=== PATIENT | male | born 1955 | race African-American/Black ===

== ENCOUNTER 2017-01-29 08:38 | Inpatient (IN) | payer OTHER ==
--- NOTE | 2017-01-29 08:50 | PDOC ---
History of Present Illness - General Chief Complaint: Back Pain Stated Complaint: BACK PAIN Time Seen by Provider: 01/29/17 08:49 - History of Present Illness Initial Comments: 01/29/17 09:07 Mr. Govea is a 61 yo male w/ pmh of CHF, DM, HLD, HTN, Current Methadone treatment (100mg daily through [facility]), Hep C (undergoing treatment) and degenerative joint disease BIBA who presents complaining of 2 days of severe pain in his back, legs, and buttocks. He relates presenting to [facility] last night for this same problem but says they gave him narcotics only and sent him home. He says he is here because he would like know why he is having this pain. Also, he reports he has not had a bowel movement or been able to make urine in 2 -3 days. The patient denies chest pain, shortness of breath, headache and dizziness. Denies fever, chills, nausea, vomit, diarrhea and constipation. Denies dysuria, frequency, urgency and hematuria. Allergies: NKDA Past History - Past Medical History Allergies/Adverse Reactions: Allergies Allergy/AdvReac Type Severity Reaction Status Date / Time No Known Allergies Allergy Verified 01/10/13 11:37 Home Medications: Ambulatory Orders Buprenorphine [Butrans] 1 patch.wk TD WEEKLY 12/08/12 Methadone [Dolophine -] 80 mg PO DAILY 12/08/12 Eszopiclone [Lunesta] 1 tab PO HS 01/10/13 Ibuprofen [Advil -] 200 mg PO PRN 01/10/13 Atorvastatin Ca [Lipitor] 40 mg PO HS #0 tablet 01/12/13 Furosemide [Lasix -] 40 mg PO DAILY #0 tablet 01/12/13 Gabapentin [Neurontin -] 400 mg PO TID #0 capsule 01/12/13 Liraglutide [Victoza -] 1.2 mg SQ HS #0 pen.injctr 01/12/13 Lisinopril [Prinivil] 20 mg PO DAILY #0 tablet 01/12/13 Metolazone [Zaroxolyn -] 2.5 mg PO DAILY@0930 #0 tablet 01/12/13 Quetiapine Fumarate "Xr" [Seroquel XR] 150 mg PO HS@2000 #0 tablet 01/12/13 Benicar - 1 tab PO DAILY 05/24/14 Asthma: Yes CHF: Yes Diabetes: No HTN: Yes (since 1989) Hypercholesterolemia: Yes - Surgical History Abdominal Surgery: Yes (gastric bypass) GI Surgery: Yes (gastric bypass) Orthopedic Surgery: Yes (lt knee replacement 2007, nia inserted into right lower leg) - Suicide/Smoking/Psychosocial Hx Smoking History: Current every day smoker Have you smoked in the past 12 months: Yes Number of Cigarettes Smoked Daily: 4 'Breaking Loose' booklet given: 01/10/13 Hx Alcohol Use: No Drug/Substance Use Hx: Yes Substance Use Type: None Hx Substance Use Treatment: No Review of Systems - Review of Systems Comments:: 01/29/17 10:00 GENERAL/CONSTITUTIONAL: No fever or chills. No weakness. HEAD, EYES, EARS, NOSE AND THROAT: No change in vision. No ear pain or discharge. No sore throat. CARDIOVASCULAR: No chest pain or shortness of breath RESPIRATORY: No cough, wheezing, or hemoptysis. GASTROINTESTINAL: No nausea, vomiting, diarrhea or constipation. GENITOURINARY: No dysuria, frequency, or change in urination. MUSCULOSKELETAL: +Generalized lower back pain and bilaterally lower extremity pain reported with any movement. SKIN: No rash NEUROLOGIC: No headache, vertigo, loss of consciousness, or change in strength/ sensation. ENDOCRINE: No increased thirst. No abnormal weight change HEMATOLOGIC/LYMPHATIC: No anemia, easy bleeding, or history of blood clots. ALLERGIC/IMMUNOLOGIC: No hives or skin allergy. *Physical Exam - Physical Exam Comments: 01/29/17 10:02 GENERAL: Awake, alert, and fully oriented, in no acute distress HEAD: No signs of trauma, normocephalic, atraumatic EYES: PERRLA, EOMI, sclera anicteric, conjunctiva clear ENT: Auricles normal inspection, hearing grossly normal, nares patent, oropharynx clear without exudates. Moist mucosa NECK: Normal ROM, supple, no lymphadenopathy, JVD, or masses LUNGS: No distress, speaks full sentences, clear to auscultation bilaterally HEART: Regular rate and rhythm, normal S1 and S2, no murmurs, rubs or gallops, peripheral pulses normal and equal bilaterally. ABDOMEN: Soft, nontender, normoactive bowel sounds. No guarding, no rebound. No masses EXTREMITIES: +Patient reporting extreme pain with any repositioning of back or legs. Unable to ambulate at baseline. NEUROLOGICAL: Cranial nerves II through XII grossly intact. Normal speech, no focal sensorimotor deficits SKIN: Warm, Dry, normal turgor, no rashes or lesions noted. ED Treatment Course - LABORATORY CBC & Chemistry Diagram: 01/29/17 09:50 01/29/17 09:50 Medical Decision Making - Medical Decision Making 01/29/17 10:23 Mr. Govea presents w/ a 2 day history of severe lower back pain radiating bilaterally down both legs; [facility]. Upon exam noted to have dark stool which was guaiac positive with H/H of 7.3/22.8 down from last (11.1/35.0 in July). Will admit for GI workup as well as transfusion in addition to planned MRI to r/o cord compression. *DC/Admit/Observation/Transfer Diagnosis at time of Disposition: Rectal bleed Anemia Qualifiers: Anemia type: unspecified type Qualified Code(s): D64.9 - Anemia, unspecified - Discharge Dispostion Admit: Yes - Referrals - Patient Instructions - Post Discharge Activity
--- NOTE | 2017-01-29 09:11 | PDOC ---
Attending Attestation - HPI HPI: 01/29/17 10:32 Pt is a 61 yo M with a PMHx of Asthma, CHF, HTN, HLD, Hepatitis C, Degenerative Joint Disease, Obesity, Heroin use (on methadone) who presents to the ED with lower back pain, legs and buttocks for the past week. Patient reports going to [facility] for the same complaints however his symptoms still persists. Patient with no urine or bowel output with the past 3 days. Patient admits to snorting cocaine this morning however has not used IVD within the past year. PCP: Dr. Efraín Solorzano - Physicial Exam PE: 01/29/17 10:32 Vitals: Triage Vital signs reviewed General Appearance: +obese. no acute distress, well nourished well developed, Head: Atraumatic, normocephalic Neck: Supple;No Nuchal rigidity Chest Wall: Nontender Cardiac: Regular rate and rhythm, no murmurs, no rubs, no gallops, Lungs: Clear to auscultation bilateral, good air movement bilaterally, Abdomen: Soft, nondistended, normal bowel sounds, nontender to palpation Extremities: + 3/5 strength in bilateral lower extremities. 2+ pitting edema in bilateral lower extremities. Full range of motion to all extremities, no cyanosis, clubbing. Skin: Warm and dry, no rashes or lesions, no petechiae - Medical Decision Making 01/29/17 10:33 Documentation prepared by Juanita Hurley, acting as medical technologist chief for Corbin Cano MD, /DO. 01/29/17 10:[address] Diaz's service. Awaiting Dr. Diaz to evaluate patient in the ED. <Juanita Hurley - Last Filed: 01/29/17 10:33> - Resident Resident Name: Andrew Saeed - ED Attending Attestation I have performed the following: I have examined & evaluated the patient, The case was reviewed & discussed with the resident, I agree w/resident's findings & plan, Exceptions are as noted - Critical Care Time Total Critical Care Time: 35 Critical Care Statement: The care of this patient involved high complexity decision making to prevent further life threatening deterioration of the patient 's condition and/or to evaluate & treat vital organ system(s) failure or risk of failure. - Medical Decision Making 01/29/17 16:50 Patient with severe low back pain. History of drug use. MRI ordered. Patient also with anemia and guaiac positive stool admitted to hospital to rule out GI bleed Reevaluation final MRI report demonstrates osteomyelitis. Ceftriaxone and vancomycin ordered. Dr. Diaz paged to inform of updated MRI results. 02/01/17 13:56 <Corbin Cano - Last Filed: 02/01/17 13:56>
[2017-01-29 09:59] LABS: BASO % 0.6 % (0-2.0); EOS % 2.2 % (0-4.5); HEMATOCRIT 22.8 % (35.4-49); HEMOGLOBIN 7.3 GM/dL (11.7-16.9); LYMPH % 15.9 % (8-40); MCH 25.6 pg (25.7-33.7); MONO % 10.4 % (3.8-10.2); NEUT % 70.9 % (42.8-82.8); PLATELET COUNT 322 K/MM3 (134-434); RBC 2.85 M/mm3 (4.00-5.60); RDW 17.7 % (11.9-15.9); WHITE BLOOD COUNT 6.7 K/mm3 (4.0-10.0)
[2017-01-29 10:24] LABS: CHLORIDE 107 mmol/L (98-107); POTASSIUM 3.6 mmol/L (3.5-5.1); SODIUM 141 mmol/L (136-145)
[2017-01-29 10:32] LABS: ALBUMIN 2.2 g/dl (3.4-5.0); ANION GAP 8 (8-16); BILIRUBIN,TOTAL 0.5 mg/dL (0.2-1.0); BLOOD UREA NITROGEN 24 mg/dL (7-18); CALCIUM 8.6 mg/dL (8.5-10.1); CO2 26 mmol/L (21-32); CREATININE 1.3 mg/dL (0.7-1.3); GLUCOSE,RANDOM 84 mg/dL (74-106); SGOT/AST 21 U/L (15-37); SGPT/ALT 16 U/L (12-78); TOT PROT 7.3 g/dl (6.4-8.2)
[2017-01-29 10:33] LABS: ALK PHOS 128 U/L (45-117)
[2017-01-29 13:41] LABS: PH,URINE 5.5 (5.0-8.0); URINE APPEARANCE CLEAR; URINE BILIRUBIN NEGATIVE (NEGATIVE); URINE BLOOD NEGATIVE (NEGATIVE); URINE COLOR YELLOW; URINE GLUCOSE (UA) NEGATIVE (NEGATIVE); URINE KETONE NEGATIVE (NEGATIVE); URINE NITRITE NEGATIVE (NEGATIVE)
[2017-01-29 13:43] VITALS: BMI 30.4
[2017-01-29 13:43] LABS: URINE PROTEIN 1+ (NEGATIVE)
[2017-01-29 13:50] LABS: EPI CELLS RARE /HPF (FEW); URINE HYALINE CAST 1 /lpf
--- NOTE | 2017-01-29 13:55 | HP ---
Admitting History and Physical - Primary Care Physician PCP: Armando Diaz - Admission Chief Complaint: BACK PAIN AND LEG WEAKNESS FOUND WITH ANEMIA BLOOD LOSS History of Present Illness: Pt is a 61 yo M with a PMHx of Asthma, CHF, HTN, HLD, Hepatitis C, Degenerative Joint Disease, Obesity, Heroin use (on methadone) who presents to the ED with lower back pain, legs and buttocks for the past week. Patient reports going to [facility] for the same complaints however his symptoms still persists. Patient with no urine or bowel output with the past 3 days. Patient admits to snorting cocaine this morning however has not used IVD within the past year. Limitations to Obtaining History: Poor Historian - Past Medical History Cardiovascular: Yes: CHF, HTN Pulmonary: Yes: COPD Psych: Yes: Other - Smoking History Smoking history: Current every day smoker Have you smoked in the past 12 months: Yes Aproximately how many cigarettes per day: 4 - Alcohol/Substance Use Hx Alcohol Use: No Home Medications - Allergies Allergies/Adverse Reactions: Allergies Allergy/AdvReac Type Severity Reaction Status Date / Time No Known Allergies Allergy Verified 01/10/13 11:37 - Home Medications Home Medications: Ambulatory Orders Buprenorphine [Butrans] 1 patch.wk TD WEEKLY 12/08/12 Methadone [Dolophine -] 80 mg PO DAILY 12/08/12 Eszopiclone [Lunesta] 1 tab PO HS 01/10/13 Ibuprofen [Advil -] 200 mg PO PRN 01/10/13 Atorvastatin Ca [Lipitor] 40 mg PO HS #0 tablet 01/12/13 Furosemide [Lasix -] 40 mg PO DAILY #0 tablet 01/12/13 Gabapentin [Neurontin -] 400 mg PO TID #0 capsule 01/12/13 Liraglutide [Victoza -] 1.2 mg SQ HS #0 pen.injctr 01/12/13 Lisinopril [Prinivil] 20 mg PO DAILY #0 tablet 01/12/13 Metolazone [Zaroxolyn -] 2.5 mg PO DAILY@0930 #0 tablet 01/12/13 Quetiapine Fumarate "Xr" [Seroquel XR] 150 mg PO HS@2000 #0 tablet 01/12/13 Benicar - 1 tab PO DAILY 05/24/14 Review of Systems - Review of Systems Constitutional: reports: Weakness Eyes: reports: No Symptoms HENT: reports: No Symptoms Neck: reports: No Symptoms Cardiovascular: reports: No Symptoms Respiratory: reports: No Symptoms Gastrointestinal: reports: Abdominal Pain Genitourinary: reports: No Symptoms Musculoskeletal: reports: Joint Pain, Muscle Weakness Integumentary: reports: No Symptoms Neurological: reports: Other Endocrine: reports: No Symptoms Hematology/Lymphatic: reports: No Symptoms Psychiatric: reports: Other Physical Examination Vital Signs: Vital Signs Temperature 98.4 F 01/29/17 13:29 Pulse Rate 92 H 01/29/17 13:29 Respiratory Rate 16 01/29/17 13:29 Blood Pressure 130/80 01/29/17 13:29 O2 Sat by Pulse Oximetry (%) 100 01/29/17 12:36 Constitutional: Yes: Moderate Distress Eyes: Yes: WNL HENT: Yes: WNL Neck: Yes: WNL Cardiovascular: Yes: WNL Respiratory: Yes: WNL Gastrointestinal: Yes: Tenderness, Rebound Renal/: Yes: WNL Musculoskeletal: Yes: Muscle Weakness Extremities: Yes: Other Edema: No Peripheral Pulses WNL: Yes Integumentary: Yes: WNL Wound/Incision: Yes: Clean/Dry Neurological: Yes: Pre-Existing Deficit, Weakness ...Motor Strength: LLE, RLE Psychiatric: Yes: Other Labs: CBC, BMP 01/29/17 09:50 01/29/17 09:50 Imaging - Results X-ray: Pending MRI: Pending Problem List - Problems (1) Smoking addiction Code(s): F17.200 - NICOTINE DEPENDENCE, UNSPECIFIED, UNCOMPLICATED (2) Substance abuse Code(s): F19.10 - OTHER PSYCHOACTIVE SUBSTANCE ABUSE, UNCOMPLICATED (3) Anemia Code(s): D64.9 - ANEMIA, UNSPECIFIED Qualifiers: Anemia type: unspecified type Qualified Code(s): D64.9 - Anemia, unspecified (4) Rectal bleed Code(s): K62.5 - HEMORRHAGE OF ANUS AND RECTUM (5) CHF (congestive heart failure) Code(s): I50.9 - HEART FAILURE, UNSPECIFIED (6) Diabetes 1.5, managed as type 2 Code(s): E13.9 - OTHER SPECIFIED DIABETES MELLITUS WITHOUT COMPLICATIONS (7) Edema Code(s): R60.9 - EDEMA, UNSPECIFIED (8) Hepatitis C antibody test positive Code(s): R76.8 - OTHER SPECIFIED ABNORMAL IMMUNOLOGICAL FINDINGS IN SERUM (9) Hyperlipidemia Code(s): E78.5 - HYPERLIPIDEMIA, UNSPECIFIED (10) Hypertension Code(s): I10 - ESSENTIAL (PRIMARY) HYPERTENSION (11) Osteoarthritis Code(s): M19.90 - UNSPECIFIED OSTEOARTHRITIS, UNSPECIFIED SITE Assessment/Plan ABD PAIN RECTAL BLEED UNKNOWN CAUSE IV PROTONIX NPO IVF PAIN CONTROL SMOKING CESSATION
[2017-01-29] MEDS ORDERED: ONDANSETRON 4 MG/2 ML VIAL IVPB PRN (14:02)
[2017-01-29] MEDS ORDERED: FOLIC ACID INJECTION - 1 MG, THIAMINE HCL 100 MG, MULTIVIT INJECTION ADULT 10 ML in SOD... IVPB ONE (14:02)
[2017-01-29] MEDS ORDERED: METHADONE HCL 5 MG TABLET (FOR DETOX USE ONLY) PO SCH ×2 (14:15)
[2017-01-29] MEDS ORDERED: METHADONE 80 MG, METHADONE 20 MG PO SCH (14:15)
--- NOTE | 2017-01-29 14:49 | CON.GI ---
Consult Consult Specialty:: GI Reason for Consultation:: Anemia, hemoccult positive stools - History of Present Illness History of Present Illness: A 61 yom drugs of abuse (heroin), Asthma, CHF, HTN, HLD, HCV (Gen 1 & 2 2016), DJD, DM, Obesity, on methadone and NSAIDs among other medications with lower back, legs, buttocks for the past week. No BMs/Urine x 3 days. Noted to have normocytic anemia and hemoccult positive stools. No history of court GI bleeding , melena, hematochezia, hematemsis, dysphagia, odynophagia, GERD-like symptoms, or dyspepsia. Ho hisotry of colitis, PUD. No weight loss. Never had EGD, or colonoscopy. Per records, patient admits to snorting cocaine this morning - History Source History Provided By: Patient, Medical Record - Past Medical History Cardio/Vascular: Yes: CHF, HTN Pulmonary: Yes: COPD Psych: Yes: Other - Alcohol/Substance Use Hx Alcohol Use: No - Smoking History Smoking history: Current every day smoker Have you smoked in the past 12 months: Yes Aproximately how many cigarettes per day: 4 Home Medications - Allergies Allergies/Adverse Reactions: Allergies Allergy/AdvReac Type Severity Reaction Status Date / Time No Known Allergies Allergy Verified 01/10/13 11:37 - Home Medications Home Medications: Ambulatory Orders Buprenorphine [Butrans] 1 patch.wk TD WEEKLY 12/08/12 Methadone [Dolophine -] 80 mg PO DAILY 12/08/12 Eszopiclone [Lunesta] 1 tab PO HS 01/10/13 Ibuprofen [Advil -] 200 mg PO PRN 01/10/13 Atorvastatin Ca [Lipitor] 40 mg PO HS #0 tablet 01/12/13 Furosemide [Lasix -] 40 mg PO DAILY #0 tablet 01/12/13 Gabapentin [Neurontin -] 400 mg PO TID #0 capsule 01/12/13 Liraglutide [Victoza -] 1.2 mg SQ HS #0 pen.injctr 01/12/13 Lisinopril [Prinivil] 20 mg PO DAILY #0 tablet 01/12/13 Metolazone [Zaroxolyn -] 2.5 mg PO DAILY@0930 #0 tablet 01/12/13 Quetiapine Fumarate "Xr" [Seroquel XR] 150 mg PO HS@2000 #0 tablet 01/12/13 Benicar - 1 tab PO DAILY 05/24/14 Family Disease History - Family Disease History Family History: Unremarkable (non-contributing) Review of Systems Findings/Remarks: Please refer to H&P Physical Exam-GI Vital Signs: Vital Signs Temperature 98.4 F 01/29/17 13:29 Pulse Rate 92 H 01/29/17 13:29 Respiratory Rate 16 01/29/17 13:29 Blood Pressure 130/80 01/29/17 13:29 O2 Sat by Pulse Oximetry (%) 100 01/29/17 12:36 Constitutional: Yes: No Distress, Calm Eyes: Yes: Conjunctiva Clear HENT: Yes: Atraumatic, Other (toothless). No: Thrush Neck: Yes: Supple Cardiovascular: Yes: Regular Rate and Rhythm Respiratory: Yes: Regular ...Palpate: Yes: Soft, Tenderness (generalized). No: Firm/Rigid, Guarding ...Percussion: No: Fluid Wave Neurological: Yes: Alert Labs: CBC, BMP 01/29/17 09:50 01/29/17 09:50 Abnormal Lab Results 01/29/17 01/29/17 01/29/17 09:50 09:50 11:07 RBC 2.85 L D Hgb 7.3 L D Hct 22.8 L D MCH 25.6 L RDW 17.7 H D MPV 7.0 L D Monocytes % 10.4 H BUN 24 H D Alkaline Phosphatase 128 H D Albumin 2.2 L D Urine Protein 1+ H Laboratory Results - last 24 hr 01/29/17 01/29/17 01/29/17 09:34 09:50 09:50 WBC 6.7 D RBC 2.85 L D Hgb 7.3 L D Hct 22.8 L D MCV 80.0 MCH 25.6 L MCHC 32.0 RDW 17.7 H D Plt Count 322 D MPV 7.0 L D Neutrophils % 70.9 Lymphocytes % 15.9 D Monocytes % 10.4 H Eosinophils % 2.2 Basophils % 0.6 Sodium 141 Potassium 3.6 Chloride 107 Carbon Dioxide 26 Anion Gap 8 BUN 24 H D Creatinine 1.3 Creat Clearance w eGFR 55.75 Random Glucose 84 Calcium 8.6 Total Bilirubin 0.5 AST 21 D ALT 16 D Alkaline Phosphatase 128 H D Total Protein 7.3 Albumin 2.2 L D Urine Color Urine Appearance Urine pH Ur Specific Mason Urine Protein Urine Glucose (UA) Urine Ketones Urine Blood Urine Nitrite Urine Bilirubin Urine Urobilinogen Urine WBC (Auto) Urine RBC (Auto) Ur Epithelial Cells Hyaline Casts Stool Occult Blood Positive 01/29/17 11:07 WBC RBC Hgb Hct MCV MCH MCHC RDW Plt Count MPV Neutrophils % Lymphocytes % Monocytes % Eosinophils % Basophils % Sodium Potassium Chloride Carbon Dioxide Anion Gap BUN Creatinine Creat Clearance w eGFR Random Glucose Calcium Total Bilirubin AST ALT Alkaline Phosphatase Total Protein Albumin Urine Color Yellow Urine Appearance Clear Urine pH 5.5 Ur Specific Mason 1.020 Urine Protein 1+ H Urine Glucose (UA) Negative Urine Ketones Negative Urine Blood Negative Urine Nitrite Negative Urine Bilirubin Negative Urine Urobilinogen 1.0 Urine WBC (Auto) 3 Urine RBC (Auto) 3 Ur Epithelial Cells Rare Hyaline Casts 1 Stool Occult Blood Imaging - Results MRI: Report Reviewed (oseomyelitis, possible disk compression) Problem List - Problems (1) Diabetes mellitus Code(s): E11.9 - TYPE 2 DIABETES MELLITUS WITHOUT COMPLICATIONS (2) Occult blood positive stool Code(s): R19.5 - OTHER FECAL ABNORMALITIES (3) Abnormal MRI, spine Code(s): R93.7 - ABNORMAL FINDINGS ON DIAGNOSTIC IMAGING OF PRT MS SYS (4) Substance abuse Code(s): F19.10 - OTHER PSYCHOACTIVE SUBSTANCE ABUSE, UNCOMPLICATED (5) CHF (congestive heart failure) Code(s): I50.9 - HEART FAILURE, UNSPECIFIED (6) Hepatitis C infection Code(s): B19.20 - UNSPECIFIED VIRAL HEPATITIS C WITHOUT HEPATIC COMA Assessment/Plan Significant findings on MRI of the spine suggestive of compression and osteomyelitis. These findings in conjunction with the presenting c/o of b/l lower extremities pain, stool and urine retention should be addressed urgently. A normochrocmic anemia with hemoccult positive stool in a 61 yo male who has never had colonoscopy and is taking NSAIDs. No significant, or active GI bleeding at this time to warrant urgent intervention. Hx of untreated HCV - gen 1 and 2 ID and Neurology consults. Avoid NSAIDs. Agree with PPI. DM diet Plan EGD and colonoscopy after the above acute issues addressed. Monitor for gross GI bleeding. Daily Hgb Check HBV, A status HCV treatment as outpatient.
--- NOTE | 2017-01-29 15:02 | CONSULT ---
Consult Consult Specialty:: general surgery Referred by:: sylvia skinner -PMD Reason for Consultation:: abdominal pain and chronic GI bleed - History of Present Illness Chief Complaint: back pain, abdominal pain History of Present Illness: 61 yo male PMH Asthma, CHF, HTN, HLD, Hepatitis C, Degenerative Joint Disease, Obesity, prostate CA?, Heroin use (on methadone) who presents to the ED with lower back pain, legs and buttocks for the past week. He reports back pain, leg pain, and lower abdominal pain. Patient reports a confusing of recent hospitalization and evaluation for the aforementioned complaints. He reports no BM or urine output for the past 3 days. He had an MRI of the Lumbar spine that have compressive pathology that may explain some of his pain. He had GUIAC postive stool and is anemic 7.3/22.8 on screening labs. He denies blood bowel movements, coffee ground emesis, syncope, or other concerning findings. Patient admits to snorting cocaine this morning however has not used IVD within the past year. we were asked to assess given these findings. - History Source History Provided By: Patient Limitations to Obtaining History: Poor Historian - Past Medical History Cardio/Vascular: Yes: CHF, HTN Pulmonary: Yes: COPD Psych: Yes: Other - Alcohol/Substance Use Hx Alcohol Use: No History of Substance Use: reports: Cocaine, Heroin - Smoking History Smoking history: Current every day smoker Have you smoked in the past 12 months: Yes Aproximately how many cigarettes per day: 4 - Social History Place of : [facility] History of Recent Travel: No Home Medications - Allergies Allergies/Adverse Reactions: Allergies Allergy/AdvReac Type Severity Reaction Status Date / Time No Known Allergies Allergy Verified 01/10/13 11:37 - Home Medications Home Medications: Ambulatory Orders Buprenorphine [Butrans] 1 patch.wk TD WEEKLY 12/08/12 Methadone [Dolophine -] 80 mg PO DAILY 12/08/12 Eszopiclone [Lunesta] 1 tab PO HS 01/10/13 Ibuprofen [Advil -] 200 mg PO PRN 01/10/13 Atorvastatin Ca [Lipitor] 40 mg PO HS #0 tablet 01/12/13 Furosemide [Lasix -] 40 mg PO DAILY #0 tablet 01/12/13 Gabapentin [Neurontin -] 400 mg PO TID #0 capsule 01/12/13 Liraglutide [Victoza -] 1.2 mg SQ HS #0 pen.injctr 01/12/13 Lisinopril [Prinivil] 20 mg PO DAILY #0 tablet 01/12/13 Metolazone [Zaroxolyn -] 2.5 mg PO DAILY@0930 #0 tablet 01/12/13 Quetiapine Fumarate "Xr" [Seroquel XR] 150 mg PO HS@2000 #0 tablet 01/12/13 Benicar - 1 tab PO DAILY 05/24/14 Review of Systems - Review of Systems Constitutional: denies: Chills, Fever, Unintentional Wgt. Loss Eyes: denies: Blurred Vision, Recent Change in Vision HENT: denies: Difficult Swallowing, Throat Pain Neck: reports: Pain on Movement Respiratory: reports: Cough, SOB Gastrointestinal: reports: Abdominal Pain Physical Exam Vital Signs: Vital Signs Temperature 98.4 F 01/29/17 13:29 Pulse Rate 92 H 01/29/17 13:29 Respiratory Rate 16 01/29/17 13:29 Blood Pressure 130/80 01/29/17 13:29 O2 Sat by Pulse Oximetry (%) 100 01/29/17 12:36 Vital Signs Period Temp Pulse Resp BP Sys/Pascal Pulse Ox Last 24 Hr 98.4 F-98.8 F 92-96 16-20 130-139/80-82 96-100 Constitutional: Yes: Well Nourished, No Distress, Calm, Obese Eyes: Yes: Conjunctiva Clear, EOM Intact HENT: Yes: Atraumatic, Normocephalic, Other (no teeth) Neck: Yes: Supple, Trachea Midline Cardiovascular: Yes: Regular Rate and Rhythm, S1, S2 Respiratory: Yes: Regular, CTA Bilaterally Gastrointestinal: Yes: Normal Bowel Sounds, Soft, Abdomen, Obese, Rectal Bleeding (GUIAC postitive, no court blood). No: Distention, Melena, Palpable Mass, Tenderness, Tenderness, Epigastrium, Tenderness, Rebound ...Rectal Exam: Yes: Guaiac Positive, Sphincter Tone Normal, Other (soft stick green brown stool no court blood, no masses). No: Hemorrhoids/External, Hemorrhoids/Internal Renal/: Yes: Escobedo Present (escobedo size 16 placed, 500ml of concentrated urine drained immediately, very poor hygiene, forskin reduced post placement). No: Bladder Distention, CVA Tenderness - Left, CVA Tenderness - Right Musculoskeletal: Yes: Back Pain, Muscle Weakness (bilateral lower extremities are week. Lumbar spine pain) Extremities: No: Cool, Cyanosis Edema: No Peripheral Pulses WNL: Yes Integumentary: No: Jaundice, Pressure Ulcer, Rash Neurological: Yes: Alert, Oriented, Confusion (unable to provide detailed history), Cran Nerves II-XII Intact, Weakness (bilateral lower extremities are 2 /5 hips and knees) ...Motor Strength: LLE, RLE Psychiatric: Yes: Alert, Oriented Labs: CBC, BMP 01/29/17 09:50 01/29/17 09:50 Abnormal Lab Results 01/29/17 01/29/17 01/29/17 09:50 09:50 11:07 RBC 2.85 L D Hgb 7.3 L D Hct 22.8 L D MCH 25.6 L RDW 17.7 H D MPV 7.0 L D Monocytes % 10.4 H BUN 24 H D Alkaline Phosphatase 128 H D Albumin 2.2 L D Urine Protein 1+ H Imaging - Results Cat Scan: Pending MRI: Report Reviewed, Image Reviewed (Lumbar compressive pathology) Problem List - Problems (1) Rectal bleed Assessment/Plan: Chronic GI bleeding, hemmoccult positive stool, no gross blood on rectal, no reported melena or hematochezia, no coffee ground emesis. NPO and IVF hydration CT abdomen and pelvis scan with PO contrast Vitals at least q4 hours for monitoring Serial CBC Transfuse if he develops a decline in hemodynamics Type and Screen sent, with repeat CBC appreciate GI recommendations will follow Code(s): K62.5 - HEMORRHAGE OF ANUS AND RECTUM (2) Occult blood positive stool Code(s): R19.5 - OTHER FECAL ABNORMALITIES (3) Urine retention Assessment/Plan: Neurogenic bladder urology consult escobedo placed Code(s): R33.9 - RETENTION OF URINE, UNSPECIFIED (4) Abnormal MRI, spine Assessment/Plan: Neurology/ Neurosurgery consultation Initiate IV steroids Code(s): R93.7 - ABNORMAL FINDINGS ON DIAGNOSTIC IMAGING OF PRT MS SYS
[2017-01-29] MEDS: NICOTINE 21 MG/24 HOURS TOPICAL PATCH TD SCH (15:32)
[2017-01-29] MEDS: PANTOPRAZOLE SODIUM 40 MG VIAL IVPUSH SCH ×2 (15:32→21:29)
[2017-01-29] MEDS ORDERED: CEFTRIAXONE 2 GM in DEXTROSE 5%-WATER - 100 ML IVPB ONE (16:44)
[2017-01-29] MEDS ORDERED: VANCOMYCIN 1,000 MG in DEXTROSE 5%-WATER - 250 ML IVPB ONE (16:48)
[2017-01-29 17:11] LABS: MCH 25.9 pg (25.7-33.7); MCHC 32.3 g/dl (32.0-35.9); MEAN CELL VOLUME 80.2 fl (80-96); MEAN PLT VOLUME 7.3 fl (7.5-11.1); PLATELET COUNT 309 K/MM3 (134-434); RBC 2.61 M/mm3 (4.00-5.60); RDW 17.7 % (11.9-15.9); WHITE BLOOD COUNT 6.1 K/mm3 (4.0-10.0)
[2017-01-29 17:13] LABS: HEMOGLOBIN 6.8 GM/dL (11.7-16.9)
[2017-01-29 17:45] LABS: ALBUMIN 2.1 g/dl (3.4-5.0); ANION GAP 6 (8-16); BILIRUBIN,TOTAL 0.5 mg/dL (0.2-1.0); BLOOD UREA NITROGEN 21 mg/dL (7-18); CALCIUM 8.2 mg/dL (8.5-10.1); CHLORIDE 108 mmol/L (98-107); CO2 29 mmol/L (21-32); GLUCOSE,RANDOM 72 mg/dL (74-106); POTASSIUM 3.7 mmol/L (3.5-5.1); SGOT/AST 18 U/L (15-37); SGPT/ALT 14 U/L (12-78); SODIUM 143 mmol/L (136-145)
[2017-01-29 17:47] LABS: ALK PHOS 119 U/L (45-117); CREATININE 1.1 mg/dL (0.7-1.3); TOT PROT 6.5 g/dl (6.4-8.2)
[2017-01-29 19:18] LABS: URINE LEUK ESTERASE Negative (NEGATIVE)
[2017-01-29] MEDS: POLYETHYLENE GLYCOL 3350 119 GM BTL PO SCH ×2 (19:37→21:28)
[2017-01-29] MEDS: LACTATED RINGERS SOLUTION 1,000 ML/1,000 ML INFUS.BAG IV SCH (20:00)
[2017-01-29] MEDS: morphine SULFATE 4 MG/ML VIAL IVPUSH PRN (20:13)
[2017-01-29] MEDS: LORazepam 2 MG/ML SDV VIAL IVPUSH PRN (21:29)
--- NOTE | 2017-01-30 05:24 | PN ---
Progress Note, Physician Chief Complaint: abdominal pain and GI bleed History of Present Illness: 61 yo male PMH Asthma, CHF, HTN, HLD, Hepatitis C, Degenerative Joint Disease, Obesity, prostate CA?, Heroin use (on methadone) who presents to the ED with lower back pain, legs and buttocks for the past week. He had GUIAC postive stool and is anemic 7.3/22.8 on screening labs. He denies blood bowel movements , coffee ground emesis, syncope, or other concerning findings. Last night he had no new complaints. He is lethargic but appropriate with questions and his nurse reports the same mental status with her. - Current Medication List Current Medications: Active Medications Lactated Ringer's (Lactated Ringers Solution) 1,000 ml in 1,000 mls @ 125 mls/ hr IV ASDIR [facility] Last Admin: 01/29/17 20:00 Dose: Not Given Lorazepam (Ativan Injection -) 1 mg IVPUSH TID PRN PRN Reason: ANXIETY Last Admin: 01/29/17 21:29 Dose: 1 mg Methadone HCl 80 mg/ Methadone (HCl 20 mg) 100 mg PO DAILY [facility] Morphine Sulfate (Morphine Sulfate) 4 mg IVPUSH Q6H PRN PRN Reason: PAIN Last Admin: 01/29/17 20:13 Dose: 4 mg Nicotine (Nicoderm Patch -) 21 mg TD DAILY [facility] Last Admin: 01/29/17 15:32 Dose: 21 mg Ondansetron HCl (Zofran Injection) 8 mg IVPB Q6H PRN PRN Reason: NAUSEA Pantoprazole Sodium (Protonix Iv) 40 mg IVPUSH BID [facility] Last Admin: 01/29/17 21:29 Dose: 40 mg Polyethylene Glycol (Miralax (For Daily Use) -) 17 gm PO TID [facility] Last Admin: 01/29/17 21:28 Dose: 17 gm - Objective Vital Signs: Vital Signs Temperature 98.0 F 01/29/17 23:00 Pulse Rate 85 01/29/17 23:00 Respiratory Rate 18 01/29/17 23:00 Blood Pressure 128/78 01/29/17 23:00 O2 Sat by Pulse Oximetry (%) 100 01/29/17 21:00 Vital Signs Period Temp Pulse Resp BP Sys/Pascal Pulse Ox Last 24 Hr 97.8 F-98.5 F 85-90 18-18 123-154/78-95 100-100 Constitutional: Yes: Well Nourished, No Distress, Obese Eyes: Yes: Conjunctiva Clear, EOM Intact HENT: Yes: Atraumatic, Normocephalic, Other (missing teeth) Neck: Yes: Supple, Trachea Midline Cardiovascular: Yes: Regular Rate and Rhythm, S1, S2 Respiratory: Yes: Regular, CTA Bilaterally Gastrointestinal: Yes: Normal Bowel Sounds, Soft. No: Distention, Tenderness, Tenderness, Epigastrium, Tenderness, Rebound ...Rectal Exam: Yes: Deferred, Erythema Genitourinary: No: CVA Tenderness - Left, CVA Tenderness - Right Neurological: Yes: Oriented, Lethargy Psychiatric: Yes: Oriented Labs: CBC, BMP 01/29/17 17:03 01/29/17 17:03 - ....Imaging Cat Scan: Pending, Image Reviewed (no clear intraabdominal pathology identified , will await final reading) Problem List - Problems (1) Rectal bleed Assessment/Plan: Chronic GI bleeding, hemmoccult positive stool, no gross blood on rectal, no reported melena or hematochezia, no coffee ground emesis, appropriate response to transfusion of 2RBC. F/u radiologist reading of CT abdomen and pelvis scan with PO contrast trend CBC IV antibiotics per ID f/u cultures monitor for development of sepsis will follow for serial abdominal exams Code(s): K62.5 - HEMORRHAGE OF ANUS AND RECTUM (2) Occult blood positive stool Code(s): R19.5 - OTHER FECAL ABNORMALITIES (3) Urine retention Code(s): R33.9 - RETENTION OF URINE, UNSPECIFIED (4) Abnormal MRI, spine Code(s): R93.7 - ABNORMAL FINDINGS ON DIAGNOSTIC IMAGING OF PRT MS SYS (5) Bacteremia Code(s): R78.81 - BACTEREMIA
[2017-01-30] MEDS: POLYETHYLENE GLYCOL 3350 119 GM BTL PO SCH ×3 (06:09→21:33)
[2017-01-30] MEDS ORDERED: VANCOMYCIN 1 GRAM (PRE-DOCKED) 1,000 MG/250 ML BAG IVPB ONE (07:00)
[2017-01-30] MEDS ORDERED: VANCOMYCIN 1,000 MG in DEXTROSE 5%-WATER - 250 ML IVPB ONE (08:23)
[2017-01-30] MEDS ORDERED: PIPERACILLIN/TAZOB 3.375 GM 3.375 GM in DEXTROSE 5%-WATER - 50 ML IVPB ONE (08:30)
[2017-01-30] MEDS ORDERED: PIPERACILLIN/TAZOB 3.375 GM/50 ML PRE-DOCKED IVPB ONE (08:30)
--- NOTE | 2017-01-30 08:40 | EKG ---
Test Reason : Blood Pressure : / mmHG Vent. Rate : 096 BPM Atrial Rate : 096 BPM P-R Int : 140 ms QRS Dur : 096 ms QT Int : 364 ms P-R-T Axes : 065 002 061 degrees QTc Int : 459 ms NORMAL SINUS RHYTHM NORMAL ECG WHEN COMPARED WITH ECG OF 12-JAN-2013 11:16, VENT. RATE HAS INCREASED BY [address] NO LONGER DEPRESSED IN INFERIOR LEADS NON-SPECIFIC CHANGE IN ST SEGMENT IN LATERAL LEADS T WAVE INVERSION NO LONGER EVIDENT IN INFERIOR LEADS QT HAS LENGTHENED Confirmed by ALEJANDRO NEGRETE, PAULA ([id number]) on 01/30/2017 8:40:32 AM Referred By: Confirmed By:PAULA ALLEN MD
--- NOTE | 2017-01-30 09:05 | PN ---
Progress Note, Physician Chief Complaint: ID This 61 year old male diabetic history of substance abuse( denies IVDA in some time) presents with low back pain [address] [facility] for an abscess of this right wrist I and D performed. Then says he got low back pain severe Normally in a wheel chair - Current Medication List Current Medications: Active Medications Lactated Ringer's (Lactated Ringers Solution) 1,000 ml in 1,000 mls @ 125 mls/ hr IV ASDIR [facility] Last Admin: 01/29/17 20:00 Dose: Not Given Lorazepam (Ativan Injection -) 1 mg IVPUSH TID PRN PRN Reason: ANXIETY Last Admin: 01/29/17 21:29 Dose: 1 mg Methadone HCl 80 mg/ Methadone (HCl 20 mg) 100 mg PO DAILY@0600 [facility] Morphine Sulfate (Morphine Sulfate) 4 mg IVPUSH Q6H PRN PRN Reason: PAIN Last Admin: 01/29/17 20:13 Dose: 4 mg Nicotine (Nicoderm Patch -) 21 mg TD DAILY [facility] Last Admin: 01/29/17 15:32 Dose: 21 mg Ondansetron HCl (Zofran Injection) 8 mg IVPB Q6H PRN PRN Reason: NAUSEA Pantoprazole Sodium (Protonix Iv) 40 mg IVPUSH BID [facility] Last Admin: 01/29/17 21:29 Dose: 40 mg Polyethylene Glycol (Miralax (For Daily Use) -) 17 gm PO TID [facility] Last Admin: 01/30/17 06:09 Dose: 17 gm - Objective Vital Signs: Vital Signs Temperature 98.5 F 01/30/17 06:00 Pulse Rate 90 01/30/17 06:00 Respiratory Rate 18 01/30/17 06:00 Blood Pressure 134/92 01/30/17 06:00 O2 Sat by Pulse Oximetry (%) 100 01/29/17 21:00 Cardiovascular: Yes: S1, S2. No: Murmur Respiratory: Yes: WNL, Regular, CTA Bilaterally Gastrointestinal: Yes: Soft. No: Tenderness Extremities: Yes: Other (right wrist open wound clearn with sutures) Labs: CBC, BMP 01/29/17 17:03 01/29/17 17:03 Problem List - Problems (1) Osteomyelitis of lumbar spine Code(s): M46.26 - OSTEOMYELITIS OF VERTEBRA, LUMBAR REGION (2) Diabetes mellitus Code(s): E11.9 - TYPE 2 DIABETES MELLITUS WITHOUT COMPLICATIONS (3) CHF (congestive heart failure) Code(s): I50.9 - HEART FAILURE, UNSPECIFIED (4) Diabetes 1.5, managed as type 2 Code(s): E13.9 - OTHER SPECIFIED DIABETES MELLITUS WITHOUT COMPLICATIONS (5) Gram-positive cocci bacteremia Code(s): R78.81 - BACTEREMIA Assessment/Plan Microbiology 01/10/13 20:07 Blood - Peripheral Venous Blood Culture - Final Brevibacterium Species 04/05/14 11:30 Calf - Left Posterior Gram Stain - Final 04/05/14 11:30 Calf - Left Posterior Wound Culture - Final Staphylococcus Aureus Streptococcus Viridans 01/29/17 09:50 Blood - Peripheral Venous Blood Culture - Preliminary Pending Organism Laboratory Tests 01/29/17 01/29/17 17:03 17:03 WBC 6.1 Hgb 6.8 L* Hct 21.0 L Plt Count 309 BUN 21 H Creatinine 1.1 Assessment Recent abscess drained right wrist ( no culture apparently at [facility] found) Lumbar osteomyelitis hematogenous origin Gram positive in the blood History of bacteremia Diabetes Plan Vancomycin and Cefepime pending final culture ECHO to look for endocarditis CRP ESR Dr Del Toro neurosurgery should see Hazel NEGRETE
[2017-01-30] MEDS ORDERED: CEFEPIME HCL 2 GM VIAL (RESTRICTED TO ID) IVPB SCH (09:15)
[2017-01-30] MEDS ORDERED: PT OWN MED DRAWER 7, Y5N ONE (09:31)
[2017-01-30] MEDS ORDERED: VANCOMYCIN 1,500 MG in DEXTROSE 5%-WATER - 500 ML IVPB SCH (10:00)
[2017-01-30] MEDS ORDERED: METHADONE 80 MG, METHADONE 20 MG PO SCH (10:00)
[2017-01-30] MEDS ORDERED: PIPERACILLIN/TAZOB 3.375 GM/50 ML PRE-DOCKED IVPB SCH (10:00)
[2017-01-30] MEDS: METHADONE 80 MG, METHADONE 20 MG PO SCH (10:06)
[2017-01-30 10:15] LABS: BASO % 0.4 % (0-2.0); EOS % 3.1 % (0-4.5); HEMOGLOBIN 8.5 GM/dL (11.7-16.9); LYMPH % 18.7 % (8-40); MCH 26.2 pg (25.7-33.7); MCHC 32.8 g/dl (32.0-35.9); MONO % 8.1 % (3.8-10.2); NEUT % 69.7 % (42.8-82.8); PLATELET COUNT 291 K/MM3 (134-434); RBC 3.26 M/mm3 (4.00-5.60); RDW 16.8 % (11.9-15.9); WHITE BLOOD COUNT 6.6 K/mm3 (4.0-10.0)
[2017-01-30 10:29] LABS: CALCIUM 7.9 mg/dL (8.5-10.1); CHLORIDE 109 mmol/L (98-107); POTASSIUM 3.7 mmol/L (3.5-5.1); SODIUM 142 mmol/L (136-145)
[2017-01-30 10:34] LABS: ANION GAP 5 (8-16); BILIRUBIN,TOTAL 0.9 mg/dL (0.2-1.0); BLOOD UREA NITROGEN 16 mg/dL (7-18); CO2 28 mmol/L (21-32); GLUCOSE,RANDOM 87 mg/dL (74-106); SGOT/AST 16 U/L (15-37); SGPT/ALT 13 U/L (12-78); TOT PROT 6.7 g/dl (6.4-8.2)
[2017-01-30 10:35] LABS: ALK PHOS 123 U/L (45-117)
[2017-01-30] MEDS: NICOTINE 21 MG/24 HOURS TOPICAL PATCH TD SCH (11:25)
[2017-01-30] MEDS: PANTOPRAZOLE SODIUM 40 MG VIAL IVPUSH SCH ×2 (11:28→21:33)
--- NOTE | 2017-01-30 12:05 | PN ---
Progress Note, Physician Chief Complaint: AWAKE COMFORTABLE - Current Medication List Current Medications: Active Medications Lactated Ringer's (Lactated Ringers Solution) 1,000 ml in 1,000 mls @ 125 mls/ hr IV ASDIR [facility] Last Admin: 01/29/17 20:00 Dose: Not Given Cefepime HCl 2 gm/ Dextrose 100 mls @ 200 mls/hr IVPB Q8H-IV BELLA Vancomycin HCl 1,500 mg/ (Dextrose) 500 mls @ 250 mls/hr IVPB BID@0700,1900 [facility] PRN Reason: Protocol Lorazepam (Ativan Injection -) 1 mg IVPUSH TID PRN PRN Reason: ANXIETY Last Admin: 01/29/17 21:29 Dose: 1 mg Methadone HCl 80 mg/ Methadone (HCl 20 mg) 100 mg PO DAILY@0600 [facility] Last Admin: 01/30/17 10:06 Dose: Not Given Morphine Sulfate (Morphine Sulfate) 4 mg IVPUSH Q6H PRN PRN Reason: PAIN Last Admin: 01/29/17 20:13 Dose: 4 mg Nicotine (Nicoderm Patch -) 21 mg TD DAILY [facility] Last Admin: 01/30/17 11:25 Dose: 21 mg Ondansetron HCl (Zofran Injection) 8 mg IVPB Q6H PRN PRN Reason: NAUSEA Pantoprazole Sodium (Protonix Iv) 40 mg IVPUSH BID [facility] Last Admin: 01/30/17 11:28 Dose: 40 mg Polyethylene Glycol (Miralax (For Daily Use) -) 17 gm PO TID [facility] Last Admin: 01/30/17 06:09 Dose: 17 gm - Objective Vital Signs: Vital Signs Temperature 98.2 F 01/30/17 09:13 Pulse Rate 90 01/30/17 09:13 Respiratory Rate 18 01/30/17 09:13 Blood Pressure 154/95 01/30/17 09:13 O2 Sat by Pulse Oximetry (%) 100 01/29/17 21:00 Constitutional: Yes: Mild Distress Eyes: Yes: WNL HENT: Yes: WNL Neck: Yes: WNL Cardiovascular: Yes: WNL Respiratory: Yes: WNL Gastrointestinal: Yes: Tenderness Genitourinary: Yes: WNL Musculoskeletal: Yes: Back Pain, Muscle Weakness Extremities: Yes: WNL Edema: No Peripheral Pulses WNL: Yes Integumentary: Yes: WNL Wound/Incision: Yes: Clean/Dry Neurological: Yes: Pre-Existing Deficit ...Motor Strength: LLE, RLE Psychiatric: Yes: Other Labs: CBC, BMP 01/30/17 09:45 01/30/17 09:45 Problem List - Problems (1) Smoking addiction Code(s): F17.200 - NICOTINE DEPENDENCE, UNSPECIFIED, UNCOMPLICATED (2) Substance abuse Code(s): F19.10 - OTHER PSYCHOACTIVE SUBSTANCE ABUSE, UNCOMPLICATED (3) Anemia Code(s): D64.9 - ANEMIA, UNSPECIFIED Qualifiers: Anemia type: unspecified type Qualified Code(s): D64.9 - Anemia, unspecified (4) Rectal bleed Code(s): K62.5 - HEMORRHAGE OF ANUS AND RECTUM (5) CHF (congestive heart failure) Code(s): I50.9 - HEART FAILURE, UNSPECIFIED (6) Diabetes 1.5, managed as type 2 Code(s): E13.9 - OTHER SPECIFIED DIABETES MELLITUS WITHOUT COMPLICATIONS (7) Edema Code(s): R60.9 - EDEMA, UNSPECIFIED (8) Hepatitis C antibody test positive Code(s): R76.8 - OTHER SPECIFIED ABNORMAL IMMUNOLOGICAL FINDINGS IN SERUM (9) Hyperlipidemia Code(s): E78.5 - HYPERLIPIDEMIA, UNSPECIFIED (10) Hypertension Code(s): I10 - ESSENTIAL (PRIMARY) HYPERTENSION (11) Osteoarthritis Code(s): M19.90 - UNSPECIFIED OSTEOARTHRITIS, UNSPECIFIED SITE (12) Abnormal MRI, spine Code(s): R93.7 - ABNORMAL FINDINGS ON DIAGNOSTIC IMAGING OF PRT MS SYS (13) Gram-positive cocci bacteremia Code(s): R78.81 - BACTEREMIA (14) Osteomyelitis of lumbar spine Code(s): M46.26 - OSTEOMYELITIS OF VERTEBRA, LUMBAR REGION Assessment/Plan IV ABX PER ID NEUROSURGERY EVAL DVT PROPHYLAXIS TRANSFUSE PRBC NEEDED METHADONE RESTARTED ATIVAN PRN
[2017-01-30] MEDS: CEFEPIME 2 GM in DEXTROSE 5%-WATER - 100 ML IVPB SCH ×2 (12:43→18:51)
[2017-01-30] MEDS: LACTATED RINGERS SOLUTION 1,000 ML/1,000 ML INFUS.BAG IV SCH (15:23)
[2017-01-30] MEDS ORDERED: BISACODYL 5 MG TABLET.DR (FP) PO ONE (15:28)
[2017-01-30 15:29] LABS: BASO % 0.5 % (0-2.0); EOS % 2.5 % (0-4.5); HEMATOCRIT 25.5 % (35.4-49); HEMOGLOBIN 8.3 GM/dL (11.7-16.9); LYMPH % 17.7 % (8-40); MCH 26.1 pg (25.7-33.7); MCHC 32.7 g/dl (32.0-35.9); MEAN PLT VOLUME 6.8 fl (7.5-11.1); MONO % 10.1 % (3.8-10.2); NEUT % 69.2 % (42.8-82.8); PLATELET COUNT 279 K/MM3 (134-434); RBC 3.18 M/mm3 (4.00-5.60); RDW 16.7 % (11.9-15.9); WHITE BLOOD COUNT 6.4 K/mm3 (4.0-10.0)
--- NOTE | 2017-01-30 15:30 | PN ---
Progress Note, Physician History of Present Illness: Clinically the same. No acute events. ID evaluation and recommendations noted. S /p 2 UPRBC for Hgb 6.8, however no overs signs of GI bleeding - Current Medication List Current Medications: Active Medications Lactated Ringer's (Lactated Ringers Solution) 1,000 ml in 1,000 mls @ 125 mls/ hr IV ASDIR [facility] Last Admin: 01/30/17 15:23 Dose: 125 mls/hr Cefepime HCl 2 gm/ Dextrose 100 mls @ 200 mls/hr IVPB Q8H-IV [facility] Last Admin: 01/30/17 12:43 Dose: 200 mls/hr Vancomycin HCl 1,500 mg/ (Dextrose) 500 mls @ 250 mls/hr IVPB BID@0700,1900 [facility] PRN Reason: Protocol Lorazepam (Ativan Injection -) 1 mg IVPUSH TID PRN PRN Reason: ANXIETY Last Admin: 01/29/17 21:29 Dose: 1 mg Methadone HCl 80 mg/ Methadone (HCl 20 mg) 100 mg PO DAILY@0600 [facility] Last Admin: 01/30/17 10:06 Dose: Not Given Morphine Sulfate (Morphine Sulfate) 4 mg IVPUSH Q6H PRN PRN Reason: PAIN Last Admin: 01/29/17 20:13 Dose: 4 mg Nicotine (Nicoderm Patch -) 21 mg TD DAILY [facility] Last Admin: 01/30/17 11:25 Dose: 21 mg Ondansetron HCl (Zofran Injection) 8 mg IVPB Q6H PRN PRN Reason: NAUSEA Pantoprazole Sodium (Protonix Iv) 40 mg IVPUSH BID [facility] Last Admin: 01/30/17 11:28 Dose: 40 mg Polyethylene Glycol (Miralax (For Daily Use) -) 17 gm PO TID [facility] Last Admin: 01/30/17 15:22 Dose: 17 gm - Objective Vital Signs: Vital Signs Temperature 99.1 F 01/30/17 14:42 Pulse Rate 83 01/30/17 14:42 Respiratory Rate 18 01/30/17 14:42 Blood Pressure 136/74 01/30/17 14:42 O2 Sat by Pulse Oximetry (%) 100 01/30/17 09:00 Constitutional: Yes: No Distress, Calm Gastrointestinal: Yes: Soft. No: Distention, Tenderness Neurological: Yes: Alert, Oriented Labs: Abnormal Lab Results 01/29/17 01/29/17 01/29/17 17:03 17:03 17:03 RBC 2.61 L Hgb 6.8 L* Hct 21.0 L RDW 17.7 H MPV 7.3 L Chloride 108 H Anion Gap 6 L BUN 21 H Random Glucose 72 L Calcium 8.2 L Alkaline Phosphatase 119 H C-Reactive Protein Albumin 2.1 L Crossmatch See Detail 01/30/17 01/30/17 01/30/17 09:45 09:45 09:45 RBC 3.26 L D Hgb 8.5 L D Hct 26.0 L D RDW 16.8 H MPV 7.0 L Chloride 109 H Anion Gap 5 L BUN Random Glucose Calcium 7.9 L Alkaline Phosphatase 123 H C-Reactive Protein 5.9 H Albumin 2.0 L Crossmatch Problem List - Problems (1) Diabetes mellitus Code(s): E11.9 - TYPE 2 DIABETES MELLITUS WITHOUT COMPLICATIONS (2) Occult blood positive stool Code(s): R19.5 - OTHER FECAL ABNORMALITIES (3) Abnormal MRI, spine Code(s): R93.7 - ABNORMAL FINDINGS ON DIAGNOSTIC IMAGING OF PRT MS SYS (4) Substance abuse Code(s): F19.10 - OTHER PSYCHOACTIVE SUBSTANCE ABUSE, UNCOMPLICATED (5) CHF (congestive heart failure) Code(s): I50.9 - HEART FAILURE, UNSPECIFIED (6) Hepatitis C infection Code(s): B19.20 - UNSPECIFIED VIRAL HEPATITIS C WITHOUT HEPATIC COMA Assessment/Plan Plan EGD and colonoscopy. Monitor for gross GI bleeding. Daily Hgb
[2017-01-30 15:44] LABS: CHLORIDE 109 mmol/L (98-107); POTASSIUM 3.7 mmol/L (3.5-5.1); SODIUM 142 mmol/L (136-145)
[2017-01-30 15:48] LABS: ANION GAP 5 (8-16); BLOOD UREA NITROGEN 17 mg/dL (7-18); CALCIUM 8.2 mg/dL (8.5-10.1); CO2 28 mmol/L (21-32)
[2017-01-30 15:49] LABS: ALK PHOS 117 U/L (45-117); BILIRUBIN,TOTAL 0.7 mg/dL (0.2-1.0); GLUCOSE,RANDOM 86 mg/dL (74-106); SGOT/AST 14 U/L (15-37); SGPT/ALT 14 U/L (12-78); TOT PROT 6.5 g/dl (6.4-8.2)
[2017-01-30] MEDS: morphine SULFATE 4 MG/ML VIAL IVPUSH PRN ×2 (16:33→23:28)
--- NOTE | 2017-01-30 16:33 | CONSULT ---
Consult - text type - Consultation Consultation Note: NEUROLOGY CONSULTATION is greatly appreciated: This 61 yo RH man with h/o DM, HTN, Chol and IVDA (denies active use for "some time" but acknowledges intranasal use last week). S/P Bariatric surgery and B/L TKR's. On Methadone (100 mg), Butrans, lasix, zaroxylin.victoza, prinivial, benicar, neurontin and seroquel (150 hs). Now admitted with 1 week of progressive low back pain radiating down backs of both legs and loss of ambulation. + constipation and difficulty urinating. Now more comfortable. Bess placed in ER. MRI of LS spine (reviewed): Moderate, diffuse, DJD with active discitis at L2L3 with epidural extension and mild LS spinal stenosis. Dr. Oliva's consultation read and appreciated. Now on Vancomicin. Labs also sig for anemia (H/H=7.3/22.8). ROBBY: + SLR B/L @ 45 degrees. Neck supple. s/P B/L TKR's. NEURO: Awake, alert. In NAD MS/Speech: Normal CN II-XII: Normal Motor: No drift. Arms normal. Right leg normal strength. Left leg 3/ 5 proximally but 5/5 distally. Areflexic in legs. Toes downgoing. Coord: No FTN dystaxia. Sensory: Feels vibration normally at both ankles. May be decreased over toes B/L IMP: L2L3 discitis with possible high lumbar radiculopathy on the left. R/O Caudae equina syndrome. SUGGEST: Neurosurgical consultation Continue antibiotics as per ID Cardiology consultation and echo to r/o SBE. Check ESR, CRP. Repeat MRI of LS spine in 48 hrs or as per neurosurgery. Thank you very much. Issac Melgar MD
--- NOTE | 2017-01-30 17:11 | CONS ---
DATE OF CONSULTATION: DATE OF DICTATION: 01/30/2017 This is a 61-year-old male who I am asked to see for evaluation of back pain and suspected vertebral osteomyelitis. The patient has multiple co-morbidities including congestive heart failure, hypertension, and diabetes and is on methadone maintenance. He also has a history of peripheral neuropathy, degenerative joint disease, and is status post bilateral knee replacements. He has hepatitis C and has not yet been treated. He was brought by ambulance complaining of several days of pain in his lower back, legs and buttocks which he states is new. On questioning, he mentions that about 2 weeks ago, he went to the emergency room with an abscess of his right wrist. He does not know how it developed but denies using any intravenous drugs for over a year. He does use intranasal cocaine. He is HIV negative. Apparently, the abscess was incised and drained and I checked with the hospital lab, who mentioned that he had no record of any wound culture done at that time. I do not have access to the complete medical record, however. Subsequently, 2 sutures were left in place in the area and he has not had wound followup. Here, he is afebrile. Because of his complaint of back pain, he underwent a spinal MRI which showed findings consistent with diskitis and osteomyelitis of L2, L3 with mild compression fracture of L2 inferior endplate and L3 superior endplate. Minimal anterior epidural soft tissue densities extending from the lower L2 to upper one-third of L3 suggestive of a phlegmon infection slightly indenting the anterior surface of the thecal sac. There was bilateral disk bulge, probably impingement of L2 nerves. This morning, the blood culture now reports gram-positive cocci in 1 bottle out of the set drawn. Looking back, it appears as though he had a bacteremia with brevibacterium in 2012. He also had a wound culture in March 2014 with Streptococcus viridans and MSSA. I am asked to see him for further evaluation and treatment. PAST MEDICAL HISTORY: As noted above. MEDICATIONS: NicoDerm patch, methadone, Protonix. ALLERGIES: None known. SOCIAL HISTORY: Smoker, substance abuse as noted. No travel. FAMILY HISTORY: Reviewed and noncontributory. REVIEW OF SYSTEMS:Respiratory: No cough, shortness of breath. Cardiac: No chest pain, palpitations, syncope, murmur or history of endocarditis. Gastrointestinal: Denies abdominal pain. Notes dark stool, guaiac positive in the emergency room, and found to be anemic. Genitourinary: No dysuria, hematuria, urinary frequency. PHYSICAL EXAMINATION: Vital Signs: Temperature was 98.5, pulse 90, blood pressure 134/92, respirations 18. HEENT: Revealed no conjunctival petechiae. Neck: Supple without adenopathy. Lungs: Clear to percussion and auscultation. Heart: S1, S2, regular rhythm without audible murmur. Abdomen: Soft, nontender without hepatosplenomegaly. Extremities: With chronic venous stasis ulcerations of the lower legs. A large open wound on the volar surface of the right wrist noted with [address] The white count is 6.7, hemoglobin 7.3, hematocrit 22.8, platelets of 322. Repeat hematocrit 21. BUN 21, creatinine 1.1. Alkaline phosphatase 119, AST 18. Urinalysis with 3 RBCs and 3 WBCs. Two sets of blood cultures drawn, urine culture pending. ASSESSMENT: A 61-year-old male with substance abuse history presents with back pain and MRI findings consistent with lumbar vertebral osteomyelitis with possible epidural component. Etiology may be related to a right wrist abscess recently drained at another hospital. Already 1 blood culture is positive for gram-positive cocci in this 61-year-old diabetic with a history of gram- positive bacteremia in 2012. Severe anemia noted with gastrointestinal bleeding workup in progress. Seen by GI already for severe anemia possibly related to GI bleeding. History of hepatitis C, untreated. Unsure details of hepatitis C if cirrhosis present. PLAN: Await final blood culture reports. Echocardiogram to look for evidence of endocarditis. ESR and CRP to help monitor the response to treatment. Empiric antibiotic treatment with vancomycin and Cefepime, albeit positive blood culture preliminary at this point for gram-positive organisms. Will defer any issues related to hepatitis C at this time to outpatient. GI workup for GI bleeding and severe anemia. Neurosurgical consult should be called. Will call Brenda Del Toro or service attending. Thi may require surgical intervention but defer to surgery in this regard. GI evaluation EGD RAS KEENE M.D. EFRAIN/[id number] MITCH
[2017-01-30] MEDS ORDERED: PEG 3350/NA SULF BICARB CL/KCL 4000 ML SOLN.RECON PO ONE (18:00)
[2017-01-30] MEDS: VANCOMYCIN 1,500 MG in DEXTROSE 5%-WATER - 500 ML IVPB SCH (18:04)
--- NOTE | 2017-01-30 19:32 | CONSULT ---
Consult - text type - Consultation Consultation Note: Asked to evaluate this 61 year old male patient with severe back pain and voiding difficulties. Patient has multiple medical problems including substance abuse (remote IVDA - Heroin/Recent insuflation - cocaine) as well as Hepatitis C, Diabetes, Obesity (treated with Gastric Bypass), Anemia (Hemoglobin 7.3 with Guaiac positive stool) and several recent infections. The patient was treated at [facility] for a Right Wrist abscess 2 weeks ago with incision and drainage with no culture results immediately available. The patient is not febrile, however, he has positive wound and blood cultures and presented with a 2-3 day history of being unable to urinate and no bowel movements. MRI Lumbar demonstrates L23 discitis with suggestions of Ostemyelitis in the adjacent vertebra and paraspinal phlegmon, particularly in the Left psoas muscle. There is erosion of the L23 endplates and fluid within this interspace which is contiguous with a ventral epidural soft tissue mass/collection. The patient is Neurologically nonfocal in terms of muscle strength, except Left Hip flexion which may be limited by muscle inflamation/infection. The patient has significant mechanical discomfort and is bothered by all vibrations and jostling. Sensation is grossly normal except distally in a non dermatomal pattern and may be more consistent with Diabetic neuropathy. The patient has multiple risk factors for poor healing from this likely spinal infection: Bacteremia, malnutrition (compounded by gastric bypass), Diabetes, recent skin infections, Anemia, Instability, infection based in poorly vascularized tissues and potentially immunocomporomized state. I described the risks, benefits and alternatives to L1-4 Laminectomies, surgical decompression of the epidural phlegmon and debridement of the L23 discitis with possible interbody bone grafting and L1-4 stabilization with pedicle screw fixation. I explained that the risks included, but were not limited to: , coma, paralysis, bleeding, infection, CSF leakage possibly requiring spinal drainage or additional surgery, failure to fuse, failure to clear the infection, failure to identify an organism, instrumentation migration/ malposition/malfunction and the high likelihood of needing multiple procedures and an extensive course of intravenous antibiotics to control the competing challenges of requiring instrumentation to establish stabilization and the challenges of clearing infection with foreign materials in the wound. I offered him the option of seeking another opinion or another surgeon. All questions were answered. Informed consent was obtained. The patient asks that I discuss his case with Dr. Diaz prior to final decision making. The patient will be NPO past midnight for a GI endoscopy procedure in the morning to identify potential source of GI bleeding. I feel that if the patient is medically stable vis a vis GI bleeding, and Drs. Diaz and Hazel agree with this plan, that we should offer it to the patient for the afternoon of January 31, 2017.
[2017-01-31] MEDS: CEFEPIME 2 GM in DEXTROSE 5%-WATER - 100 ML IVPB SCH ×2 (02:01→10:32)
[2017-01-31] MEDS: POLYETHYLENE GLYCOL 3350 119 GM BTL PO SCH ×3 (05:55→22:24)
[2017-01-31] MEDS: VANCOMYCIN 1,500 MG in DEXTROSE 5%-WATER - 500 ML IVPB SCH (06:04)
[2017-01-31] MEDS: METHADONE 80 MG, METHADONE 20 MG PO SCH (06:42)
--- NOTE | 2017-01-31 07:30 | PN ---
Progress Note (short form) - Note Progress Note: DISCUSSED WITH NEUROSURGERY, PATIENT HAS SIGNIFICANT COMPRESSION TO SPINE AND NEEDS SURGICAL APPROACH FOR OSTEOMELITIS WITH DECOMPRESSION. PATIENT IS MEDICALLY CLEARED FOR THE PROCEDURE THE BENEFIT OUTWEIGHS THE RISK. Problem List - Problems (1) Smoking addiction Code(s): F17.200 - NICOTINE DEPENDENCE, UNSPECIFIED, UNCOMPLICATED (2) Substance abuse Code(s): F19.10 - OTHER PSYCHOACTIVE SUBSTANCE ABUSE, UNCOMPLICATED (3) Anemia Code(s): D64.9 - ANEMIA, UNSPECIFIED Qualifiers: Anemia type: unspecified type Qualified Code(s): D64.9 - Anemia, unspecified (4) Rectal bleed Code(s): K62.5 - HEMORRHAGE OF ANUS AND RECTUM (5) CHF (congestive heart failure) Code(s): I50.9 - HEART FAILURE, UNSPECIFIED (6) Diabetes 1.5, managed as type 2 Code(s): E13.9 - OTHER SPECIFIED DIABETES MELLITUS WITHOUT COMPLICATIONS (7) Edema Code(s): R60.9 - EDEMA, UNSPECIFIED (8) Hepatitis C antibody test positive Code(s): R76.8 - OTHER SPECIFIED ABNORMAL IMMUNOLOGICAL FINDINGS IN SERUM (9) Hyperlipidemia Code(s): E78.5 - HYPERLIPIDEMIA, UNSPECIFIED (10) Hypertension Code(s): I10 - ESSENTIAL (PRIMARY) HYPERTENSION (11) Osteoarthritis Code(s): M19.90 - UNSPECIFIED OSTEOARTHRITIS, UNSPECIFIED SITE (12) Abnormal MRI, spine Code(s): R93.7 - ABNORMAL FINDINGS ON DIAGNOSTIC IMAGING OF PRT MS SYS (13) Gram-positive cocci bacteremia Code(s): R78.81 - BACTEREMIA (14) Osteomyelitis of lumbar spine Code(s): M46.26 - OSTEOMYELITIS OF VERTEBRA, LUMBAR REGION
[2017-01-31] MEDS: morphine SULFATE 4 MG/ML VIAL IVPUSH PRN ×3 (07:59→23:14)
--- NOTE | 2017-01-31 08:45 | PN ---
Progress Note, Physician History of Present Illness: Clinically the same. No acute events. Consults and recommendations noted. - Current Medication List Current Medications: Active Medications Lactated Ringer's (Lactated Ringers Solution) 1,000 ml in 1,000 mls @ 125 mls/ hr IV ASDIR [facility] Last Admin: 01/30/17 15:23 Dose: 125 mls/hr Cefepime HCl 2 gm/ Dextrose 100 mls @ 200 mls/hr IVPB Q8H-IV [facility] Last Admin: 01/31/17 02:01 Dose: 200 mls/hr Vancomycin HCl 1,500 mg/ (Dextrose) 500 mls @ 250 mls/hr IVPB BID@0700,1900 [facility] PRN Reason: Protocol Last Admin: 01/31/17 06:04 Dose: 250 mls/hr Lorazepam (Ativan Injection -) 1 mg IVPUSH TID PRN PRN Reason: ANXIETY Last Admin: 01/29/17 21:29 Dose: 1 mg Methadone HCl 80 mg/ Methadone (HCl 20 mg) 100 mg PO DAILY@0600 [facility] Last Admin: 01/31/17 06:42 Dose: Not Given Morphine Sulfate (Morphine Sulfate) 4 mg IVPUSH Q6H PRN PRN Reason: PAIN Last Admin: 01/31/17 07:59 Dose: 4 mg Nicotine (Nicoderm Patch -) 21 mg TD DAILY [facility] Last Admin: 01/30/17 11:25 Dose: 21 mg Ondansetron HCl (Zofran Injection) 8 mg IVPB Q6H PRN PRN Reason: NAUSEA Pantoprazole Sodium (Protonix Iv) 40 mg IVPUSH BID [facility] Last Admin: 01/30/17 21:33 Dose: 40 mg Polyethylene Glycol (Miralax (For Daily Use) -) 17 gm PO TID [facility] Last Admin: 01/31/17 05:55 Dose: Not Given - Objective Vital Signs: Vital Signs Temperature 98.5 F 01/31/17 05:34 Pulse Rate 88 01/31/17 05:34 Respiratory Rate 20 01/31/17 05:34 Blood Pressure 144/84 01/31/17 05:34 O2 Sat by Pulse Oximetry (%) 96 01/30/17 21:00 Constitutional: Yes: No Distress, Calm Gastrointestinal: Yes: Soft. No: Melena, Rectal Bleeding, Tenderness, Vomiting Labs: CBC, BMP 01/30/17 15:22 01/30/17 15:22 Laboratory Results - last 24 hr 01/30/17 01/30/17 01/30/17 09:45 09:45 09:45 WBC 6.6 RBC 3.26 L D Hgb 8.5 L D Hct 26.0 L D MCV 80.0 MCH 26.2 MCHC 32.8 RDW 16.8 H Plt Count 291 MPV 7.0 L Neutrophils % 69.7 Lymphocytes % 18.7 Monocytes % 8.1 Eosinophils % 3.1 Basophils % 0.4 Sodium 142 Potassium 3.7 Chloride 109 H Carbon Dioxide 28 Anion Gap 5 L BUN 16 D Creatinine 1.0 Creat Clearance w eGFR > 60 POC Glucometer Random Glucose 87 D Calcium 7.9 L Total Bilirubin 0.9 D AST 16 ALT 13 Alkaline Phosphatase 123 H C-Reactive Protein 5.9 H Total Protein 6.7 Albumin 2.0 L 01/30/17 01/30/17 01/30/17 12:11 15:22 15:22 WBC 6.4 RBC 3.18 L Hgb 8.3 L Hct 25.5 L MCV 80.0 MCH 26.1 MCHC 32.7 RDW 16.7 H Plt Count 279 MPV 6.8 L Neutrophils % 69.2 Lymphocytes % 17.7 Monocytes % 10.1 Eosinophils % 2.5 Basophils % 0.5 Sodium 142 Potassium 3.7 Chloride 109 H Carbon Dioxide 28 Anion Gap 5 L BUN 17 Creatinine 1.0 Creat Clearance w eGFR > 60 POC Glucometer 100 Random Glucose 86 Calcium 8.2 L Total Bilirubin 0.7 D AST 14 L ALT 14 Alkaline Phosphatase 117 C-Reactive Protein Total Protein 6.5 Albumin 2.0 L 01/30/17 01/30/17 01/31/17 17:00 21:38 06:06 WBC RBC Hgb Hct MCV MCH MCHC RDW Plt Count MPV Neutrophils % Lymphocytes % Monocytes % Eosinophils % Basophils % Sodium Potassium Chloride Carbon Dioxide Anion Gap BUN Creatinine Creat Clearance w eGFR POC Glucometer 104 105 105 Random Glucose Calcium Total Bilirubin AST ALT Alkaline Phosphatase C-Reactive Protein Total Protein Albumin 01/31/17 07:15 WBC RBC Hgb Hct MCV MCH MCHC RDW Plt Count MPV Neutrophils % Lymphocytes % Monocytes % Eosinophils % Basophils % Sodium Potassium Chloride Carbon Dioxide Anion Gap BUN Creatinine Creat Clearance w eGFR POC Glucometer Random Glucose Calcium Total Bilirubin AST ALT Alkaline Phosphatase C-Reactive Protein 5.6 H D Total Protein Albumin Problem List - Problems (1) Diabetes mellitus Code(s): E11.9 - TYPE 2 DIABETES MELLITUS WITHOUT COMPLICATIONS (2) Occult blood positive stool Code(s): R19.5 - OTHER FECAL ABNORMALITIES (3) Abnormal MRI, spine Code(s): R93.7 - ABNORMAL FINDINGS ON DIAGNOSTIC IMAGING OF PRT MS SYS (4) Substance abuse Code(s): F19.10 - OTHER PSYCHOACTIVE SUBSTANCE ABUSE, UNCOMPLICATED (5) CHF (congestive heart failure) Code(s): I50.9 - HEART FAILURE, UNSPECIFIED (6) Hepatitis C infection Code(s): B19.20 - UNSPECIFIED VIRAL HEPATITIS C WITHOUT HEPATIC COMA Assessment/Plan Finished prep last night EGD/colonoscopy today.
--- NOTE | 2017-01-31 09:32 | PN ---
Progress Note, Physician Chief Complaint: abdominal pain and GI bleed History of Present Illness: 61 yo male PMH Asthma, CHF, HTN, HLD, Hepatitis C, Degenerative Joint Disease, Obesity, prostate CA?, Heroin use (on methadone) who presents to the ED with lower back pain, legs and buttocks for the past week. He had GUIAC postive stool and is anemic but responded appropriately to transfusion. Abdominal pain is about the same. Had EGD and colonoscopy today. He has bacteremia MSSA. - Current Medication List Current Medications: Active Medications Lactated Ringer's (Lactated Ringers Solution) 1,000 ml in 1,000 mls @ 125 mls/ hr IV ASDIR [facility] Last Admin: 01/30/17 15:23 Dose: 125 mls/hr Cefepime HCl 2 gm/ Dextrose 100 mls @ 200 mls/hr IVPB Q8H-IV [facility] Last Admin: 01/31/17 02:01 Dose: 200 mls/hr Vancomycin HCl 1,500 mg/ (Dextrose) 500 mls @ 250 mls/hr IVPB BID@0700,1900 [facility] PRN Reason: Protocol Last Admin: 01/31/17 06:04 Dose: 250 mls/hr Lorazepam (Ativan Injection -) 1 mg IVPUSH TID PRN PRN Reason: ANXIETY Last Admin: 01/29/17 21:29 Dose: 1 mg Methadone HCl 80 mg/ Methadone (HCl 20 mg) 100 mg PO DAILY@0600 [facility] Last Admin: 01/31/17 06:42 Dose: Not Given Morphine Sulfate (Morphine Sulfate) 4 mg IVPUSH Q6H PRN PRN Reason: PAIN Last Admin: 01/31/17 07:59 Dose: 4 mg Nicotine (Nicoderm Patch -) 21 mg TD DAILY [facility] Last Admin: 01/30/17 11:25 Dose: 21 mg Ondansetron HCl (Zofran Injection) 8 mg IVPB Q6H PRN PRN Reason: NAUSEA Pantoprazole Sodium (Protonix Iv) 40 mg IVPUSH BID [facility] Last Admin: 01/30/17 21:33 Dose: 40 mg Polyethylene Glycol (Miralax (For Daily Use) -) 17 gm PO TID [facility] Last Admin: 01/31/17 05:55 Dose: Not Given - Objective Vital Signs: Vital Signs Temperature 98.5 F 01/31/17 05:34 Pulse Rate 88 01/31/17 05:34 Respiratory Rate 20 01/31/17 05:34 Blood Pressure 144/84 01/31/17 05:34 O2 Sat by Pulse Oximetry (%) 96 01/30/17 21:00 Vital Signs Period Temp Pulse Resp BP Sys/Pascal Pulse Ox Last 24 Hr 98.4 F-99.1 F 78-88 18-20 132-144/74-92 96 Constitutional: Yes: No Distress, Calm, Obese Eyes: Yes: Conjunctiva Clear, EOM Intact HENT: Yes: Atraumatic, Normocephalic Neck: Yes: Supple, Trachea Midline Cardiovascular: Yes: Regular Rate and Rhythm, S1, S2 Respiratory: Yes: Regular, CTA Bilaterally Gastrointestinal: Yes: Normal Bowel Sounds, Soft. No: Tenderness, Tenderness, Epigastrium, Tenderness, Rebound Genitourinary: No: CVA Tenderness - Left, CVA Tenderness - Right Extremities: No: Cool, Cyanosis Edema: No Neurological: Yes: Oriented, Lethargy, Weakness (bilateral LE hip and distal) Psychiatric: Yes: Oriented Labs: CBC,CMP WBC 6.4 K/mm3 (4.0-10.0) 01/30/17 15:22 RBC 3.18 M/mm3 (4.00-5.60) L 01/30/17 15:22 Hgb 8.3 GM/dL (11.7-16.9) L 01/30/17 15:22 Hct 25.5 % (35.4-49) L 01/30/17 15:22 MCV 80.0 fl (80-96) 01/30/17 15:22 MCH 26.1 pg (25.7-33.7) 01/30/17 15:22 MCHC 32.7 g/dl (32.0-35.9) 01/30/17 15:22 RDW 16.7 % (11.9-15.9) H 01/30/17 15:22 Plt Count 279 K/MM3 (134-434) 01/30/17 15:22 MPV 6.8 fl (7.5-11.1) L 01/30/17 15:22 Neutrophils % 69.2 % (42.8-82.8) 01/30/17 15:22 Lymphocytes % 17.7 % (8-40) 01/30/17 15:22 Monocytes % 10.1 % (3.8-10.2) 01/30/17 15:22 Eosinophils % 2.5 % (0-4.5) 01/30/17 15:22 Basophils % 0.5 % (0-2.0) 01/30/17 15:22 ESR 70 mm/hr (0-20) H 01/31/17 07:15 Sodium 142 mmol/L (136-145) 01/30/17 15:22 Potassium 3.7 mmol/L (3.5-5.1) 01/30/17 15:22 Chloride 109 mmol/L (98-107) H 01/30/17 15:22 Carbon Dioxide 28 mmol/L (21-32) 01/30/17 15:22 Anion Gap 5 (8-16) L 01/30/17 15:22 BUN 17 mg/dL (7-18) 01/30/17 15:22 Creatinine 1.0 mg/dL (0.7-1.3) 01/30/17 15:22 Creat Clearance w eGFR > 60 (>60) 01/30/17 15:22 POC Glucometer 105 UNITS (80-120) 01/31/17 06:06 Random Glucose 86 mg/dL (74-106) 01/30/17 15:22 Calcium 8.2 mg/dL (8.5-10.1) L 01/30/17 15:22 Total Bilirubin 0.7 mg/dL (0.2-1.0) D 01/30/17 15:22 AST 14 U/L (15-37) L 01/30/17 15:22 ALT 14 U/L (12-78) 01/30/17 15:22 Alkaline Phosphatase 117 U/L (45-117) 01/30/17 15:22 C-Reactive Protein 5.6 MG/DL (0.00-0.3) H D 01/31/17 07:15 Total Protein 6.5 g/dl (6.4-8.2) 01/30/17 15:22 Albumin 2.0 g/dl (3.4-5.0) L 01/30/17 15:22 Problem List - Problems (1) Rectal bleed Assessment/Plan: Chronic GI bleeding, hemmoccult positive stool, no gross blood on rectal, no reported melena or hematochezia, no coffee ground emesis, appropriate response to transfusion of 2RBC, planned lumbar decompression tomorrow, on therapy for bacteremia will continue to follow for serial abdominal exams IV antibiotics therapy per ID trends labs Code(s): K62.5 - HEMORRHAGE OF ANUS AND RECTUM (2) Occult blood positive stool Code(s): R19.5 - OTHER FECAL ABNORMALITIES (3) Urine retention Code(s): R33.9 - RETENTION OF URINE, UNSPECIFIED (4) Abnormal MRI, spine Code(s): R93.7 - ABNORMAL FINDINGS ON DIAGNOSTIC IMAGING OF PRT MS SYS (5) Bacteremia Assessment/Plan: IV antibiotics per ID Code(s): R78.81 - BACTEREMIA
[2017-01-31] MEDS: PANTOPRAZOLE SODIUM 40 MG VIAL IVPUSH SCH ×2 (10:32→22:20)
[2017-01-31] MEDS: NICOTINE 21 MG/24 HOURS TOPICAL PATCH TD SCH (10:32)
[2017-01-31] MEDS: LORazepam 2 MG/ML SDV VIAL IVPUSH PRN (11:54)
[2017-01-31] MEDS ORDERED: BISACODYL 5 MG TABLET.DR (FP) PO ONE ×2 (13:45→15:45)
--- NOTE | 2017-01-31 13:48 | PROC ---
Endoscopy Procedure Endoscopy procedure completed. Please see scanned procedure report. Large, white-based anastomotic/gastric ulcer w/o stigmata of recent, impending bleeding. Biopsied. Avoid NSAIDs Continue PPI Poor prep - colonoscopy was not performed. Continue prep, attempt colonoscopy in am tomorrow.
[2017-01-31 14:44] LABS: HBsAG SCREEN Negative (Negative); HEPATITIS A ANTIBODY,IGM Negative (Negative)
--- NOTE | 2017-01-31 15:45 | PN ---
Progress Note, Physician Chief Complaint: ID Vancomycin alone Severe back pain aggravated by any movement - Current Medication List Current Medications: Active Medications Bisacodyl (Dulcolax -) 20 mg PO ONCE ONE Stop: 01/31/17 15:46 Lactated Ringer's (Lactated Ringers Solution) 1,000 ml in 1,000 mls @ 125 mls/ hr IV ASDIR [facility] Last Admin: 01/30/17 15:23 Dose: 125 mls/hr Cefepime HCl 2 gm/ Dextrose 100 mls @ 200 mls/hr IVPB Q8H-IV [facility] Last Admin: 01/31/17 10:32 Dose: 200 mls/hr Vancomycin HCl 1,500 mg/ (Dextrose) 500 mls @ 250 mls/hr IVPB BID@0700,1900 [facility] PRN Reason: Protocol Last Admin: 01/31/17 06:04 Dose: 250 mls/hr Lorazepam (Ativan Injection -) 1 mg IVPUSH TID PRN PRN Reason: ANXIETY Last Admin: 01/31/17 11:54 Dose: 1 mg Methadone HCl 80 mg/ Methadone (HCl 20 mg) 100 mg PO DAILY@0600 [facility] Last Admin: 01/31/17 06:42 Dose: Not Given Morphine Sulfate (Morphine Sulfate) 4 mg IVPUSH Q6H PRN PRN Reason: PAIN Last Admin: 01/31/17 07:59 Dose: 4 mg Nicotine (Nicoderm Patch -) 21 mg TD DAILY [facility] Last Admin: 01/31/17 10:32 Dose: 21 mg Ondansetron HCl (Zofran Injection) 8 mg IVPB Q6H PRN PRN Reason: NAUSEA Pantoprazole Sodium (Protonix Iv) 40 mg IVPUSH BID [facility] Last Admin: 01/31/17 10:32 Dose: 40 mg Polyethylene Glycol (Miralax (For Daily Use) -) 17 gm PO TID [facility] Last Admin: 01/31/17 05:55 Dose: Not Given Polyethylene Glycol/Electrolytes (Golytely Solution -) 4,000 ml PO ONCE ONE Stop: 01/31/17 17:01 - Objective Vital Signs: Vital Signs Temperature 98 F 01/31/17 13:44 Pulse Rate 85 01/31/17 14:24 Respiratory Rate 18 01/31/17 14:24 Blood Pressure 142/70 01/31/17 14:24 O2 Sat by Pulse Oximetry (%) 99 01/31/17 14:24 Constitutional: Yes: Well Nourished Neck: Yes: WNL, Supple Cardiovascular: Yes: S1, S2. No: Murmur Respiratory: Yes: WNL, Regular, CTA Bilaterally Gastrointestinal: Yes: Soft. No: Tenderness Edema: No Labs: CBC, BMP 01/30/17 15:22 01/30/17 15:22 Problem List - Problems (1) Osteomyelitis of lumbar spine Code(s): M46.26 - OSTEOMYELITIS OF VERTEBRA, LUMBAR REGION (2) Diabetes mellitus Code(s): E11.9 - TYPE 2 DIABETES MELLITUS WITHOUT COMPLICATIONS (3) CHF (congestive heart failure) Code(s): I50.9 - HEART FAILURE, UNSPECIFIED (4) Diabetes 1.5, managed as type 2 Code(s): E13.9 - OTHER SPECIFIED DIABETES MELLITUS WITHOUT COMPLICATIONS (5) Gram-positive cocci bacteremia Code(s): R78.81 - BACTEREMIA Assessment/Plan Microbiology 01/29/17 11:07 Urine - Urine Bess Urine Culture - Final NO GROWTH OBTAINED 01/29/17 09:50 Blood - Peripheral Venous Blood Culture - Preliminary Presumptive Mssa (Pbp2a Neg) 01/29/17 09:50 Blood - Peripheral Venous Blood Culture - Preliminary Presumptive Mssa (Pbp2a Neg) Laboratory Tests 01/29/17 01/30/17 01/31/17 11:07 15:22 07:15 WBC 6.4 Hgb 8.3 L Hct 25.5 L Plt Count 279 ESR 70 H C-Reactive Protein Urine WBC (Auto) 3 Urine RBC (Auto) 3 01/31/17 07:15 WBC Hgb Hct Plt Count ESR C-Reactive Protein 5.6 H D Urine WBC (Auto) Urine RBC (Auto) Assessment MSSA bacteremia ? endocarditis DM Lumbar ostoemyelitis with epidural infection Plan Give Cefazolin I do not want to given Nafcillin given his history of Hep C and ? chronic liver disease ECHO Surgery planned Repeat blood cultures Hazel [facility]GRETE
[2017-01-31 16:44] LABS: BASO % 0.3 % (0-2.0); EOS % 0.6 % (0-4.5); HEMATOCRIT 24.4 % (35.4-49); LYMPH % 12.8 % (8-40); MCHC 32.7 g/dl (32.0-35.9); MEAN CELL VOLUME 79.3 fl (80-96); MEAN PLT VOLUME 7.6 fl (7.5-11.1); MONO % 9.2 % (3.8-10.2); NEUT % 77.1 % (42.8-82.8); PLATELET COUNT 268 K/MM3 (134-434); RBC 3.08 M/mm3 (4.00-5.60); RDW 17.1 % (11.9-15.9); WHITE BLOOD COUNT 6.6 K/mm3 (4.0-10.0)
[2017-01-31] MEDS ORDERED: PEG 3350/NA SULF BICARB CL/KCL 4000 ML SOLN.RECON PO ONE (17:00)
[2017-01-31] MEDS: CEFAZOLIN 2 GM in DEXTROSE 5%-WATER - 100 ML IVPB SCH (17:39)
[2017-01-31 17:40] LABS: CHLORIDE 105 mmol/L (98-107); POTASSIUM 3.4 mmol/L (3.5-5.1); SODIUM 141 mmol/L (136-145)
--- NOTE | 2017-01-31 18:13 | PN ---
Progress Note, Physician Chief Complaint: AWAKE MILD DISTRESS SCHEDULED FOR COLONOSCOPY AND SPINAL DECOMPRESSION TOMORROW - Current Medication List Current Medications: Active Medications Lactated Ringer's (Lactated Ringers Solution) 1,000 ml in 1,000 mls @ 125 mls/ hr IV ASDIR [facility] Last Admin: 01/30/17 15:23 Dose: 125 mls/hr Cefazolin Sodium 2 gm/ (Dextrose) 100 mls @ 200 mls/hr IVPB Q8H-IV [facility] Last Admin: 01/31/17 17:39 Dose: 200 mls/hr Lorazepam (Ativan Injection -) 1 mg IVPUSH TID PRN PRN Reason: ANXIETY Last Admin: 01/31/17 11:54 Dose: 1 mg Methadone HCl 80 mg/ Methadone (HCl 20 mg) 100 mg PO DAILY@0600 [facility] Last Admin: 01/31/17 06:42 Dose: Not Given Morphine Sulfate (Morphine Sulfate) 4 mg IVPUSH Q6H PRN PRN Reason: PAIN Last Admin: 01/31/17 15:43 Dose: 4 mg Nicotine (Nicoderm Patch -) 21 mg TD DAILY [facility] Last Admin: 01/31/17 10:32 Dose: 21 mg Ondansetron HCl (Zofran Injection) 8 mg IVPB Q6H PRN PRN Reason: NAUSEA Pantoprazole Sodium (Protonix Iv) 40 mg IVPUSH BID [facility] Last Admin: 01/31/17 10:32 Dose: 40 mg Polyethylene Glycol (Miralax (For Daily Use) -) 17 gm PO TID [facility] Last Admin: 01/31/17 15:47 Dose: 17 gm - Objective Vital Signs: Vital Signs Temperature 98 F 01/31/17 13:44 Pulse Rate 85 01/31/17 14:24 Respiratory Rate 18 01/31/17 14:24 Blood Pressure 142/70 01/31/17 14:24 O2 Sat by Pulse Oximetry (%) 99 01/31/17 14:24 Constitutional: Yes: Mild Distress Eyes: Yes: WNL HENT: Yes: WNL Neck: Yes: WNL Cardiovascular: Yes: WNL Respiratory: Yes: WNL Gastrointestinal: Yes: Tenderness Genitourinary: Yes: WNL Musculoskeletal: Yes: Muscle Weakness Extremities: Yes: WNL Edema: No Peripheral Pulses WNL: Yes Integumentary: Yes: WNL Wound/Incision: Yes: Clean/Dry Neurological: Yes: Pre-Existing Deficit ...Motor Strength: LLE, RLE Psychiatric: Yes: Other Labs: CBC, BMP 01/31/17 14:45 Problem List - Problems (1) Smoking addiction Code(s): F17.200 - NICOTINE DEPENDENCE, UNSPECIFIED, UNCOMPLICATED (2) Substance abuse Code(s): F19.10 - OTHER PSYCHOACTIVE SUBSTANCE ABUSE, UNCOMPLICATED (3) Anemia Code(s): D64.9 - ANEMIA, UNSPECIFIED Qualifiers: Anemia type: unspecified type Qualified Code(s): D64.9 - Anemia, unspecified (4) Rectal bleed Code(s): K62.5 - HEMORRHAGE OF ANUS AND RECTUM (5) CHF (congestive heart failure) Code(s): I50.9 - HEART FAILURE, UNSPECIFIED (6) Diabetes 1.5, managed as type 2 Code(s): E13.9 - OTHER SPECIFIED DIABETES MELLITUS WITHOUT COMPLICATIONS (7) Edema Code(s): R60.9 - EDEMA, UNSPECIFIED (8) Hepatitis C antibody test positive Code(s): R76.8 - OTHER SPECIFIED ABNORMAL IMMUNOLOGICAL FINDINGS IN SERUM (9) Hyperlipidemia Code(s): E78.5 - HYPERLIPIDEMIA, UNSPECIFIED (10) Hypertension Code(s): I10 - ESSENTIAL (PRIMARY) HYPERTENSION (11) Osteoarthritis Code(s): M19.90 - UNSPECIFIED OSTEOARTHRITIS, UNSPECIFIED SITE (12) Abnormal MRI, spine Code(s): R93.7 - ABNORMAL FINDINGS ON DIAGNOSTIC IMAGING OF PRT MS SYS (13) Gram-positive cocci bacteremia Code(s): R78.81 - BACTEREMIA (14) Osteomyelitis of lumbar spine Code(s): M46.26 - OSTEOMYELITIS OF VERTEBRA, LUMBAR REGION Assessment/Plan IV ABX PER ID NEUROSURGERY EVAL APPRECIATED MEDICALLY CLEARED FOR SPINAL DEBRIDEMENT GI EVAL APPRECIATED COLONOSCOPY IN AM DVT PROPHYLAXIS TRANSFUSE PRBC NEEDED METHADONE RESTARTED ATIVAN PRN
[2017-01-31 18:15] LABS: ALBUMIN 1.8 g/dl (3.4-5.0); ALK PHOS 113 U/L (45-117); ANION GAP 11 (8-16); BILIRUBIN,TOTAL 0.7 mg/dL (0.2-1.0); BLOOD UREA NITROGEN 12 mg/dL (7-18); CALCIUM 7.9 mg/dL (8.5-10.1); CO2 25 mmol/L (21-32); CREATININE 0.9 mg/dL (0.7-1.3); GLUCOSE,RANDOM 74 mg/dL (74-106); SGOT/AST 14 U/L (15-37); SGPT/ALT 11 U/L (12-78)
--- NOTE | 2017-01-31 18:34 | PN ---
Progress Note (short form) - Note Progress Note: Patient lying in bed with significant pain associated with any movement/ jostling suggestive of significant instability. I discussed the patient's current condition and course of care as well as plans for surgery with the patient, his brother, and his sister. I explained that the patient has multiple interacting disease processes which make treatment challenging. I explained that without aggressive debridement of poorly vascularlized sequestra, it will be difficult to clear his infection in the setting of Diabetes, poor nutrition and anemia. I explained that aggressive decompression to include evacuation of epidural phlegmon will aggravate his current instability and result in the need for internal fixation with pedicle screws, bone grafting and possible interbody cage. I explained that these foreign bodies/implants will make clearance of the infection more difficult. Ultimately, his problems must all be treated with emphasis given on the most time sensitive and dependent. Initial focus will be on decompression of the cauda equina and debridement of the infection with stabilization to address the existing and anticipated instability. The hardware may be at risk for infection , but once he fuses, can likely be removed. I explained the surgical principle that it is preferable to have a patient who is fused solidly and still infected than sterile and unstable since the further surgical procedure required in the first case would be removal of hardware where the chances of destabilization would be low versus the need for a complete stabilzation in the latter case with substantial risk of re-infection. The patient and family verbalize an understanding and asked good questions. The patient has not ambulated since 2008 and I explained that substantial healing and good luck would be required for him to walk again. While not impossible, it remains a reasonable goal worthy of surgical effort. I explained that his cooperation in maintaining his health and complying with Physical Therapy and antibiotic coverage as well as control of his Diabetes and other health concerns will be important to this healing. PLAN - Surgery tomorrow morning - Hibiclens shampoo and shower this evening and in the morning - NPO p Midnight
[2017-01-31] MEDS: LACTATED RINGERS SOLUTION 1,000 ML/1,000 ML INFUS.BAG IV SCH (22:20)
[2017-02-01] MEDS: LORazepam 2 MG/ML SDV VIAL IVPUSH PRN (02:39)
[2017-02-01] MEDS: CEFAZOLIN 2 GM in DEXTROSE 5%-WATER - 100 ML IVPB SCH ×3 (02:52→19:08)
[2017-02-01] MEDS: POLYETHYLENE GLYCOL 3350 119 GM BTL PO SCH ×3 (05:47→22:36)
[2017-02-01] MEDS: METHADONE 80 MG, METHADONE 20 MG PO SCH ×2 (05:47→07:11)
[2017-02-01] MEDS: morphine SULFATE 4 MG/ML VIAL IVPUSH PRN (05:50)
[2017-02-01] MEDS: LACTATED RINGERS SOLUTION 1,000 ML/1,000 ML INFUS.BAG IV SCH (05:51)
[2017-02-01] MEDS ORDERED: METHADONE HCL 10 MG TABLET ONE (07:11)
[2017-02-01] MEDS ORDERED: METHADONE HCL 40 MG DISPERSABLE TABLET ONE (07:11)
[2017-02-01] MEDS ORDERED: PROPOFOL 20 ML ONE ×4 (08:48→13:51)
--- NOTE | 2017-02-01 09:17 | PN ---
Progress Note, Physician Chief Complaint: abdominal pain and GI bleed History of Present Illness: 61 yo male PMH Asthma, CHF, HTN, HLD, Hepatitis C, Degenerative Joint Disease, Obesity s/p Laparoscopic Kiarra-en-y Gastric Bypass 10 years ago ([place], [place] ) , prostate CA?, Heroin use (on methadone) who presents to the ED with lower back pain, legs and buttocks for the past week. He had GUIAC postive stool and is anemic but responded appropriately to transfusion. Abdominal pain is about the same. Had EGD yesterday and colonoscopy today. He has bacteremia MSSA. - Current Medication List Current Medications: Active Medications Lactated Ringer's (Lactated Ringers Solution) 1,000 ml in 1,000 mls @ 125 mls/ hr IV ASDIR [facility] Last Admin: 02/01/17 05:51 Dose: 125 mls/hr Cefazolin Sodium 2 gm/ (Dextrose) 100 mls @ 200 mls/hr IVPB Q8H-IV [facility] Last Admin: 02/01/17 02:52 Dose: 200 mls/hr Lorazepam (Ativan Injection -) 1 mg IVPUSH TID PRN PRN Reason: ANXIETY Last Admin: 02/01/17 02:39 Dose: 1 mg Methadone HCl 80 mg/ Methadone (HCl 20 mg) 100 mg PO DAILY@0600 [facility] Last Admin: 02/01/17 07:11 Dose: 100 mg Morphine Sulfate (Morphine Sulfate) 4 mg IVPUSH Q6H PRN PRN Reason: PAIN Last Admin: 02/01/17 05:50 Dose: 4 mg Nicotine (Nicoderm Patch -) 21 mg TD DAILY [facility] Last Admin: 01/31/17 10:32 Dose: 21 mg Ondansetron HCl (Zofran Injection) 8 mg IVPB Q6H PRN PRN Reason: NAUSEA Pantoprazole Sodium (Protonix Iv) 40 mg IVPUSH BID [facility] Last Admin: 01/31/17 22:20 Dose: 40 mg Polyethylene Glycol (Miralax (For Daily Use) -) 17 gm PO TID [facility] Last Admin: 02/01/17 05:47 Dose: Not Given - Objective Vital Signs: Vital Signs Temperature 98.7 F 02/01/17 05:47 Pulse Rate 87 02/01/17 05:47 Respiratory Rate 20 02/01/17 05:47 Blood Pressure 138/85 02/01/17 05:47 O2 Sat by Pulse Oximetry (%) 98 01/31/17 20:35 Vital Signs Period Temp Pulse Resp BP Sys/Pascal Pulse Ox Last 24 Hr 97.9 F-98.7 F 80-92 18-22 94-159/61-85 98-100 Constitutional: Yes: No Distress, Calm, Obese Eyes: Yes: Conjunctiva Clear, EOM Intact HENT: Yes: Atraumatic, Normocephalic Neck: Yes: Supple, Trachea Midline Cardiovascular: Yes: Regular Rate and Rhythm, S1, S2 Respiratory: Yes: Regular, CTA Bilaterally Gastrointestinal: Yes: Normal Bowel Sounds, Soft, Abdomen, Obese. No: Tenderness, Tenderness, Epigastrium, Tenderness, Rebound ...Rectal Exam: Yes: Deferred Extremities: No: Cool, Cyanosis Edema: No Peripheral Pulses WNL: Yes Peripheral Pulses: Left Doralis Pedis: 2+, Right Dorsalis Pedis: 2+ Wound/Incision: Yes: Other (well healed laparaposcopy ports umbilicus and upper abdomen) Neurological: Yes: Alert, Oriented Psychiatric: Yes: Alert, Oriented Labs: CBC, BMP 01/31/17 14:45 01/31/17 14:45 Problem List - Problems (1) Rectal bleed Assessment/Plan: Chronic GI bleeding, hemmoccult positive stool, no gross blood on rectal, no reported melena or hematochezia, no coffee ground emesis, appropriate response to transfusion of 2RBC, planned lumbar decompression tomorrow, on therapy for bacteremia, found to have marginal ulcer at the gasstrojejunostomy (s/p Laparoscopic Kiarra-en-Y gastric bypass surgery 10 years ago in [place], [place]) , no obstructed. will continue to follow for serial abdominal exams IV antibiotics therapy per ID PPI therapy trends labs Code(s): K62.5 - HEMORRHAGE OF ANUS AND RECTUM (2) Occult blood positive stool Code(s): R19.5 - OTHER FECAL ABNORMALITIES (3) Urine retention Code(s): R33.9 - RETENTION OF URINE, UNSPECIFIED (4) Abnormal MRI, spine Code(s): R93.7 - ABNORMAL FINDINGS ON DIAGNOSTIC IMAGING OF PRT MS SYS (5) Bacteremia Code(s): R78.81 - BACTEREMIA (6) Marginal ulcer Assessment/Plan: student services dean PPI therapy Code(s): K28.9 - GASTROJEJUNAL ULCER, UNSP ACUTE OR CHR, W/O HEMOR OR PERF
--- NOTE | 2017-02-01 09:24 | PROC ---
Endoscopy Procedure Endoscopy procedure completed. Please see scanned procedure report. Normal colonoscopy to the cecum
[2017-02-01] MEDS ORDERED: ALBUMIN HUMAN 5% 250 ML IV SOLUTION IVPB ONE (10:40)
[2017-02-01] MEDS: PANTOPRAZOLE SODIUM 40 MG VIAL IVPUSH SCH ×2 (11:06→22:41)
[2017-02-01] MEDS: NICOTINE 21 MG/24 HOURS TOPICAL PATCH TD SCH (11:25)
[2017-02-01 12:26] LABS: INR 1.31 (0.82-1.09); PROTHROMBIN TIME (PATIENT) 14.8 SEC (9.98-11.88)
[2017-02-01] MEDS ORDERED: VANCOMYCIN 1,000 MG VIAL (RESTRICTED TO ID ONLY) ONE ×2 (12:55→14:23)
[2017-02-01] MEDS ORDERED: GENTAMICIN SO4 80 MG/2 ML VIAL ONE (12:55)
[2017-02-01] MEDS ORDERED: THROMBIN (BOVINE) 5,000 UNIT VIAL TP ONE ×3 (12:56→16:12)
[2017-02-01] MEDS ORDERED: BUPIVACAINE HCL/PF 0.5% (5MG/ML) 10 ML VIAL ONE (13:50)
[2017-02-01] MEDS ORDERED: ROCURONIUM BROMIDE 50 MG/5 ML VIAL ONE ×3 (13:51→15:57)
[2017-02-01] MEDS ORDERED: fentaNYL CITRATE 250 MCG/5 ML VIAL ONE ×2 (13:52→16:52)
[2017-02-01] MEDS ORDERED: LIDOCAINE HCL/PF 2% SDV 5ML VIAL ONE (14:21)
--- NOTE | 2017-02-01 14:51 | PN ---
Progress Note, Physician Chief Complaint: ASLEEP S/P COLONOSCOPY NAD - Current Medication List Current Medications: Active Medications Lactated Ringer's (Lactated Ringers Solution) 1,000 ml in 1,000 mls @ 125 mls/ hr IV ASDIR [facility] Last Admin: 02/01/17 05:51 Dose: 125 mls/hr Cefazolin Sodium 2 gm/ (Dextrose) 100 mls @ 200 mls/hr IVPB Q8H-IV [facility] Last Admin: 02/01/17 10:45 Dose: 200 mls/hr Lorazepam (Ativan Injection -) 1 mg IVPUSH TID PRN PRN Reason: ANXIETY Last Admin: 02/01/17 02:39 Dose: 1 mg Methadone HCl 80 mg/ Methadone (HCl 20 mg) 100 mg PO DAILY@0600 [facility] Last Admin: 02/01/17 07:11 Dose: 100 mg Morphine Sulfate (Morphine Sulfate) 4 mg IVPUSH Q6H PRN PRN Reason: PAIN Last Admin: 02/01/17 05:50 Dose: 4 mg Nicotine (Nicoderm Patch -) 21 mg TD DAILY [facility] Last Admin: 02/01/17 11:25 Dose: Not Given Ondansetron HCl (Zofran Injection) 8 mg IVPB Q6H PRN PRN Reason: NAUSEA Pantoprazole Sodium (Protonix Iv) 40 mg IVPUSH BID [facility] Last Admin: 02/01/17 11:06 Dose: 40 mg Polyethylene Glycol (Miralax (For Daily Use) -) 17 gm PO TID [facility] Last Admin: 02/01/17 14:14 Dose: Not Given Sucralfate (Carafate Oral Suspension -) 1 gm PO QID [facility] - Objective Vital Signs: Vital Signs Temperature 97.4 F L 02/01/17 09:26 Pulse Rate 85 02/01/17 10:00 Respiratory Rate 18 02/01/17 10:00 Blood Pressure 125/59 02/01/17 10:00 O2 Sat by Pulse Oximetry (%) 99 02/01/17 10:00 Constitutional: Yes: Mild Distress Eyes: Yes: WNL HENT: Yes: WNL Neck: Yes: WNL Cardiovascular: Yes: WNL Respiratory: Yes: WNL Gastrointestinal: Yes: WNL Genitourinary: Yes: Incontinence Musculoskeletal: Yes: Back Pain Extremities: Yes: Other Edema: No Peripheral Pulses WNL: Yes Integumentary: Yes: WNL Wound/Incision: Yes: Clean/Dry Neurological: Yes: Pre-Existing Deficit, Weakness, Other ...Motor Strength: LLE, RLE Psychiatric: Yes: Other Labs: CBC, BMP 01/31/17 14:45 01/31/17 14:45 INR, PTT INR 1.31 (0.82-1.09) H 02/01/17 11:45 Problem List - Problems (1) Smoking addiction Code(s): F17.200 - NICOTINE DEPENDENCE, UNSPECIFIED, UNCOMPLICATED (2) Substance abuse Code(s): F19.10 - OTHER PSYCHOACTIVE SUBSTANCE ABUSE, UNCOMPLICATED (3) Anemia Code(s): D64.9 - ANEMIA, UNSPECIFIED Qualifiers: Anemia type: unspecified type Qualified Code(s): D64.9 - Anemia, unspecified (4) Rectal bleed Code(s): K62.5 - HEMORRHAGE OF ANUS AND RECTUM (5) CHF (congestive heart failure) Code(s): I50.9 - HEART FAILURE, UNSPECIFIED (6) Diabetes 1.5, managed as type 2 Code(s): E13.9 - OTHER SPECIFIED DIABETES MELLITUS WITHOUT COMPLICATIONS (7) Edema Code(s): R60.9 - EDEMA, UNSPECIFIED (8) Hepatitis C antibody test positive Code(s): R76.8 - OTHER SPECIFIED ABNORMAL IMMUNOLOGICAL FINDINGS IN SERUM (9) Hyperlipidemia Code(s): E78.5 - HYPERLIPIDEMIA, UNSPECIFIED (10) Hypertension Code(s): I10 - ESSENTIAL (PRIMARY) HYPERTENSION (11) Osteoarthritis Code(s): M19.90 - UNSPECIFIED OSTEOARTHRITIS, UNSPECIFIED SITE (12) Abnormal MRI, spine Code(s): R93.7 - ABNORMAL FINDINGS ON DIAGNOSTIC IMAGING OF PRT MS SYS (13) Gram-positive cocci bacteremia Code(s): R78.81 - BACTEREMIA (14) Osteomyelitis of lumbar spine Code(s): M46.26 - OSTEOMYELITIS OF VERTEBRA, LUMBAR REGION Assessment/Plan COLONOSCOPY REVIEWED AWAIT PATHOLOGY RESULTS CLEARED FOR NEUROSURGERY SPINAL DECOMPRESSION IV ABX PER ID PAIN CONTROL
[2017-02-01] MEDS ORDERED: ceFAZolin SODIUM 1 GM VIAL IVPB ONE (15:20)
[2017-02-01] MEDS ORDERED: LIDOCAINE 1%/EPI 1:100000 (20 ML MULTI DOSE VIAL) IJ ONE (15:24)
[2017-02-01] MEDS ORDERED: VANCOMYCIN 1,000 MG VIAL (RESTRICTED TO ID ONLY) IVPB ONE (15:29)
[2017-02-01] MEDS ORDERED: HYDROmorphone HCL/PF 1 MG/ML VIAL (FOR PYXIS CHARGING ONLY) ONE (15:31)
[2017-02-01] MEDS ORDERED: SODIUM CHLORIDE 0.9% P/F 10 ML VIAL IJ ONE (15:32)
[2017-02-01] MEDS ORDERED: GELATIN, ABSORBABLE 100 EACH SPONGE TP ONE ×2 (16:12)
[2017-02-01 18:14] LABS: BASO % 0.4 % (0-2.0); EOS % 1.5 % (0-4.5); HEMATOCRIT 27.3 % (35.4-49); LYMPH % 14.3 % (8-40); MCH 26.5 pg (25.7-33.7); MCHC 32.9 g/dl (32.0-35.9); MEAN CELL VOLUME 80.3 fl (80-96); MEAN PLT VOLUME 6.7 fl (7.5-11.1); MONO % 9.6 % (3.8-10.2); NEUT % 74.2 % (42.8-82.8); PLATELET COUNT 242 K/MM3 (134-434); RDW 16.8 % (11.9-15.9); WHITE BLOOD COUNT 6.8 K/mm3 (4.0-10.0)
[2017-02-01] MEDS ORDERED: GLYCOPYRROLATE 0.2 MG/1 ML VIAL ONE ×2 (19:15→19:16)
[2017-02-01] MEDS ORDERED: NEOSTIGMINE METHYLSULFATE 0.5 MG/ML - 10 ML MDV ONE (19:16)
[2017-02-01] MEDS ORDERED: LACTATED RINGERS SOLUTION 1,000 ML IV SCH (20:30)
--- NOTE | 2017-02-01 20:50 | OP ---
Operative Note - Note: Operative Date: 02/01/17 Pre-Operative Diagnosis: L2-L3 discitis, osteomylitis,lumbar instability Operation: L1-L4 lumbar laminectomies with decompression and interbody fusion with pedicle screws L1-L4, evacuation of epidural mass. Implants: Pedicle screws x8 with screw caps x8. rods x2 Post-Operative Diagnosis: Same as Pre-op Surgeon: Rayshawn Glasgow Manager Clinic: [facility] Anesthesiologist/BRAND LEADER: Dre Santos Anesthesia: General Specimens Removed: L2-L3 epidural puss phlegmon Estimated Blood Loss (mls): 1,300 Drains & Tubes with Location: lumbar spine Blood Volume Replaced (mls): 2 (units given in OR) Fluid Volume Replaced (mls): 2,600 Operative Report Dictated: Yes
--- NOTE | 2017-02-01 20:54 | SURG ---
Surgery Title Vehicle Service Attendant Note Title Vehicle Service Attendant: Thais Mayorga PA-C Date of Service: 02/01/17 Diagnosis: L2-L3 discitis, osteomylitis and instability Procedure: L1-L4 lumbar laminectomies with decompression and interbody fusion with pedicle screws L1-L4, evacuation of epidural mass. I was present for the entirety of the operative procedure. For further detail, please refer to operative report. Visit type - Case Type Case Type: ED Admission - Emergency Emergency Visit: Yes ED Registration Date: 01/29/17 Care time: The patient presented to the Emergency Department on the above date and was hospitalized for further evaluation of their emergent condition. - New patient This patient is new to me today: Yes Date on this admission: 02/01/17
[2017-02-01 21:02] LABS: HEMATOCRIT 29.8 % (35.4-49); HEMOGLOBIN 9.7 GM/dL (11.7-16.9); MCH 26.5 pg (25.7-33.7); MCHC 32.4 g/dl (32.0-35.9); MEAN CELL VOLUME 81.8 fl (80-96); MEAN PLT VOLUME 7.3 fl (7.5-11.1); PLATELET COUNT 254 K/MM3 (134-434); RBC 3.64 M/mm3 (4.00-5.60); RDW 16.8 % (11.9-15.9); WHITE BLOOD COUNT 10.2 K/mm3 (4.0-10.0)
[2017-02-01] MEDS ORDERED: ONDANSETRON 4 MG/2 ML VIAL IVPB PRN (21:05)
[2017-02-01] MEDS ORDERED: LACTATED RINGERS SOLUTION 1,000 ML/1,000 ML INFUS.BAG IV SCH (21:05)
[2017-02-01] MEDS ORDERED: LORazepam 2 MG/ML SDV VIAL IVPUSH PRN (21:05)
[2017-02-01] MEDS ORDERED: morphine SULFATE 4 MG/ML VIAL IVPUSH PRN (21:05)
[2017-02-01 21:22] LABS: CALCIUM 7.1 mg/dL (8.5-10.1); MAGNESIUM 1.1 mg/dL (1.8-2.4)
[2017-02-01] MEDS ORDERED: HEPARIN NA (PORCINE) 5,000 UNITS/ML 1ML VIAL SQ SCH (22:00)
[2017-02-01] MEDS ORDERED: MAGNESIUM SULF 50% (8.12 MEQ/2 ML-1 GM VIAL) IVPB ONE (22:23)
[2017-02-01] MEDS ORDERED: KCL 10 MEQ IVPB 10 MEQ/100 ML INFUS.BAG IVPB SCH (22:30)
[2017-02-01] MEDS ORDERED: POTASSIUM CHLORIDE 10 MEQ in SODIUM CHLORIDE 100 ML IVPB ONE (22:30)
[2017-02-01] MEDS: GABAPENTIN 300 MG CAPSULE (FP) PO SCH (22:37)
[2017-02-02] MEDS ORDERED: CEFAZOLIN 2 GM in DEXTROSE 5%-WATER - 100 ML IVPB SCH (02:00)
[2017-02-02] MEDS: CEFAZOLIN 2 GM/D5W 2 GM/50 ML ML IVPB SCH ×3 (04:20→18:12)
[2017-02-02 05:52] LABS: HEMATOCRIT 24.4 % (35.4-49); HEMOGLOBIN 8.2 GM/dL (11.7-16.9); MCH 26.9 pg (25.7-33.7); MCHC 33.5 g/dl (32.0-35.9); MEAN CELL VOLUME 80.4 fl (80-96); MEAN PLT VOLUME 7.3 fl (7.5-11.1); PLATELET COUNT 228 K/MM3 (134-434); RBC 3.03 M/mm3 (4.00-5.60); RDW 16.6 % (11.9-15.9); WHITE BLOOD COUNT 6.3 K/mm3 (4.0-10.0)
[2017-02-02] MEDS ORDERED: SUCRALFATE 1 GM/10 ML UNIT DOSE CUPS PO SCH (06:00)
[2017-02-02 06:17] LABS: ALBUMIN 1.6 g/dl (3.4-5.0); ANION GAP 10 (8-16); BLOOD UREA NITROGEN 9 mg/dL (7-18); CALCIUM 7.1 mg/dL (8.5-10.1); CHLORIDE 108 mmol/L (98-107); CO2 25 mmol/L (21-32); GLUCOSE,RANDOM 62 mg/dL (74-106); POTASSIUM 3.4 mmol/L (3.5-5.1); SODIUM 143 mmol/L (136-145)
[2017-02-02 06:21] LABS: ALK PHOS 106 U/L (45-117); BILIRUBIN,TOTAL 0.7 mg/dL (0.2-1.0); CREATININE 0.8 mg/dL (0.7-1.3); SGOT/AST 16 U/L (15-37); SGPT/ALT 7 U/L (12-78); TOT PROT 5.3 g/dl (6.4-8.2)
[2017-02-02] MEDS: SUCRALFATE 1 GM/10 ML UNIT DOSE CUPS PO SCH ×5 (06:34→21:49)
[2017-02-02] MEDS: METHADONE 80 MG, METHADONE 20 MG PO SCH ×2 (06:35→07:46)
[2017-02-02] MEDS: POLYETHYLENE GLYCOL 3350 119 GM BTL PO SCH ×3 (06:36→21:21)
[2017-02-02] MEDS: GABAPENTIN 300 MG CAPSULE (FP) PO SCH ×3 (06:36→21:22)
--- NOTE | 2017-02-02 07:40 | PN ---
Progress Note, Physician Chief Complaint: ID Post op lumbar laminectomies with decompression of epidural collection small Cefazolin continues - Current Medication List Current Medications: Active Medications Fentanyl (Sublimaze Injection -) 50 mcg IVPUSH [id number] PRN PRN Reason: PAIN Gabapentin (Neurontin -) 300 mg PO TID [facility] Last Admin: 02/02/17 06:36 Dose: Not Given Heparin Sodium (Porcine) (Heparin -) 5,000 unit SQ TID [facility] Last Admin: 02/01/17 22:40 Dose: Not Given Lactated Ringer's (Lactated Ringers Solution) 1,000 mls @ 125 mls/hr IV ASDIR [facility] Last Admin: 02/01/17 22:41 Dose: Not Given Lactated Ringer's (Lactated Ringers Solution) 1,000 ml in 1,000 mls @ 100 mls/ hr IV ASDIR [facility] Last Admin: 02/01/17 22:41 Dose: 100 mls/hr Cefazolin Sodium/Dextrose (Ancef 2 Gm Premixed Ivpb -) 2 gm in 50 mls @ 100 mls /hr IVPB Q8H-IV [facility] Last Admin: 02/02/17 04:20 Dose: 100 mls/hr Lorazepam (Ativan Injection -) 1 mg IVPUSH TID PRN PRN Reason: ANXIETY Methadone HCl 80 mg/ Methadone (HCl 20 mg) 100 mg PO DAILY@0600 [facility] Last Admin: 02/02/17 06:35 Dose: Not Given Morphine Sulfate (Morphine Sulfate) 4 mg IVPUSH Q6H PRN PRN Reason: PAIN Nicotine (Nicoderm Patch -) 21 mg TD DAILY [facility] Ondansetron HCl (Zofran Injection) 8 mg IVPB Q6H PRN PRN Reason: NAUSEA Pantoprazole Sodium (Protonix Iv) 40 mg IVPUSH BID [facility] Last Admin: 02/01/17 22:41 Dose: 40 mg Polyethylene Glycol (Miralax (For Daily Use) -) 17 gm PO TID [facility] Last Admin: 02/02/17 06:36 Dose: Not Given Sucralfate (Carafate Oral Suspension -) 1 gm PO QID [facility] Last Admin: 02/02/17 06:34 Dose: Not Given - Objective Vital Signs: Vital Signs Temperature 98.2 F 02/02/17 05:53 Pulse Rate 88 02/02/17 05:53 Respiratory Rate 15 12/06/17 05:53 Blood Pressure 130/79 02/02/17 05:53 O2 Sat by Pulse Oximetry (%) 100 02/01/17 22:52 Constitutional: Yes: Well Nourished, No Distress Cardiovascular: Yes: S1, S2. No: Murmur Respiratory: Yes: WNL, Regular, CTA Bilaterally Gastrointestinal: Yes: WNL, Normal Bowel Sounds, Soft. No: Tenderness Extremities: Yes: Other (Open clean right wrist wound) Labs: CBC, BMP 02/02/17 05:00 02/02/17 05:00 INR, PTT INR 1.31 (0.82-1.09) H 02/01/17 11:45 Problem List - Problems (1) Osteomyelitis of lumbar spine Code(s): M46.26 - OSTEOMYELITIS OF VERTEBRA, LUMBAR REGION (2) Diabetes mellitus Code(s): E11.9 - TYPE 2 DIABETES MELLITUS WITHOUT COMPLICATIONS (3) CHF (congestive heart failure) Code(s): I50.9 - HEART FAILURE, UNSPECIFIED (4) Diabetes 1.5, managed as type 2 Code(s): E13.9 - OTHER SPECIFIED DIABETES MELLITUS WITHOUT COMPLICATIONS (5) Gram-positive cocci bacteremia Code(s): R78.81 - BACTEREMIA Assessment/Plan Microbiology 01/29/17 11:07 Urine - Urine Bess Urine Culture - Final NO GROWTH OBTAINED 01/29/17 09:50 Blood - Peripheral Venous Blood Culture - Final Staphylococcus Aureus 01/29/17 09:50 Blood - Peripheral Venous Blood Culture - Final Staphylococcus Aureus 02/01/17 17:30 Wound Gram Stain - Preliminary 02/01/17 17:30 Wound Gram Stain - Preliminary 02/01/17 17:30 Wound Gram Stain - Preliminary 01/31/17 18:00 Blood - Peripheral Venous Blood Culture - Preliminary NO GROWTH OBTAINED AFTER 24 HOURS, INCUBATION TO CONTINUE FOR 4 DAYS. 01/31/17 18:00 Blood - Peripheral Venous Blood Culture - Preliminary NO GROWTH OBTAINED AFTER 24 HOURS, INCUBATION TO CONTINUE FOR 4 DAYS. Laboratory Tests 02/02/17 02/02/17 05:00 05:00 WBC 6.3 D Hgb 8.2 L D Plt Count 228 BUN 9 D Creatinine 0.8 Assessment Post op lumbar laminectomies with hardware placement Epidural abscess osteomyelitis Diabetes and chronic hepatitis C Plan Continue same Cefazolin Discussion re back to the OR per Carlita Oliva MD
[2017-02-02] MEDS ORDERED: METHADONE HCL 40 MG DISPERSABLE TABLET ONE (07:44)
[2017-02-02] MEDS ORDERED: METHADONE HCL 10 MG TABLET ONE (07:44)
--- NOTE | 2017-02-02 08:10 | PN ---
Progress Note, Physician Chief Complaint: abdominal pain and GI bleed History of Present Illness: 61 yo male PMH Asthma, CHF, HTN, HLD, Hepatitis C, Degenerative Joint Disease, Obesity s/p Laparoscopic Kiarra-en-y Gastric Bypass 10 years ago ([place], [place] ) , prostate CA?, Heroin use (on methadone) who presents to the ED with lower back pain, legs and buttocks for the past week. He had GUIAC positive stool and is anemic but responded appropriately to transfusion. Abdominal pain is about the same. Had endoscopy showing marginal ulcer at [facility]. He has bacteremia MSSA. Had lumbar spine decompressed. - Current Medication List Current Medications: Active Medications Fentanyl (Sublimaze Injection -) 50 mcg IVPUSH [id number] PRN PRN Reason: PAIN Gabapentin (Neurontin -) 300 mg PO TID [facility] Last Admin: 02/02/17 06:36 Dose: Not Given Heparin Sodium (Porcine) (Heparin -) 5,000 unit SQ TID [facility] Last Admin: 02/01/17 22:40 Dose: Not Given Lactated Ringer's (Lactated Ringers Solution) 1,000 mls @ 125 mls/hr IV ASDIR [facility] Last Admin: 02/01/17 22:41 Dose: Not Given Lactated Ringer's (Lactated Ringers Solution) 1,000 ml in 1,000 mls @ 100 mls/ hr IV ASDIR [facility] Last Admin: 02/01/17 22:41 Dose: 100 mls/hr Cefazolin Sodium/Dextrose (Ancef 2 Gm Premixed Ivpb -) 2 gm in 50 mls @ 100 mls /hr IVPB Q8H-IV [facility] Last Admin: 02/02/17 04:20 Dose: 100 mls/hr Lorazepam (Ativan Injection -) 1 mg IVPUSH TID PRN PRN Reason: ANXIETY Methadone HCl 80 mg/ Methadone (HCl 20 mg) 100 mg PO DAILY@0600 [facility] Last Admin: 02/02/17 07:46 Dose: 100 mg Morphine Sulfate (Morphine Sulfate) 4 mg IVPUSH Q6H PRN PRN Reason: PAIN Nicotine (Nicoderm Patch -) 21 mg TD DAILY [facility] Ondansetron HCl (Zofran Injection) 8 mg IVPB Q6H PRN PRN Reason: NAUSEA Pantoprazole Sodium (Protonix Iv) 40 mg IVPUSH BID [facility] Last Admin: 02/01/17 22:41 Dose: 40 mg Polyethylene Glycol (Miralax (For Daily Use) -) 17 gm PO TID [facility] Last Admin: 02/02/17 06:36 Dose: Not Given Sucralfate (Carafate Oral Suspension -) 1 gm PO QID [facility] Last Admin: 02/02/17 06:34 Dose: Not Given - Objective Vital Signs: Vital Signs Temperature 98.2 F 02/02/17 05:53 Pulse Rate 88 02/02/17 05:53 Respiratory Rate 15 02/02/17 05:53 Blood Pressure 130/79 02/02/17 05:53 O2 Sat by Pulse Oximetry (%) 100 02/01/17 22:52 Vital Signs Period Temp Pulse Resp BP Sys/Pascal Pulse Ox Last 24 Hr 98.2 F-99.4 F 83-104 12-21 116-173/70-98 97-100 Constitutional: Yes: No Distress, Calm, Obese Eyes: Yes: Conjunctiva Clear, EOM Intact HENT: Yes: Atraumatic, Normocephalic Neck: Yes: Supple, Trachea Midline Cardiovascular: Yes: Regular Rate and Rhythm, S1, S2 Respiratory: Yes: Regular, CTA Bilaterally Gastrointestinal: Yes: Normal Bowel Sounds, Soft. No: Tenderness, Tenderness, Epigastrium, Tenderness, Rebound ...Rectal Exam: Yes: Deferred Extremities: No: Cool, Cyanosis Edema: No Peripheral Pulses WNL: Yes Peripheral Pulses: Left Doralis Pedis: 2+, Right Dorsalis Pedis: 2+ Neurological: Yes: Alert, Oriented, Weakness (bilateral LE similar to previous) Psychiatric: Yes: Alert, Oriented Labs: CBC, BMP 02/02/17 05:00 02/02/17 05:00 INR, PTT INR 1.31 (0.82-1.09) H 02/01/17 11:45 Microbiology 02/01/17 17:30 Wound Gram Stain - Final 02/01/17 17:30 Wound Gram Stain - Final 02/01/17 17:30 Wound Gram Stain - Final 01/31/17 18:00 Blood - Peripheral Venous Blood Culture - Preliminary NO GROWTH OBTAINED AFTER 24 HOURS, INCUBATION TO CONTINUE FOR 4 DAYS. 01/31/17 18:00 Blood - Peripheral Venous Blood Culture - Preliminary NO GROWTH OBTAINED AFTER 24 HOURS, INCUBATION TO CONTINUE FOR 4 DAYS. 01/29/17 09:50 Blood - Peripheral Venous Blood Culture - Final Staphylococcus Aureus 01/29/17 09:50 Blood - Peripheral Venous Blood Culture - Final Staphylococcus Aureus 01/29/17 11:07 Urine - Urine Bess Urine Culture - Final NO GROWTH OBTAINED Abnormal Lab Results 01/29/17 01/29/17 02/01/17 17:03 19:50 11:45 WBC RBC Hgb Hct RDW MPV PT with INR 14.80 H INR 1.31 H Potassium Chloride Random Glucose Calcium Phosphorus Magnesium ALT Total Protein Albumin Crossmatch See Detail Crossmatch IS Only See Detail 02/01/17 02/01/17 02/01/17 18:00 18:25 20:22 WBC 10.2 H D RBC 3.40 L 3.64 L Hgb 9.0 L D 9.7 L Hct 27.3 L 29.8 L RDW 16.8 H 16.8 H MPV 6.7 L D 7.3 L PT with INR INR Potassium Chloride Random Glucose Calcium Phosphorus Magnesium ALT Total Protein Albumin Crossmatch Crossmatch IS Only See Detail 02/01/17 02/02/17 02/02/17 20:22 05:00 05:00 WBC RBC 3.03 L Hgb 8.2 L D Hct 24.4 L D RDW 16.6 H MPV 7.3 L PT with INR INR Potassium 3.4 L Chloride 108 H Random Glucose 62 L Calcium 7.1 L 7.1 L Phosphorus 5.0 H Magnesium 1.1 L ALT 7 L D Total Protein 5.3 L Albumin 1.6 L Crossmatch Crossmatch IS Only Problem List - Problems (1) Rectal bleed Assessment/Plan: Chronic GI bleeding, hemoccult positive stool, no gross blood on rectal, no reported melena or hematochezia, no coffee ground emesis, appropriate response to transfusion of 2RBC, planned lumbar decompression tomorrow, on therapy for bacteremia, found to have marginal ulcer at the gastrojejunostomy (s/p Laparoscopic Kiarra-en-Y gastric bypass surgery 10 years ago in [place], [place]) , no obstructed. s/p Lumbar laminectomy will continue to follow for serial abdominal exams IV antibiotics therapy per ID PPI therapy trends labs This patient is in guarded condition in the ICU. Time spent reviewing chart, examining patient, talking with providers and/or family and documentation is 35 minutes Code(s): K62.5 - HEMORRHAGE OF ANUS AND RECTUM (2) Occult blood positive stool Code(s): R19.5 - OTHER FECAL ABNORMALITIES (3) Urine retention Code(s): R33.9 - RETENTION OF URINE, UNSPECIFIED (4) Abnormal MRI, spine Code(s): R93.7 - ABNORMAL FINDINGS ON DIAGNOSTIC IMAGING OF PRT MS SYS (5) Bacteremia Code(s): R78.81 - BACTEREMIA (6) Marginal ulcer Assessment/Plan: [facility] PPI therapy Code(s): K28.9 - GASTROJEJUNAL ULCER, UNSP ACUTE OR CHR, W/O HEMOR OR PERF (7) Osteomyelitis of lumbar spine Code(s): M46.26 - OSTEOMYELITIS OF VERTEBRA, LUMBAR REGION
[2017-02-02] MEDS ORDERED: PT OWN MED DRAWER 7, Y5N ONE (09:04)
[2017-02-02] MEDS: PANTOPRAZOLE SODIUM 40 MG VIAL IVPUSH SCH ×2 (09:11→21:22)
[2017-02-02] MEDS ORDERED: NICOTINE 21 MG/24 HOURS TOPICAL PATCH TD SCH (10:00)
--- NOTE | 2017-02-02 11:29 | CONSULT ---
Consultation: REQUESTING PROVIDER: CONSULT REQUEST: We have been asked to medically evaluate this patient for management in ICU. HISTORY OF PRESENT ILLNESS: 61 yo M with a PMHx of Asthma, CHF, HTN, HLD, Hepatitis C, Degenerative Joint Disease, Obesity, Heroin use (on methadone) who presents to the ED with lower back pain, legs and buttocks for one week. Lumbar MRI demonstrated L23 discitis with suggestions of Ostemyelitis in the adjacent vertebra and paraspinal phlegmon, particularly in the Left psoas muscle. There is erosion of the L23 endplates and fluid within this interspace which is contiguous with a ventral epidural soft tissue mass/collection. He is now POD#1 s/p L1-L4 lumbar laminectomies with decompression and interbody fusion with pedicle screws L1-L4 , evacuation of epidural mass. Patient is currently complaining of Lumbar back pain. He feels as if something is "sticking him in the back." His is scheduled to go back to OR today for revision. Denies CP,SHARPE,SOB, palpitations, fevers, chills, or N/V. REVIEW OF SYSTEMS: CONSTITUTIONAL: Absent: fever, chills, diaphoresis, generalized weakness, malaise, loss of appetite, weight change HEENT: Absent: rhinorrhea, nasal congestion, throat pain, throat swelling, difficulty swallowing, mouth swelling, ear pain, eye pain, visual changes CARDIOVASCULAR: Absent: chest pain, syncope, palpitations, irregular heart rate, lightheadedness , peripheral edema RESPIRATORY: Absent: cough, shortness of breath, dyspnea with exertion, orthopnea, wheezing, stridor, hemoptysis GASTROINTESTINAL:abdominal pain, Absent: abdominal distension, nausea, vomiting, diarrhea, constipation, melena , hematochezia GENITOURINARY: Absent: dysuria, frequency, urgency, hesitancy, hematuria, flank pain, genital pain MUSCULOSKELETAL: back pain Absent: myalgia, arthralgia, joint swelling, , neck pain SKIN: Absent: rash, itching, pallor HEMATOLOGIC/IMMUNOLOGIC: Absent: easy bleeding, easy bruising, lymphadenopathy, frequent infections ENDOCRINE: Absent: unexplained weight gain, unexplained weight loss, heat intolerance, cold intolerance NEUROLOGIC: Absent: headache, focal weakness or paresthesias, dizziness, unsteady gait, seizure, mental status changes, bladder or bowel incontinence PSYCHIATRIC: Absent: anxiety, depression, suicidal or homicidal ideation, hallucinations. PHYSICAL EXAMINATION Vital Signs - 24 hr 02/01/17 02/01/17 02/01/17 20:02 20:15 20:30 Temperature 98.5 F Pulse Rate 92 H 104 H 100 H Respiratory 18 16 16 Rate Blood Pressure 159/82 173/83 159/84 O2 Sat by Pulse 100 97 98 Oximetry (%) 02/01/17 02/01/17 02/01/17 20:45 21:00 21:15 Temperature Pulse Rate 95 H 93 H 88 Respiratory 16 16 16 Rate Blood Pressure 161/80 158/87 163/83 O2 Sat by Pulse 98 100 100 Oximetry (%) 02/01/17 02/01/17 02/01/17 21:30 22:00 22:52 Temperature 98.5 F 98.7 F Pulse Rate 86 89 Respiratory 16 12 Rate Blood Pressure 160/83 154/98 O2 Sat by Pulse 100 100 Oximetry (%) 02/02/17 02/02/17 02/02/17 00:00 02:00 04:00 Temperature 98.6 F Pulse Rate 89 85 85 Respiratory 14 18 15 Rate Blood Pressure 131/85 116/73 131/78 O2 Sat by Pulse Oximetry (%) 02/02/17 02/02/17 02/02/17 05:53 08:00 10:00 Temperature 98.2 F 99.4 F Pulse Rate 88 83 90 Respiratory 15 16 21 Rate Blood Pressure 130/79 140/74 116/70 O2 Sat by Pulse Oximetry (%) GENERAL: Awake, alert, and fully oriented, mild distress. HEAD: NC/AT EYES:PERRLA, EOMI, anicteric sclera EARS, NOSE, THROAT: Moist mucous membranes. NECK: supple, no jvd LUNGS: CTAB. No wheezes, and no crackles. No accessory muscle use. HEART: RRR. No M/G/R. S1 and S2 normal ABDOMEN: Soft, mild epigastric tenderness, not distended, normoactive bowel sounds, no guarding, no rebound, no masses. MUSCULOSKELETAL: Normal range of motion at all joints. No bony deformities or tenderness. No CVA tenderness. UPPER EXTREMITIES: 2+ pulses, warm, well-perfused. No cyanosis. No clubbing. LOWER EXTREMITIES: 2+ pulses, warm, well-perfused. No calf tenderness. No peripheral edema. NEUROLOGICAL: bilateral LE parasthesias PSYCHIATRIC: Cooperative. Good eye contact. Appropriate mood and affect. SKIN: Warm, dry, normal turgor, no rashes or lesions noted. Laboratory Results - last 24 hr 01/29/17 01/29/17 01/31/17 17:03 19:50 17:26 WBC RBC Hgb Hct MCV MCH MCHC RDW Plt Count MPV Neutrophils % Lymphocytes % Monocytes % Eosinophils % Basophils % PT with INR INR Sodium Potassium Chloride Carbon Dioxide Anion Gap BUN Creatinine Creat Clearance w eGFR POC Glucometer 82 Random Glucose Calcium Phosphorus Magnesium Total Bilirubin AST ALT Alkaline Phosphatase Total Protein Albumin HIV 1&2 Antibody Screen HIV P24 Antigen Blood Type O POSITIVE O POSITIVE Antibody Screen Negative Crossmatch See Detail Crossmatch IS Only See Detail 02/01/17 02/01/17 02/01/17 11:45 11:45 18:00 WBC 6.8 RBC 3.40 L Hgb 9.0 L D Hct 27.3 L MCV 80.3 MCH 26.5 MCHC 32.9 RDW 16.8 H Plt Count 242 MPV 6.7 L D Neutrophils % 74.2 Lymphocytes % 14.3 Monocytes % 9.6 Eosinophils % 1.5 D Basophils % 0.4 PT with INR 14.80 H INR 1.31 H Sodium Potassium Chloride Carbon Dioxide Anion Gap BUN Creatinine Creat Clearance w eGFR POC Glucometer Random Glucose Calcium Phosphorus Magnesium Total Bilirubin AST ALT Alkaline Phosphatase Total Protein Albumin HIV 1&2 Antibody Screen Negative HIV P24 Antigen Negative Blood Type Antibody Screen Crossmatch Crossmatch IS Only 02/01/17 02/01/17 02/01/17 18:25 20:22 20:22 WBC 10.2 H D RBC 3.64 L Hgb 9.7 L Hct 29.8 L MCV 81.8 MCH 26.5 MCHC 32.4 RDW 16.8 H Plt Count 254 MPV 7.3 L Neutrophils % Lymphocytes % Monocytes % Eosinophils % Basophils % PT with INR INR Sodium Potassium Chloride Carbon Dioxide Anion Gap BUN Creatinine Creat Clearance w eGFR POC Glucometer Random Glucose Calcium 7.1 L Phosphorus 5.0 H Magnesium 1.1 L Total Bilirubin AST ALT Alkaline Phosphatase Total Protein Albumin HIV 1&2 Antibody Screen HIV P24 Antigen Blood Type O POSITIVE Antibody Screen Negative Crossmatch Crossmatch IS Only See Detail 02/02/17 02/02/17 02/02/17 05:00 05:00 05:16 WBC 6.3 D RBC 3.03 L Hgb 8.2 L D Hct 24.4 L D MCV 80.4 MCH 26.9 MCHC 33.5 RDW 16.6 H Plt Count 228 MPV 7.3 L Neutrophils % Lymphocytes % Monocytes % Eosinophils % Basophils % PT with INR INR Sodium 143 Potassium 3.4 L Chloride 108 H Carbon Dioxide 25 Anion Gap 10 BUN 9 D Creatinine 0.8 Creat Clearance w eGFR > 60 POC Glucometer 82.35490 Random Glucose 62 L Calcium 7.1 L Phosphorus Magnesium Total Bilirubin 0.7 AST 16 ALT 7 L D Alkaline Phosphatase 106 Total Protein 5.3 L Albumin 1.6 L HIV 1&2 Antibody Screen HIV P24 Antigen Blood Type Antibody Screen Crossmatch Crossmatch IS Only Active Medications Generic Name Dose Route Start Last Admin Trade Name Freq PRN Reason Stop Dose Admin Fentanyl 50 mcg 02/01/17 20:16 Sublimaze Injection - IVPUSH [id number] PRN PAIN Gabapentin 300 mg 02/01/17 22:00 02/02/17 06:36 Neurontin - PO Not Given TID BELLA Heparin Sodium (Porcine) 5,000 unit 02/01/17 22:00 02/01/17 22:40 Heparin - SQ Not Given TID BELLA Lactated Ringer's 1,000 mls @ 125 mls/hr 02/01/17 20:30 02/01/17 22:41 Lactated Ringers Solution IV Not Given ASDIR BELLA Lactated Ringer's 1,000 ml in 1,000 mls @ 100 mls/hr 02/01/17 21:05 02/01/17 22:41 Lactated Ringers Solution IV 100 mls/hr ASDIR BELLA Administration Cefazolin Sodium/Dextrose 2 gm in 50 mls @ 100 mls/hr 02/02/17 04:15 09:11 Ancef 2 Gm Premixed Ivpb - IVPB 100 mls/hr Q8H-IV BELLA Administration Lorazepam 1 mg 02/01/17 21:05 Ativan Injection - IVPUSH TID PRN ANXIETY Methadone HCl 80 mg/ Methadone 100 mg 02/02/17 06:00 02/02/17 07:46 HCl 20 mg PO 100 mg DAILY@0600 BELLA Administration Morphine Sulfate 4 mg 02/01/17 21:05 02/02/17 07:54 Morphine Sulfate IVPUSH 4 mg Q6H PRN Administration PAIN Nicotine 21 mg 02/02/17 10:00 02/02/17 09:11 Nicoderm Patch - TD 21 mg DAILY BELLA Administration Ondansetron HCl 8 mg 02/01/17 21:05 Zofran Injection IVPB Q6H PRN NAUSEA Pantoprazole Sodium 40 mg 02/01/17 22:00 02/02/17 09:11 Protonix Iv IVPUSH 40 mg BID BELLA Administration Polyethylene Glycol 17 gm 02/01/17 22:00 02/02/17 06:36 Miralax (For Daily Use) - PO Not Given TID BELLA Sucralfate 1 gm 02/02/17 06:00 02/02/17 09:12 Carafate Oral Suspension - PO 1 gm QID BELLA Administration ASSESSMENT/PLAN: 61 yo M with a PMHx of Asthma, CHF, HTN, HLD, Hepatitis C, Degenerative Joint Disease, Obesity, Heroin use (on methadone) who presents to the ED with lower back pain, legs and buttocks for one week. POD#1 s/p L1-L4 lumbar laminectomies with decompression and interbody fusion with pedicle screws L1-L4, evacuation of epidural mass. Neuro: * Patient is at baseline; * Back to OR today for revision surgery * continue with methadone daily * pain control with Fentanyl and morphine CV: * AC with heparin SQ 5000u TID * BP meds held for now. * Monitor H/H Pulm: * Supplemental O2 PRN * maintain SpO2>90% GI: * Zofran for nausea. Endo: * Will start on ISS once diet is restarted ID: * spinal osteo and septicemia * Continue with Cefazolin 2gm IV Q8H FEN: * Lactated ringers * repeat CMP in AM * NPO for surgery. Dispo: We will continue to follow the patient in ICU. Thank you for this consultative opportunity. Visit type - Emergency Visit Emergency Visit: Yes ED Registration Date: 01/29/17 Care time: The patient presented to the Emergency Department on the above date and was hospitalized for further evaluation of their emergent condition. - New Patient This patient is new to me today: Yes Date on this admission: 02/02/17 - Critical Care Critical Care patient: Yes Total Critical Care Time (in minutes): 53 Critical Care Statement: The care of this patient involved high complexity decision making to prevent further life threatening deterioration of the patient 's condition and/or to evaluate & treat vital organ system(s) failure or risk of failure.
--- NOTE | 2017-02-02 11:29 | PN ---
Teaching Attending Note Name of Resident: Phan Gonzales ATTENDING PHYSICIAN STATEMENT I saw and evaluated the patient. I reviewed the resident's note and discussed the case with the resident. I agree with the resident's findings and plan as documented. SUBJECTIVE: Pt seen and examined in the ICU. Briefly, 61yo male with h/o HTN, hyperlipidemia , CHF, asthma, morbid obesity, methadone maintenance who was admitted for lower back pain. Found to have staph bacteremia likely from vertebral osteomyelitis. Now s/p L1-L4 lumbar laminectomies with decompression and interbody fusion with pedicle screws L1-L4, evacuation of epidural mass. Currently, no fevers recorded. c/o back discomfort and leg numbness. OBJECTIVE: Last Vital Signs Temp Pulse Resp BP Pulse Ox 99.4 F 90 21 116/70 100 02/02/17 10:00 02/02/17 10:00 02/02/17 10:00 02/02/17 10:00 02/01/17 22:52 Intake & Output 01/30/17 01/31/17 02/01/17 02/02/17 23:59 23:59 23:59 23:59 Intake Total 3450 1050 5225 950 Output Total 1450 1600 3175 630 Balance 2000 -550 2050 320 Weight 240 lb 2 oz 240 lb 242 lb 248 lb 3.2 oz Gen: NAD at rest Heart: RRR Lung: decreased breath sounds at the bases Abd: soft, nontender Ext: no edema CBC, BMP 02/02/17 05:00 02/02/17 05:00 Active Medications Fentanyl (Sublimaze Injection -) 50 mcg IVPUSH [id number] PRN PRN Reason: PAIN Gabapentin (Neurontin -) 300 mg PO TID BELLA Last Admin: 02/02/17 06:36 Dose: Not Given Heparin Sodium (Porcine) (Heparin -) 5,000 unit SQ TID BELLA Last Admin: 02/01/17 22:40 Dose: Not Given Lactated Ringer's (Lactated Ringers Solution) 1,000 mls @ 125 mls/hr IV ASDIR BELLA Last Admin: 02/01/17 22:41 Dose: Not Given Lactated Ringer's (Lactated Ringers Solution) 1,000 ml in 1,000 mls @ 100 mls/ hr IV ASDIR BELLA Last Admin: 02/01/17 22:41 Dose: 100 mls/hr Cefazolin Sodium/Dextrose (Ancef 2 Gm Premixed Ivpb -) 2 gm in 50 mls @ 100 mls /hr IVPB Q8H-IV [facility] Last Admin: 02/02/17 09:11 Dose: 100 mls/hr Lorazepam (Ativan Injection -) 1 mg IVPUSH TID PRN PRN Reason: ANXIETY Methadone HCl 80 mg/ Methadone (HCl 20 mg) 100 mg PO DAILY@0600 [facility] Last Admin: 02/02/17 07:46 Dose: 100 mg Morphine Sulfate (Morphine Sulfate) 4 mg IVPUSH Q6H PRN PRN Reason: PAIN Last Admin: 02/02/17 07:54 Dose: 4 mg Nicotine (Nicoderm Patch -) 21 mg TD DAILY [facility] Last Admin: 02/02/17 09:11 Dose: 21 mg Ondansetron HCl (Zofran Injection) 8 mg IVPB Q6H PRN PRN Reason: NAUSEA Pantoprazole Sodium (Protonix Iv) 40 mg IVPUSH BID [facility] Last Admin: 02/02/17 09:11 Dose: 40 mg Polyethylene Glycol (Miralax (For Daily Use) -) 17 gm PO TID [facility] Last Admin: 02/02/17 06:36 Dose: Not Given Sucralfate (Carafate Oral Suspension -) 1 gm PO QID [facility] Last Admin: 02/02/17 09:12 Dose: 1 gm ASSESSMENT AND PLAN: Staph Bacteremia Vetebral Osteomyelitis s/p L1-L4 lumbar laminectomies with decompression and interbody fusion with pedicle screws L1-L4, evacuation of epidural mass. HTN CHF Morbid Obesity Asthma Methadone Maintenance - back to OR today for revision - continue antibiotics - pain control - incentive spirometry - IVF - replete lytes - monitor H/H - DVT prophylaxis
[2017-02-02 11:45] LABS: ALBUMIN 1.9 g/dl (3.4-5.0); ALK PHOS 127 U/L (45-117); ANION GAP 11 (8-16); BILIRUBIN,TOTAL 0.7 mg/dL (0.2-1.0); BLOOD UREA NITROGEN 10 mg/dL (7-18); CALCIUM 7.1 mg/dL (8.5-10.1); CHLORIDE 106 mmol/L (98-107); CO2 23 mmol/L (21-32); GLUCOSE,RANDOM 111 mg/dL (74-106); POTASSIUM 3.1 mmol/L (3.5-5.1); SGOT/AST 19 U/L (15-37); SGPT/ALT 9 U/L (12-78); SODIUM 140 mmol/L (136-145); TOT PROT 6.2 g/dl (6.4-8.2)
--- NOTE | 2017-02-02 11:47 | PN ---
Progress Note, Physician Chief Complaint: AWAKE HUNGRY PATIENT IS NPO FOR SURGICAL REPAIR OF LUMBAR SCREW - Current Medication List Current Medications: Active Medications Fentanyl (Sublimaze Injection -) 50 mcg IVPUSH [id number] PRN PRN Reason: PAIN Gabapentin (Neurontin -) 300 mg PO TID [facility] Last Admin: 02/02/17 06:36 Dose: Not Given Heparin Sodium (Porcine) (Heparin -) 5,000 unit SQ TID [facility] Last Admin: 02/01/17 22:40 Dose: Not Given Lactated Ringer's (Lactated Ringers Solution) 1,000 mls @ 125 mls/hr IV ASDIR [facility] Last Admin: 02/01/17 22:41 Dose: Not Given Lactated Ringer's (Lactated Ringers Solution) 1,000 ml in 1,000 mls @ 100 mls/ hr IV ASDIR [facility] Last Admin: 02/01/17 22:41 Dose: 100 mls/hr Cefazolin Sodium/Dextrose (Ancef 2 Gm Premixed Ivpb -) 2 gm in 50 mls @ 100 mls /hr IVPB Q8H-IV [facility] Last Admin: 02/02/17 09:11 Dose: 100 mls/hr Lorazepam (Ativan Injection -) 1 mg IVPUSH TID PRN PRN Reason: ANXIETY Methadone HCl 80 mg/ Methadone (HCl 20 mg) 100 mg PO DAILY@0600 [facility] Last Admin: 02/02/17 07:46 Dose: 100 mg Morphine Sulfate (Morphine Sulfate) 4 mg IVPUSH Q6H PRN PRN Reason: PAIN Last Admin: 02/02/17 07:54 Dose: 4 mg Nicotine (Nicoderm Patch -) 21 mg TD DAILY [facility] Last Admin: 02/02/17 09:11 Dose: 21 mg Ondansetron HCl (Zofran Injection) 8 mg IVPB Q6H PRN PRN Reason: NAUSEA Pantoprazole Sodium (Protonix Iv) 40 mg IVPUSH BID [facility] Last Admin: 02/02/17 09:11 Dose: 40 mg Polyethylene Glycol (Miralax (For Daily Use) -) 17 gm PO TID [facility] Last Admin: 02/02/17 06:36 Dose: Not Given Sucralfate (Carafate Oral Suspension -) 1 gm PO QID [facility] Last Admin: 02/02/17 09:12 Dose: 1 gm - Objective Vital Signs: Vital Signs Temperature 99.4 F 02/02/17 10:00 Pulse Rate 90 02/02/17 10:00 Respiratory Rate 21 02/02/17 10:00 Blood Pressure 116/70 02/02/17 10:00 O2 Sat by Pulse Oximetry (%) 100 02/01/17 22:52 Constitutional: Yes: Mild Distress, Obese Eyes: Yes: WNL HENT: Yes: WNL Neck: Yes: WNL Cardiovascular: Yes: WNL Respiratory: Yes: WNL Gastrointestinal: Yes: WNL Genitourinary: Yes: Incontinence Musculoskeletal: Yes: Back Pain, Muscle Weakness Extremities: Yes: WNL Edema: Yes Peripheral Pulses WNL: Yes Integumentary: Yes: Venous Stasis Changes Wound/Incision: Yes: Dressing Dry and Intact Neurological: Yes: Numbness, Paresthesia ...Motor Strength: LLE, RLE Psychiatric: Yes: Other Labs: CBC, BMP 02/02/17 05:00 02/02/17 05:00 INR, PTT INR 1.31 (0.82-1.09) H 02/01/17 11:45 Problem List - Problems (1) Smoking addiction Code(s): F17.200 - NICOTINE DEPENDENCE, UNSPECIFIED, UNCOMPLICATED (2) Substance abuse Code(s): F19.10 - OTHER PSYCHOACTIVE SUBSTANCE ABUSE, UNCOMPLICATED (3) Anemia Code(s): D64.9 - ANEMIA, UNSPECIFIED Qualifiers: Anemia type: unspecified type Qualified Code(s): D64.9 - Anemia, unspecified (4) Rectal bleed Code(s): K62.5 - HEMORRHAGE OF ANUS AND RECTUM (5) CHF (congestive heart failure) Code(s): I50.9 - HEART FAILURE, UNSPECIFIED (6) Diabetes 1.5, managed as type 2 Code(s): E13.9 - OTHER SPECIFIED DIABETES MELLITUS WITHOUT COMPLICATIONS (7) Edema Code(s): R60.9 - EDEMA, UNSPECIFIED (8) Hepatitis C antibody test positive Code(s): R76.8 - OTHER SPECIFIED ABNORMAL IMMUNOLOGICAL FINDINGS IN SERUM (9) Hyperlipidemia Code(s): E78.5 - HYPERLIPIDEMIA, UNSPECIFIED (10) Hypertension Code(s): I10 - ESSENTIAL (PRIMARY) HYPERTENSION (11) Osteoarthritis Code(s): M19.90 - UNSPECIFIED OSTEOARTHRITIS, UNSPECIFIED SITE (12) Abnormal MRI, spine Code(s): R93.7 - ABNORMAL FINDINGS ON DIAGNOSTIC IMAGING OF PRT MS SYS (13) Gram-positive cocci bacteremia Code(s): R78.81 - BACTEREMIA (14) Osteomyelitis of lumbar spine Code(s): M46.26 - OSTEOMYELITIS OF VERTEBRA, LUMBAR REGION Assessment/Plan NPO FOR NEUROSURGICAL REPAIR OF LUMBAR SCREW IV ABX PAIN CONTROL TRANSFUSE PRBC NEEDED GI F/U LABS REVIEWED DVT PROPHYLAXIS
[2017-02-02] MEDS ORDERED: BUPIVACAINE HCL/PF 0.5% (5MG/ML) 10 ML VIAL ONE (12:09)
[2017-02-02] MEDS ORDERED: GENTAMICIN SO4 80 MG/2 ML VIAL ONE (12:09)
[2017-02-02] MEDS ORDERED: morphine SULFATE 4 MG/ML VIAL IVPUSH ONE (12:18)
[2017-02-02] MEDS ORDERED: PROPOFOL 20 ML ONE ×2 (12:30)
[2017-02-02] MEDS ORDERED: fentaNYL CITRATE 250 MCG/5 ML VIAL ONE (12:30)
[2017-02-02] MEDS ORDERED: ROCURONIUM BROMIDE 50 MG/5 ML VIAL ONE (12:31)
--- NOTE | 2017-02-02 12:32 | PN ---
Progress Note, Physician Chief Complaint: Pt. pain controlled, no anesthesia complaints. - Current Medication List Current Medications: Active Medications Fentanyl (Sublimaze Injection -) 50 mcg IVPUSH [id number] PRN PRN Reason: PAIN Gabapentin (Neurontin -) 300 mg PO TID [facility] INCLUDES [facility] Last Admin: 02/02/17 06:36 Dose: Not Given Heparin Sodium (Porcine) (Heparin -) 5,000 unit SQ TID [facility] INCLUDES [facility] Last Admin: 02/01/17 22:40 Dose: Not Given Lactated Ringer's (Lactated Ringers Solution) 1,000 mls @ 125 mls/hr IV ASDIR COUNT INCLUDES [facility] Last Admin: 02/01/17 22:41 Dose: Not Given Lactated Ringer's (Lactated Ringers Solution) 1,000 ml in 1,000 mls @ 100 mls/ hr IV ASDIR COUNT INCLUDES [facility] Last Admin: 02/01/17 22:41 Dose: 100 mls/hr Cefazolin Sodium/Dextrose (Ancef 2 Gm Premixed Ivpb -) 2 gm in 50 mls @ 100 mls /hr IVPB Q8H-IV COUNT INCLUDES [facility] Last Admin: 02/02/17 09:11 Dose: 100 mls/hr Lorazepam (Ativan Injection -) 1 mg IVPUSH TID PRN PRN Reason: ANXIETY Methadone HCl 80 mg/ Methadone (HCl 20 mg) 100 mg PO DAILY@0600 [facility]CLUD[facility] Last Admin: 02/02/17 07:46 Dose: 100 mg Morphine Sulfate (Morphine Sulfate) 4 mg IVPUSH Q6H PRN PRN Reason: PAIN Last Admin: 02/02/17 07:54 Dose: 4 mg Nicotine (Nicoderm Patch -) 21 mg TD DAILY [facility] Last Admin: 02/02/17 09:11 Dose: 21 mg Ondansetron HCl (Zofran Injection) 8 mg IVPB Q6H PRN PRN Reason: NAUSEA Pantoprazole Sodium (Protonix Iv) 40 mg IVPUSH BID [facility]CLUD[facility] Last Admin: 02/02/17 09:11 Dose: 40 mg Polyethylene Glycol (Miralax (For Daily Use) -) 17 gm PO TID [facility]CLUD[facility] Last Admin: 02/02/17 06:36 Dose: Not Given Sucralfate (Carafate Oral Suspension -) 1 gm PO QID [facility] Last Admin: 02/02/17 09:12 Dose: 1 gm - Objective Vital Signs: Vital Signs Temperature 99.4 F 02/02/17 10:00 Pulse Rate 90 02/02/17 10:00 Respiratory Rate 21 02/02/17 10:00 Blood Pressure 116/70 02/02/17 10:00 O2 Sat by Pulse Oximetry (%) 100 02/01/17 22:52 Constitutional: Yes: Well Nourished, No Distress, Calm Neurological: Yes: WNL, Alert, Oriented Labs: CBC, BMP 02/02/17 05:00 02/02/17 05:00 INR, PTT INR 1.31 (0.82-1.09) H 02/01/17 11:45 Assessment/Plan POD#1 s/p L1-4 decompression and stabilization under GA. Doing well. Scheduled for OR today.
[2017-02-02] MEDS ORDERED: VANCOMYCIN 1,000 MG VIAL (RESTRICTED TO ID ONLY) ONE (12:52)
[2017-02-02] MEDS ORDERED: SEVOFLURANE 250 ML BTL ONE (12:53)
[2017-02-02] MEDS ORDERED: ceFAZolin SODIUM 1 GM VIAL ONE (14:14)
[2017-02-02] MEDS ORDERED: ceFAZolin SODIUM 1 GM VIAL IVPB ONE (14:15)
[2017-02-02] MEDS ORDERED: PHENYLEPHRINE HCL 10 MG/1 ML SINGLE DOSE VIAL ONE (14:37)
[2017-02-02] MEDS ORDERED: GLYCOPYRROLATE 0.2 MG/1 ML VIAL ONE (14:54)
[2017-02-02] MEDS ORDERED: NEOSTIGMINE METHYLSULFATE 0.5 MG/ML - 10 ML MDV ONE (14:54)
--- NOTE | 2017-02-02 16:06 | PATH ---
Surgical Pathology Report Patient Name: JAIRO MCKEON [facility]. Rec. #: [id number] /Age/Gender: 1955 (Age: 61) / M Account: [id number] Location: ICU RELEASE OF INFORMATION SPECIALIST Taken: 01/31/2017 Received: 02/01/2017 Reported: 02/02/2017 Physicians: Nahum Lopes M.D. Specimen(s) Received GASTRIC ULCER Clinical History Preoperative diagnosis: Acute blood loss, anemia Postoperative diagnosis: Gastric ulcer, poor prep Final Diagnosis STOMACH, GASTRIC ULCER, BIOPSY: SMALL BOWEL MUCOSA WITH MILD CHRONIC INFLAMMATION. NO GASTRIC MUCOSA IDENTIFIED. Electronically Signed Evette Albert M.D. Gross Description Received in formalin, labeled "biopsy gastric ulcer" are 2 foster, irregular portions of soft tissue measuring 0.2 and 0.3 cm. in greatest dimension. The specimens are submitted in toto in one cassette. 02/01/201702/01/2017
--- NOTE | 2017-02-02 16:41 | OP ---
Operative Note - Note: Operative Date: 02/02/17 Pre-Operative Diagnosis: L2-L3 discitis/osteomylitis s/p L1-L4 fusion with malpositioned hardware. Operation: Wound exploration and revision of malaligned hardware, right L4 screw Post-Operative Diagnosis: Same as Pre-op Surgeon: Rayshawn Glasgow Defect Cutter: Thais Mayorga Anesthesiologist/MACHINE PLATE STACKER: Dre Santos Anesthesia: General Estimated Blood Loss (mls): 250 Drains & Tubes with Location: DESTINY drain left lumbar Operative Report Dictated: Yes
--- NOTE | 2017-02-02 16:44 | SURG ---
Surgery Forestry Support Specialist Note Forestry Support Specialist: Thais Mayorga PA-C Date of Service: 02/02/17 Diagnosis: L2-L3 discitis/osteomylitis s/p L1-L4 fusion with malalignment of Right L4 screw Procedure: Wound exploration and revision of malaligned hardware, right L4 screw I was present for the entirety of the operative procedure. For further detail, please refer to operative report. Visit type - Case Type Case Type: ED Admission - Emergency Emergency Visit: Yes ED Registration Date: 01/29/17 Care time: The patient presented to the Emergency Department on the above date and was hospitalized for further evaluation of their emergent condition. - New patient This patient is new to me today: Yes Date on this admission: 02/02/17
[2017-02-02 17:55] LABS: HEMATOCRIT 25.8 % (35.4-49); HEMOGLOBIN 8.5 GM/dL (11.7-16.9); MCH 26.8 pg (25.7-33.7); MCHC 33.1 g/dl (32.0-35.9); MEAN CELL VOLUME 81.1 fl (80-96); MEAN PLT VOLUME 7.4 fl (7.5-11.1); PLATELET COUNT 219 K/MM3 (134-434); RBC 3.18 M/mm3 (4.00-5.60); RDW 16.8 % (11.9-15.9); WHITE BLOOD COUNT 8.9 K/mm3 (4.0-10.0)
[2017-02-02 18:13] LABS: ANION GAP 10 (8-16); BLOOD UREA NITROGEN 10 mg/dL (7-18); CALCIUM 7.7 mg/dL (8.5-10.1); CHLORIDE 107 mmol/L (98-107); CO2 25 mmol/L (21-32); CREATININE 0.9 mg/dL (0.7-1.3); GLUCOSE,RANDOM 68 mg/dL (74-106); MAGNESIUM 1.3 mg/dL (1.8-2.4); PHOSPHOROUS 3.4 mg/dL (2.5-4.9); POTASSIUM 3.3 mmol/L (3.5-5.1); SODIUM 142 mmol/L (136-145)
[2017-02-02] MEDS: LACTATED RINGERS SOLUTION 1,000 ML/1,000 ML INFUS.BAG IV SCH (19:00)
[2017-02-02] MEDS: morphine SULFATE 4 MG/ML VIAL IVPUSH PRN (19:01)
--- NOTE | 2017-02-02 19:17 | CONSULT ---
Consult Consult Specialty:: Pain Management Referred by:: DR. Glasgow Reason for Consultation:: Back pain - History of Present Illness History of Present Illness: 61 yr old AA male with LBP with both legs pain s/p Lumbar fusion ( 02/01/2017) and revision of surgery ( 02/02/2017) c/o pain 12/07. He has difficulty in getting up. He was taking Methadone 100 mg PO qd and is on IV Morphine. - History Source History Provided By: Patient Limitations to Obtaining History: No Limitations - Past Medical History Cardio/Vascular: Yes: CHF, HTN Pulmonary: Yes: COPD Psych: Yes: Other - Alcohol/Substance Use Hx Alcohol Use: No History of Substance Use: reports: Cocaine, Heroin - Smoking History Smoking history: Current every day smoker Have you smoked in the past 12 months: Yes Aproximately how many cigarettes per day: 4 - Social History History of Recent Travel: No Home Medications - Allergies Allergies/Adverse Reactions: Allergies Allergy/AdvReac Type Severity Reaction Status Date / Time No Known Allergies Allergy Verified 01/10/13 11:37 - Home Medications Home Medications: Ambulatory Orders Buprenorphine [Butrans] 1 patch.wk TD WEEKLY 12/08/12 Methadone [Dolophine -] 80 mg PO DAILY 12/08/12 Eszopiclone [Lunesta] 1 tab PO HS 01/10/13 Ibuprofen [Advil -] 200 mg PO PRN 01/10/13 Atorvastatin Ca [Lipitor] 40 mg PO HS #0 tablet 01/12/13 Furosemide [Lasix -] 40 mg PO DAILY #0 tablet 01/12/13 Gabapentin [Neurontin -] 400 mg PO TID #0 capsule 01/12/13 Liraglutide [Victoza -] 1.2 mg SQ HS #0 pen.injctr 01/12/13 Lisinopril [Prinivil] 20 mg PO DAILY #0 tablet 01/12/13 Metolazone [Zaroxolyn -] 2.5 mg PO DAILY@0930 #0 tablet 01/12/13 Quetiapine Fumarate "Xr" [Seroquel XR] 150 mg PO HS@2000 #0 tablet 01/12/13 Benicar - 1 tab PO DAILY 05/24/14 Review of Systems - Review of Systems Constitutional: reports: No Symptoms Eyes: reports: No Symptoms HENT: reports: No Symptoms Neck: reports: No Symptoms Respiratory: reports: No Symptoms Gastrointestinal: reports: No Symptoms Genitourinary: reports: Other (escobedo's catheter) Neurological: reports: No Symptoms Physical Exam Vital Signs: Vital Signs Temperature 97.6 F 02/02/17 16:30 Pulse Rate 101 H 02/02/17 18:00 Respiratory Rate 14 02/02/17 18:00 Blood Pressure 147/91 02/02/17 18:00 O2 Sat by Pulse Oximetry (%) 96 02/02/17 16:30 Constitutional: Yes: Well Nourished Eyes: Yes: WNL HENT: Yes: WNL Neck: Yes: WNL Gastrointestinal: Yes: WNL Musculoskeletal: Yes: Back Pain Neurological: Yes: Alert, Oriented ...Motor Strength: WNL (bilateral leg decrease Strength s/p surgery and pain .) Labs: CBC, BMP 02/02/17 16:00 02/02/17 16:00 Problem List - Problems (1) Post-op pain Assessment/Plan: Discussed in details and answered all the questions. continue current care 1. IV morphine 2 mg IV q4 PRN 2. MS Contin 15 mg PO q8 3. Flexeril 10 mg PO BID. please call me if pain not well controlled. Thanks Dr. Alma Rosa Curiel [phone] Code(s): G89.18 - OTHER ACUTE POSTPROCEDURAL PAIN
[2017-02-02] MEDS ORDERED: ONDANSETRON 4 MG/2 ML VIAL IVPB PRN (20:26)
[2017-02-02] MEDS ORDERED: LACTATED RINGERS SOLUTION 1,000 ML IV SCH (20:26)
[2017-02-02] MEDS: CHLORHEXIDINE GLUCONATE 4% CLEANSER FOR DECOLONIZATION TP SCH (21:19)
[2017-02-02] MEDS: CYCLOBENZAPRINE HCL 10 MG TABLET (FP) PO SCH (21:21)
[2017-02-02] MEDS: morphine SO4 SUSTAINED ACTING 15 MG TABLET.SA PO SCH (21:21)
[2017-02-02] MEDS: MUPIROCIN 2% TOPICAL OINTMENT FOR DECOLONIZATION NS SCH (21:49)
[2017-02-02] MEDS ORDERED: MAGNESIUM SULF 50% (8.12 MEQ/2 ML-1 GM VIAL) IVPB ONE (22:00)
[2017-02-02] MEDS ORDERED: POTASSIUM CHLORIDE TABS 20 MEQ TABLET.ER (FP) PO ONE (22:00)
[2017-02-03] MEDS: CEFAZOLIN 2 GM/D5W 2 GM/50 ML ML IVPB SCH ×4 (02:28→17:24)
[2017-02-03 06:15] LABS: HEMATOCRIT 19.8 % (35.4-49); MCH 26.8 pg (25.7-33.7); MCHC 32.7 g/dl (32.0-35.9); MEAN PLT VOLUME 7.5 fl (7.5-11.1); PLATELET COUNT 175 K/MM3 (134-434); RBC 2.41 M/mm3 (4.00-5.60); RDW 16.8 % (11.9-15.9)
[2017-02-03] MEDS ORDERED: METHADONE HCL 10 MG TABLET ONE (06:17)
[2017-02-03] MEDS ORDERED: METHADONE HCL 40 MG DISPERSABLE TABLET ONE (06:17)
[2017-02-03] MEDS: CYCLOBENZAPRINE HCL 10 MG TABLET (FP) PO SCH ×3 (06:27→22:17)
[2017-02-03] MEDS: GABAPENTIN 300 MG CAPSULE (FP) PO SCH ×3 (06:28→22:17)
[2017-02-03] MEDS: HEPARIN NA (PORCINE) 5,000 UNITS/ML 1ML VIAL SQ SCH ×3 (06:28→22:17)
[2017-02-03] MEDS: METHADONE 80 MG, METHADONE 20 MG PO SCH (06:28)
[2017-02-03] MEDS: morphine SULFATE 4 MG/ML VIAL IVPUSH PRN (06:29)
[2017-02-03] MEDS: POLYETHYLENE GLYCOL 3350 119 GM BTL PO SCH ×3 (06:29→22:19)
[2017-02-03 06:38] LABS: ALBUMIN 1.6 g/dl (3.4-5.0); ALK PHOS 110 U/L (45-117); ANION GAP 7 (8-16); BILIRUBIN,TOTAL 0.5 mg/dL (0.2-1.0); BLOOD UREA NITROGEN 12 mg/dL (7-18); CALCIUM 7.6 mg/dL (8.5-10.1); CHLORIDE 106 mmol/L (98-107); CO2 27 mmol/L (21-32); CREATININE 0.9 mg/dL (0.7-1.3); GLUCOSE,RANDOM 75 mg/dL (74-106); MAGNESIUM 1.8 mg/dL (1.8-2.4); PHOSPHOROUS 2.1 mg/dL (2.5-4.9); SGOT/AST 22 U/L (15-37); SGPT/ALT < 6 U/L (12-78); SODIUM 140 mmol/L (136-145); TOT PROT 5.4 g/dl (6.4-8.2)
[2017-02-03 06:40] LABS: HEMOGLOBIN 6.5 GM/dL (11.7-16.9)
--- NOTE | 2017-02-03 07:12 | PN ---
Progress Note, Physician Chief Complaint: abdominal pain and GI bleed History of Present Illness: 61 yo male PMH Asthma, CHF, HTN, HLD, Hepatitis C, Degenerative Joint Disease, Obesity s/p Laparoscopic Kiarra-en-y Gastric Bypass 10 years ago ([place], [place] ) , prostate CA?, Heroin use (on methadone) who presents to the ED with lower back pain, legs and buttocks for the past week. He had GUIAC positive stool and is anemic but responded appropriately to initial transfusion. Abdominal pain is about the same. Had endoscopy showing marginal ulcer at [facility]. He has bacteremia MSSA being treated. Now he is s/p L1-L4 lumbar laminectomies with decompression and interbody fusion with pedicle screws L1-L4, evacuation of epidural mass. No interval change. - Current Medication List Current Medications: Active Medications Chlorhexidine Gluconate (Hibiclens For Decolonization -) 1 applic TP HS [facility] Last Admin: 02/02/17 21:19 Dose: 1 applic Cyclobenzaprine HCl (Flexeril -) 10 mg PO TID [facility] Last Admin: 02/03/17 06:27 Dose: 10 mg Fentanyl (Sublimaze Injection -) 50 mcg IVPUSH [id number] PRN PRN Reason: PAIN Gabapentin (Neurontin -) 300 mg PO TID [facility] Last Admin: 02/03/17 06:28 Dose: 300 mg Heparin Sodium (Porcine) (Heparin -) 5,000 unit SQ TID [facility] Last Admin: 02/03/17 06:28 Dose: 5,000 unit Cefazolin Sodium/Dextrose (Ancef 2 Gm Premixed Ivpb -) 2 gm in 50 mls @ 100 mls /hr IVPB Q8H-IV [facility] Last Admin: 02/03/17 02:31 Dose: 100 mls/hr Lactated Ringer's (Lactated Ringers Solution) 1,000 ml in 1,000 mls @ 100 mls/ hr IV ASDIR [facility] Last Admin: 02/02/17 19:00 Dose: 100 mls/hr Lorazepam (Ativan Injection -) 1 mg IVPUSH TID PRN PRN Reason: ANXIETY Methadone HCl 80 mg/ Methadone (HCl 20 mg) 100 mg PO DAILY@0600 [facility] Last Admin: 02/03/17 06:28 Dose: 100 mg Morphine Sulfate (Morphine Sulfate) 4 mg IVPUSH Q4H PRN PRN Reason: PAIN Last Admin: 02/03/17 06:29 Dose: 4 mg Morphine Sulfate (Ms Contin -) 15 mg PO BID [facility] Last Admin: 02/02/17 21:21 Dose: 15 mg Mupirocin (Bactroban Ointment (For Decolonization) -) 1 applic NS BID [facility] Stop: 02/07/17 21:59 Last Admin: 02/02/17 21:49 Dose: 1 applic Nicotine (Nicoderm Patch -) 21 mg TD DAILY [facility] Ondansetron HCl (Zofran Injection) 8 mg IVPB Q6H PRN PRN Reason: NAUSEA Pantoprazole Sodium (Protonix Iv) 40 mg IVPUSH BID [facility] Last Admin: 02/02/17 21:22 Dose: 40 mg Polyethylene Glycol (Miralax (For Daily Use) -) 17 gm PO TID [facility] Last Admin: 02/03/17 06:29 Dose: 17 grams Sucralfate (Carafate Oral Suspension -) 1 gm PO QID [facility] Last Admin: 02/02/17 21:49 Dose: 1 gm - Objective Vital Signs: Vital Signs Temperature 99.6 F 02/03/17 02:00 Pulse Rate 86 02/03/17 04:00 Respiratory Rate 15 02/03/17 04:00 Blood Pressure 113/70 02/03/17 04:00 O2 Sat by Pulse Oximetry (%) 100 02/02/17 21:00 Vital Signs Period Temp Pulse Resp BP Sys/Pascal Pulse Ox Last 24 Hr 97.4 F-99.6 F 79-101 10-21 110-160/69-93 96-100 Intake & Output 02/02/17 02/03/17 02/03/17 23:59 07:59 15:59 Intake Total 400 850 Output Total 560 375 Balance -160 475 Weight 261 lb Intake: IV 400 800 LACTATED RINGERS SOLUTION 400 800 1,000 ml In 1,000 ml @ 100 mls/hr IV ASDIR [facility] Rx#:[id number] IVPB 0 50 Output: Drainage 60 75 Back 60 75 Urine 500 300 Bess 500 300 Other: Voiding Method Indwelling Catheter Bowel Movement No No Weight Measurement Method Built in [facility] Constitutional: Yes: No Distress, Calm, Obese Eyes: Yes: Conjunctiva Clear, EOM Intact HENT: Yes: Atraumatic, Normocephalic Neck: Yes: Supple, Trachea Midline Cardiovascular: Yes: Regular Rate and Rhythm, S1, S2 Gastrointestinal: Yes: Normal Bowel Sounds, Soft, Abdomen, Obese. No: Melena, Rectal Bleeding, Tenderness, Tenderness, Epigastrium, Tenderness, Rebound, Vomiting ...Rectal Exam: Yes: Guaiac Positive Extremities: Yes: Other (bilateral lower extreimty weakness) Edema: No Peripheral Pulses WNL: Yes Neurological: Yes: Oriented, Confusion, Lethargy Psychiatric: Yes: Oriented Labs: CBC, BMP 02/03/17 05:00 02/03/17 05:00 Abnormal Lab Results 02/01/17 02/01/17 02/02/17 18:25 20:22 05:00 RBC Hgb Hct RDW MPV Potassium 3.1 L 3.4 L Chloride 108 H Anion Gap Random Glucose 111 H D 62 L D Calcium 7.1 L 7.1 L Phosphorus Magnesium ALT 9 L 7 L D Alkaline Phosphatase 127 H Total Protein 6.2 L 5.3 L Albumin 1.9 L 1.6 L Crossmatch See Detail 02/02/17 02/02/17 02/03/17 16:00 16:00 05:00 RBC 3.18 L 2.41 L D Hgb 8.5 L 6.5 L* D Hct 25.8 L 19.8 L D RDW 16.8 H 16.8 H MPV 7.4 L Potassium 3.3 L Chloride Anion Gap Random Glucose 68 L Calcium 7.7 L Phosphorus Magnesium 1.3 L ALT Alkaline Phosphatase Total Protein Albumin Crossmatch 02/03/17 05:00 RBC Hgb Hct RDW MPV Potassium Chloride Anion Gap 7 L Random Glucose Calcium 7.6 L Phosphorus 2.1 L D Magnesium ALT < 6 L Alkaline Phosphatase Total Protein 5.4 L Albumin 1.6 L Crossmatch Microbiology 01/31/17 18:00 Blood Culture - Preliminary Blood - Peripheral Venous NO GROWTH OBTAINED AFTER 48 HOURS, INCUBATION TO CONTINUE FOR 3 DAYS. 01/31/17 18:00 Blood Culture - Preliminary Blood - Peripheral Venous NO GROWTH OBTAINED AFTER 48 HOURS, INCUBATION TO CONTINUE FOR 3 DAYS. 02/01/17 17:30 Gram Stain - Final Wound 02/01/17 17:30 Gram Stain - Final Wound 02/01/17 17:30 Gram Stain - Final Wound Problem List - Problems (1) Rectal bleed Assessment/Plan: Chronic GI bleeding, hemoccult positive stool, no gross blood on rectal, no reported melena or hematochezia, no coffee ground emesis, appropriate response to transfusion of 2RBC, planned lumbar decompression tomorrow, on therapy for bacteremia, found to have marginal ulcer at the gastrojejunostomy (s/p Laparoscopic Kiarra-en-Y gastric bypass surgery 10 years ago in [place], [place]) , no obstructed. Now s/p L1-L4 lumbar laminectomies with decompression and interbody fusion with pedicle screws L1-L4, evacuation of epidural mass. will continue to follow for serial abdominal exams IV antibiotics therapy per ID PPI therapy Transfuse RBC trends labs, check cosgulation panel, check operative sites This patient is in guarded condition in the ICU. Time spent reviewing chart, examining patient, talking with providers and/or family and documentation is 35 minutes Code(s): K62.5 - HEMORRHAGE OF ANUS AND RECTUM (2) Occult blood positive stool Code(s): R19.5 - OTHER FECAL ABNORMALITIES (3) Osteomyelitis of lumbar spine Code(s): M46.26 - OSTEOMYELITIS OF VERTEBRA, LUMBAR REGION (4) Abnormal MRI, spine Code(s): R93.7 - ABNORMAL FINDINGS ON DIAGNOSTIC IMAGING OF PRT MS SYS (5) Urine retention Code(s): R33.9 - RETENTION OF URINE, UNSPECIFIED (6) Marginal ulcer Code(s): K28.9 - GASTROJEJUNAL ULCER, UNSP ACUTE OR CHR, W/O HEMOR OR PERF (7) Bacteremia Code(s): R78.81 - BACTEREMIA
--- NOTE | 2017-02-03 07:34 | PN ---
Progress Note, Physician Chief Complaint: ID Post op day 1 for revision hardware ( L4 screw) Cefazolin continues Seen by pain management - Current Medication List Current Medications: Active Medications Chlorhexidine Gluconate (Hibiclens For Decolonization -) 1 applic TP HS [facility] Last Admin: 02/02/17 21:19 Dose: 1 applic Cyclobenzaprine HCl (Flexeril -) 10 mg PO TID [facility] Last Admin: 02/03/17 06:27 Dose: 10 mg Fentanyl (Sublimaze Injection -) 50 mcg IVPUSH [id number] PRN PRN Reason: PAIN Gabapentin (Neurontin -) 300 mg PO TID [facility] Last Admin: 02/03/17 06:28 Dose: 300 mg Heparin Sodium (Porcine) (Heparin -) 5,000 unit SQ TID [facility] Last Admin: 02/03/17 06:28 Dose: 5,000 unit Cefazolin Sodium/Dextrose (Ancef 2 Gm Premixed Ivpb -) 2 gm in 50 mls @ 100 mls /hr IVPB Q8H-IV [facility] Last Admin: 02/03/17 02:31 Dose: 100 mls/hr Lactated Ringer's (Lactated Ringers Solution) 1,000 ml in 1,000 mls @ 100 mls/ hr IV ASDIR [facility] Last Admin: 02/02/17 19:00 Dose: 100 mls/hr Lorazepam (Ativan Injection -) 1 mg IVPUSH TID PRN PRN Reason: ANXIETY Methadone HCl 80 mg/ Methadone (HCl 20 mg) 100 mg PO DAILY@0600 [facility] Last Admin: 02/03/17 06:28 Dose: 100 mg Morphine Sulfate (Morphine Sulfate) 4 mg IVPUSH Q4H PRN PRN Reason: PAIN Last Admin: 02/03/17 06:29 Dose: 4 mg Morphine Sulfate (Ms Contin -) 15 mg PO BID [facility] Last Admin: 02/02/17 21:21 Dose: 15 mg Mupirocin (Bactroban Ointment (For Decolonization) -) 1 applic NS BID [facility] Stop: 02/07/17 21:59 Last Admin: 02/02/17 21:49 Dose: 1 applic Nicotine (Nicoderm Patch -) 21 mg TD DAILY [facility] Ondansetron HCl (Zofran Injection) 8 mg IVPB Q6H PRN PRN Reason: NAUSEA Pantoprazole Sodium (Protonix Iv) 40 mg IVPUSH BID [facility] Last Admin: 02/02/17 21:22 Dose: 40 mg Polyethylene Glycol (Miralax (For Daily Use) -) 17 gm PO TID [facility] Last Admin: 02/03/17 06:29 Dose: 17 grams Sucralfate (Carafate Oral Suspension -) 1 gm PO QID [facility] Last Admin: 02/02/17 21:49 Dose: 1 gm - Objective Vital Signs: Vital Signs Temperature 99.6 F 02/03/17 02:00 Pulse Rate 86 02/03/17 04:00 Respiratory Rate 15 02/03/17 04:00 Blood Pressure 113/70 02/03/17 04:00 O2 Sat by Pulse Oximetry (%) 100 02/02/17 21:00 Constitutional: Yes: Well Nourished, No Distress HENT: Yes: WNL, Atraumatic Neck: Yes: WNL, Supple Cardiovascular: Yes: WNL, Regular Rate and Rhythm, S1, S2. No: Tachycardia, Murmur Respiratory: Yes: WNL, Regular, CTA Bilaterally Gastrointestinal: Yes: WNL, Normal Bowel Sounds, Soft. No: Tenderness, Tenderness, Rebound Extremities: No: Cold, Cool, Cyanosis Edema: No Labs: CBC, BMP 02/03/17 05:00 02/03/17 05:00 INR, PTT INR 1.31 (0.82-1.09) H 02/01/17 11:45 Problem List - Problems (1) Osteomyelitis of lumbar spine Code(s): M46.26 - OSTEOMYELITIS OF VERTEBRA, LUMBAR REGION (2) Diabetes mellitus Code(s): E11.9 - TYPE 2 DIABETES MELLITUS WITHOUT COMPLICATIONS (3) CHF (congestive heart failure) Code(s): I50.9 - HEART FAILURE, UNSPECIFIED (4) Diabetes 1.5, managed as type 2 Code(s): E13.9 - OTHER SPECIFIED DIABETES MELLITUS WITHOUT COMPLICATIONS (5) Gram-positive cocci bacteremia Code(s): R78.81 - BACTEREMIA Assessment/Plan Microbiology 02/01/17 17:30 Wound Gram Stain - Final 01/29/17 11:07 Urine - Urine Bess Urine Culture - Final NO GROWTH OBTAINED 01/29/17 09:50 Blood - Peripheral Venous Blood Culture - Final Staphylococcus Aureus 01/29/17 09:50 Blood - Peripheral Venous Blood Culture - Final Staphylococcus Aureus 01/31/17 18:00 Blood - Peripheral Venous Blood Culture - Preliminary NO GROWTH OBTAINED AFTER 48 HOURS, INCUBATION TO CONTINUE FOR 3 DAYS. 01/31/17 18:00 Blood - Peripheral Venous Blood Culture - Preliminary NO GROWTH OBTAINED AFTER 48 HOURS, INCUBATION TO CONTINUE FOR 3 DAYS. Laboratory Tests 02/01/17 02/03/17 02/03/17 11:45 05:00 05:00 WBC 7.0 Hgb 6.5 L* D Hct 19.8 L D Plt Count 175 D BUN 12 Creatinine 0.9 HIV 1&2 Antibody Screen Negative HIV P24 Antigen Negative Assessment MSSA bactremia with vertebral osteomyelitis and epidural collection day 2 post op laminectomies hardware Severe anemia noted. Gastric ulcer documented Hepatitis C chronic liver disease Diabetes Pain management Anemia with ulcer Plan Continue current antibiotics Operative cultures pending should be MSSA Transfusion PRBC Critical care time 38 minutes Hazel NEGRETE
[2017-02-03] MEDS: LORazepam 2 MG/ML SDV VIAL IVPUSH PRN (07:38)
[2017-02-03] MEDS: MUPIROCIN 2% TOPICAL OINTMENT FOR DECOLONIZATION NS SCH ×2 (08:59→22:18)
[2017-02-03] MEDS: SUCRALFATE 1 GM/10 ML UNIT DOSE CUPS PO SCH ×4 (09:01→22:18)
[2017-02-03] MEDS: morphine SO4 SUSTAINED ACTING 15 MG TABLET.SA PO SCH (09:09)
[2017-02-03] MEDS: PANTOPRAZOLE SODIUM 40 MG VIAL IVPUSH SCH ×2 (09:10→22:19)
[2017-02-03] MEDS: NICOTINE 21 MG/24 HOURS TOPICAL PATCH TD SCH (09:35)
--- NOTE | 2017-02-03 10:21 | PN ---
Progress Note (short form) - Note Progress Note: Surgery POD #1 lumbar spine hardware revision of right L4 screw for malalignment s/p L1- L4 fusion (02/01/17) in the setting of L2-L3 discitis and osteomyelitis, patient seen and examined at bedside. Patient appears lethargic but is rousable and responsive. He c/o back pain and b/l LE pain which is unchanged from his pre-op symptoms. Vital Signs Temp 98.4 F 02/03/17 06:00 Pulse 90 02/03/17 08:00 Resp 19 02/03/17 08:00 BP 107/66 02/03/17 08:00 Pulse Ox 100 02/02/17 21:00 Intake & Output 02/02/17 02/02/17 02/03/17 11:59 23:59 11:59 Intake Total 950 2150 850 Output Total 630 2110 375 Balance 320 40 475 Weight 248 lb 3.2 oz 261 lb Intake: IV 900 2100 800 LACTATED RINGERS SOLUTION 900 1200 800 1,000 ml In 1,000 ml @ 100 mls/hr IV ASDIR [facility] Rx#:[id number] IVPB 50 50 50 Output: Drainage 180 260 75 Back 180 260 75 Urine 450 1600 300 Bess 450 1400 300 Estimated Blood Loss 250 Other: Voiding Method Indwelling Catheter Indwelling Catheter Bowel Movement No No Weight Measurement Method Built in Bedscale Built in Bedscale CBC, BMP 02/03/17 05:00 02/03/17 05:00 PE: Patient lethargic but rousable and A&Ox3, NAD VSS Unlabored resp on 2L NC Dressing c/d/i without evidence of erythema in surrounding tissue. DESTINY drain to left lower lumbar spine with serosanginous d/c B/L LE compartments soft, supple and non-tender with chronic skin changed b/l. +dorsi/plantar flexion b/l 5/5 with +1 pedal pulses Right wrist dressing c/d/i with no evidence of d/c, hand warm and well perfused moving all digits without limitation. Assessment and Plan: s/p lumbar fusion with revision in patient with discitis, osteomyelitis and chronic anemia. 1) Transfuse PRBC 1 unit hanging now, follow up post transfusion labs. 2) Continue Abx per ID. 3) DVT prophylaxis with SQ heparin. 4) Consider reduction in pain medication in the setting of methadone given patient lethargy today. 5) encourage IS when patient able to cooperate. Evaluation and plan discussed with Dr Glasgow
--- NOTE | 2017-02-03 11:27 | PN ---
Progress Note, Physician Chief Complaint: AWAKE IN ICU NEUROSURGERY BEDSIDE S/P LUMBAR DECOMPRESSION WITH HARDWARE ADJUSTMENT - Current Medication List Current Medications: Active Medications Chlorhexidine Gluconate (Hibiclens For Decolonization -) 1 applic TP HS [facility] Last Admin: 02/02/17 21:19 Dose: 1 applic Cyclobenzaprine HCl (Flexeril -) 10 mg PO TID [facility] Last Admin: 02/03/17 06:27 Dose: 10 mg Fentanyl (Sublimaze Injection -) 50 mcg IVPUSH [id number] PRN PRN Reason: PAIN Gabapentin (Neurontin -) 300 mg PO TID [facility] Last Admin: 02/03/17 06:28 Dose: 300 mg Heparin Sodium (Porcine) (Heparin -) 5,000 unit SQ TID [facility] Last Admin: 02/03/17 06:28 Dose: 5,000 unit Cefazolin Sodium/Dextrose (Ancef 2 Gm Premixed Ivpb -) 2 gm in 50 mls @ 100 mls /hr IVPB Q8H-IV [facility] Last Admin: 02/03/17 08:59 Dose: 100 mls/hr Lactated Ringer's (Lactated Ringers Solution) 1,000 ml in 1,000 mls @ 100 mls/ hr IV ASDIR [facility] Last Admin: 02/02/17 19:00 Dose: 100 mls/hr Lorazepam (Ativan Injection -) 1 mg IVPUSH TID PRN PRN Reason: ANXIETY Last Admin: 02/03/17 07:38 Dose: 1 mg Methadone HCl 80 mg/ Methadone (HCl 20 mg) 100 mg PO DAILY@0600 [facility] Last Admin: 02/03/17 06:28 Dose: 100 mg Morphine Sulfate (Morphine Sulfate) 4 mg IVPUSH Q4H PRN PRN Reason: PAIN Last Admin: 02/03/17 06:29 Dose: 4 mg Morphine Sulfate (Ms Contin -) 15 mg PO BID [facility] Last Admin: 02/03/17 09:09 Dose: 15 mg Mupirocin (Bactroban Ointment (For Decolonization) -) 1 applic NS BID [facility] Stop: 02/07/17 21:59 Last Admin: 02/03/17 08:59 Dose: 1 applic Nicotine (Nicoderm Patch -) 21 mg TD DAILY [facility] Last Admin: 02/03/17 09:35 Dose: 21 mg Ondansetron HCl (Zofran Injection) 8 mg IVPB Q6H PRN PRN Reason: NAUSEA Pantoprazole Sodium (Protonix Iv) 40 mg IVPUSH BID [facility] Last Admin: 02/03/17 09:10 Dose: 40 mg Polyethylene Glycol (Miralax (For Daily Use) -) 17 gm PO TID [facility] Last Admin: 02/03/17 06:29 Dose: 17 grams Sucralfate (Carafate Oral Suspension -) 1 gm PO QID [facility] Last Admin: 02/03/17 09:01 Dose: 1 gm - Objective Vital Signs: Vital Signs Temperature 98.4 F 02/03/17 06:00 Pulse Rate 88 02/03/17 10:16 Respiratory Rate 10 L 02/03/17 10:00 Blood Pressure 97/66 02/03/17 10:00 O2 Sat by Pulse Oximetry (%) 98 02/03/17 10:16 Constitutional: Yes: Mild Distress Eyes: Yes: WNL HENT: Yes: WNL Neck: Yes: WNL Cardiovascular: Yes: WNL Respiratory: Yes: WNL Gastrointestinal: Yes: WNL Genitourinary: Yes: Other Musculoskeletal: Yes: WNL, Back Pain Extremities: Yes: WNL Edema: Yes Edema: LLE: Trace, RLE: Trace Peripheral Pulses WNL: Yes Integumentary: Yes: WNL Wound/Incision: Yes: Dressing Dry and Intact Neurological: Yes: Pre-Existing Deficit ...Motor Strength: LLE, RLE Psychiatric: Yes: Other Labs: CBC, BMP 02/03/17 05:00 02/03/17 05:00 INR, PTT INR 1.31 (0.82-1.09) H 02/01/17 11:45 Problem List - Problems (1) Smoking addiction Code(s): F17.200 - NICOTINE DEPENDENCE, UNSPECIFIED, UNCOMPLICATED (2) Substance abuse Code(s): F19.10 - OTHER PSYCHOACTIVE SUBSTANCE ABUSE, UNCOMPLICATED (3) Anemia Code(s): D64.9 - ANEMIA, UNSPECIFIED Qualifiers: Anemia type: unspecified type Qualified Code(s): D64.9 - Anemia, unspecified (4) Rectal bleed Code(s): K62.5 - HEMORRHAGE OF ANUS AND RECTUM (5) CHF (congestive heart failure) Code(s): I50.9 - HEART FAILURE, UNSPECIFIED (6) Diabetes 1.5, managed as type 2 Code(s): E13.9 - OTHER SPECIFIED DIABETES MELLITUS WITHOUT COMPLICATIONS (7) Edema Code(s): R60.9 - EDEMA, UNSPECIFIED (8) Hepatitis C antibody test positive Code(s): R76.8 - OTHER SPECIFIED ABNORMAL IMMUNOLOGICAL FINDINGS IN SERUM (9) Hyperlipidemia Code(s): E78.5 - HYPERLIPIDEMIA, UNSPECIFIED (10) Hypertension Code(s): I10 - ESSENTIAL (PRIMARY) HYPERTENSION (11) Osteoarthritis Code(s): M19.90 - UNSPECIFIED OSTEOARTHRITIS, UNSPECIFIED SITE (12) Abnormal MRI, spine Code(s): R93.7 - ABNORMAL FINDINGS ON DIAGNOSTIC IMAGING OF PRT MS SYS (13) Gram-positive cocci bacteremia Code(s): R78.81 - BACTEREMIA (14) Osteomyelitis of lumbar spine Code(s): M46.26 - OSTEOMYELITIS OF VERTEBRA, LUMBAR REGION Assessment/Plan S/P LUMBAR DECOMPRESSION OSTEOMYELITIS LUMBAR IV ABX DVT PROPHYLAXIS WOUND CARE GI BLEED STABLE ID F/U SNF PICC LINE WITH PEWTER FINISHER ABX
[2017-02-03] MEDS ORDERED: morphine SO4 SUSTAINED ACTING 15 MG TABLET.SA PO PRN (11:50)
--- NOTE | 2017-02-03 12:58 | PN ---
Teaching Attending Note Name of Resident: Rufus De La Cruz ATTENDING PHYSICIAN STATEMENT I saw and evaluated the patient. I reviewed the resident's note and discussed the case with the resident. I agree with the resident's findings and plan as documented. SUBJECTIVE: Pt seen and examined in the ICU. Quite somnolent this AM but arousable. s/p revision of pedicle screw yesterday. No fevers recorded. OBJECTIVE: Last Vital Signs Temp Pulse Resp BP Pulse Ox 98.4 F 88 10 L 97/66 98 02/03/17 06:00 02/03/17 10:16 02/03/17 10:00 02/03/17 10:00 02/03/17 10:16 Intake & Output 01/31/17 02/01/17 02/02/17 02/03/17 23:59 23:59 23:59 23:59 Intake Total 1050 5225 3100 850 Output Total 1600 3175 2740 375 Balance -550 2050 360 475 Weight 240 lb 242 lb 248 lb 3.2 oz 261 lb Gen: somnolent but arousable Heart: RRR Lung: decreased breath sounds at the bases Abd: soft, nontender Ext: no edema CBC, BMP 02/03/17 05:00 02/03/17 05:00 Active Medications Chlorhexidine Gluconate (Hibiclens For Decolonization -) 1 applic TP HS [facility] Last Admin: 02/02/17 21:19 Dose: 1 applic Cyclobenzaprine HCl (Flexeril -) 10 mg PO TID [facility] Last Admin: 02/03/17 06:27 Dose: 10 mg Fentanyl (Sublimaze Injection -) 50 mcg IVPUSH [id number] PRN PRN Reason: PAIN Gabapentin (Neurontin -) 300 mg PO TID [facility] Last Admin: 02/03/17 06:28 Dose: 300 mg Heparin Sodium (Porcine) (Heparin -) 5,000 unit SQ TID [facility] Last Admin: 02/03/17 06:28 Dose: 5,000 unit Cefazolin Sodium/Dextrose (Ancef 2 Gm Premixed Ivpb -) 2 gm in 50 mls @ 100 mls /hr IVPB Q8H-IV [facility] Last Admin: 02/03/17 08:59 Dose: 100 mls/hr Lactated Ringer's (Lactated Ringers Solution) 1,000 ml in 1,000 mls @ 100 mls/ hr IV ASDIR [facility] Last Admin: 02/02/17 19:00 Dose: 100 mls/hr Lorazepam (Ativan Injection -) 1 mg IVPUSH TID PRN PRN Reason: ANXIETY Last Admin: 02/03/17 07:38 Dose: 1 mg Methadone HCl 80 mg/ Methadone (HCl 20 mg) 100 mg PO DAILY@0600 [facility] Last Admin: 02/03/17 06:28 Dose: 100 mg Morphine Sulfate (Morphine Sulfate) 4 mg IVPUSH Q4H PRN PRN Reason: PAIN Last Admin: 02/03/17 06:29 Dose: 4 mg Morphine Sulfate (Ms Contin -) 15 mg PO BID PRN PRN Reason: BACK PAIN Mupirocin (Bactroban Ointment (For Decolonization) -) 1 applic NS BID [facility] Stop: 02/07/17 21:59 Last Admin: 02/03/17 08:59 Dose: 1 applic Nicotine (Nicoderm Patch -) 21 mg TD DAILY [facility] Last Admin: 02/03/17 09:35 Dose: 21 mg Ondansetron HCl (Zofran Injection) 8 mg IVPB Q6H PRN PRN Reason: NAUSEA Pantoprazole Sodium (Protonix Iv) 40 mg IVPUSH BID [facility] Last Admin: 02/03/17 09:10 Dose: 40 mg Polyethylene Glycol (Miralax (For Daily Use) -) 17 gm PO TID [facility] Last Admin: 02/03/17 06:29 Dose: 17 grams Potassium Phos/Sodium Phos (Phos-Nak Packet -) 1 packet PO TID [facility] Sucralfate (Carafate Oral Suspension -) 1 gm PO QID [facility] Last Admin: 02/03/17 09:01 Dose: 1 gm ASSESSMENT AND PLAN: Staph Bacteremia Vetebral Osteomyelitis s/p L1-L4 lumbar laminectomies with decompression and interbody fusion with pedicle screws L1-L4, evacuation of epidural mass. HTN CHF Morbid Obesity Asthma Methadone Maintenance Anemia - transfuse PRBC - monitor H/H - continue antibiotics - f/u cultures - pain control, would decrease dose or make PRN - incentive spirometry - DVT prophylaxis - can transfer to surgical floor if ok with surgery
--- NOTE | 2017-02-03 13:34 | PN ---
Physical Exam: SUBJECTIVE: The patient is a 61M with a PMH of HTN, CHF, HLD, asthma, hep c, heroin use currently on methadone, who presented to the ED with LBP and was found to have L2/3 discitis with possible osteo. The patient is POD2 of L1-L4 laminectomies s/p screw revision. His only complaint is back pain. Dr. Curiel, pain management, has adjusted his medications. OBJECTIVE: Vital Signs Period Temp Pulse Resp BP Sys/Pascal Pulse Ox Last 24 Hr 97.4 F-99.6 F 79-111 10-19 97-160/66-93 96-100 GENERAL: The patient is awake, alert, and fully oriented, in no acute distress. HEAD: Normal with no signs of trauma. EYES: PERRL, extraocular movements intact, sclera anicteric, conjunctiva clear. No ptosis. NECK: Trachea midline, full range of motion, supple. LUNGS: Breath sounds equal, clear to auscultation bilaterally, no wheezes, no crackles, no accessory muscle use. HEART: Regular rate and rhythm, S1, S2 without murmur, rub or gallop. ABDOMEN: Soft, nontender, nondistended, normoactive bowel sounds, no guarding, no rebound, no hepatosplenomegaly, no masses. EXTREMITIES: 2+ pulses, warm, well-perfused, no edema. NEUROLOGICAL: Cranial nerves II through XII grossly intact. Normal speech, gait not observed. PSYCH: Normal mood, normal affect. SKIN: Warm, dry, normal turgor, no rashes or lesions noted Laboratory Results - last 24 hr 02/01/17 02/02/17 02/02/17 18:25 16:00 16:00 WBC 8.9 D RBC 3.18 L Hgb 8.5 L Hct 25.8 L MCV 81.1 MCH 26.8 MCHC 33.1 RDW 16.8 H Plt Count 219 MPV 7.4 L Sodium 142 Potassium 3.3 L Chloride 107 Carbon Dioxide 25 Anion Gap 10 BUN 10 Creatinine 0.9 Creat Clearance w eGFR POC Glucometer Random Glucose 68 L Calcium 7.7 L Phosphorus 3.4 D Magnesium 1.3 L Total Bilirubin AST ALT Alkaline Phosphatase Total Protein Albumin Blood Type O POSITIVE Antibody Screen Negative Crossmatch See Detail Crossmatch IS Only See Detail 02/02/17 02/02/17 02/02/17 16:41 21:37 23:00 WBC RBC Hgb Hct MCV MCH MCHC RDW Plt Count MPV Sodium Potassium Chloride Carbon Dioxide Anion Gap BUN Creatinine Creat Clearance w eGFR POC Glucometer 91.69307 82.99117 113.20289 Random Glucose Calcium Phosphorus Magnesium Total Bilirubin AST ALT Alkaline Phosphatase Total Protein Albumin Blood Type Antibody Screen Crossmatch Crossmatch IS Only 02/03/17 02/03/17 02/03/17 05:00 05:00 05:59 WBC 7.0 RBC 2.41 L D Hgb 6.5 L* D Hct 19.8 L D MCV 82.0 MCH 26.8 MCHC 32.7 RDW 16.8 H Plt Count 175 D MPV 7.5 Sodium 140 Potassium 4.0 D Chloride 106 Carbon Dioxide 27 Anion Gap 7 L BUN 12 Creatinine 0.9 Creat Clearance w eGFR > 60 POC Glucometer 90.60512 Random Glucose 75 Calcium 7.6 L Phosphorus 2.1 L D Magnesium 1.8 D Total Bilirubin 0.5 D AST 22 D ALT < 6 L Alkaline Phosphatase 110 Total Protein 5.4 L Albumin 1.6 L Blood Type Antibody Screen Crossmatch Crossmatch IS Only Active Medications Generic Name Dose Route Start Last Admin Trade Name Freq PRN Reason Stop Dose Admin Chlorhexidine Gluconate 1 applic 02/02/17 22:00 02/02/17 21:19 Hibiclens For Decolonization - TP 1 applic HS [facility] Administration Cyclobenzaprine HCl 10 mg 02/02/17 22:00 02/03/17 06:27 Flexeril - PO 10 mg TID [facility] Administration Fentanyl 50 mcg 02/02/17 20:26 Sublimaze Injection - IVPUSH [id number] PRN PAIN Gabapentin 300 mg 02/02/17 22:00 02/03/17 06:28 Neurontin - PO 300 mg TID [facility] Administration Heparin Sodium (Porcine) 5,000 unit 02/02/17 22:00 02/03/17 06:28 Heparin - SQ 5,000 unit TID [facility] Administration Cefazolin Sodium/Dextrose 2 gm in 50 mls @ 100 mls/hr 02/03/17 02:00 08:59 Ancef 2 Gm Premixed Ivpb - IVPB 100 mls/hr Q8H-IV [facility] Administration Lactated Ringer's 1,000 ml in 1,000 mls @ 100 mls/hr 02/02/17 20:26 02/02/17 19:00 Lactated Ringers Solution IV 100 mls/hr ASDIR [facility] Administration Lorazepam 1 mg 02/02/17 20:26 02/03/17 07:38 Ativan Injection - IVPUSH 1 mg TID PRN Administration ANXIETY Methadone HCl 80 mg/ Methadone 100 mg 02/03/17 06:00 02/03/17 06:28 HCl 20 mg PO 100 mg DAILY@0600 [facility] Administration Morphine Sulfate 4 mg 02/02/17 18:04 02/03/17 06:29 Morphine Sulfate IVPUSH 4 mg Q4H PRN Administration PAIN Mupirocin 1 applic 02/02/17 22:00 02/03/17 08:59 Bactroban Ointment (For Decolonization) - NS 02/07/17 21:59 1 applic BID [facility] Administration Nicotine 21 mg 02/03/17 10:00 02/03/17 09:35 Nicoderm Patch - TD 21 mg DAILY [facility] Administration Ondansetron HCl 8 mg 02/02/17 20:26 Zofran Injection IVPB Q6H PRN NAUSEA Pantoprazole Sodium 40 mg 02/02/17 22:00 02/03/17 09:10 Protonix Iv IVPUSH 40 mg BID [facility] Administration Polyethylene Glycol 17 gm 02/02/17 22:00 02/03/17 06:29 Miralax (For Daily Use) - PO 17 grams TID [facility] Administration Potassium Phos/Sodium Phos 1 packet 02/03/17 14:00 Phos-Nak Packet - PO TID [facility] Sucralfate 1 gm 02/02/17 22:00 02/03/17 09:01 Carafate Oral Suspension - PO 1 gm QID [facility] Administration ASSESSMENT/PLAN: Neuro: - Frequent neuro exams - Currently difficult to assess 2/2 multiple opioid medications causing sluggish reactions CV: CHF, HTN, HLD - Not currently on medications - Monitor BP - Close I's/O's Pulm: COPD/Smoker - Nicotine patch Hem/Onc: - New onset anemia, Hgb 6.5 from 8.5 - 2 units PRBC ordered, pending repeat CBC MSK: S/p multiple lumbar spine surgeries - Continue pain meds as rec'd by Dr. Curiel - D/c MS contin to improve lethargy - Continue the rest of pain meds for proper pain management PPX: - Heparin SQ TID FEN (Fluids, electrolytes, nutrition): - LR @ 100 mL/hour Dispo: - Continue to monitor in ICU - May be ready for med/surg tomorrow Visit type - Emergency Visit Emergency Visit: Yes ED Registration Date: 01/29/17 Care time: The patient presented to the Emergency Department on the above date and was hospitalized for further evaluation of their emergent condition. - New Patient This patient is new to me today: Yes Date on this admission: 02/04/17 - Critical Care Critical Care patient: Yes Total Critical Care Time (in minutes): 45 Critical Care Statement: The care of this patient involved high complexity decision making to prevent further life threatening deterioration of the patient 's condition and/or to evaluate & treat vital organ system(s) failure or risk of failure.
--- NOTE | 2017-02-03 13:37 | PN ---
Progress Note (short form) - Note Progress Note: POD #1 - s/p repositioning of lumbar screw under GA. VSS. Pt. resting comfortably in bed, arousable. No apparent anesthetic complications noted. Pain management as per surgical/ICU team. Continue current care.
--- NOTE | 2017-02-03 14:33 | PATH ---
Surgical Pathology Report Patient Name: JAIRO MCKEON [facility]. Rec. #: [id number] /Age/Gender: 1955 (Age: 61) / M Account: [id number] Location: ICU [facility] [employer] Taken: 02/01/2017 Received: 02/02/2017 Reported: 02/03/2017 Physicians: Rayshawn Galindo M.D. Specimen(s) Received DISC L2-L3 PUS, EPIDURAL PHLEGMON Clinical History L2-L3 discitis, osteomyelitis Final Diagnosis L2-L3, EPIDURAL PHLEGMON, EXCISION: ACUTE OSTEOMYELITIS. Electronically Signed Evette Albert M.D. Gross Description Received in formalin labeled "L2-L3 as, epidural phlegmon," is a 1.7 x 1.5 x 0.3 cm aggregate of foster bone and cartilaginous fragments. The specimen is entirely submitted in one cassette, following decalcification. /02/02/201702/02/2017
[2017-02-03] MEDS: NAPH,MB-DB/K PH,MBDB POWDER PACKET PO SCH ×2 (15:07→22:18)
--- NOTE | 2017-02-03 15:35 | PN ---
Progress Note (short form) - Note Progress Note: NEUROLOGY FOLLOW-UP: Events reviewed. Pt. Examined. On Cefazolin for L2 L3 discitis with epidural extension. ESR= 70 mm/hr. CRP= 5.6 mg% S/P L1-L4 laminectomies and fusion with Pedicle screw 02/01. Revised 02/02 for misaligned screw. Now: Lethargic but arousable (Just received Methadone, morphine and lorazepam) Follows simple commands then falls asleep. Areflexic in legs. Cannot concentrate for formal muscle testing of leg groups Bess in situ. IMP: S/P surgical decompression for epidural abscess and possible caudae Equina syndrome. SUGGEST: Continue antibiotics Simplify narcotic analgesics. Begin bedside PT. Thank you very much, Issac Melgar MD
[2017-02-03 18:44] LABS: BASO % 0.2 % (0-2.0); EOS % 2.2 % (0-4.5); LYMPH % 11.4 % (8-40); MCH 27.2 pg (25.7-33.7); MCHC 33.1 g/dl (32.0-35.9); MEAN CELL VOLUME 82.1 fl (80-96); MEAN PLT VOLUME 7.9 fl (7.5-11.1); MONO % 7.9 % (3.8-10.2); NEUT % 78.3 % (42.8-82.8); PLATELET COUNT 196 K/MM3 (134-434); RBC 3.29 M/mm3 (4.00-5.60); RDW 16.1 % (11.9-15.9); WHITE BLOOD COUNT 8.6 K/mm3 (4.0-10.0)
[2017-02-03] MEDS ORDERED: PT OWN MED DRAWER 7, Y5N ONE (22:16)
[2017-02-03] MEDS: LACTATED RINGERS SOLUTION 1,000 ML/1,000 ML INFUS.BAG IV SCH (22:19)
[2017-02-03] MEDS: CHLORHEXIDINE GLUCONATE 4% CLEANSER FOR DECOLONIZATION TP SCH (22:19)
[2017-02-04] MEDS: CEFAZOLIN 2 GM/D5W 2 GM/50 ML ML IVPB SCH ×4 (00:59→19:00)
[2017-02-04 06:13] LABS: BASO % 0.3 % (0-2.0); EOS % 2.4 % (0-4.5); HEMOGLOBIN 8.4 GM/dL (11.7-16.9); LYMPH % 12.5 % (8-40); MCH 27.5 pg (25.7-33.7); MCHC 33.7 g/dl (32.0-35.9); MEAN CELL VOLUME 81.7 fl (80-96); MEAN PLT VOLUME 7.8 fl (7.5-11.1); MONO % 8.1 % (3.8-10.2); NEUT % 76.7 % (42.8-82.8); PLATELET COUNT 184 K/MM3 (134-434); RBC 3.07 M/mm3 (4.00-5.60); RDW 16.4 % (11.9-15.9); WHITE BLOOD COUNT 8.8 K/mm3 (4.0-10.0)
[2017-02-04] MEDS ORDERED: METHADONE HCL 10 MG TABLET ONE (06:14)
[2017-02-04] MEDS ORDERED: METHADONE HCL 40 MG DISPERSABLE TABLET ONE (06:14)
[2017-02-04] MEDS: CYCLOBENZAPRINE HCL 10 MG TABLET (FP) PO SCH ×3 (06:26→21:54)
[2017-02-04] MEDS: HEPARIN NA (PORCINE) 5,000 UNITS/ML 1ML VIAL SQ SCH ×3 (06:27→21:59)
[2017-02-04] MEDS: METHADONE 80 MG, METHADONE 20 MG PO SCH (06:27)
[2017-02-04] MEDS: GABAPENTIN 300 MG CAPSULE (FP) PO SCH ×3 (06:27→21:55)
[2017-02-04] MEDS: NAPH,MB-DB/K PH,MBDB POWDER PACKET PO SCH ×3 (06:35→21:56)
[2017-02-04] MEDS: POLYETHYLENE GLYCOL 3350 119 GM BTL PO SCH ×3 (06:35→21:55)
[2017-02-04 06:42] LABS: ALBUMIN 1.4 g/dl (3.4-5.0); ALK PHOS 104 U/L (45-117); ANION GAP 3 (8-16); BILIRUBIN,TOTAL 0.6 mg/dL (0.2-1.0); BLOOD UREA NITROGEN 16 mg/dL (7-18); CALCIUM 7.1 mg/dL (8.5-10.1); CHLORIDE 109 mmol/L (98-107); CO2 28 mmol/L (21-32); GLUCOSE,RANDOM 67 mg/dL (74-106); MAGNESIUM 1.6 mg/dL (1.8-2.4); PHOSPHOROUS 2.2 mg/dL (2.5-4.9); POTASSIUM 4.2 mmol/L (3.5-5.1); SGOT/AST 16 U/L (15-37); SGPT/ALT < 6 U/L (12-78); SODIUM 140 mmol/L (136-145)
--- NOTE | 2017-02-04 08:09 | PN ---
Progress Note (short form) - Note Progress Note: ID Day 2 lumbar laminectomy revision from day before vertebral osteo Selected Entries 02/04/17 06:00 Temperature 99.4 F Pulse Rate 90 Respiratory 18 Rate Blood Pressure 103/75 Lung Clear Cor S1 S2 RR no murmur Abd Soft nontender Ext No edema Microbiology 02/01/17 17:30 Wound-Other Gram Stain - Final 02/01/17 17:30 Wound-Other Gram Stain - Final 02/01/17 17:30 Wound Gram Stain - Final 02/01/17 17:30 Wound Gram Stain - Final 02/01/17 17:30 Wound Gram Stain - Final 01/29/17 11:07 Urine - Urine Bess Urine Culture - Final NO GROWTH OBTAINED 01/29/17 09:50 Blood - Peripheral Venous Blood Culture - Final Staphylococcus Aureus 01/29/17 09:50 Blood - Peripheral Venous Blood Culture - Final Staphylococcus Aureus 02/01/17 Unknown Tissue-Other Tissue Culture - Preliminary NO AEROBIC GROWTH, 24 HRS 02/01/17 17:30 Wound-Other Wound Culture - Preliminary NO GROWTH OBTAINED AFTER 24 HOURS INCUBATION, REINCUBATED. 02/01/17 17:30 Wound-Other Wound Culture - Preliminary NO GROWTH OBTAINED AFTER 24 HOURS INCUBATION, REINCUBATED. 01/31/17 18:00 Blood - Peripheral Venous Blood Culture - Preliminary NO GROWTH OBTAINED AFTER 72 HOURS, INCUBATION TO CONTINUE FOR 2 DAYS. 01/31/17 18:00 Blood - Peripheral Venous Blood Culture - Preliminary NO GROWTH OBTAINED AFTER 72 HOURS, INCUBATION TO CONTINUE FOR 2 DAYS. Laboratory Tests 02/04/17 02/04/17 05:55 05:55 WBC 8.8 Hgb 8.4 L Hct 25.0 L Plt Count 184 BUN 16 D Creatinine 1.0 Assessment Vertebral osteomyelitis wiath epidural component and phlegmon psoas Day 2 Post op laminectomies hardware Diabetes Mellitus Hepatitis C chronic Right wrist abscess drained few weeks ago MSSA bacteremia Plan Continue Cefazolin as ordered Hazel NEGRETE Problem List - Problems (1) Osteomyelitis of lumbar spine Code(s): M46.26 - OSTEOMYELITIS OF VERTEBRA, LUMBAR REGION (2) Diabetes mellitus Code(s): E11.9 - TYPE 2 DIABETES MELLITUS WITHOUT COMPLICATIONS (3) CHF (congestive heart failure) Code(s): I50.9 - HEART FAILURE, UNSPECIFIED (4) Diabetes 1.5, managed as type 2 Code(s): E13.9 - OTHER SPECIFIED DIABETES MELLITUS WITHOUT COMPLICATIONS (5) Gram-positive cocci bacteremia Code(s): R78.81 - BACTEREMIA
--- NOTE | 2017-02-04 09:03 | PN ---
Progress Note, Physician Chief Complaint: abdominal pain and GI bleed History of Present Illness: 61 yo male PMH Asthma, CHF, HTN, HLD, Hepatitis C, Degenerative Joint Disease, Obesity s/p Laparoscopic Kiarra-en-y Gastric Bypass 10 years ago ([place], [place] ) , prostate CA?, Heroin use (on methadone) who presents to the ED with lower back pain, legs and buttocks for the past week. He had GUIAC positive stool and is anemic but responded appropriately to initial transfusion. Abdominal pain is about the same. Had endoscopy showing marginal ulcer at [facility]. He has bacteremia MSSA being treated. Now he is s/p L1-L4 lumbar laminectomies with decompression and interbody fusion with pedicle screws L1-L4, evacuation of epidural mass. No interval change. - Current Medication List Current Medications: Active Medications Chlorhexidine Gluconate (Hibiclens For Decolonization -) 1 applic TP HS [facility] Last Admin: 02/03/17 22:19 Dose: 1 applic Cyclobenzaprine HCl (Flexeril -) 10 mg PO TID [facility] Last Admin: 02/04/17 06:26 Dose: 10 mg Fentanyl (Sublimaze Injection -) 50 mcg IVPUSH [id number] PRN PRN Reason: PAIN Gabapentin (Neurontin -) 300 mg PO TID [facility] Last Admin: 02/04/17 06:27 Dose: 300 mg Heparin Sodium (Porcine) (Heparin -) 5,000 unit SQ TID [facility] Last Admin: 02/04/17 06:27 Dose: 5,000 unit Cefazolin Sodium/Dextrose (Ancef 2 Gm Premixed Ivpb -) 2 gm in 50 mls @ 100 mls /hr IVPB Q8H-IV [facility] Last Admin: 02/04/17 00:59 Dose: 100 mls/hr Lactated Ringer's (Lactated Ringers Solution) 1,000 ml in 1,000 mls @ 100 mls/ hr IV ASDIR [facility] Last Admin: 02/03/17 22:19 Dose: 100 mls/hr Lorazepam (Ativan Injection -) 1 mg IVPUSH TID PRN PRN Reason: ANXIETY Last Admin: 02/03/17 07:38 Dose: 1 mg Methadone HCl 80 mg/ Methadone (HCl 20 mg) 100 mg PO DAILY@0600 [facility] Last Admin: 02/04/17 06:27 Dose: 100 mg Morphine Sulfate (Morphine Sulfate) 4 mg IVPUSH Q4H PRN PRN Reason: PAIN Last Admin: 02/03/17 06:29 Dose: 4 mg Mupirocin (Bactroban Ointment (For Decolonization) -) 1 applic NS BID [facility] Stop: 02/07/17 21:59 Last Admin: 02/03/17 22:18 Dose: 1 applic Nicotine (Nicoderm Patch -) 21 mg TD DAILY [facility] Last Admin: 02/03/17 09:35 Dose: 21 mg Ondansetron HCl (Zofran Injection) 8 mg IVPB Q6H PRN PRN Reason: NAUSEA Pantoprazole Sodium (Protonix Iv) 40 mg IVPUSH BID [facility] Last Admin: 02/03/17 22:19 Dose: 40 mg Polyethylene Glycol (Miralax (For Daily Use) -) 17 gm PO TID [facility] Last Admin: 02/04/17 06:35 Dose: 17 grams Potassium Phos/Sodium Phos (Phos-Nak Packet -) 1 packet PO TID [facility] Last Admin: 02/04/17 06:35 Dose: 1 packet Sucralfate (Carafate Oral Suspension -) 1 gm PO QID [facility] Last Admin: 02/03/17 22:18 Dose: 1 gm - Objective Vital Signs: Vital Signs Temperature 99.4 F 02/04/17 06:00 Pulse Rate 92 H 02/04/17 08:00 Respiratory Rate 18 02/04/17 08:00 Blood Pressure 98/60 02/04/17 08:00 O2 Sat by Pulse Oximetry (%) 98 02/03/17 19:38 Constitutional: Yes: No Distress, Calm, Obese Eyes: Yes: Conjunctiva Clear, EOM Intact HENT: Yes: Atraumatic, Normocephalic Neck: Yes: Supple, Trachea Midline Cardiovascular: Yes: Regular Rate and Rhythm, S1, S2 Respiratory: Yes: Regular, CTA Bilaterally Gastrointestinal: Yes: Normal Bowel Sounds, Soft ...Rectal Exam: Yes: Guaiac Positive Musculoskeletal: Yes: Muscle Weakness (bilateral legs) Edema: No Peripheral Pulses WNL: Yes Peripheral Pulses: Left Doralis Pedis: 2+, Right Dorsalis Pedis: 2+, Left Femoral: 2+, Right Femoral: 2+ Neurological: Yes: Oriented, Lethargy ...Motor Strength: LLE (3/5), RLE (weak 3/5) Psychiatric: Yes: Oriented Labs: CBC, BMP 02/04/17 05:55 02/04/17 05:55 INR, PTT INR 1.31 (0.82-1.09) H 02/01/17 11:45 Problem List - Problems (1) Rectal bleed Assessment/Plan: Chronic GI bleeding, hemoccult positive stool, no gross blood on rectal, no reported melena or hematochezia, no coffee ground emesis, appropriate response to transfusion of 2RBC, planned lumbar decompression tomorrow, on therapy for bacteremia, found to have marginal ulcer at the gastrojejunostomy (s/p Laparoscopic Kiarra-en-Y gastric bypass surgery 10 years ago in [place], [place]) , no obstructed. Now s/p L1-L4 lumbar laminectomies with decompression and interbody fusion with pedicle screws L1-L4, evacuation of epidural mass. On- going blood loss? will continue to follow for serial abdominal exams IV antibiotics therapy per ID PPI therapy Transfuse RBC as indicated trends labs, check cosgulation panel, check operative sites Tagged RBC scan is planned will f/u results to see if there is a localized This patient is in guarded condition in the ICU. Time spent reviewing chart, examining patient, talking with providers and/or family and documentation is 35 minutes Code(s): K62.5 - HEMORRHAGE OF ANUS AND RECTUM (2) Occult blood positive stool Code(s): R19.5 - OTHER FECAL ABNORMALITIES (3) Osteomyelitis of lumbar spine Code(s): M46.26 - OSTEOMYELITIS OF VERTEBRA, LUMBAR REGION (4) Abnormal MRI, spine Code(s): R93.7 - ABNORMAL FINDINGS ON DIAGNOSTIC IMAGING OF PRT MS SYS (5) Urine retention Code(s): R33.9 - RETENTION OF URINE, UNSPECIFIED (6) Marginal ulcer Code(s): K28.9 - GASTROJEJUNAL ULCER, UNSP ACUTE OR CHR, W/O HEMOR OR PERF (7) Bacteremia Code(s): R78.81 - BACTEREMIA
--- NOTE | 2017-02-04 09:43 | PN ---
Progress Note, Physician Chief Complaint: ASLEEP EVENTS AND NOTES REVIEWED ANEMIA WORSE NEEDS BLEEDING SCAN - Current Medication List Current Medications: Active Medications Chlorhexidine Gluconate (Hibiclens For Decolonization -) 1 applic TP HS [facility] Last Admin: 02/03/17 22:19 Dose: 1 applic Cyclobenzaprine HCl (Flexeril -) 10 mg PO TID [facility] Last Admin: 02/04/17 06:26 Dose: 10 mg Fentanyl (Sublimaze Injection -) 50 mcg IVPUSH [id number] PRN PRN Reason: PAIN Gabapentin (Neurontin -) 300 mg PO TID [facility] Last Admin: 02/04/17 06:27 Dose: 300 mg Heparin Sodium (Porcine) (Heparin -) 5,000 unit SQ TID [facility] Last Admin: 02/04/17 06:27 Dose: 5,000 unit Cefazolin Sodium/Dextrose (Ancef 2 Gm Premixed Ivpb -) 2 gm in 50 mls @ 100 mls /hr IVPB Q8H-IV [facility] Last Admin: 02/04/17 00:59 Dose: 100 mls/hr Lactated Ringer's (Lactated Ringers Solution) 1,000 ml in 1,000 mls @ 100 mls/ hr IV ASDIR [facility] Last Admin: 02/03/17 22:19 Dose: 100 mls/hr Lorazepam (Ativan Injection -) 1 mg IVPUSH TID PRN PRN Reason: ANXIETY Last Admin: 02/03/17 07:38 Dose: 1 mg Methadone HCl 80 mg/ Methadone (HCl 20 mg) 100 mg PO DAILY@0600 [facility] Last Admin: 02/04/17 06:27 Dose: 100 mg Morphine Sulfate (Morphine Sulfate) 4 mg IVPUSH Q4H PRN PRN Reason: PAIN Last Admin: 02/03/17 06:29 Dose: 4 mg Mupirocin (Bactroban Ointment (For Decolonization) -) 1 applic NS BID [facility] Stop: 02/07/17 21:59 Last Admin: 02/03/17 22:18 Dose: 1 applic Nicotine (Nicoderm Patch -) 21 mg TD DAILY [facility] Last Admin: 02/03/17 09:35 Dose: 21 mg Ondansetron HCl (Zofran Injection) 8 mg IVPB Q6H PRN PRN Reason: NAUSEA Pantoprazole Sodium (Protonix Iv) 40 mg IVPUSH BID [facility] Last Admin: 02/03/17 22:19 Dose: 40 mg Polyethylene Glycol (Miralax (For Daily Use) -) 17 gm PO TID [facility] Last Admin: 02/04/17 06:35 Dose: 17 grams Potassium Phos/Sodium Phos (Phos-Nak Packet -) 1 packet PO TID [facility] Last Admin: 02/04/17 06:35 Dose: 1 packet Sucralfate (Carafate Oral Suspension -) 1 gm PO QID [facility] Last Admin: 02/03/17 22:18 Dose: 1 gm - Objective Vital Signs: Vital Signs Temperature 99.4 F 02/04/17 06:00 Pulse Rate 92 H 02/04/17 08:00 Respiratory Rate 18 02/04/17 08:00 Blood Pressure 98/60 02/04/17 08:00 O2 Sat by Pulse Oximetry (%) 98 02/03/17 19:38 Constitutional: Yes: Mild Distress Eyes: Yes: WNL HENT: Yes: WNL Cardiovascular: Yes: WNL Respiratory: Yes: On Nasal O2, Poor Air Entry Gastrointestinal: Yes: Tenderness Genitourinary: Yes: Other Musculoskeletal: Yes: Muscle Weakness Extremities: Yes: Other Edema: Yes Edema: LLE: Trace, RLE: Trace Peripheral Pulses WNL: Yes Integumentary: Yes: Other Wound/Incision: Yes: Dressing Dry and Intact Neurological: Yes: Pre-Existing Deficit ...Motor Strength: LLE, RLE Psychiatric: Yes: Other Labs: CBC, BMP 02/04/17 05:55 02/04/17 05:55 INR, PTT INR 1.31 (0.82-1.09) H 02/01/17 11:45 Problem List - Problems (1) Smoking addiction Code(s): F17.200 - NICOTINE DEPENDENCE, UNSPECIFIED, UNCOMPLICATED (2) Substance abuse Code(s): F19.10 - OTHER PSYCHOACTIVE SUBSTANCE ABUSE, UNCOMPLICATED (3) Anemia Code(s): D64.9 - ANEMIA, UNSPECIFIED Qualifiers: Anemia type: unspecified type Qualified Code(s): D64.9 - Anemia, unspecified (4) Rectal bleed Code(s): K62.5 - HEMORRHAGE OF ANUS AND RECTUM (5) CHF (congestive heart failure) Code(s): I50.9 - HEART FAILURE, UNSPECIFIED (6) Diabetes 1.5, managed as type 2 Code(s): E13.9 - OTHER SPECIFIED DIABETES MELLITUS WITHOUT COMPLICATIONS (7) Edema Code(s): R60.9 - EDEMA, UNSPECIFIED (8) Hepatitis C antibody test positive Code(s): R76.8 - OTHER SPECIFIED ABNORMAL IMMUNOLOGICAL FINDINGS IN SERUM (9) Hyperlipidemia Code(s): E78.5 - HYPERLIPIDEMIA, UNSPECIFIED (10) Hypertension Code(s): I10 - ESSENTIAL (PRIMARY) HYPERTENSION (11) Osteoarthritis Code(s): M19.90 - UNSPECIFIED OSTEOARTHRITIS, UNSPECIFIED SITE (12) Abnormal MRI, spine Code(s): R93.7 - ABNORMAL FINDINGS ON DIAGNOSTIC IMAGING OF PRT MS SYS (13) Gram-positive cocci bacteremia Code(s): R78.81 - BACTEREMIA (14) Osteomyelitis of lumbar spine Code(s): M46.26 - OSTEOMYELITIS OF VERTEBRA, LUMBAR REGION Assessment/Plan ANEMIA TRANSFUSE PRBC NEEDED BLEEDING SCAN TO R/O GI BLEED IV ABX FOR OSTEOMYELITIS ID F/U APPRECIATED ONCE ANEMIA STABLE PATIENT WILL NEED PICC LINE AND IV ABX FOR SEVERAL WEEKS WITH SNF PLACEMENT. DVT PROPHYLAXIS SVT/TEDS
[2017-02-04] MEDS ORDERED: PT OWN MED DRAWER 7, Y5N ONE ×2 (10:30→14:27)
[2017-02-04] MEDS: MUPIROCIN 2% TOPICAL OINTMENT FOR DECOLONIZATION NS SCH ×2 (10:34→21:54)
[2017-02-04] MEDS: SUCRALFATE 1 GM/10 ML UNIT DOSE CUPS PO SCH ×4 (10:34→21:53)
[2017-02-04] MEDS: PANTOPRAZOLE SODIUM 40 MG VIAL IVPUSH SCH ×2 (10:37→21:56)
[2017-02-04] MEDS: NICOTINE 21 MG/24 HOURS TOPICAL PATCH TD SCH (10:37)
[2017-02-04] MEDS: LACTATED RINGERS SOLUTION 1,000 ML/1,000 ML INFUS.BAG IV SCH ×2 (10:39→20:30)
--- NOTE | 2017-02-04 11:44 | PN ---
Teaching Attending Note Name of Resident: Rufus De La Cruz ATTENDING PHYSICIAN STATEMENT I saw and evaluated the patient. I reviewed the resident's note and discussed the case with the resident. I agree with the resident's findings and plan as documented. SUBJECTIVE: Patient seen and examined in the ICU. Drowsy but easily arousable. Denies CP or SOB. No occult bleeding noted. Thin serosanguineous drainage in the DESTINY. OBJECTIVE: Intake & Output 02/01/17 02/02/17 02/03/17 02/04/17 23:59 23:59 23:59 23:59 Intake Total 5225 3100 2290 400 Output Total 3175 2740 1135 600 Balance 2050 360 1155 -200 Weight 242 lb 248 lb 3.2 oz 261 lb 263 lb 7.238 oz Last Vital Signs Temp Pulse Resp BP Pulse Ox 99.4 F 82 18 92/59 95 02/04/17 06:00 02/04/17 10:00 02/04/17 10:00 02/04/17 10:00 02/04/17 09:00 Active Medications Chlorhexidine Gluconate (Hibiclens For Decolonization -) 1 applic TP HS [facility] Last Admin: 02/03/17 22:19 Dose: 1 applic Cyclobenzaprine HCl (Flexeril -) 10 mg PO TID [facility] Last Admin: 02/04/17 06:26 Dose: 10 mg Fentanyl (Sublimaze Injection -) 50 mcg IVPUSH [id number] PRN PRN Reason: PAIN Gabapentin (Neurontin -) 300 mg PO TID [facility] Last Admin: 02/04/17 06:27 Dose: 300 mg Heparin Sodium (Porcine) (Heparin -) 5,000 unit SQ TID [facility] Last Admin: 02/04/17 06:27 Dose: 5,000 unit Cefazolin Sodium/Dextrose (Ancef 2 Gm Premixed Ivpb -) 2 gm in 50 mls @ 100 mls /hr IVPB Q8H-IV [facility] Last Admin: 02/04/17 10:37 Dose: 100 mls/hr Lactated Ringer's (Lactated Ringers Solution) 1,000 ml in 1,000 mls @ 100 mls/ hr IV ASDIR [facility] Last Admin: 02/04/17 10:39 Dose: 100 mls/hr Lorazepam (Ativan Injection -) 1 mg IVPUSH TID PRN PRN Reason: ANXIETY Last Admin: 02/03/17 07:38 Dose: 1 mg Methadone HCl 80 mg/ Methadone (HCl 20 mg) 100 mg PO DAILY@0600 [facility] Last Admin: 02/04/17 06:27 Dose: 100 mg Morphine Sulfate (Morphine Sulfate) 4 mg IVPUSH Q4H PRN PRN Reason: PAIN Last Admin: 02/03/17 06:29 Dose: 4 mg Mupirocin (Bactroban Ointment (For Decolonization) -) 1 applic NS BID [facility] Stop: 02/07/17 21:59 Last Admin: 02/04/17 10:34 Dose: 1 applic Nicotine (Nicoderm Patch -) 21 mg TD DAILY [facility] Last Admin: 02/04/17 10:37 Dose: 21 mg Ondansetron HCl (Zofran Injection) 8 mg IVPB Q6H PRN PRN Reason: NAUSEA Pantoprazole Sodium (Protonix Iv) 40 mg IVPUSH BID [facility] Last Admin: 02/04/17 10:37 Dose: 40 mg Polyethylene Glycol (Miralax (For Daily Use) -) 17 gm PO TID [facility] Last Admin: 02/04/17 06:35 Dose: 17 grams Potassium Phos/Sodium Phos (Phos-Nak Packet -) 1 packet PO TID [facility] Last Admin: 02/04/17 06:35 Dose: 1 packet Sucralfate (Carafate Oral Suspension -) 1 gm PO QID [facility] Last Admin: 02/04/17 10:34 Dose: 1 gm Gen: somnolent but arousable Heart: RRR Lung: decreased breath sounds at the bases Abd: soft, nontender Ext: no edema Laboratory Results - last 24 hr 02/01/17 02/03/17 02/03/17 18:25 17:45 22:03 WBC 8.6 RBC 3.29 L D Hgb 9.0 L D Hct 27.0 L D MCV 82.1 MCH 27.2 MCHC 33.1 RDW 16.1 H Plt Count 196 MPV 7.9 Neutrophils % 78.3 Lymphocytes % 11.4 D Monocytes % 7.9 Eosinophils % 2.2 Basophils % 0.2 Sodium Potassium Chloride Carbon Dioxide Anion Gap BUN Creatinine Creat Clearance w eGFR POC Glucometer 99.38406 Random Glucose Calcium Phosphorus Magnesium Total Bilirubin AST ALT Alkaline Phosphatase Total Protein Albumin Blood Type O POSITIVE Antibody Screen Negative Crossmatch See Detail Crossmatch IS Only See Detail 02/04/17 02/04/17 02/04/17 05:15 05:55 05:55 WBC 8.8 RBC 3.07 L Hgb 8.4 L Hct 25.0 L MCV 81.7 MCH 27.5 MCHC 33.7 RDW 16.4 H Plt Count 184 MPV 7.8 Neutrophils % 76.7 Lymphocytes % 12.5 Monocytes % 8.1 Eosinophils % 2.4 Basophils % 0.3 Sodium 140 Potassium 4.2 Chloride 109 H Carbon Dioxide 28 Anion Gap 3 L BUN 16 D Creatinine 1.0 Creat Clearance w eGFR > 60 POC Glucometer 89.55756 Random Glucose 67 L Calcium 7.1 L Phosphorus 2.2 L Magnesium 1.6 L Total Bilirubin 0.6 AST 16 D ALT < 6 L Alkaline Phosphatase 104 Total Protein 5.0 L Albumin 1.4 L Blood Type Antibody Screen Crossmatch Crossmatch IS Only ASSESSMENT AND PLAN: Staph Bacteremia Vetebral Osteomyelitis s/p L1-L4 lumbar laminectomies with decompression and interbody fusion with pedicle screws L1-L4, evacuation of epidural mass. HTN CHF Morbid Obesity Asthma Methadone Maintenance Anemia - Bleeding scan - Normal transfusion thresholds - ABX - f/u final cultures - pain control - Incentive spirometry - DVT prophylaxis Dr Love Critical care time spent in reviewing chart, evaluating patient and formulating plan - 40 minutes.
[2017-02-04] MEDS ORDERED: MAGNESIUM SULF 50% (8.12 MEQ/2 ML-1 GM VIAL) IVPB ONE (12:15)
--- NOTE | 2017-02-04 13:32 | PN ---
Physical Exam: SUBJECTIVE: The patient is a 61M with a PMH of HTN, CHF, HLD, asthma, hep c, heroin use currently on methadone, who presented to the ED with LBP and was found to have L2/3 discitis with possible osteo. The patient is POD2 of L1-L4 laminectomies s/p screw revision. His only complaint is back pain. Dr. Curiel is adjusting his pain medications. The patient denies any CP, SOB, fever, chills, nausea, vomiting. The patient is less lethargic than yesterday. OBJECTIVE: Vital Signs Period Temp Pulse Resp BP Sys/Pascal Pulse Ox Last 24 Hr 98.2 F-99.4 F 82-99 14-18 92-134/54-94 95-98 GENERAL: The patient is awake, alert, and fully oriented, in no acute distress. HEAD: Normal with no signs of trauma. EYES: PERRL, extraocular movements intact, sclera anicteric, conjunctiva clear. No ptosis. ENT: Ears normal, nares patent, oropharynx clear without exudates, moist mucous membranes. NECK: Trachea midline, full range of motion, supple. LUNGS: Breath sounds equal, clear to auscultation bilaterally, no wheezes, no crackles, no accessory muscle use. HEART: Regular rate and rhythm, S1, S2 without murmur, rub or gallop. ABDOMEN: Soft, nontender, nondistended, normoactive bowel sounds, no guarding, no rebound, no hepatosplenomegaly, no masses. EXTREMITIES: 2+ pulses, warm, well-perfused, no edema. NEUROLOGICAL: Cranial nerves II through XII grossly intact. Normal speech, gait not observed. PSYCH: Normal mood, normal affect. SKIN: Warm, dry, normal turgor, no rashes or lesions noted Laboratory Results - last 24 hr 02/01/17 02/03/17 02/03/17 18:25 17:45 22:03 WBC 8.6 RBC 3.29 L D Hgb 9.0 L D Hct 27.0 L D MCV 82.1 MCH 27.2 MCHC 33.1 RDW 16.1 H Plt Count 196 MPV 7.9 Neutrophils % 78.3 Lymphocytes % 11.4 D Monocytes % 7.9 Eosinophils % 2.2 Basophils % 0.2 Sodium Potassium Chloride Carbon Dioxide Anion Gap BUN Creatinine Creat Clearance w eGFR POC Glucometer 99.46531 Random Glucose Calcium Phosphorus Magnesium Total Bilirubin AST ALT Alkaline Phosphatase Total Protein Albumin Blood Type O POSITIVE Antibody Screen Negative Crossmatch See Detail Crossmatch IS Only See Detail 02/04/17 02/04/17 02/04/17 05:15 05:55 05:55 WBC 8.8 RBC 3.07 L Hgb 8.4 L Hct 25.0 L MCV 81.7 MCH 27.5 MCHC 33.7 RDW 16.4 H Plt Count 184 MPV 7.8 Neutrophils % 76.7 Lymphocytes % 12.5 Monocytes % 8.1 Eosinophils % 2.4 Basophils % 0.3 Sodium 140 Potassium 4.2 Chloride 109 H Carbon Dioxide 28 Anion Gap 3 L BUN 16 D Creatinine 1.0 Creat Clearance w eGFR > 60 POC Glucometer 89.02888 Random Glucose 67 L Calcium 7.1 L Phosphorus 2.2 L Magnesium 1.6 L Total Bilirubin 0.6 AST 16 D ALT < 6 L Alkaline Phosphatase 104 Total Protein 5.0 L Albumin 1.4 L Blood Type Antibody Screen Crossmatch Crossmatch IS Only Active Medications Generic Name Dose Route Start Last Admin Trade Name Freq PRN Reason Stop Dose Admin Chlorhexidine Gluconate 1 applic 02/02/17 22:00 02/03/17 22:19 Hibiclens For Decolonization - TP 1 applic HS [facility]A Administration Cyclobenzaprine HCl 10 mg 02/02/17 22:00 02/04/17 06:26 Flexeril - PO 10 mg TID [facility] Administration Fentanyl 50 mcg 02/02/17 20:26 Sublimaze Injection - IVPUSH [id number] PRN PAIN Gabapentin 300 mg 02/02/17 22:00 02/04/17 06:27 Neurontin - PO 300 mg TID [facility] Administration Heparin Sodium (Porcine) 5,000 unit 02/02/17 22:00 02/04/17 06:27 Heparin - SQ 5,000 unit TID [facility] Administration Cefazolin Sodium/Dextrose 2 gm in 50 mls @ 100 mls/hr 02/03/17 02:00 10:37 Ancef 2 Gm Premixed Ivpb - IVPB 100 mls/hr Q8H-IV [facility] Administration Lactated Ringer's 1,000 ml in 1,000 mls @ 100 mls/hr 02/02/17 20:26 02/04/17 10:39 Lactated Ringers Solution IV 100 mls/hr ASDIR [facility] Administration Lorazepam 1 mg 02/02/17 20:26 02/03/17 07:38 Ativan Injection - IVPUSH 1 mg TID PRN Administration ANXIETY Methadone HCl 80 mg/ Methadone 100 mg 02/03/17 06:00 02/04/17 06:27 HCl 20 mg PO 100 mg DAILY@0600 [facility] Administration Morphine Sulfate 4 mg 02/02/17 18:04 02/03/17 06:29 Morphine Sulfate IVPUSH 4 mg Q4H PRN Administration PAIN Mupirocin 1 applic 02/02/17 22:00 02/04/17 10:34 Bactroban Ointment (For Decolonization) - NS 02/07/17 21:59 1 applic BID [facility] Administration Nicotine 21 mg 02/03/17 10:00 02/04/17 10:37 Nicoderm Patch - TD 21 mg DAILY [facility] Administration Ondansetron HCl 8 mg 02/02/17 20:26 Zofran Injection IVPB Q6H PRN NAUSEA Pantoprazole Sodium 40 mg 02/02/17 22:00 02/04/17 10:37 Protonix Iv IVPUSH 40 mg BID [facility] Administration Polyethylene Glycol 17 gm 02/02/17 22:00 02/04/17 06:35 Miralax (For Daily Use) - PO 17 grams TID [facility] Administration Potassium Phos/Sodium Phos 1 packet 02/03/17 14:00 02/04/17 06:35 Phos-Nak Packet - PO 1 packet TID [facility] Administration Sucralfate 1 gm 02/02/17 22:00 02/04/17 10:34 Carafate Oral Suspension - PO 1 gm QID [facility] Administration ASSESSMENT/PLAN: Neuro: - Frequent neuro exams - Less lethargic than yesterday; continue to monitor mental status CV: CHF, HTN, HLD - Not currently on medications - Monitor BP - Close I's/O's Pulm: COPD/Smoker - Nicotine patch Hem/Onc: - Patient continues to bleed - Hgb 8.4 from 9.0 - Tagged RBC scan ordered MSK: S/p multiple lumbar spine surgeries - Continue pain meds as rec'd by Dr. Curiel - Continue the rest of pain meds for proper pain management ID: - Paraspinal abscess - Continue 2 gm ancef q8 PPX: - Heparin SQ TID FEN (Fluids, electrolytes, nutrition): - LR @ 100 mL/hour Dispo: - Continue to monitor in ICU - May be ready for med/surg tomorrow Visit type - Emergency Visit Emergency Visit: Yes ED Registration Date: 01/29/17 Care time: The patient presented to the Emergency Department on the above date and was hospitalized for further evaluation of their emergent condition. - New Patient This patient is new to me today: No - Critical Care Critical Care patient: Yes Total Critical Care Time (in minutes): 46 Critical Care Statement: The care of this patient involved high complexity decision making to prevent further life threatening deterioration of the patient 's condition and/or to evaluate & treat vital organ system(s) failure or risk of failure.
[2017-02-04] MEDS ORDERED: MAGNESIUM SULF 50% (8.12 MEQ/2 ML-1 GM VIAL) ONE (14:39)
--- NOTE | 2017-02-04 16:29 | PN ---
Progress Note (short form) - Note Progress Note: Surgery POD #2 lumbar spine hardware revision of right L4 screw for malalignment s/p L1- L4 fusion (02/01/17) in the setting of L2-L3 discitis and osteomyelitis, patient seen and examined at bedside with Dr Glasgow. The patient states he has a headache but denies any blurred vision. He c/o back pain with movement and b/l LE pain which has improved from his pre- op symptoms and he states the paresthesias in b/l LE has resolved. He denies anyfever, chills, CP/SOB/ and N/V. PE: A&Ox3, NAD, talkitive and pleasant VSS Unlabored resp on 2L NC Dressing c/d/i without evidence of erythema in surrounding tissue, Mepilex removed and 4x4/op sites applied DESTINY drain to left lower lumbar spine removed with light serosanginous d/c-50cc. site dressed with 4x4 and op site B/L LE compartments soft, supple and non-tender with chronic skin changed b/l. +dorsi/plantar flexion b/l 5/5 with +1 pedal pulses Right wrist dressing c/d/i with no evidence of d/c, hand warm and well perfused moving all digits without limitation. Assessment and Plan: s/p lumbar fusion with revision in patient with discitis, osteomyelitis and chronic anemia. Patient improving clinically. 1) Trend daily labs 2) Continue Abx per ID. 3) DVT prophylaxis with SQ heparin. 4) Consider d/c escobedo with trial void and post voiding bladder scan to assess retention. 5) encourage IS. 6) OOB with PT, TLSO brace when OOB, and Rolling platform walker. 7) continue daily dressing changes to right wrist- surgery to remove sutures on Tuesday. Evaluation and plan discussed with Dr Glasgow
[2017-02-04] MEDS ORDERED: HEMOQUE TEST 1 EACH EACH ONE (16:39)
[2017-02-04] MEDS: morphine SULFATE 4 MG/ML VIAL IVPUSH PRN ×2 (16:51→21:58)
[2017-02-04] MEDS: CHLORHEXIDINE GLUCONATE 4% CLEANSER FOR DECOLONIZATION TP SCH (21:54)
[2017-02-04] MEDS: LORazepam 2 MG/ML SDV VIAL IVPUSH PRN (21:57)
[2017-02-05] MEDS: CEFAZOLIN 2 GM/D5W 2 GM/50 ML ML IVPB SCH ×3 (01:40→20:26)
[2017-02-05 06:15] LABS: BASO % 0.3 % (0-2.0); EOS % 2.2 % (0-4.5); HEMATOCRIT 27.1 % (35.4-49); HEMOGLOBIN 9.2 GM/dL (11.7-16.9); LYMPH % 13.2 % (8-40); MCH 27.6 pg (25.7-33.7); MCHC 33.9 g/dl (32.0-35.9); MEAN CELL VOLUME 81.5 fl (80-96); MONO % 7.5 % (3.8-10.2); NEUT % 76.8 % (42.8-82.8); PLATELET COUNT 217 K/MM3 (134-434); RBC 3.32 M/mm3 (4.00-5.60); RDW 16.6 % (11.9-15.9); WHITE BLOOD COUNT 8.5 K/mm3 (4.0-10.0)
[2017-02-05] MEDS ORDERED: METHADONE HCL 10 MG TABLET ONE (06:30)
[2017-02-05] MEDS ORDERED: METHADONE HCL 40 MG DISPERSABLE TABLET ONE (06:30)
[2017-02-05] MEDS: CYCLOBENZAPRINE HCL 10 MG TABLET (FP) PO SCH ×3 (06:39→21:50)
[2017-02-05] MEDS: METHADONE 80 MG, METHADONE 20 MG PO SCH (06:39)
[2017-02-05] MEDS: GABAPENTIN 300 MG CAPSULE (FP) PO SCH ×3 (06:40→21:50)
[2017-02-05] MEDS: POLYETHYLENE GLYCOL 3350 119 GM BTL PO SCH ×3 (06:40→21:51)
[2017-02-05] MEDS: HEPARIN NA (PORCINE) 5,000 UNITS/ML 1ML VIAL SQ SCH ×3 (06:40→21:50)
[2017-02-05] MEDS: NAPH,MB-DB/K PH,MBDB POWDER PACKET PO SCH ×3 (06:41→21:51)
[2017-02-05 06:59] LABS: ALBUMIN 1.4 g/dl (3.4-5.0); ANION GAP 3 (8-16); BLOOD UREA NITROGEN 15 mg/dL (7-18); CALCIUM 7.4 mg/dL (8.5-10.1); CHLORIDE 105 mmol/L (98-107); CO2 30 mmol/L (21-32); CREATININE 0.9 mg/dL (0.7-1.3); GLUCOSE,RANDOM 59 mg/dL (74-106); MAGNESIUM 1.5 mg/dL (1.8-2.4); PHOSPHOROUS 2.7 mg/dL (2.5-4.9); POTASSIUM 4.1 mmol/L (3.5-5.1); SGOT/AST 18 U/L (15-37); SGPT/ALT < 6 U/L (12-78); SODIUM 138 mmol/L (136-145)
[2017-02-05 07:00] LABS: ALK PHOS 119 U/L (45-117); BILIRUBIN,TOTAL 0.5 mg/dL (0.2-1.0); TOT PROT 5.4 g/dl (6.4-8.2)
[2017-02-05] MEDS: NICOTINE 21 MG/24 HOURS TOPICAL PATCH TD SCH (09:48)
[2017-02-05] MEDS: MUPIROCIN 2% TOPICAL OINTMENT FOR DECOLONIZATION NS SCH (09:48)
[2017-02-05] MEDS: SUCRALFATE 1 GM/10 ML UNIT DOSE CUPS PO SCH ×4 (09:48→21:51)
[2017-02-05] MEDS: PANTOPRAZOLE SODIUM 40 MG VIAL IVPUSH SCH ×2 (09:50→21:50)
--- NOTE | 2017-02-05 10:07 | PN ---
Progress Note (short form) - Note Progress Note: PULMONARY/CCM Pt seen and examined in the ICU. Remains somnolent but arousable. Drain pulled yesterday. No fevers recorded. Last Vital Signs Temp Pulse Resp BP Pulse Ox 98.4 F 100 H 16 154/78 95 02/05/17 06:00 02/05/17 09:12 02/05/17 06:00 02/05/17 06:00 02/05/17 09:12 Intake & Output 02/02/17 02/03/17 02/04/17 02/05/17 23:59 23:59 23:59 23:59 Intake Total 3100 2290 2200 Output Total 2740 1135 1290 2000 Balance 360 1155 910 -2000 Weight 248 lb 3.2 oz 261 lb 263 lb 7.238 oz 264 lb 5 oz Gen: somnolent but arousable Heart: tachyardic, regular Lung: decreased breath sounds at the bases Abd: soft, nontender Ext: no edema CBC, BMP 02/05/17 05:05 02/05/17 05:05 Active Medications Chlorhexidine Gluconate (Hibiclens For Decolonization -) 1 applic TP HS [facility] Last Admin: 02/04/17 21:54 Dose: 1 applic Cyclobenzaprine HCl (Flexeril -) 10 mg PO TID [facility] Last Admin: 02/05/17 06:39 Dose: 10 mg Fentanyl (Sublimaze Injection -) 50 mcg IVPUSH [id number] PRN PRN Reason: PAIN Gabapentin (Neurontin -) 300 mg PO TID [facility] Last Admin: 02/05/17 06:40 Dose: 300 mg Heparin Sodium (Porcine) (Heparin -) 5,000 unit SQ TID [facility] Last Admin: 02/05/17 06:40 Dose: 5,000 unit Cefazolin Sodium/Dextrose (Ancef 2 Gm Premixed Ivpb -) 2 gm in 50 mls @ 100 mls /hr IVPB Q8H-IV [facility] Last Admin: 02/05/17 09:47 Dose: 100 mls/hr Lactated Ringer's (Lactated Ringers Solution) 1,000 ml in 1,000 mls @ 100 mls/ hr IV ASDIR [facility] Last Admin: 02/04/17 20:30 Dose: 100 mls/hr Lorazepam (Ativan Injection -) 1 mg IVPUSH TID PRN PRN Reason: ANXIETY Last Admin: 02/04/17 21:57 Dose: 1 mg Methadone HCl 80 mg/ Methadone (HCl 20 mg) 100 mg PO DAILY@0600 [facility] Last Admin: 02/05/17 06:39 Dose: 100 mg Morphine Sulfate (Morphine Sulfate) 4 mg IVPUSH Q4H PRN PRN Reason: PAIN Last Admin: 02/04/17 21:58 Dose: 4 mg Mupirocin (Bactroban Ointment (For Decolonization) -) 1 applic NS BID [facility] Stop: 02/07/17 21:59 Last Admin: 02/05/17 09:48 Dose: 1 applic Nicotine (Nicoderm Patch -) 21 mg TD DAILY [facility] Last Admin: 02/05/17 09:48 Dose: 21 mg Ondansetron HCl (Zofran Injection) 8 mg IVPB Q6H PRN PRN Reason: NAUSEA Pantoprazole Sodium (Protonix Iv) 40 mg IVPUSH BID [facility] Last Admin: 02/05/17 09:50 Dose: 40 mg Polyethylene Glycol (Miralax (For Daily Use) -) 17 gm PO TID [facility] Last Admin: 02/05/17 06:40 Dose: 17 grams Potassium Phos/Sodium Phos (Phos-Nak Packet -) 1 packet PO TID [facility] Last Admin: 02/05/17 06:41 Dose: 1 packet Sucralfate (Carafate Oral Suspension -) 1 gm PO QID [facility] Last Admin: 02/05/17 09:48 Dose: 1 gm A/P Staph Bacteremia Vetebral Osteomyelitis s/p L1-L4 lumbar laminectomies with decompression and interbody fusion with pedicle screws L1-L4, evacuation of epidural mass. HTN CHF Morbid Obesity Asthma Methadone Maintenance Anemia - monitor H/H - continue antibiotics - pain control, would decrease dose or make PRN - incentive spirometry - DVT prophylaxis - can transfer to surgical floor if ok with surgery
--- NOTE | 2017-02-05 10:14 | PN ---
Progress Note, Physician Chief Complaint: abdominal pain and GI bleed History of Present Illness: 61 yo male PMH Asthma, CHF, HTN, HLD, Hepatitis C, Degenerative Joint Disease, Obesity s/p Laparoscopic Kiarra-en-y Gastric Bypass 10 years ago ([place], [place] ) , prostate CA?, Heroin use (on methadone) who presents to the ED with lower back pain, legs and buttocks for the past week. He had GUIAC positive stool and is anemic but responded appropriately to initial transfusion. Abdominal pain is about the same. Had endoscopy showing marginal ulcer at [facility]. He has bacteremia MSSA being treated. Now he is s/p L1-L4 lumbar laminectomies with decompression and interbody fusion with pedicle screws L1-L4, evacuation of epidural mass. No interval change. - Current Medication List Current Medications: Active Medications Chlorhexidine Gluconate (Hibiclens For Decolonization -) 1 applic TP HS [facility] Last Admin: 02/04/17 21:54 Dose: 1 applic Cyclobenzaprine HCl (Flexeril -) 10 mg PO TID [facility] Last Admin: 02/05/17 06:39 Dose: 10 mg Fentanyl (Sublimaze Injection -) 50 mcg IVPUSH [id number] PRN PRN Reason: PAIN Gabapentin (Neurontin -) 300 mg PO TID [facility] Last Admin: 02/05/17 06:40 Dose: 300 mg Heparin Sodium (Porcine) (Heparin -) 5,000 unit SQ TID [facility] Last Admin: 02/05/17 06:40 Dose: 5,000 unit Cefazolin Sodium/Dextrose (Ancef 2 Gm Premixed Ivpb -) 2 gm in 50 mls @ 100 mls /hr IVPB Q8H-IV [facility] Last Admin: 02/05/17 09:47 Dose: 100 mls/hr Lactated Ringer's (Lactated Ringers Solution) 1,000 ml in 1,000 mls @ 100 mls/ hr IV ASDIR [facility] Last Admin: 02/04/17 20:30 Dose: 100 mls/hr Lorazepam (Ativan Injection -) 1 mg IVPUSH TID PRN PRN Reason: ANXIETY Last Admin: 02/04/17 21:57 Dose: 1 mg Methadone HCl 80 mg/ Methadone (HCl 20 mg) 100 mg PO DAILY@0600 [facility] Last Admin: 02/05/17 06:39 Dose: 100 mg Morphine Sulfate (Morphine Sulfate) 4 mg IVPUSH Q4H PRN PRN Reason: PAIN Last Admin: 02/04/17 21:58 Dose: 4 mg Mupirocin (Bactroban Ointment (For Decolonization) -) 1 applic NS BID [facility] Stop: 02/07/17 21:59 Last Admin: 02/05/17 09:48 Dose: 1 applic Nicotine (Nicoderm Patch -) 21 mg TD DAILY [facility] Last Admin: 02/05/17 09:48 Dose: 21 mg Ondansetron HCl (Zofran Injection) 8 mg IVPB Q6H PRN PRN Reason: NAUSEA Pantoprazole Sodium (Protonix Iv) 40 mg IVPUSH BID [facility] Last Admin: 02/05/17 09:50 Dose: 40 mg Polyethylene Glycol (Miralax (For Daily Use) -) 17 gm PO TID [facility] Last Admin: 02/05/17 06:40 Dose: 17 grams Potassium Phos/Sodium Phos (Phos-Nak Packet -) 1 packet PO TID [facility] Last Admin: 02/05/17 06:41 Dose: 1 packet Sucralfate (Carafate Oral Suspension -) 1 gm PO QID [facility] Last Admin: 02/05/17 09:48 Dose: 1 gm - Objective Vital Signs: Vital Signs Temperature 98.4 F 02/05/17 06:00 Pulse Rate 100 H 02/05/17 09:12 Respiratory Rate 16 02/05/17 06:00 Blood Pressure 154/78 02/05/17 06:00 O2 Sat by Pulse Oximetry (%) 95 02/05/17 09:12 Vital Signs Period Temp Pulse Resp BP Sys/Pascal Pulse Ox Last 24 Hr 98.2 F-98.6 F 83-100 16-18 114-160/58-96 95-95 Constitutional: Yes: No Distress, Obese Eyes: Yes: Conjunctiva Clear, EOM Intact HENT: Yes: Atraumatic, Normocephalic, Other (missing dentures) Neck: Yes: Supple, Trachea Midline Cardiovascular: Yes: Regular Rate and Rhythm, S1, S2 Respiratory: Yes: Regular, CTA Bilaterally Gastrointestinal: Yes: Normal Bowel Sounds, Soft. No: Tenderness, Tenderness, Epigastrium, Tenderness, Rebound ...Rectal Exam: Yes: Guaiac Positive Genitourinary: Yes: Bess Present. No: CVA Tenderness - Left, CVA Tenderness - Right Musculoskeletal: Yes: Muscle Weakness (bilateral lower extremities distal to the hip) Extremities: No: Cool, Cyanosis Edema: No Peripheral Pulses WNL: Yes Peripheral Pulses: Left Radial: 2+, Right Radial: 2+, Left Doralis Pedis: 2+, Right Dorsalis Pedis: 2+ Neurological: Yes: Oriented, Confusion, Lethargy Psychiatric: Yes: Oriented Labs: CBC, BMP 02/05/17 05:05 02/05/17 05:05 INR, PTT INR 1.31 (0.82-1.09) H 02/01/17 11:45 CBC WBC 8.5 K/mm3 (4.0-10.0) 02/05/17 05:05 RBC 3.32 M/mm3 (4.00-5.60) L 02/05/17 05:05 Hgb 9.2 GM/dL (11.7-16.9) L 02/05/17 05:05 Hct 27.1 % (35.4-49) L 02/05/17 05:05 MCV 81.5 fl (80-96) 02/05/17 05:05 MCH 27.6 pg (25.7-33.7) 02/05/17 05:05 MCHC 33.9 g/dl (32.0-35.9) 02/05/17 05:05 RDW 16.6 % (11.9-15.9) H 02/05/17 05:05 Plt Count 217 K/MM3 (134-434) 02/05/17 05:05 MPV 8.0 fl (7.5-11.1) 02/05/17 05:05 Neutrophils % 76.8 % (42.8-82.8) 02/05/17 05:05 Lymphocytes % 13.2 % (8-40) 02/05/17 05:05 Monocytes % 7.5 % (3.8-10.2) 02/05/17 05:05 Eosinophils % 2.2 % (0-4.5) 02/05/17 05:05 Basophils % 0.3 % (0-2.0) 02/05/17 05:05 ESR 70 mm/hr (0-20) H 01/31/17 07:15 - ....Imaging Other: Pending, Report Reviewed (no clear abdominal level bleeding, will await official reading), Image Reviewed Problem List - Problems (1) Rectal bleed Assessment/Plan: Chronic GI bleeding, hemoccult positive stool, no gross blood on rectal, no reported melena or hematochezia, no coffee ground emesis, appropriate response to transfusion of 2RBC, planned lumbar decompression tomorrow, on therapy for bacteremia, found to have marginal ulcer at the gastrojejunostomy (s/p Laparoscopic Kiarra-en-Y gastric bypass surgery 10 years ago in [place], [place]) , no obstructed. Now s/p L1-L4 lumbar laminectomies with decompression and interbody fusion with pedicle screws L1-L4, evacuation of epidural mass. will continue to follow for serial abdominal exams IV antibiotics therapy per ID PPI therapy Trend CBC Transfuse RBC as indicated Tagged RBC scan done, reading pending This patient is in guarded condition in the ICU. Time spent reviewing chart, examining patient, talking with providers and/or family and documentation is 35 minutes Code(s): K62.5 - HEMORRHAGE OF ANUS AND RECTUM (2) Occult blood positive stool Code(s): R19.5 - OTHER FECAL ABNORMALITIES (3) Osteomyelitis of lumbar spine Code(s): M46.26 - OSTEOMYELITIS OF VERTEBRA, LUMBAR REGION (4) Abnormal MRI, spine Code(s): R93.7 - ABNORMAL FINDINGS ON DIAGNOSTIC IMAGING OF PRT MS SYS (5) Urine retention Code(s): R33.9 - RETENTION OF URINE, UNSPECIFIED (6) Marginal ulcer Code(s): K28.9 - GASTROJEJUNAL ULCER, UNSP ACUTE OR CHR, W/O HEMOR OR PERF (7) Bacteremia Code(s): R78.81 - BACTEREMIA
--- NOTE | 2017-02-05 13:05 | PN ---
Progress Note, Physician - Current Medication List Current Medications: Active Medications Chlorhexidine Gluconate (Hibiclens For Decolonization -) 1 applic TP HS [facility] Last Admin: 02/04/17 21:54 Dose: 1 applic Cyclobenzaprine HCl (Flexeril -) 10 mg PO TID [facility] Last Admin: 02/05/17 06:39 Dose: 10 mg Fentanyl (Sublimaze Injection -) 50 mcg IVPUSH [id number] PRN PRN Reason: PAIN Gabapentin (Neurontin -) 300 mg PO TID [facility] Last Admin: 02/05/17 06:40 Dose: 300 mg Heparin Sodium (Porcine) (Heparin -) 5,000 unit SQ TID [facility] Last Admin: 02/05/17 06:40 Dose: 5,000 unit Cefazolin Sodium/Dextrose (Ancef 2 Gm Premixed Ivpb -) 2 gm in 50 mls @ 100 mls /hr IVPB Q8H-IV [facility] Last Admin: 02/05/17 09:47 Dose: 100 mls/hr Lactated Ringer's (Lactated Ringers Solution) 1,000 ml in 1,000 mls @ 100 mls/ hr IV ASDIR [facility] Last Admin: 02/04/17 20:30 Dose: 100 mls/hr Lorazepam (Ativan Injection -) 1 mg IVPUSH TID PRN PRN Reason: ANXIETY Last Admin: 02/04/17 21:57 Dose: 1 mg Methadone HCl 80 mg/ Methadone (HCl 20 mg) 100 mg PO DAILY@0600 [facility] Last Admin: 02/05/17 06:39 Dose: 100 mg Morphine Sulfate (Morphine Sulfate) 4 mg IVPUSH Q4H PRN PRN Reason: PAIN Last Admin: 02/04/17 21:58 Dose: 4 mg Mupirocin (Bactroban Ointment (For Decolonization) -) 1 applic NS BID [facility] Stop: 02/07/17 21:59 Last Admin: 02/05/17 09:48 Dose: 1 applic Nicotine (Nicoderm Patch -) 21 mg TD DAILY [facility] Last Admin: 02/05/17 09:48 Dose: 21 mg Ondansetron HCl (Zofran Injection) 8 mg IVPB Q6H PRN PRN Reason: NAUSEA Pantoprazole Sodium (Protonix Iv) 40 mg IVPUSH BID [facility] Last Admin: 02/05/17 09:50 Dose: 40 mg Polyethylene Glycol (Miralax (For Daily Use) -) 17 gm PO TID [facility] Last Admin: 02/05/17 06:40 Dose: 17 grams Potassium Phos/Sodium Phos (Phos-Nak Packet -) 1 packet PO TID [facility] Last Admin: 02/05/17 06:41 Dose: 1 packet Sucralfate (Carafate Oral Suspension -) 1 gm PO QID [facility] Last Admin: 02/05/17 09:48 Dose: 1 gm - Objective Vital Signs: Vital Signs Temperature 98.4 F 02/05/17 06:00 Pulse Rate 100 H 02/05/17 09:12 Respiratory Rate 16 02/05/17 06:00 Blood Pressure 154/78 02/05/17 06:00 O2 Sat by Pulse Oximetry (%) 95 02/05/17 09:12 Cardiovascular: Yes: S1, S2 Respiratory: Yes: Regular, CTA Bilaterally Gastrointestinal: Yes: Normal Bowel Sounds, Soft Labs: CBC, BMP 02/05/17 05:05 02/05/17 05:05 INR, PTT INR 1.31 (0.82-1.09) H 02/01/17 11:45 Problem List - Problems (1) Bacteremia Assessment/Plan: IV ABX PER ID FOLLOW CBC Code(s): R78.81 - BACTEREMIA (2) Osteomyelitis of lumbar spine Assessment/Plan: ABOVE FURTHER PLAN PER SURGERY Code(s): M46.26 - OSTEOMYELITIS OF VERTEBRA, LUMBAR REGION (3) Diabetes 1.5, managed as type 2 Assessment/Plan: Laboratory Tests 02/04/17 02/05/17 02/05/17 16:50 05:43 12:46 POC Glucometer 79.95671 95.00773 85.75183 Code(s): E13.9 - OTHER SPECIFIED DIABETES MELLITUS WITHOUT COMPLICATIONS
[2017-02-05] MEDS ORDERED: PT OWN MED DRAWER 7, Y5N ONE (18:40)
[2017-02-05] MEDS ORDERED: LORazepam 2 MG/ML SDV VIAL IVPUSH PRN (19:46)
[2017-02-05] MEDS ORDERED: ONDANSETRON 4 MG/2 ML VIAL IVPB PRN (19:46)
--- NOTE | 2017-02-05 19:46 | PN ---
Progress Note (short form) - Note Progress Note: Pt is awake, alert, protecting his airway, not in distress and able to call for help if necessary. He is hemodynamically stable and ok for transfer to floor. ( Had been previous ok'd for floor but was somewhat depressed mental status and was stalled here. Status improved this evening). Memo Burton ACNP [id number]
[2017-02-05] MEDS: LACTATED RINGERS SOLUTION 1,000 ML/1,000 ML INFUS.BAG IV SCH (20:25)
[2017-02-06] MEDS: CEFAZOLIN 2 GM/D5W 2 GM/50 ML ML IVPB SCH ×3 (01:24→17:15)
[2017-02-06] MEDS: morphine SULFATE 4 MG/ML VIAL IVPUSH PRN (04:43)
[2017-02-06] MEDS: METHADONE HCL 40 MG DISPERSABLE TABLET PO SCH (06:33)
[2017-02-06] MEDS: HEPARIN NA (PORCINE) 5,000 UNITS/ML 1ML VIAL SQ SCH ×3 (06:33→22:54)
[2017-02-06] MEDS: GABAPENTIN 300 MG CAPSULE (FP) PO SCH ×3 (06:34→22:54)
[2017-02-06] MEDS: CYCLOBENZAPRINE HCL 10 MG TABLET (FP) PO SCH ×3 (06:34→22:54)
[2017-02-06] MEDS: POLYETHYLENE GLYCOL 3350 119 GM BTL PO SCH ×3 (06:35→22:54)
[2017-02-06] MEDS: NAPH,MB-DB/K PH,MBDB POWDER PACKET PO SCH ×3 (06:36→22:55)
--- NOTE | 2017-02-06 08:31 | PN ---
Progress Note, Physician Chief Complaint: abdominal pain and GI bleed History of Present Illness: 61 yo male PMH Asthma, CHF, HTN, HLD, Hepatitis C, Degenerative Joint Disease, Obesity s/p Laparoscopic Kiarra-en-y Gastric Bypass 10 years ago ([facility] [place] ) , prostate CA?, Heroin use (on methadone) who presents to the ED with lower back pain, legs and buttocks for the past week. He had GUIAC positive stool and is anemic but responded appropriately to initial transfusion. Abdominal pain is about the same. Had endoscopy showing marginal ulcer at [facility]. He has bacteremia MSSA being treated. Now he is s/p L1-L4 lumbar laminectomies with decompression and interbody fusion with pedicle screws L1-L4, evacuation of epidural mass. Now transferred to the regular floor. - Current Medication List Current Medications: Active Medications Cyclobenzaprine HCl (Flexeril -) 10 mg PO TID [facility] Last Admin: 02/06/17 06:34 Dose: 10 mg Gabapentin (Neurontin -) 300 mg PO TID [facility] Last Admin: 02/06/17 06:34 Dose: 300 mg Heparin Sodium (Porcine) (Heparin -) 5,000 unit SQ TID [facility] Last Admin: 02/06/17 06:33 Dose: 5,000 unit Cefazolin Sodium/Dextrose (Ancef 2 Gm Premixed Ivpb -) 2 gm in 50 mls @ 100 mls /hr IVPB Q8H-IV [facility] Last Admin: 02/06/17 01:24 Dose: 100 mls/hr Lactated Ringer's (Lactated Ringers Solution) 1,000 ml in 1,000 mls @ 100 mls/ hr IV ASDIR [facility] Last Admin: 02/05/17 20:25 Dose: 100 mls/hr Lorazepam (Ativan Injection -) 1 mg IVPUSH TID PRN PRN Reason: ANXIETY Methadone HCl (Dolophine -) 20 mg PO DAILY@0600 [facility] Last Admin: 02/06/17 06:33 Dose: 20 mg Morphine Sulfate (Morphine Sulfate) 4 mg IVPUSH Q4H PRN PRN Reason: PAIN Last Admin: 02/06/17 04:43 Dose: 4 mg Nicotine (Nicoderm Patch -) 21 mg TD DAILY [facility] Ondansetron HCl (Zofran Injection) 8 mg IVPB Q6H PRN PRN Reason: NAUSEA Pantoprazole Sodium (Protonix Iv) 40 mg IVPUSH BID [facility] Last Admin: 02/05/17 21:50 Dose: 40 mg Polyethylene Glycol (Miralax (For Daily Use) -) 17 gm PO TID [facility] Last Admin: 02/06/17 06:35 Dose: 17 gm Potassium Phos/Sodium Phos (Phos-Nak Packet -) 1 packet PO TID [facility] Last Admin: 02/06/17 06:36 Dose: 1 packet Sucralfate (Carafate Oral Suspension -) 1 gm PO QID [facility] Last Admin: 02/05/17 21:51 Dose: 1 gm - Objective Vital Signs: Vital Signs Temperature 99.2 F 02/06/17 06:00 Pulse Rate 94 H 02/06/17 06:00 Respiratory Rate 18 02/06/17 06:00 Blood Pressure 110/59 02/06/17 06:00 O2 Sat by Pulse Oximetry (%) 95 02/05/17 22:00 Constitutional: Yes: No Distress, Calm, Obese Eyes: Yes: Conjunctiva Clear, EOM Intact HENT: Yes: Atraumatic, Normocephalic Neck: Yes: Supple, Trachea Midline Cardiovascular: Yes: Regular Rate and Rhythm, S1, S2 Respiratory: Yes: Regular, CTA Bilaterally Gastrointestinal: Yes: Normal Bowel Sounds, Soft. No: Tenderness, Tenderness, Epigastrium, Tenderness, Rebound ...Rectal Exam: Yes: Deferred Genitourinary: No: CVA Tenderness - Left, CVA Tenderness - Right Edema: No Neurological: Yes: Oriented, Lethargy Psychiatric: Yes: Oriented Labs: CBC, BMP 02/05/17 05:05 02/05/17 05:05 INR, PTT INR 1.31 (0.82-1.09) H 02/01/17 11:45 Problem List - Problems (1) Rectal bleed Assessment/Plan: Chronic GI bleeding, hemoccult positive stool, no gross blood on rectal, no reported melena or hematochezia, no coffee ground emesis, appropriate response to transfusion of 2RBC, planned lumbar decompression tomorrow, on therapy for bacteremia, found to have marginal ulcer at the gastrojejunostomy (s/p Laparoscopic Kiarra-en-Y gastric bypass surgery 10 years ago in [place], [place]) , no obstructed. Now s/p L1-L4 lumbar laminectomies with decompression and interbody fusion with pedicle screws L1-L4, evacuation of epidural mass. will continue to follow for serial abdominal exams IV antibiotics therapy per ID PPI therapy Trend CBC Transfuse RBC as indicated Tagged RBC scan done, reading pending Code(s): K62.5 - HEMORRHAGE OF ANUS AND RECTUM (2) Occult blood positive stool Code(s): R19.5 - OTHER FECAL ABNORMALITIES (3) Osteomyelitis of lumbar spine Code(s): M46.26 - OSTEOMYELITIS OF VERTEBRA, LUMBAR REGION (4) Abnormal MRI, spine Code(s): R93.7 - ABNORMAL FINDINGS ON DIAGNOSTIC IMAGING OF PRT MS SYS (5) Urine retention Code(s): R33.9 - RETENTION OF URINE, UNSPECIFIED (6) Marginal ulcer Code(s): K28.9 - GASTROJEJUNAL ULCER, UNSP ACUTE OR CHR, W/O HEMOR OR PERF (7) Bacteremia Code(s): R78.81 - BACTEREMIA
[2017-02-06 08:55] LABS: BASO % 0.2 % (0-2.0); EOS % 2.8 % (0-4.5); HEMATOCRIT 25.7 % (35.4-49); HEMOGLOBIN 8.4 GM/dL (11.7-16.9); MCH 26.7 pg (25.7-33.7); MCHC 32.7 g/dl (32.0-35.9); MEAN CELL VOLUME 81.7 fl (80-96); MEAN PLT VOLUME 7.4 fl (7.5-11.1); MONO % 8.9 % (3.8-10.2); NEUT % 71.1 % (42.8-82.8); PLATELET COUNT 212 K/MM3 (134-434); RBC 3.15 M/mm3 (4.00-5.60); RDW 16.6 % (11.9-15.9); WHITE BLOOD COUNT 7.7 K/mm3 (4.0-10.0)
[2017-02-06 09:19] LABS: ALBUMIN 1.4 g/dl (3.4-5.0); ALK PHOS 115 U/L (45-117); ANION GAP 5 (8-16); BILIRUBIN,TOTAL 0.6 mg/dL (0.2-1.0); BLOOD UREA NITROGEN 14 mg/dL (7-18); CALCIUM 7.7 mg/dL (8.5-10.1); CHLORIDE 103 mmol/L (98-107); CO2 31 mmol/L (21-32); CREATININE 0.8 mg/dL (0.7-1.3); GLUCOSE,RANDOM 54 mg/dL (74-106); MAGNESIUM 1.3 mg/dL (1.8-2.4); PHOSPHOROUS 3.2 mg/dL (2.5-4.9); POTASSIUM 3.9 mmol/L (3.5-5.1); SGOT/AST 22 U/L (15-37); SGPT/ALT < 6 U/L (12-78); SODIUM 139 mmol/L (136-145); TOT PROT 5.2 g/dl (6.4-8.2)
[2017-02-06] MEDS: LACTATED RINGERS SOLUTION 1,000 ML/1,000 ML INFUS.BAG IV SCH ×3 (09:21→21:22)
[2017-02-06] MEDS: SUCRALFATE 1 GM/10 ML UNIT DOSE CUPS PO SCH ×4 (09:45→22:53)
[2017-02-06] MEDS: PANTOPRAZOLE SODIUM 40 MG VIAL IVPUSH SCH ×2 (09:45→22:55)
[2017-02-06] MEDS: NICOTINE 21 MG/24 HOURS TOPICAL PATCH TD SCH (09:45)
--- NOTE | 2017-02-06 10:54 | PN ---
Progress Note (short form) - Note Progress Note: transferred from ICU to floor low grade temps Vital Signs Period Temp Pulse Resp BP Sys/Pascal Pulse Ox Last 24 Hr 98.2 F-100.3 F 92-105 14-19 108-127/59-78 95 +CVPlow gr cor-rrr lungs clear postop dressing per surger abd soft,nt ext bilater TKR , left foot with dry anterior ulcer along tendon- no drainage, no erythema +bilateral venous stasis CBC, BMP 02/06/17 08:23 02/06/17 08:23 Microbiology 02/01/17 Unknown Tissue-Other Gram Stain - Final 02/01/17 Unknown Tissue-Other Tissue Culture - Final Staphylococcus Aureus 02/01/17 Unknown Tissue-Other Anaerobic Culture - Final NO ANAEROBES WERE ISOLATED 01/31/17 18:00 Blood - Peripheral Venous Blood Culture - Final NO GROWTH AFTER 5 DAYS INCUBATION 01/31/17 18:00 Blood - Peripheral Venous Blood Culture - Final NO GROWTH AFTER 5 DAYS INCUBATION 02/01/17 17:30 Wound-Other Gram Stain - Final 02/01/17 17:30 Wound-Other Wound Culture - Final NO AEROBIC OR ANAEROBIC GROWTH OBTAINED. 02/01/17 17:30 Wound-Other Gram Stain - Final 02/01/17 17:30 Wound-Other Wound Culture - Final NO AEROBIC OR ANAEROBIC GROWTH OBTAINED. 02/01/17 17:30 Wound Gram Stain - Final 02/01/17 17:30 Wound Gram Stain - Final 02/01/17 17:30 Wound Gram Stain - Final 01/29/17 09:50 Blood - Peripheral Venous Blood Culture - Final Staphylococcus Aureus 01/29/17 09:50 Blood - Peripheral Venous Blood Culture - Final Staphylococcus Aureus 01/29/17 11:07 Urine - Urine Bess Urine Culture - Final NO GROWTH OBTAINED a/p low grade temps- try to remove central line repeat blood cultures MSSA bacteremia- continue cefazolin repeat blood cultures day #5 s/p lumbar laminectomy( day #4 s/p revision) management per neurosurgery
--- NOTE | 2017-02-06 11:18 | PN ---
Progress Note (short form) - Note Progress Note: Patient sleeping comfortably in bed. Arousable and able to converse appropriately. Denies headache or mechanical back pain. Wound is clean, dry and intact. Agree with continuing Dry sterile dressing Physical Therapy Pain control and Antibiotics per Drs. Curiel and Hazel.
--- NOTE | 2017-02-06 14:23 | PN ---
Progress Note, Physician - Current Medication List Current Medications: Active Medications Cyclobenzaprine HCl (Flexeril -) 10 mg PO TID [facility] Last Admin: 02/06/17 06:34 Dose: 10 mg Gabapentin (Neurontin -) 300 mg PO TID [facility] Last Admin: 02/06/17 06:34 Dose: 300 mg Heparin Sodium (Porcine) (Heparin -) 5,000 unit SQ TID [facility] Last Admin: 02/06/17 06:33 Dose: 5,000 unit Cefazolin Sodium/Dextrose (Ancef 2 Gm Premixed Ivpb -) 2 gm in 50 mls @ 100 mls /hr IVPB Q8H-IV [facility] Last Admin: 02/06/17 09:49 Dose: 100 mls/hr Lactated Ringer's (Lactated Ringers Solution) 1,000 ml in 1,000 mls @ 100 mls/ hr IV ASDIR [facility] Last Admin: 02/06/17 09:21 Dose: 100 mls/hr Lorazepam (Ativan Injection -) 1 mg IVPUSH TID PRN PRN Reason: ANXIETY Methadone HCl (Dolophine -) 20 mg PO DAILY@0600 [facility] Last Admin: 02/06/17 06:33 Dose: 20 mg Morphine Sulfate (Morphine Sulfate) 4 mg IVPUSH Q4H PRN PRN Reason: PAIN Last Admin: 02/06/17 04:43 Dose: 4 mg Nicotine (Nicoderm Patch -) 21 mg TD DAILY [facility] Last Admin: 02/06/17 09:45 Dose: 21 mg Ondansetron HCl (Zofran Injection) 8 mg IVPB Q6H PRN PRN Reason: NAUSEA Pantoprazole Sodium (Protonix Iv) 40 mg IVPUSH BID [facility] Last Admin: 02/06/17 09:45 Dose: 40 mg Polyethylene Glycol (Miralax (For Daily Use) -) 17 gm PO TID [facility] Last Admin: 02/06/17 06:35 Dose: 17 gm Potassium Phos/Sodium Phos (Phos-Nak Packet -) 1 packet PO TID [facility] Last Admin: 02/06/17 06:36 Dose: 1 packet Sucralfate (Carafate Oral Suspension -) 1 gm PO QID [facility] Last Admin: 02/06/17 09:45 Dose: 1 gm - Objective Vital Signs: Vital Signs Temperature 99.4 F 02/06/17 09:00 Pulse Rate 92 H 02/06/17 09:00 Respiratory Rate 16 02/06/17 09:00 Blood Pressure 120/66 02/06/17 09:00 O2 Sat by Pulse Oximetry (%) 95 02/05/17 22:00 Cardiovascular: Yes: S1, S2 Respiratory: Yes: Regular, CTA Bilaterally Gastrointestinal: Yes: Normal Bowel Sounds, Soft Labs: CBC, BMP 02/06/17 08:23 02/06/17 08:23 INR, PTT INR 1.31 (0.82-1.09) H 02/01/17 11:45 Problem List - Problems (1) Bacteremia Assessment/Plan: IV ABX PER ID FOLLOW CBC Code(s): R78.81 - BACTEREMIA (2) Osteomyelitis of lumbar spine Assessment/Plan: ABOVE FURTHER PLAN PER SURGERY Code(s): M46.26 - OSTEOMYELITIS OF VERTEBRA, LUMBAR REGION (3) Diabetes 1.5, managed as type 2 Assessment/Plan: Laboratory Tests 02/04/17 02/05/17 02/05/17 16:50 05:43 12:46 POC Glucometer 79.84947 95.89478 85.54936 Code(s): E13.9 - OTHER SPECIFIED DIABETES MELLITUS WITHOUT COMPLICATIONS
[2017-02-06] MEDS ORDERED: PT OWN MED DRAWER 7, Y5N ONE (17:01)
[2017-02-07] MEDS: CEFAZOLIN 2 GM/D5W 2 GM/50 ML ML IVPB SCH ×3 (02:19→17:14)
[2017-02-07] MEDS: POLYETHYLENE GLYCOL 3350 119 GM BTL PO SCH ×3 (06:13→22:59)
[2017-02-07] MEDS: CYCLOBENZAPRINE HCL 10 MG TABLET (FP) PO SCH ×3 (06:13→22:57)
[2017-02-07] MEDS: HEPARIN NA (PORCINE) 5,000 UNITS/ML 1ML VIAL SQ SCH ×3 (06:13→22:58)
[2017-02-07] MEDS: NAPH,MB-DB/K PH,MBDB POWDER PACKET PO SCH ×3 (06:13→22:57)
[2017-02-07] MEDS: GABAPENTIN 300 MG CAPSULE (FP) PO SCH ×3 (06:13→22:57)
[2017-02-07] MEDS: METHADONE HCL 40 MG DISPERSABLE TABLET PO SCH (06:14)
[2017-02-07 07:03] LABS: BASO % 0.7 % (0-2.0); EOS % 2.9 % (0-4.5); HEMATOCRIT 24.1 % (35.4-49); HEMOGLOBIN 7.9 GM/dL (11.7-16.9); LYMPH % 20.6 % (8-40); MCH 26.7 pg (25.7-33.7); MEAN CELL VOLUME 81.1 fl (80-96); MEAN PLT VOLUME 8.1 fl (7.5-11.1); MONO % 9.4 % (3.8-10.2); NEUT % 66.4 % (42.8-82.8); PLATELET COUNT 206 K/MM3 (134-434); RBC 2.97 M/mm3 (4.00-5.60); RDW 16.7 % (11.9-15.9); WHITE BLOOD COUNT 6.8 K/mm3 (4.0-10.0)
[2017-02-07 07:41] LABS: ALBUMIN 1.4 g/dl (3.4-5.0); ANION GAP 6 (8-16); BLOOD UREA NITROGEN 15 mg/dL (7-18); CHLORIDE 100 mmol/L (98-107); CO2 32 mmol/L (21-32); GLUCOSE,RANDOM 63 mg/dL (74-106); POTASSIUM 4.2 mmol/L (3.5-5.1); SODIUM 138 mmol/L (136-145); TOT PROT 5.1 g/dl (6.4-8.2)
[2017-02-07 07:45] LABS: ALK PHOS 105 U/L (45-117); BILIRUBIN,TOTAL 0.3 mg/dL (0.2-1.0); CREATININE 0.8 mg/dL (0.7-1.3); SGOT/AST 22 U/L (15-37); SGPT/ALT 7 U/L (12-78)
--- NOTE | 2017-02-07 09:04 | PN ---
Progress Note, Physician Chief Complaint: abdominal pain and GI bleed History of Present Illness: 61 yo male PMH Asthma, CHF, HTN, HLD, Hepatitis C, Degenerative Joint Disease, Obesity s/p Laparoscopic Kiarra-en-y Gastric Bypass 10 years ago ([facility] [place] ) , prostate CA?, Heroin use (on methadone) who presents to the ED with lower back pain, legs and buttocks for the past week. He had GUIAC positive stool and is anemic but responded appropriately to initial transfusion. Abdominal pain is about the same. Had endoscopy showing marginal ulcer at [facility]. He has bacteremia MSSA being treated. Now he is s/p L1-L4 lumbar laminectomies with decompression and interbody fusion with pedicle screws L1-L4, evacuation of epidural mass. Now transferred to the regular floor. - Current Medication List Current Medications: Active Medications Cyclobenzaprine HCl (Flexeril -) 10 mg PO TID [facility] Last Admin: 02/07/17 06:13 Dose: 10 mg Gabapentin (Neurontin -) 300 mg PO TID [facility] Last Admin: 02/07/17 06:13 Dose: 300 mg Heparin Sodium (Porcine) (Heparin -) 5,000 unit SQ TID [facility] Last Admin: 02/07/17 06:13 Dose: 5,000 unit Cefazolin Sodium/Dextrose (Ancef 2 Gm Premixed Ivpb -) 2 gm in 50 mls @ 100 mls /hr IVPB Q8H-IV [facility] Last Admin: 02/07/17 02:19 Dose: 100 mls/hr Lactated Ringer's (Lactated Ringers Solution) 1,000 ml in 1,000 mls @ 100 mls/ hr IV ASDIR [facility] Last Admin: 02/06/17 21:22 Dose: Not Given Lorazepam (Ativan Injection -) 1 mg IVPUSH TID PRN PRN Reason: ANXIETY Methadone HCl (Dolophine -) 20 mg PO DAILY@0600 [facility] Last Admin: 02/07/17 06:14 Dose: 20 mg Morphine Sulfate (Morphine Sulfate) 4 mg IVPUSH Q4H PRN PRN Reason: PAIN Last Admin: 02/06/17 04:43 Dose: 4 mg Nicotine (Nicoderm Patch -) 21 mg TD DAILY [facility] Last Admin: 02/06/17 09:45 Dose: 21 mg Ondansetron HCl (Zofran Injection) 8 mg IVPB Q6H PRN PRN Reason: NAUSEA Pantoprazole Sodium (Protonix Iv) 40 mg IVPUSH BID [facility] Last Admin: 02/06/17 22:55 Dose: 40 mg Polyethylene Glycol (Miralax (For Daily Use) -) 17 gm PO TID [facility] Last Admin: 02/07/17 06:13 Dose: 17 gm Potassium Phos/Sodium Phos (Phos-Nak Packet -) 1 packet PO TID [facility] Last Admin: 02/07/17 06:13 Dose: 1 packet Sucralfate (Carafate Oral Suspension -) 1 gm PO QID [facility] Last Admin: 02/06/17 22:53 Dose: 1 gm - Objective Vital Signs: Vital Signs Temperature 98.7 F 02/07/17 06:00 Pulse Rate 95 H 02/07/17 06:00 Respiratory Rate 20 02/07/17 06:00 Blood Pressure 114/62 02/07/17 06:00 O2 Sat by Pulse Oximetry (%) 98 02/06/17 21:00 Vital Signs Period Temp Pulse Resp BP Sys/Pascal Pulse Ox Last 24 Hr 98.6 F-99.9 F 87-95 20-24 110-131/60-83 98 Constitutional: Yes: No Distress, Calm, Obese Eyes: Yes: Conjunctiva Clear, EOM Intact HENT: Yes: Atraumatic, Normocephalic Neck: Yes: Supple, Trachea Midline Cardiovascular: Yes: Regular Rate and Rhythm, S1, S2 Respiratory: Yes: Regular, CTA Bilaterally Gastrointestinal: Yes: Normal Bowel Sounds, Soft. No: Melena, Rectal Bleeding, Tenderness, Tenderness, Epigastrium ...Rectal Exam: Yes: Guaiac Positive Extremities: Yes: Other (weakness bilateral lower extremities). No: Cool, Cyanosis Edema: No Peripheral Pulses WNL: Yes Neurological: Yes: Oriented, Lethargy Psychiatric: Yes: Oriented. No: Agitated, Suicidal Ideation Labs: CBC, BMP 02/07/17 06:00 02/07/17 06:00 INR, PTT INR 1.31 (0.82-1.09) H 02/01/17 11:45 Microbiology 02/01/17 Unknown Tissue-Other Gram Stain - Final 02/01/17 Unknown Tissue-Other Tissue Culture - Final Staphylococcus Aureus 02/01/17 Unknown Tissue-Other Anaerobic Culture - Final NO ANAEROBES WERE ISOLATED 01/31/17 18:00 Blood - Peripheral Venous Blood Culture - Final NO GROWTH AFTER 5 DAYS INCUBATION 01/31/17 18:00 Blood - Peripheral Venous Blood Culture - Final NO GROWTH AFTER 5 DAYS INCUBATION 02/01/17 17:30 Wound-Other Gram Stain - Final 02/01/17 17:30 Wound-Other Wound Culture - Final NO AEROBIC OR ANAEROBIC GROWTH OBTAINED. 02/01/17 17:30 Wound-Other Gram Stain - Final 02/01/17 17:30 Wound-Other Wound Culture - Final NO AEROBIC OR ANAEROBIC GROWTH OBTAINED. 02/01/17 17:30 Wound Gram Stain - Final 02/01/17 17:30 Wound Gram Stain - Final 02/01/17 17:30 Wound Gram Stain - Final 01/29/17 09:50 Blood - Peripheral Venous Blood Culture - Final Staphylococcus Aureus 01/29/17 09:50 Blood - Peripheral Venous Blood Culture - Final Staphylococcus Aureus 01/29/17 11:07 Urine - Urine Bess Urine Culture - Final NO GROWTH OBTAINED - ....Imaging Other: Report Reviewed (no definitive GI bleeding identified), Image Reviewed ( tagged red cell scan) Problem List - Problems (1) Rectal bleed Assessment/Plan: Chronic GI bleeding, hemoccult positive stool, no gross blood on rectal, no reported melena or hematochezia, no coffee ground emesis, appropriate response to transfusion of 2RBC, planned lumbar decompression tomorrow, on therapy for bacteremia, found to have marginal ulcer at the gastrojejunostomy (s/p Laparoscopic Kiarra-en-Y gastric bypass surgery 10 years ago in [place], [place]) , no obstructed. Now s/p L1-L4 lumbar laminectomies with decompression and interbody fusion with pedicle screws L1-L4, evacuation of epidural mass. will continue to follow for serial abdominal exams IV antibiotics therapy per ID PPI therapy Trend CBC Transfuse RBC as indicated Tagged RBC scan done, reading pending optimize protein nutrition Code(s): K62.5 - HEMORRHAGE OF ANUS AND RECTUM (2) Occult blood positive stool Code(s): R19.5 - OTHER FECAL ABNORMALITIES (3) Osteomyelitis of lumbar spine Code(s): M46.26 - OSTEOMYELITIS OF VERTEBRA, LUMBAR REGION (4) Abnormal MRI, spine Code(s): R93.7 - ABNORMAL FINDINGS ON DIAGNOSTIC IMAGING OF PRT MS SYS (5) Urine retention Code(s): R33.9 - RETENTION OF URINE, UNSPECIFIED (6) Marginal ulcer Code(s): K28.9 - GASTROJEJUNAL ULCER, UNSP ACUTE OR CHR, W/O HEMOR OR PERF (7) Bacteremia Code(s): R78.81 - BACTEREMIA
[2017-02-07] MEDS: SUCRALFATE 1 GM/10 ML UNIT DOSE CUPS PO SCH ×4 (09:23→22:57)
[2017-02-07] MEDS: NICOTINE 21 MG/24 HOURS TOPICAL PATCH TD SCH (09:23)
[2017-02-07] MEDS: PANTOPRAZOLE SODIUM 40 MG VIAL IVPUSH SCH ×2 (09:23→22:57)
[2017-02-07] MEDS: morphine SULFATE 4 MG/ML VIAL IVPUSH PRN (10:16)
[2017-02-07] MEDS: LACTATED RINGERS SOLUTION 1,000 ML/1,000 ML INFUS.BAG IV SCH (11:28)
--- NOTE | 2017-02-07 13:03 | PN ---
Progress Note (short form) - Note Progress Note: no complaints Vital Signs Period Temp Pulse Resp BP Sys/Pascal Pulse Ox Last 24 Hr 98.6 F-99.9 F 87-95 18-24 110-131/60-83 97-98 cor-rrr lungs bibasilar crackles abd soft, nt ext venous stasis changes, right foot is wrapped CBC, BMP 02/07/17 06:00 02/07/17 06:00 Microbiology 02/06/17 11:35 Blood - Peripheral Venous Blood Culture - Preliminary NO GROWTH OBTAINED AFTER 24 HOURS, INCUBATION TO CONTINUE FOR 4 DAYS. 02/01/17 Unknown Tissue-Other Gram Stain - Final 02/01/17 Unknown Tissue-Other Tissue Culture - Final Staphylococcus Aureus 02/01/17 Unknown Tissue-Other Anaerobic Culture - Final NO ANAEROBES WERE ISOLATED 01/31/17 18:00 Blood - Peripheral Venous Blood Culture - Final NO GROWTH AFTER 5 DAYS INCUBATION 01/31/17 18:00 Blood - Peripheral Venous Blood Culture - Final NO GROWTH AFTER 5 DAYS INCUBATION 02/01/17 17:30 Wound-Other Gram Stain - Final 02/01/17 17:30 Wound-Other Wound Culture - Final NO AEROBIC OR ANAEROBIC GROWTH OBTAINED. 02/01/17 17:30 Wound-Other Gram Stain - Final 02/01/17 17:30 Wound-Other Wound Culture - Final NO AEROBIC OR ANAEROBIC GROWTH OBTAINED. 02/01/17 17:30 Wound Gram Stain - Final 02/01/17 17:30 Wound Gram Stain - Final 02/01/17 17:30 Wound Gram Stain - Final 01/29/17 09:50 Blood - Peripheral Venous Blood Culture - Final Staphylococcus Aureus 01/29/17 09:50 Blood - Peripheral Venous Blood Culture - Final Staphylococcus Aureus 01/29/17 11:07 Urine - Urine Bess Urine Culture - Final NO GROWTH OBTAINED Current Medications Cyclobenzaprine HCl (Flexeril -) 10 mg PO TID [facility] Last Admin: 02/07/17 06:13 Dose: 10 mg Gabapentin (Neurontin -) 300 mg PO TID [facility] Last Admin: 02/07/17 06:13 Dose: 300 mg Heparin Sodium (Porcine) (Heparin -) 5,000 unit SQ TID [facility] Last Admin: 02/07/17 06:13 Dose: 5,000 unit Cefazolin Sodium/Dextrose (Ancef 2 Gm Premixed Ivpb -) 2 gm in 50 mls @ 100 mls /hr IVPB Q8H-IV [facility] Last Admin: 02/07/17 10:16 Dose: 100 mls/hr Lactated Ringer's (Lactated Ringers Solution) 1,000 ml in 1,000 mls @ 100 mls/ hr IV ASDIR [facility] Last Admin: 02/07/17 11:28 Dose: 100 mls/hr Lorazepam (Ativan Injection -) 1 mg IVPUSH TID PRN PRN Reason: ANXIETY Methadone HCl (Dolophine -) 20 mg PO DAILY@0600 [facility] Last Admin: 02/07/17 06:14 Dose: 20 mg Morphine Sulfate (Morphine Sulfate) 4 mg IVPUSH Q4H PRN PRN Reason: PAIN Last Admin: 02/07/17 10:16 Dose: 4 mg Nicotine (Nicoderm Patch -) 21 mg TD DAILY [facility] Last Admin: 02/07/17 09:23 Dose: 21 mg Ondansetron HCl (Zofran Injection) 8 mg IVPB Q6H PRN PRN Reason: NAUSEA Pantoprazole Sodium (Protonix Iv) 40 mg IVPUSH BID [facility] Last Admin: 02/07/17 09:23 Dose: 40 mg Polyethylene Glycol (Miralax (For Daily Use) -) 17 gm PO TID [facility] Last Admin: 02/07/17 06:13 Dose: 17 gm Potassium Phos/Sodium Phos (Phos-Nak Packet -) 1 packet PO TID [facility] Last Admin: 02/07/17 06:13 Dose: 1 packet Sucralfate (Carafate Oral Suspension -) 1 gm PO QID [facility] Last Admin: 02/07/17 09:23 Dose: 1 gm a/p low grade temps- unable to remove central line-no peripheral access MSSA bacteremia- continue cefazolin repeat blood cultures-sent yesterday day #6 s/p lumbar laminectomy( day #4 s/p revision) management per neurosurgery encourage incentive spirometry
--- NOTE | 2017-02-07 14:31 | PN ---
Progress Note (short form) - Note Progress Note: Patient is stable Wound clean, dry and intact Headaches are completely resolved Physical Therapy with Brace Will follow
--- NOTE | 2017-02-07 15:55 | PN ---
Progress Note, Physician Chief Complaint: ASLEEP EVENTS AND NOTES REVIEWED - Current Medication List Current Medications: Active Medications Cyclobenzaprine HCl (Flexeril -) 10 mg PO TID [facility] Last Admin: 02/07/17 14:10 Dose: 10 mg Gabapentin (Neurontin -) 300 mg PO TID [facility] Last Admin: 02/07/17 14:10 Dose: 300 mg Heparin Sodium (Porcine) (Heparin -) 5,000 unit SQ TID [facility] Last Admin: 02/07/17 14:11 Dose: 5,000 unit Cefazolin Sodium/Dextrose (Ancef 2 Gm Premixed Ivpb -) 2 gm in 50 mls @ 100 mls /hr IVPB Q8H-IV [facility] Last Admin: 02/07/17 10:16 Dose: 100 mls/hr Lorazepam (Ativan Injection -) 1 mg IVPUSH TID PRN PRN Reason: ANXIETY Methadone HCl (Dolophine -) 20 mg PO DAILY@0600 [facility] Last Admin: 02/07/17 06:14 Dose: 20 mg Morphine Sulfate (Morphine Sulfate) 4 mg IVPUSH Q4H PRN PRN Reason: PAIN Last Admin: 02/07/17 10:16 Dose: 4 mg Nicotine (Nicoderm Patch -) 21 mg TD DAILY [facility] Last Admin: 02/07/17 09:23 Dose: 21 mg Ondansetron HCl (Zofran Injection) 8 mg IVPB Q6H PRN PRN Reason: NAUSEA Pantoprazole Sodium (Protonix Iv) 40 mg IVPUSH BID [facility] Last Admin: 02/07/17 09:23 Dose: 40 mg Polyethylene Glycol (Miralax (For Daily Use) -) 17 gm PO TID [facility] Last Admin: 02/07/17 14:15 Dose: 17 gm Potassium Phos/Sodium Phos (Phos-Nak Packet -) 1 packet PO TID [facility] Last Admin: 02/07/17 14:11 Dose: 1 packet Sucralfate (Carafate Oral Suspension -) 1 gm PO QID [facility] Last Admin: 02/07/17 14:10 Dose: 1 gm - Objective Vital Signs: Vital Signs Temperature 98.7 F 02/07/17 14:37 Pulse Rate 91 H 02/07/17 14:37 Respiratory Rate 18 02/07/17 14:37 Blood Pressure 124/76 02/07/17 14:37 O2 Sat by Pulse Oximetry (%) 97 02/07/17 09:00 Constitutional: Yes: Mild Distress Eyes: Yes: WNL HENT: Yes: WNL Neck: Yes: WNL Cardiovascular: Yes: WNL Respiratory: Yes: Wheezes Gastrointestinal: Yes: WNL Genitourinary: Yes: Incontinence Musculoskeletal: Yes: Back Pain, Muscle Weakness Extremities: Yes: Other Edema: Yes Edema: LLE: Trace, RLE: Trace Peripheral Pulses WNL: Yes Integumentary: Yes: WNL Wound/Incision: Yes: Clean/Dry, Dressing Dry and Intact Neurological: Yes: Pre-Existing Deficit ...Motor Strength: LLE, RLE Psychiatric: Yes: Other Labs: CBC, BMP 02/07/17 06:00 02/07/17 06:00 INR, PTT INR 1.31 (0.82-1.09) H 02/01/17 11:45 Problem List - Problems (1) Smoking addiction Code(s): F17.200 - NICOTINE DEPENDENCE, UNSPECIFIED, UNCOMPLICATED (2) Substance abuse Code(s): F19.10 - OTHER PSYCHOACTIVE SUBSTANCE ABUSE, UNCOMPLICATED (3) Anemia Code(s): D64.9 - ANEMIA, UNSPECIFIED Qualifiers: Anemia type: unspecified type Qualified Code(s): D64.9 - Anemia, unspecified (4) Rectal bleed Code(s): K62.5 - HEMORRHAGE OF ANUS AND RECTUM (5) CHF (congestive heart failure) Code(s): I50.9 - HEART FAILURE, UNSPECIFIED (6) Diabetes 1.5, managed as type 2 Code(s): E13.9 - OTHER SPECIFIED DIABETES MELLITUS WITHOUT COMPLICATIONS (7) Edema Code(s): R60.9 - EDEMA, UNSPECIFIED (8) Hepatitis C antibody test positive Code(s): R76.8 - OTHER SPECIFIED ABNORMAL IMMUNOLOGICAL FINDINGS IN SERUM (9) Hyperlipidemia Code(s): E78.5 - HYPERLIPIDEMIA, UNSPECIFIED (10) Hypertension Code(s): I10 - ESSENTIAL (PRIMARY) HYPERTENSION (11) Osteoarthritis Code(s): M19.90 - UNSPECIFIED OSTEOARTHRITIS, UNSPECIFIED SITE (12) Abnormal MRI, spine Code(s): R93.7 - ABNORMAL FINDINGS ON DIAGNOSTIC IMAGING OF PRT MS SYS (13) Gram-positive cocci bacteremia Code(s): R78.81 - BACTEREMIA (14) Osteomyelitis of lumbar spine Code(s): M46.26 - OSTEOMYELITIS OF VERTEBRA, LUMBAR REGION Assessment/Plan POD #6 LAMINECTOMY WITH #4 FOR REVISION IV ABX PT EVAL BLOOD CX PENDING WILL NEED PICC LINE WITH IV ABX PER ID ANEMIA F/U TRANSFUSE NEEDED
[2017-02-07] MEDS ORDERED: LACTULOSE 20 GM/30 ML UDC (FOR ORAL USE ONLY) PO PRN (20:29)
[2017-02-07] MEDS ORDERED: PT OWN MED DRAWER 7, Y5N ONE (21:41)
[2017-02-07] MEDS: Methylnaltrexone Bromide 12 MG/0.6 ML KIT SQ SCH (23:06)
[2017-02-08] MEDS: morphine SULFATE 4 MG/ML VIAL IVPUSH PRN (01:09)
[2017-02-08] MEDS: CEFAZOLIN 2 GM/D5W 2 GM/50 ML ML IVPB SCH ×3 (02:27→17:01)
[2017-02-08] MEDS: HEPARIN NA (PORCINE) 5,000 UNITS/ML 1ML VIAL SQ SCH ×3 (06:37→21:56)
[2017-02-08] MEDS: GABAPENTIN 300 MG CAPSULE (FP) PO SCH ×3 (06:38→21:58)
[2017-02-08] MEDS: METHADONE HCL 40 MG DISPERSABLE TABLET PO SCH (06:38)
[2017-02-08] MEDS: POLYETHYLENE GLYCOL 3350 119 GM BTL PO SCH ×3 (06:38→21:57)
[2017-02-08] MEDS: CYCLOBENZAPRINE HCL 10 MG TABLET (FP) PO SCH ×3 (06:38→21:56)
[2017-02-08] MEDS: NAPH,MB-DB/K PH,MBDB POWDER PACKET PO SCH ×3 (06:39→21:58)
[2017-02-08 09:06] LABS: HEMATOCRIT 25.5 % (35.4-49); HEMOGLOBIN 8.2 GM/dL (11.7-16.9); MCH 26.5 pg (25.7-33.7); MCHC 32.2 g/dl (32.0-35.9); MEAN CELL VOLUME 82.4 fl (80-96); MEAN PLT VOLUME 8.3 fl (7.5-11.1); PLATELET COUNT 215 K/MM3 (134-434); RBC 3.09 M/mm3 (4.00-5.60); RDW 16.8 % (11.9-15.9)
[2017-02-08 09:35] LABS: ANION GAP 7 (8-16); BLOOD UREA NITROGEN 16 mg/dL (7-18); CALCIUM 7.5 mg/dL (8.5-10.1); CHLORIDE 100 mmol/L (98-107); CO2 31 mmol/L (21-32); CREATININE 0.8 mg/dL (0.7-1.3); GLUCOSE,RANDOM 64 mg/dL (74-106); POTASSIUM 4.3 mmol/L (3.5-5.1); SODIUM 138 mmol/L (136-145)
[2017-02-08] MEDS: PANTOPRAZOLE SODIUM 40 MG VIAL IVPUSH SCH ×2 (09:54→22:00)
[2017-02-08] MEDS: SUCRALFATE 1 GM/10 ML UNIT DOSE CUPS PO SCH ×4 (09:54→21:55)
[2017-02-08] MEDS: NICOTINE 21 MG/24 HOURS TOPICAL PATCH TD SCH (09:54)
[2017-02-08] MEDS: Methylnaltrexone Bromide 12 MG/0.6 ML KIT SQ SCH (09:55)
--- NOTE | 2017-02-08 10:33 | PN ---
Progress Note, Physician Chief Complaint: abdominal pain and GI bleed History of Present Illness: 61 yo male PMH Asthma, CHF, HTN, HLD, Hepatitis C, Degenerative Joint Disease, Obesity s/p Laparoscopic Kiarra-en-y Gastric Bypass 10 years ago ([place], [place] ) , prostate CA?, Heroin use (on methadone) who presents to the ED with lower back pain, legs and buttocks for the past week. He had GUIAC positive stool and is persistently anemic and has responded appropriately to transfusion no 6 units. Abdominal pain minor. He had endoscopy showing marginal ulcer at [facility]. He has bacteremia MSSA being treated. He is s/p L1-L4 lumbar laminectomies with decompression and interbody fusion with pedicle screws L1-L4, evacuation of epidural mass. Remains lethargic without complaints, tolerating his diet few bowel movements reported since admission. - Current Medication List Current Medications: Active Medications Cyclobenzaprine HCl (Flexeril -) 10 mg PO TID [facility] Last Admin: 02/08/17 06:38 Dose: 10 mg Gabapentin (Neurontin -) 300 mg PO TID [facility] Last Admin: 02/08/17 06:38 Dose: 300 mg Heparin Sodium (Porcine) (Heparin -) 5,000 unit SQ TID [facility] Last Admin: 02/08/17 06:37 Dose: 5,000 unit Cefazolin Sodium/Dextrose (Ancef 2 Gm Premixed Ivpb -) 2 gm in 50 mls @ 100 mls /hr IVPB Q8H-IV [facility] Last Admin: 02/08/17 09:54 Dose: 100 mls/hr Lactulose (Cephulac (Oral Use)) 20 gm PO TID PRN PRN Reason: CONSTIPATION Lorazepam (Ativan Injection -) 1 mg IVPUSH TID PRN PRN Reason: ANXIETY Last Admin: 02/08/17 02:27 Dose: 1 mg Methadone HCl (Dolophine -) 20 mg PO DAILY@0600 [facility] Last Admin: 02/08/17 06:38 Dose: 20 mg Methylnaltrexone [place] (Relistor -) 12 mg SQ DAILY [facility] Last Admin: 02/08/17 09:55 Dose: Not Given Morphine Sulfate (Morphine Sulfate) 4 mg IVPUSH Q4H PRN PRN Reason: PAIN Last Admin: 02/08/17 01:09 Dose: 4 mg Nicotine (Nicoderm Patch -) 21 mg TD DAILY [facility] Last Admin: 02/08/17 09:54 Dose: 21 mg Ondansetron HCl (Zofran Injection) 8 mg IVPB Q6H PRN PRN Reason: NAUSEA Pantoprazole Sodium (Protonix Iv) 40 mg IVPUSH BID [facility] Last Admin: 02/08/17 09:54 Dose: 40 mg Polyethylene Glycol (Miralax (For Daily Use) -) 17 gm PO TID [facility] Last Admin: 02/08/17 06:38 Dose: Not Given Potassium Phos/Sodium Phos (Phos-Nak Packet -) 1 packet PO TID [facility] Last Admin: 02/08/17 06:39 Dose: Not Given Sucralfate (Carafate Oral Suspension -) 1 gm PO QID [facility] Last Admin: 02/08/17 09:54 Dose: 1 gm - Objective Vital Signs: Vital Signs Temperature 97.9 F 02/08/17 09:05 Pulse Rate 93 H 02/08/17 09:05 Respiratory Rate 18 02/08/17 09:05 Blood Pressure 131/77 02/08/17 09:05 O2 Sat by Pulse Oximetry (%) 97 02/07/17 21:00 Vital Signs Period Temp Pulse Resp BP Sys/Pascal Pulse Ox Last 24 Hr 97.9 F-99.3 F 84-103 18-19 97-134/59-79 97 Constitutional: Yes: No Distress, Calm, Obese Eyes: Yes: Conjunctiva Clear, EOM Intact HENT: Yes: Atraumatic, Normocephalic Neck: Yes: Supple, Trachea Midline Cardiovascular: Yes: Regular Rate and Rhythm, S1, S2 Respiratory: Yes: Regular, Dullness. No: Accessory Muscle Use Gastrointestinal: Yes: Normal Bowel Sounds, Soft. No: Tenderness, Tenderness, Epigastrium, Tenderness, Rebound Genitourinary: No: CVA Tenderness - Left, CVA Tenderness - Right Extremities: No: Cool, Cyanosis Edema: No Peripheral Pulses WNL: Yes Neurological: Yes: Oriented, Lethargy Psychiatric: Yes: Oriented. No: Agitated Labs: CBC, BMP CBC, BMP 02/08/17 08:00 02/08/17 08:00 INR, PTT INR 1.31 (0.82-1.09) H 02/01/17 11:45 HCT 25% Problem List - Problems (1) Rectal bleed Assessment/Plan: Chronic GI bleeding, hemoccult positive stool, no gross blood on rectal, no reported melena or hematochezia, no coffee ground emesis, appropriate response to transfusion of 6RBC, know marginal ulcer at the gastrojejunostomy (s/p Laparoscopic Kiarra-en-Y gastric bypass surgery 10 years ago in [place], [place]) will continue to follow for serial abdominal exams IV antibiotics therapy per ID PPI therapy Trend CBC Transfuse RBC as indicated Tagged RBC scan negative optimize protein nutrition Code(s): K62.5 - HEMORRHAGE OF ANUS AND RECTUM (2) Occult blood positive stool Code(s): R19.5 - OTHER FECAL ABNORMALITIES (3) Osteomyelitis of lumbar spine Code(s): M46.26 - OSTEOMYELITIS OF VERTEBRA, LUMBAR REGION (4) Abnormal MRI, spine Code(s): R93.7 - ABNORMAL FINDINGS ON DIAGNOSTIC IMAGING OF PRT MS SYS (5) Urine retention Code(s): R33.9 - RETENTION OF URINE, UNSPECIFIED (6) Marginal ulcer Code(s): K28.9 - GASTROJEJUNAL ULCER, UNSP ACUTE OR CHR, W/O HEMOR OR PERF (7) Bacteremia Code(s): R78.81 - BACTEREMIA
--- NOTE | 2017-02-08 10:43 | PN ---
Progress Note (short form) - Note Progress Note: Patient sleeping comfortably. No complaints of headache when awoken Neurologically stable Afebrile Will monitor wound for potential CSF leakage Physical Therapy with TLSO brace
--- NOTE | 2017-02-08 13:34 | CONSULT ---
Consult Consult Specialty:: Hematology Reason for Consultation:: Anemia - History of Present Illness History of Present Illness: 61 yo male PMH Asthma, CHF, HTN, HLD, Hepatitis C, Degenerative Joint Disease, Obesity s/p Laparoscopic Kiarra-en-y Gastric Bypass 10 years ago ([place], [place] ) , prostate CA?, Heroin use (on methadone) who presents to the ED with lower back pain, legs and buttocks for the past week. he had low hgb, Had endoscopy showing marginal ulcer at [facility]. He has bacteremia MSSA being treated. Now he is s/p L1-L4 lumbar laminectomies with decompression and interbody fusion with pedicle screws L1-L4, evacuation of epidural mass. His pathology was consistent with acute OM. he is on Abx for OM. Hematology called for Anemia - History Source History Provided By: Medical Record Limitations to Obtaining History: Clinical Condition - Past Medical History Cardio/Vascular: Yes: CHF, HTN Pulmonary: Yes: COPD Psych: Yes: Other - Alcohol/Substance Use Hx Alcohol Use: No History of Substance Use: reports: Cocaine, Heroin - Smoking History Smoking history: Current every day smoker Have you smoked in the past 12 months: Yes Aproximately how many cigarettes per day: 4 - Social History History of Recent Travel: No Home Medications - Allergies Allergies/Adverse Reactions: Allergies Allergy/AdvReac Type Severity Reaction Status Date / Time No Known Allergies Allergy Verified 01/10/13 11:37 - Home Medications Home Medications: Ambulatory Orders Buprenorphine [Butrans] 1 patch.wk TD WEEKLY 12/08/12 Methadone [Dolophine -] 80 mg PO DAILY 12/08/12 Eszopiclone [Lunesta] 1 tab PO HS 01/10/13 Ibuprofen [Advil -] 200 mg PO PRN 01/10/13 Atorvastatin Ca [Lipitor] 40 mg PO HS #0 tablet 01/12/13 Furosemide [Lasix -] 40 mg PO DAILY #0 tablet 01/12/13 Gabapentin [Neurontin -] 400 mg PO TID #0 capsule 01/12/13 Liraglutide [Victoza -] 1.2 mg SQ HS #0 pen.injctr 01/12/13 Lisinopril [Prinivil] 20 mg PO DAILY #0 tablet 01/12/13 Metolazone [Zaroxolyn -] 2.5 mg PO DAILY@0930 #0 tablet 01/12/13 Quetiapine Fumarate "Xr" [Seroquel XR] 150 mg PO HS@1999 #0 tablet 01/12/13 Benicar - 1 tab PO DAILY 05/24/14 Review of Systems - Review of Systems Constitutional: denies: Unintentional Wgt. Loss Respiratory: reports: No Symptoms Gastrointestinal: reports: No Symptoms Genitourinary: reports: No Symptoms Physical Exam Vital Signs: Vital Signs Temperature 97.9 F 02/08/17 09:05 Pulse Rate 93 H 02/08/17 09:05 Respiratory Rate 18 02/08/17 09:05 Blood Pressure 131/77 02/08/17 09:05 O2 Sat by Pulse Oximetry (%) 92 L 02/08/17 09:00 Labs: CBC, BMP 02/08/17 08:00 02/08/17 08:00 Imaging - Results X-ray: Report Reviewed Cat Scan: Report Reviewed Assessment/Plan Anemia: Normocytic negative EGD/Colonscopy f/u Iron studies f/u ALIYA likely low in the acute setting alos s/p Gastric bypass h/o Prostate Cancer: -f.u PSA Lumbar Osteomyelitis/MSSA: Tx per ID abnormal LFTs: -improving -?etiology
--- NOTE | 2017-02-08 14:19 | PN ---
Progress Note (short form) - Note Progress Note: no complaints Vital Signs Period Temp Pulse Resp BP Sys/Pascal Pulse Ox Last 24 Hr 97.9 F-99.3 F 84-103 18-19 97-134/59-79 92-97 cor-rrr lungs decreased bs at bases abd soft, nt ext venous stasis CBC, BMP 02/08/17 08:00 02/08/17 08:00 Microbiology 02/06/17 14:08 Blood Culture - Preliminary Blood - Peripheral Venous NO GROWTH OBTAINED AFTER 48 HOURS, INCUBATION TO CONTINUE FOR 3 DAYS. 02/06/17 11:35 Blood Culture - Preliminary Blood - Peripheral Venous NO GROWTH OBTAINED AFTER 48 HOURS, INCUBATION TO CONTINUE FOR 3 DAYS. a/p low grade temps- unable to remove central line-no peripheral access MSSA bacteremia- continue cefazolin repeat blood cultures-sent yesterday day #7 s/p lumbar laminectomy encourage incentive spirometry
--- NOTE | 2017-02-08 15:43 | PN ---
Progress Note, Physician Chief Complaint: AWAKE ALERT REFUSING SNF - Current Medication List Current Medications: Active Medications Cyclobenzaprine HCl (Flexeril -) 10 mg PO TID [facility] Last Admin: 02/08/17 14:44 Dose: 10 mg Gabapentin (Neurontin -) 300 mg PO TID [facility] Last Admin: 02/08/17 14:44 Dose: 300 mg Heparin Sodium (Porcine) (Heparin -) 5,000 unit SQ TID [facility] Last Admin: 02/08/17 14:44 Dose: 5,000 unit Cefazolin Sodium/Dextrose (Ancef 2 Gm Premixed Ivpb -) 2 gm in 50 mls @ 100 mls /hr IVPB Q8H-IV [facility] Last Admin: 02/08/17 09:54 Dose: 100 mls/hr Lactulose (Cephulac (Oral Use)) 20 gm PO TID PRN PRN Reason: CONSTIPATION Lorazepam (Ativan Injection -) 1 mg IVPUSH TID PRN PRN Reason: ANXIETY Last Admin: 02/08/17 02:27 Dose: 1 mg Methadone HCl (Dolophine -) 20 mg PO DAILY@0600 [facility] Last Admin: 02/08/17 06:38 Dose: 20 mg Methylnaltrexone [place] (Relistor -) 12 mg SQ DAILY [facility] Last Admin: 02/08/17 09:55 Dose: Not Given Morphine Sulfate (Morphine Sulfate) 4 mg IVPUSH Q4H PRN PRN Reason: PAIN Last Admin: 02/08/17 01:09 Dose: 4 mg Nicotine (Nicoderm Patch -) 21 mg TD DAILY [facility] Last Admin: 02/08/17 09:54 Dose: 21 mg Ondansetron HCl (Zofran Injection) 8 mg IVPB Q6H PRN PRN Reason: NAUSEA Pantoprazole Sodium (Protonix Iv) 40 mg IVPUSH BID [facility] Last Admin: 02/08/17 09:54 Dose: 40 mg Polyethylene Glycol (Miralax (For Daily Use) -) 17 gm PO TID [facility] Last Admin: 02/08/17 14:44 Dose: 17 gm Potassium Phos/Sodium Phos (Phos-Nak Packet -) 1 packet PO TID [facility] Last Admin: 02/08/17 14:45 Dose: 1 packet Sucralfate (Carafate Oral Suspension -) 1 gm PO QID [facility] Last Admin: 02/08/17 14:44 Dose: 1 gm - Objective Vital Signs: Vital Signs Temperature 98.1 F 02/08/17 14:21 Pulse Rate 83 02/08/17 14:21 Respiratory Rate 24 02/08/17 14:21 Blood Pressure 124/75 02/08/17 14:21 O2 Sat by Pulse Oximetry (%) 92 L 02/08/17 09:00 Constitutional: Yes: Mild Distress Eyes: Yes: WNL HENT: Yes: WNL Neck: Yes: WNL Cardiovascular: Yes: WNL Respiratory: Yes: WNL Gastrointestinal: Yes: WNL Genitourinary: Yes: WNL Musculoskeletal: Yes: Back Pain, Muscle Weakness Extremities: Yes: WNL Edema: Yes Edema: LLE: Trace, RLE: Trace Peripheral Pulses WNL: Yes Integumentary: Yes: WNL Wound/Incision: Yes: Dressing Dry and Intact Neurological: Yes: Pre-Existing Deficit, Weakness ...Motor Strength: LLE, RLE Psychiatric: Yes: Other Labs: CBC, BMP 02/08/17 08:00 02/08/17 08:00 INR, PTT INR 1.31 (0.82-1.09) H 02/01/17 11:45 Problem List - Problems (1) Smoking addiction Code(s): F17.200 - NICOTINE DEPENDENCE, UNSPECIFIED, UNCOMPLICATED (2) Substance abuse Code(s): F19.10 - OTHER PSYCHOACTIVE SUBSTANCE ABUSE, UNCOMPLICATED (3) Anemia Code(s): D64.9 - ANEMIA, UNSPECIFIED Qualifiers: Anemia type: unspecified type Qualified Code(s): D64.9 - Anemia, unspecified (4) Rectal bleed Code(s): K62.5 - HEMORRHAGE OF ANUS AND RECTUM (5) CHF (congestive heart failure) Code(s): I50.9 - HEART FAILURE, UNSPECIFIED (6) Diabetes 1.5, managed as type 2 Code(s): E13.9 - OTHER SPECIFIED DIABETES MELLITUS WITHOUT COMPLICATIONS (7) Edema Code(s): R60.9 - EDEMA, UNSPECIFIED (8) Hepatitis C antibody test positive Code(s): R76.8 - OTHER SPECIFIED ABNORMAL IMMUNOLOGICAL FINDINGS IN SERUM (9) Hyperlipidemia Code(s): E78.5 - HYPERLIPIDEMIA, UNSPECIFIED (10) Hypertension Code(s): I10 - ESSENTIAL (PRIMARY) HYPERTENSION (11) Osteoarthritis Code(s): M19.90 - UNSPECIFIED OSTEOARTHRITIS, UNSPECIFIED SITE (12) Abnormal MRI, spine Code(s): R93.7 - ABNORMAL FINDINGS ON DIAGNOSTIC IMAGING OF PRT MS SYS (13) Gram-positive cocci bacteremia Code(s): R78.81 - BACTEREMIA (14) Osteomyelitis of lumbar spine Code(s): M46.26 - OSTEOMYELITIS OF VERTEBRA, LUMBAR REGION Assessment/Plan REFUSING SNF H/O SUBSTANCE ABUSE PICC LINE AT HOME IS CONSIDERED HIGH RISK WILL CHECK CULTURES D/W ID FOR PO ABX GI F/U CHECK LABS/CX
[2017-02-08] MEDS ORDERED: PT OWN MED DRAWER 7, Y5N ONE (16:53)
[2017-02-08] MEDS: ACETAMINOPHEN WITH CODEINE 300MG/30MG TABLET PO PRN (18:38)
[2017-02-09] MEDS ORDERED: PT OWN MED DRAWER 7, Y5N ONE ×2 (01:16→17:33)
[2017-02-09] MEDS: CEFAZOLIN 2 GM/D5W 2 GM/50 ML ML IVPB SCH ×3 (01:26→18:10)
[2017-02-09] MEDS: METHADONE HCL 40 MG DISPERSABLE TABLET PO SCH (06:31)
[2017-02-09] MEDS: CYCLOBENZAPRINE HCL 10 MG TABLET (FP) PO SCH ×3 (06:34→21:24)
[2017-02-09] MEDS: HEPARIN NA (PORCINE) 5,000 UNITS/ML 1ML VIAL SQ SCH ×3 (06:35→21:24)
[2017-02-09] MEDS: POLYETHYLENE GLYCOL 3350 119 GM BTL PO SCH ×3 (06:37→21:23)
[2017-02-09] MEDS: NAPH,MB-DB/K PH,MBDB POWDER PACKET PO SCH ×3 (06:38→21:24)
[2017-02-09] MEDS: GABAPENTIN 300 MG CAPSULE (FP) PO SCH ×3 (06:38→21:24)
[2017-02-09] MEDS: Methylnaltrexone Bromide 12 MG/0.6 ML KIT SQ SCH (09:32)
[2017-02-09] MEDS: PANTOPRAZOLE SODIUM 40 MG VIAL IVPUSH SCH ×2 (09:36→21:26)
[2017-02-09] MEDS: SUCRALFATE 1 GM/10 ML UNIT DOSE CUPS PO SCH ×4 (09:38→21:24)
[2017-02-09] MEDS: NICOTINE 21 MG/24 HOURS TOPICAL PATCH TD SCH (09:38)
[2017-02-09] MEDS ORDERED: PICC LINE 8 ML FLUSH PROTOCOL IVPUSH PRN (11:36)
--- NOTE | 2017-02-09 12:45 | PN ---
Progress Note (short form) - Note Progress Note: alert- spoke with patient at length- he is agreeable to SNF placement for usp iv antibiotics no complaints Vital Signs Period Temp Pulse Resp BP Sys/Pascal Pulse Ox Last 24 Hr 98.1 F-98.5 F 81-94 18-24 102-124/57-75 92 cor-rrr lungs clear abd soft,nt ext venous stasis changes CBC, BMP 02/08/17 08:00 02/08/17 08:00 a/p low grade temps- unable to remove central line-no peripheral access MSSA bacteremia- continue cefazolin repeat blood cultures-sent yesterday vertebral osteo with phlegmon day #8 s/p lumbar laminectomy encourage incentive spirometry plan 8 weeks of iv cefazolin- will need neurosurgery and ID followup- SUSPECT he will need usp po suppression after iv antibiotics are completed he is agreeable to SNF and PICC line placement needs another 7 more weeks of cefazolin should follow weekly esr/crp should be seen in the office [phone] Oliva to help determine total duration of antibiotics (definitely before he completes treatment)
[2017-02-09] MEDS: ACETAMINOPHEN WITH CODEINE 300MG/30MG TABLET PO PRN (14:34)
--- NOTE | 2017-02-09 16:03 | DS ---
Physical Examination Vital Signs: Vital Signs Temperature 99.4 F 02/09/17 14:29 Pulse Rate 92 H 02/09/17 14:29 Respiratory Rate 22 02/09/17 14:29 Blood Pressure 135/67 02/09/17 14:29 O2 Sat by Pulse Oximetry (%) 92 L 02/08/17 21:00 Constitutional: Yes: Mild Distress Eyes: Yes: WNL HENT: Yes: WNL Neck: Yes: WNL Cardiovascular: Yes: WNL Respiratory: Yes: WNL Gastrointestinal: Yes: WNL Renal/: Yes: WNL Musculoskeletal: Yes: Back Pain Extremities: Yes: WNL Edema: No Peripheral Pulses WNL: Yes Integumentary: Yes: WNL Wound/Incision: Yes: Clean/Dry Neurological: Yes: WNL ...Motor Strength: WNL Psychiatric: Yes: WNL Labs: CBC, BMP 02/08/17 08:00 02/08/17 08:00 Discharge Summary Reason For Visit: ANEMIA, RECTAL HEMORRHAGE Current Active Problems Abnormal MRI, spine (Acute) Anemia (Acute) Anemia (Acute) Bacteremia (Acute) Diabetes mellitus (Acute) Gram-positive cocci bacteremia (Acute) Marginal ulcer (Acute) Occult blood positive stool (Acute) Osteomyelitis of lumbar spine (Acute) Post-op pain (Acute) Rectal bleed (Acute) Smoking addiction (Acute) Substance abuse (Acute) Urine retention (Acute) Procedures: Principal: NEUROSURGERY LAMINECTOMY/OSTEOMYELTIS Other Procedures: ENDOSCOPY/GI WORKUP Hospital Course: ADMITTED FOR OSTEOMYELITIS OF SPINE AND GI BLEED, TREATED WITH NEUROSURGERY LAMINECTOMY AND GI BLEED WITH EGD NO ACUTE BLEED FOUND. A SECOND NEUROSURGERY WAS NEEDED TO ADJUST A SCREW. IV ABX FOR SEVERAL WEEKS WITH PICC LINE SNF Condition: Fair - Instructions Diet, Activity, Other Instructions: LOW SODIUM Disposition: [facility] - Home Medications Comprehensive Discharge Medication List: Ambulatory Orders Buprenorphine [Butrans] 1 patch.wk TD WEEKLY 12/08/12 Methadone [Dolophine -] 80 mg PO DAILY 12/08/12 Eszopiclone [Lunesta] 1 tab PO HS 01/10/13 Ibuprofen [Advil -] 200 mg PO PRN 01/10/13 Atorvastatin Ca [Lipitor] 40 mg PO HS #0 tablet 01/12/13 Furosemide [Lasix -] 40 mg PO DAILY #0 tablet 01/12/13 Gabapentin [Neurontin -] 400 mg PO TID #0 capsule 01/12/13 Liraglutide [Victoza -] 1.2 mg SQ HS #0 pen.injctr 01/12/13 Lisinopril [Prinivil] 20 mg PO DAILY #0 tablet 01/12/13 Metolazone [Zaroxolyn -] 2.5 mg PO DAILY@0930 #0 tablet 01/12/13 Quetiapine Fumarate "Xr" [Seroquel XR] 150 mg PO HS@2000 #0 tablet 01/12/13 Benicar - 1 tab PO DAILY 05/24/14
--- NOTE | 2017-02-09 18:37 | PROC ---
Procedure Note Procedure: Dressing change, Incision c/d/i with slight maceration at skin edges. NO evidence of erythema or d/c. no fluctuance or active collection. Redressed per Dr Glasgow's request with Dermabond, 4x4 and op sites.
[2017-02-10] MEDS: ACETAMINOPHEN WITH CODEINE 300MG/30MG TABLET PO PRN (03:13)
[2017-02-10] MEDS: CEFAZOLIN 2 GM/D5W 2 GM/50 ML ML IVPB SCH ×2 (03:14→10:50)
[2017-02-10] MEDS: CYCLOBENZAPRINE HCL 10 MG TABLET (FP) PO SCH ×2 (06:03→14:01)
[2017-02-10] MEDS: NAPH,MB-DB/K PH,MBDB POWDER PACKET PO SCH ×2 (06:03→14:05)
[2017-02-10] MEDS: GABAPENTIN 300 MG CAPSULE (FP) PO SCH ×2 (06:03→14:01)
[2017-02-10] MEDS: POLYETHYLENE GLYCOL 3350 119 GM BTL PO SCH ×2 (06:04→14:05)
[2017-02-10] MEDS: HEPARIN NA (PORCINE) 5,000 UNITS/ML 1ML VIAL SQ SCH ×2 (06:04→14:01)
[2017-02-10] MEDS: METHADONE HCL 40 MG DISPERSABLE TABLET PO SCH (06:04)
[2017-02-10] MEDS ORDERED: PT OWN MED DRAWER 7, Y5N ONE (10:46)
[2017-02-10] MEDS: PANTOPRAZOLE SODIUM 40 MG VIAL IVPUSH SCH (10:51)
[2017-02-10] MEDS: SUCRALFATE 1 GM/10 ML UNIT DOSE CUPS PO SCH ×2 (10:51→14:01)
[2017-02-10] MEDS: NICOTINE 21 MG/24 HOURS TOPICAL PATCH TD SCH (10:51)
[2017-02-10] MEDS: Methylnaltrexone Bromide 12 MG/0.6 ML KIT SQ SCH (13:55)
--- NOTE | 2017-02-10 15:13 | PN ---
Progress Note (short form) - Note Progress Note: Pt set for discharge today to rehab. Dressing changed, dry dressing from yesterday removed and replaced with gauze/tegaderm. Karlee intact and without drainage. No erythema noted. Right IJ line removed, the patient had a PICC line placed today in his RUE.
[2017-02-10 15:27] VITALS: BP 114/73; PULSE 88; TEMP 98.1
[2017-02-11 10:14] LABS: ALBUMIN 1.6 g/dL (2.9-4.4); GAMMA GLOBULIN 1.6 g/dL (0.4-1.8); GLOBULIN, TOTAL 3.8 g/dL (2.2-3.9); IGA ANTIBODY 527 mg/dL (61-437); IGG ANTIBODY 1588 mg/dL (700-1600); IGM ANTIBODY 136 mg/dL (20-172)
[2017-02-15 08:07] LABS: HEP B CORE AB, TOT Positive (Negative)
== END 2017-02-10 16:40 | DRG 304 ==
LOC: JER 08:38 → JERBED 11:17 → J6S 13:03 → JICU 02-01 22:26 → J5S 02-05 14:30 → JICU 02-05 15:56 → J5S 02-05 20:59
PROVIDERS: ADMIT Family Medicine; ATTEND Family Medicine
PROC: 0SG0071 Fusion of Lumbar Vertebral Joint with Autologous Tissue Substitute, Posterior Approach, Posterior Column, Open Approach (ICD-10-PCS; principal; 2017-01-28)
PROC: 00BY0ZZ Excision of Lumbar Spinal Cord, Open Approach (ICD-10-PCS; 2017-01-28)
PROC: 0HX6XZZ Transfer Back Skin, External Approach (ICD-10-PCS; 2017-01-28)
PROC: 30233N1 Transfusion of Nonautologous Red Blood Cells into Peripheral Vein, Percutaneous Approach (ICD-10-PCS; 2017-01-29)
PROC: 0DD68ZX Extraction of Stomach, Via Natural or Artificial Opening Endoscopic, Diagnostic (ICD-10-PCS; 2017-01-31)
PROC: 0DJD8ZZ Inspection of Lower Intestinal Tract, Via Natural or Artificial Opening Endoscopic (ICD-10-PCS; 2017-02-01)
PROC: 02HV33Z Insertion of Infusion Device into Superior Vena Cava, Percutaneous Approach (ICD-10-PCS; 2017-02-09)
DX: M46.26 Osteomyelitis of vertebra, lumbar region (principal); K92.2 Gastrointestinal hemorrhage, unspecified; E78.5 Hyperlipidemia, unspecified; I10 Essential (primary) hypertension; M19.90 Unspecified osteoarthritis, unspecified site; F17.210 Nicotine dependence, cigarettes, uncomplicated; E66.01 Morbid (severe) obesity due to excess calories; Z68.30 Body mass index [BMI] 30.0-30.9, adult; J44.9 Chronic obstructive pulmonary disease, unspecified; J45.909 Unspecified asthma, uncomplicated; M46.46 Discitis, unspecified, lumbar region; D62 Acute posthemorrhagic anemia; K25.9 Gastric ulcer, unspecified as acute or chronic, without hemorrhage or perforation; B19.20 Unspecified viral hepatitis C without hepatic coma; R33.9 Retention of urine, unspecified; R93.7 Abnormal findings on diagnostic imaging of other parts of musculoskeletal system; F19.10 Other psychoactive substance abuse, uncomplicated; D64.9 Anemia, unspecified; R60.9 Edema, unspecified; K28.9 Gastrojejunal ulcer, unspecified as acute or chronic, without hemorrhage or perforation; I50.9 Heart failure, unspecified; A49.01 Methicillin susceptible Staphylococcus aureus infection, unspecified site; R78.81 Bacteremia; E13.9 Other specified diabetes mellitus without complications
CPT/HCPCS: 36415; 36430; 36569; 71010-TC; 72131-TC; 72148-TC; 74176-TC; 76000-TC; 77001-TC; 78278-TC; 80048; 80053; 81003; 81015; 82272; 82310; 82607; 82728; 82747; 82784; 83540; 83550; 83615; 83735; 84100; 84153; 84155; 84165; 84439; 84443; 85014; 85025; 85027; 85044; 85610; 85651; 86140; 86334; 86707; 86709; 86850; 86900; 86901; 86922; 87040; 87070; 87075; 87086; 87186; 87205; 87340; 87350; 87389; 88304-TC; 88305-TC; 88311-TC; 93005; 93010; 93306-TC; 94010; 94760; 97161-GP; 99285-25; A9538; C1751; J1644; P9038; P9058

== ENCOUNTER 2017-03-02 13:41 | Emergency (ER) | payer OTHER ==
--- NOTE | 2017-03-02 15:09 | PDOC ---
History of Present Illness - General Stated Complaint: WEAKNESS Time Seen by Provider: 03/02/17 14:23 History Source: Patient Exam Limitations: No Limitations - History of Present Illness Initial Comments: 03/02/17 14:57 Patient is a 61M with history of Asthma, CHF, HTN, HLD, Hepatitis C, Degenerative Joint Disease, Obesity, Heroin use (on methadone), and recent osteomyelitis s/p laminectomy and i/d this jesus sent here today from his group home today with drowsiness. Patient reports that he got a day pass from his group home, went to his house, then took 3 percocets because he was in pain at once. He says that he woke up later and had urinated on himself. The group home says that he was drowsy and not very responsive, so he was sent in via EMS. EMS reports the patient was fully alert and oriented with normal vital signs. Patient has no complaints today other than back pain, which he blames on the raymond in his back. Today he denies, nausea, vomiting, fevers, chills, chest pain, shortness of breath, abdominal pain and headache. Past History - Past Medical History Allergies/Adverse Reactions: Allergies Allergy/AdvReac Type Severity Reaction Status Date / Time No Known Allergies Allergy Verified 03/02/17 15:39 Home Medications: Ambulatory Orders Buprenorphine [Butrans] 1 patch.wk TD WEEKLY 12/08/12 Methadone [Dolophine -] 80 mg PO DAILY 12/08/12 Eszopiclone [Lunesta] 1 tab PO HS 01/10/13 Ibuprofen [Advil -] 200 mg PO PRN 01/10/13 Atorvastatin Ca [Lipitor] 40 mg PO HS #0 tablet 01/12/13 Furosemide [Lasix -] 40 mg PO DAILY #0 tablet 01/12/13 Gabapentin [Neurontin -] 400 mg PO TID #0 capsule 01/12/13 Liraglutide [Victoza -] 1.2 mg SQ HS #0 pen.injctr 01/12/13 Lisinopril [Prinivil] 20 mg PO DAILY #0 tablet 01/12/13 Metolazone [Zaroxolyn -] 2.5 mg PO DAILY@0930 #0 tablet 01/12/13 Quetiapine Fumarate "Xr" [Seroquel XR] 150 mg PO HS@2000 #0 tablet 01/12/13 Benicar - 1 tab PO DAILY 05/24/14 Acetaminophen W/ Codeine #3 [Tylenol # 3 -] 1 tab PO Q6H PRN tablet MDD 4 02/09 Cyclobenzaprine HCl [Flexeril -] 10 mg PO TID tablet 02/09/17 Gabapentin [Neurontin -] 300 mg PO TID capsule 02/09/17 Heparin - 5,000 unit SQ TID vial 02/09/17 Lactulose (Oral Use) [Cephulac -] 20 gm PO TID PRN udc 02/09/17 Methadone [Dolophine -] 20 mg PO DAILY@0600 tablet MDD 1 02/09/17 Methylnaltrexone [place] [Relistor -] 12 mg SQ DAILY kit 02/09/17 Naph,Mb-Db/K pH,Mbdb [PHOS-NaK PACKET -] 1 packet PO TID pow 02/09/17 Nicotine Patch [Nicoderm Patch -] 21 mg TD DAILY patch 02/09/17 Pantoprazole Sodium [Protonix] 40 mg PO DAILY #30 tablet. 02/09/17 Picc Line Flush [Picc Line Flush -] 8 ml IVPUSH PRN PRN ml 02/09/17 Polyethylene Glycol 3350 [Miralax 119 gm Btl -] 17 gm PO TID bottle 02/09/17 Sucralfate Oral Suspension [Carafate Oral Suspension -] 1 gm PO QID ml Cefazolin 2 gm/D5w [Ancef 2 gm Premixed Ivpb -] 2 gm IV TID 56 Days ml Asthma: Yes COPD: No CHF: Yes Diabetes: No HTN: Yes (since 1989) Hypercholesterolemia: Yes - Surgical History Abdominal Surgery: Yes (gastric bypass) GI Surgery: Yes (gastric bypass) Orthopedic Surgery: Yes (lt knee replacement 2007, ina inserted into right lower leg) - Immunization History Immunization Up to Date: Yes - Suicide/Smoking/Psychosocial Hx Smoking History: Current every day smoker Have you smoked in the past 12 months: Yes Number of Cigarettes Smoked Daily: 4 'Breaking Loose' booklet given: 01/29/17 Hx Alcohol Use: No Drug/Substance Use Hx: Yes Substance Use Type: None Hx Substance Use Treatment: No Review of Systems - Review of Systems Comments:: 03/02/17 15:09 GENERAL/CONSTITUTIONAL: No fever or chills. HEAD, EYES, EARS, NOSE AND THROAT: No change in vision. No sore throat. CARDIOVASCULAR: No chest pain or shortness of breath RESPIRATORY: No cough, wheezing, or hemoptysis. GASTROINTESTINAL: No nausea, vomiting, diarrhea or constipation. GENITOURINARY: No dysuria. Positive for urination on self while passed out. MUSCULOSKELETAL: Positive for back pain. SKIN: No rash NEUROLOGIC: No headache, vertigo, loss of consciousness, or change in strength/ sensation. ALLERGIC/IMMUNOLOGIC: No hives or skin allergy. *Physical Exam - Physical Exam Comments: 03/02/17 15:11 GENERAL: Awake, alert, and fully oriented, in no acute distress, rhythmic movements of arms and mouth BACK: Stapled surgical wound with no erythema. Small amount of skin separation. No dehiscence. RECTAL: Normal rectal tone, no saddle parathesia HEAD: No signs of trauma, normocephalic, atraumatic EYES: PERRLA, EOMI, sclera anicteric, conjunctiva clear ENT: Auricles normal inspection, hearing grossly normal, nares patent, oropharynx clear without exudates. Moist mucosa NECK: Normal ROM, supple, no lymphadenopathy, JVD, or masses LUNGS: No distress, speaks full sentences, clear to auscultation bilaterally HEART: Regular rate and rhythm, normal S1 and S2, no murmurs, rubs or gallops, peripheral pulses normal and equal bilaterally. ABDOMEN: Soft, nontender, normoactive bowel sounds. No guarding, no rebound. No masses EXTREMITIES: Normal inspection, Normal range of motion, no edema. No clubbing or cyanosis. NEUROLOGICAL: Cranial nerves II through XII grossly intact. Normal speech, decreased strength in lower extremities. SKIN: Warm, Dry, normal turgor, no rashes or lesions noted. ED Treatment Course - LABORATORY CBC & Chemistry Diagram: 03/02/17 16:02 03/02/17 16:02 Medical Decision Making - Medical Decision Making 03/02/17 15:14 61 with history of asthma, CHF, HTN, HLD, Hepatitis C, Degenerative Joint Disease, Obesity, Heroin use (on methadone), and recent osteomyelitis s/p laminectomy and i/d this january here with possible overdose, stable now. Vital signs stable and normal. Patient is alert and oriented. Patient not complaining of fevers, chills. Afebrile. Will evaluate further with cbc cmp. 03/02/17 19:20 Laboratory Tests 03/02/17 16:02 WBC 5.8 Hgb 9.8 L D Hct 31.2 L D Plt Count 204 CBC stable, hgb at baseline. CMP unremarkable. Patient is alert, asking to go home. Will discharge back to his group home. *DC/Admit/Observation/Transfer Diagnosis at time of Disposition: Substance abuse - Discharge Dispostion Disposition: HOME Condition at time of disposition: Good Admit: No - Referrals Referrals: Efraín Solorzano [Primary Care Provider] - - Patient Instructions Printed Discharge Instructions: DI for Drug Abuse and Drug Addiction Additional Instructions: Please return if you have any new, worsening or concerning symptoms. Please follow up with your primary care physician this week. - Post Discharge Activity
--- NOTE | 2017-03-02 15:12 | PDOC ---
Attending Attestation - HPI HPI: 03/02/17 15:30 The patient is a 61 year old male, with a significant past medical history of asthma, congestive heart failure, hypertension, hyperlipidemia, Hepatitis C, degenerative joint disease, obesity, heroin use (on Methadone), and osteomyelitis, who presents to the emergency department for evaluation of drowsiness. Patient reports taking 3 Percocets earlier today and being [facility] the jail after he appeared to be not very responsive. Patient also reports incontinence following waking up after taking the 3 Percocets. Documentation prepared by Kerwin Aguirre, acting as medical office worker for Francis Coker MD. <Kerwin Aguirre - Last Filed: 03/02/17 15:30> - Resident Resident Name: Dayday He - ED Attending Attestation I have performed the following: I have examined & evaluated the patient, The case was reviewed & discussed with the resident, I agree w/resident's findings & plan, Exceptions are as noted - Medical Decision Making 03/02/17 16:16 Patient is a 61-year-old male with multiple comorbidities, history of polysubstance abuse, who recently underwent spinal surgery for L2-L3 discitis/ osteomyelitis presents to the ER for evaluation of altered mental status. Patient had received a day pass from his jail and has acknowledged consuming several tablets of Percocet in addition to his regular methadone. Patient denies trauma/fever/chills. In the ER, patient is afebrile, somnolent but easily arousable, follows commands. Patient has baseline lower extremity weakness. Evaluation of the lumbar incision reveals some skin separation but no evidence of acute infection. I suspect polypharmacy. Meningitis is unlikely. I do not believe the patient requires CT of head at this time. We'll obtain CBC/ CMP. Likely discharge. <Francis Coker - Last Filed: 03/02/17 16:18>
[2017-03-02 15:39] VITALS: BP 129/66; PULSE 74; TEMP 97.3; BMI 33.3
[2017-03-02 16:27] LABS: BASO % 0.4 % (0-2.0); EOS % 3.5 % (0-4.5); HEMATOCRIT 31.2 % (35.4-49); HEMOGLOBIN 9.8 GM/dL (11.7-16.9); LYMPH % 27.6 % (8-40); MCH 25.6 pg (25.7-33.7); MCHC 31.5 g/dl (32.0-35.9); MEAN CELL VOLUME 81.1 fl (80-96); MEAN PLT VOLUME 8.4 fl (7.5-11.1); MONO % 10.5 % (3.8-10.2); PLATELET COUNT 204 K/MM3 (134-434); RBC 3.85 M/mm3 (4.00-5.60); RDW 17.7 % (11.9-15.9); WHITE BLOOD COUNT 5.8 K/mm3 (4.0-10.0)
[2017-03-02 17:18] LABS: ALBUMIN 2.5 g/dl (3.4-5.0); ANION GAP 8 (8-16); BILIRUBIN,TOTAL 0.7 mg/dL (0.2-1.0); BLOOD UREA NITROGEN 43 mg/dL (7-18); CALCIUM 8.7 mg/dL (8.5-10.1); CHLORIDE 112 mmol/L (98-107); CO2 23 mmol/L (21-32); CREATININE 1.3 mg/dL (0.7-1.3); GLUCOSE,RANDOM 80 mg/dL (74-106); POTASSIUM 4.6 mmol/L (3.5-5.1); SGOT/AST 21 U/L (15-37); SGPT/ALT 6 U/L (12-78); SODIUM 143 mmol/L (136-145); TOT PROT 7.7 g/dl (6.4-8.2)
[2017-03-02 17:19] LABS: ALK PHOS 161 U/L (45-117)
== END 2017-03-02 21:05 | disposition home or self-care (01) ==
LOC: JER 13:41
DX: F11.10 Opioid abuse, uncomplicated (principal); I10 Essential (primary) hypertension; I50.9 Heart failure, unspecified; E78.00 Pure hypercholesterolemia, unspecified; M19.90 Unspecified osteoarthritis, unspecified site; F17.210 Nicotine dependence, cigarettes, uncomplicated; Z98.84 Bariatric surgery status; M86.8X9 Other osteomyelitis, unspecified sites; Z98.890 Other specified postprocedural states
CPT/HCPCS: 36415; 80053; 85025; 99281-25

== ENCOUNTER 2021-01-23 15:10 | Inpatient (IN) | payer OTHER ==
[2021-01-23] MEDS ORDERED: DEXTROSE 50%-WATER - 25 GM/50 ML VIAL IVPUSH ONE ×3 (15:51→23:24)
[2021-01-23] MEDS ORDERED: SODIUM CHLORIDE 0.9% 500 ML INFUS.BAG IV ONE (16:23)
[2021-01-23 16:57] LABS: BASO % 0.2 % (0-2.0); HEMATOCRIT 27.3 % (35.4-49); HEMOGLOBIN 8.9 GM/dL (11.7-16.9); LYMPH % 1.7 % (8-40); MCH 26.5 pg (25.7-33.7); MCHC 32.5 g/dl (32.0-35.9); MEAN CELL VOLUME 81.5 fl (80-96); MONO % 2.7 % (3.8-10.2); NEUT % 95.4 % (42.8-82.8); RBC 3.35 M/mm3 (4.00-5.60)
[2021-01-23] MEDS ORDERED: DEXTROSE 50%-WATER - 25 GM/50 ML VIAL ONE ×2 (16:59→23:41)
[2021-01-23 17:01] LABS: INR 1.44 (0.83-1.09); PROTHROMBIN TIME (PATIENT) 16.9 SEC (9.7-13.0)
[2021-01-23 17:03] LABS: ACTIVATED PTT 23.7 SECONDS (25.2-36.5)
[2021-01-23 17:31] LABS: MEAN PLT VOLUME 10.3 fl (7.5-11.1); PLATELET COUNT 179 10^3/uL (134-434); PLATELET ESTIMATE ADEQUATE
[2021-01-23 17:45] LABS: ANISOCYTOSIS 1+; MACROCYTOSIS 0; OVALOCYTE 1+; TARGET CELLS 1+
[2021-01-23 17:56] LABS: ALBUMIN 1.7 g/dl (3.4-5.0); ALK PHOS 745 U/L (45-117); ANION GAP 13 MMOL/L (8-16); BILIRUBIN,TOTAL 2.3 mg/dL (0.2-1); BLOOD UREA NITROGEN 131.8 mg/dL (7-18); CALCIUM 8.4 mg/dL (8.5-10.1); CHLORIDE 114 mmol/L (98-107); CO2 18 mmol/L (21-32); CREATININE 5.8 mg/dL (0.55-1.3); GLUCOSE,RANDOM 41 mg/dL (74-106); SGOT/AST 33 U/L (15-37); SGPT/ALT 20 U/L (13-61); SODIUM 144 mmol/L (136-145); TOT PROT 6.9 g/dl (6.4-8.2)
[2021-01-23] MEDS ORDERED: DEXTROSE 10%-WATER - 1,000 ML IV SCH (18:45)
[2021-01-23] MEDS ORDERED: ACETAMINOPHEN 1000 MG/100 ML VIAL IVPB ONE (18:46)
[2021-01-23] MEDS ORDERED: ACETAMINOPHEN INJECTION 100 ML IVPB ONE (18:52)
[2021-01-23] MEDS ORDERED: DEXTROSE 50%-WATER 25 GM/50 ML DISP.SYRIN ONE (18:52)
[2021-01-23 21:56] LABS: EPI CELLS 2 /uL (0-25.1); HYALINE CASTS 1 /uL (0-3.1); URINE APPEARANCE CLOUDY; URINE BACTERIA >9,000 /uL (0-1359); URINE BILIRUBIN NEGATIVE (NEGATIVE); URINE COLOR DK YELLOW; URINE GLUCOSE (UA) NEGATIVE (NEGATIVE); URINE KETONE NEGATIVE (NEGATIVE); URINE LEUK ESTERASE 1+ (NEGATIVE); URINE NITRITE NEGATIVE (NEGATIVE); URINE PROTEIN 1+ (NEGATIVE); URINE WBC 114 /uL (0-25.8)
[2021-01-23 21:59] LABS: URINE RBC 55.1 /uL (0-23.9)
[2021-01-23] MEDS ORDERED: CEFTRIAXONE 1 GM/50 ML BAG ONE ×2 (22:37→23:41)
[2021-01-23 22:49] LABS: CHLORIDE 113 mmol/L (98-107); SODIUM 141 mmol/L (136-145)
[2021-01-23 22:51] LABS: CALCIUM 8.1 mg/dL (8.5-10.1)
[2021-01-23 22:52] LABS: ALBUMIN 1.5 g/dl (3.4-5.0); ANION GAP 11 MMOL/L (8-16); CO2 18 mmol/L (21-32); GLUCOSE,RANDOM 75 mg/dL (74-106)
[2021-01-23 22:55] LABS: CREATININE 5.4 mg/dL (0.55-1.3); SGOT/AST 37 U/L (15-37)
[2021-01-23 22:56] LABS: TOT PROT 6.6 g/dl (6.4-8.2)
[2021-01-23 22:59] LABS: PHENCYCLIDINE,URINE NEGATIVE (NEGATIVE); URINE BENZODIAZEPINES NEGATIVE (NEGATIVE)
[2021-01-23 23:00] LABS: URINE AMPHETAMINES NEGATIVE (NEGATIVE)
[2021-01-23 23:08] LABS: ALK PHOS 670 U/L (45-117); BLOOD UREA NITROGEN 126.7 mg/dL (7-18); SGPT/ALT 19 U/L (13-61)
[2021-01-23] MEDS ORDERED: VANCOMYCIN 1,000 MG in DEXTROSE 5%-WATER - 250 ML IVPB ONE (23:12)
[2021-01-23 23:15] LABS: COCAINE, UR POSITIVE (NEGATIVE); METHADONE, UR POSITIVE (NEGATIVE); OPIATES, URI POSITIVE (NEGATIVE); URINE BARBITURATES NEGATIVE (NEGATIVE)
[2021-01-23] MEDS ORDERED: VANCOMYCIN 1 GRAM (PRE-DOCKED) 1,000 MG/250 ML BAG IVPB ONE (23:41)
[2021-01-24] MEDS: LACTATED RINGERS SOLUTION 1,000 ML/1,000 ML INFUS.BAG IV SCH ×3 (00:09→19:40)
[2021-01-24] MEDS: CEFTRIAXONE 1 GM in DEXTROSE 5%-WATER - 50 ML IVPB SCH ×2 (00:18→09:16)
[2021-01-24] MEDS ORDERED: ACETAMINOPHEN 1000 MG/100 ML VIAL IVPB ONE (00:37)
[2021-01-24] MEDS: DEXTROSE 10%-WATER - 1,000 ML IV SCH ×2 (00:50→04:36)
[2021-01-24] MEDS ORDERED: ACETAMINOPHEN INJECTION 100 ML IVPB ONE (00:51)
[2021-01-24] MEDS: HEPARIN NA (PORCINE) 5,000 UNITS/ML 1ML VIAL SQ SCH ×3 (06:52→22:17)
[2021-01-24 07:15] LABS: CHLORIDE 108 mmol/L (98-107); SODIUM 137 mmol/L (136-145)
[2021-01-24 07:18] LABS: CALCIUM 7.8 mg/dL (8.5-10.1); GLUCOSE,RANDOM 72 mg/dL (74-106)
[2021-01-24 07:19] LABS: ALBUMIN 1.3 g/dl (3.4-5.0); ANION GAP 12 MMOL/L (8-16); CO2 17 mmol/L (21-32); MAGNESIUM 1.8 mg/dL (1.8-2.4)
[2021-01-24 07:21] LABS: SGPT/ALT 14 U/L (13-61)
[2021-01-24 07:22] LABS: CREATININE 4.9 mg/dL (0.55-1.3); SGOT/AST 16 U/L (15-37)
[2021-01-24 07:23] LABS: BILIRUBIN,TOTAL 1.2 mg/dL (0.2-1); TOT PROT 5.5 g/dl (6.4-8.2)
[2021-01-24 07:27] LABS: ALK PHOS 552 U/L (45-117); BLOOD UREA NITROGEN 116.5 mg/dL (7-18)
[2021-01-24 07:30] LABS: BASO % 0.2 % (0-2.0); HEMOGLOBIN 7.3 GM/dL (11.7-16.9); LYMPH % 6.2 % (8-40); MCH 26.8 pg (25.7-33.7); MCHC 33.3 g/dl (32.0-35.9); MEAN CELL VOLUME 80.3 fl (80-96); MEAN PLT VOLUME 9.1 fl (7.5-11.1); NEUT % 84.6 % (42.8-82.8); PLATELET COUNT 110 10^3/uL (134-434); RBC 2.74 M/mm3 (4.00-5.60); RDW 15.9 % (11.9-15.9); WHITE BLOOD COUNT 14.8 K/mm3 (4.0-10.0)
[2021-01-24] MEDS ORDERED: DEXTROSE 5%-WATER - 50 ML IVPB ONE ×2 (09:13→12:49)
[2021-01-24] MEDS ORDERED: cefTRIAXone SODIUM 1 GM VIAL ONE ×2 (09:13→12:49)
[2021-01-24 10:18] LABS: ANISOCYTOSIS 2+; MACROCYTOSIS 2+; PLATELET ESTIMATE DECREASED; ROULEAU 1+
[2021-01-24] MEDS ORDERED: CEFTRIAXONE 1 GM in DEXTROSE 5%-WATER - 50 ML IVPB ONE (11:45)
[2021-01-24] MEDS ORDERED: DEXTROSE 50%-WATER - 25 GM/50 ML VIAL IVPUSH ONE (12:09)
[2021-01-24] MEDS ORDERED: DEXTROSE 50%-WATER 25 GM/50 ML DISP.SYRIN ONE (12:11)
[2021-01-24 13:09] LABS: PHENCYCLIDINE,URINE NEGATIVE (NEGATIVE); URINE BENZODIAZEPINES NEGATIVE (NEGATIVE)
[2021-01-24 13:16] LABS: COCAINE, UR POSITIVE (NEGATIVE); METHADONE, UR POSITIVE (NEGATIVE); OPIATES, URI POSITIVE (NEGATIVE); URINE AMPHETAMINES NEGATIVE (NEGATIVE); URINE BARBITURATES NEGATIVE (NEGATIVE)
[2021-01-24] MEDS ORDERED: WATER FOR INJ STERILE DEXTROSE IV ONE (13:30)
[2021-01-24] MEDS ORDERED: WATER IV ONE (13:30)
[2021-01-24] MEDS: MUPIROCIN 2% TOPICAL OINTMENT FOR DECOLONIZATION NS SCH ×3 (13:51→22:18)
[2021-01-24] MEDS ORDERED: PT OWN MED DRAWER 7, Y5N ONE (13:52)
[2021-01-24 18:33] LABS: HIV INTERPRETATION NEGATIVE (NEGATIVE)
[2021-01-24 18:43] LABS: BLOOD UREA NITROGEN 103.7 mg/dL (7-18); CALCIUM 7.8 mg/dL (8.5-10.1)
[2021-01-24 18:46] LABS: CREATININE 4.1 mg/dL (0.55-1.3)
[2021-01-24 19:14] LABS: BASO % 0.1 % (0-2.0); EOS % 0.1 % (0-4.5); HEMATOCRIT 23.2 % (35.4-49); HEMOGLOBIN 7.6 GM/dL (11.7-16.9); LYMPH % 3.3 % (8-40); MCH 26.3 pg (25.7-33.7); MEAN CELL VOLUME 79.7 fl (80-96); MEAN PLT VOLUME 8.9 fl (7.5-11.1); MONO % 8.2 % (3.8-10.2); NEUT % 88.3 % (42.8-82.8); PLATELET COUNT 110 10^3/uL (134-434); RBC 2.91 M/mm3 (4.00-5.60); RDW 15.8 % (11.9-15.9)
[2021-01-24] MEDS: CHLORHEXIDINE GLUCONATE 4% CLEANSER FOR DECOLONIZATION TP SCH (22:25)
[2021-01-25] MEDS ORDERED: ACETAMINOPHEN 1000 MG/100 ML VIAL IVPB ONE (02:26)
[2021-01-25] MEDS: LACTATED RINGERS SOLUTION 1,000 ML/1,000 ML INFUS.BAG IV SCH ×2 (02:30→23:45)
[2021-01-25] MEDS ORDERED: WATER IVPB SCH ×3 (03:00→07:51)
[2021-01-25] MEDS ORDERED: DEXTROSE IVPB SCH ×3 (03:00→07:51)
[2021-01-25] MEDS: HEPARIN NA (PORCINE) 5,000 UNITS/ML 1ML VIAL SQ SCH ×3 (05:41→21:24)
[2021-01-25 07:19] LABS: CALCIUM 7.8 mg/dL (8.5-10.1)
[2021-01-25 07:20] LABS: ALBUMIN 1.2 g/dl (3.4-5.0); BLOOD UREA NITROGEN 95.5 mg/dL (7-18); MAGNESIUM 1.4 mg/dL (1.8-2.4)
[2021-01-25 07:23] LABS: CREATININE 3.6 mg/dL (0.55-1.3); PHOSPHOROUS 3.3 mg/dL (2.5-4.9)
[2021-01-25 07:24] LABS: TOT PROT 5.4 g/dl (6.4-8.2); URIC ACID 9.6 mg/dL (2.6-7.2)
[2021-01-25 07:36] LABS: HEMATOCRIT 23.2 % (35.4-49); HEMOGLOBIN 7.7 GM/dL (11.7-16.9); MCH 26.2 pg (25.7-33.7); MCHC 33.1 g/dl (32.0-35.9); MEAN CELL VOLUME 79.1 fl (80-96); MEAN PLT VOLUME 9.1 fl (7.5-11.1); PLATELET COUNT 103 10^3/uL (134-434); RBC 2.93 M/mm3 (4.00-5.60); RDW 15.3 % (11.9-15.9)
[2021-01-25] MEDS ORDERED: MAGNESIUM 1GM/D5W - 1 GM/100 ML IVPB IVPB ONE (07:50)
[2021-01-25] MEDS ORDERED: DEXTROSE 5%-WATER 100 ML IVPB ONE (08:44)
[2021-01-25] MEDS: MUPIROCIN 2% TOPICAL OINTMENT FOR DECOLONIZATION NS SCH ×2 (08:59→21:24)
[2021-01-25] MEDS ORDERED: CEFTRIAXONE 2 GM in DEXTROSE 5%-WATER 100 ML IVPB SCH (10:00)
[2021-01-25 11:19] LABS: ANISOCYTOSIS 2+; MACROCYTOSIS 1+; PLATELET ESTIMATE DECREASED; TARGET CELLS 2+
[2021-01-25] MEDS: ERTAPENEM SODIUM 0.5 GM in SODIUM CHLORIDE 50 ML IVPB SCH (12:00)
[2021-01-25] MEDS: CHLORHEXIDINE GLUCONATE 4% CLEANSER FOR DECOLONIZATION TP SCH (21:24)
[2021-01-25 22:50] VITALS: BMI 23.5
[2021-01-26] MEDS: HEPARIN NA (PORCINE) 5,000 UNITS/ML 1ML VIAL SQ SCH ×3 (05:52→23:00)
[2021-01-26 08:00] LABS: HEMATOCRIT 22.5 % (35.4-49); HEMOGLOBIN 7.6 GM/dL (11.7-16.9); MCH 26.8 pg (25.7-33.7); MCHC 33.8 g/dl (32.0-35.9); MEAN CELL VOLUME 79.2 fl (80-96); MEAN PLT VOLUME 8.9 fl (7.5-11.1); PLATELET COUNT 109 10^3/uL (134-434); RBC 2.84 M/mm3 (4.00-5.60); RDW 15.1 % (11.9-15.9); WHITE BLOOD COUNT 11.2 K/mm3 (4.0-10.0)
[2021-01-26 09:01] LABS: ANISOCYTOSIS 1+; MACROCYTOSIS 0; OVALOCYTE 1+; PLATELET ESTIMATE DECREASED; TARGET CELLS 2+
[2021-01-26] MEDS ORDERED: PT OWN MED DRAWER 7, Y5N ONE ×2 (09:59→10:32)
[2021-01-26] MEDS: VITAMIN B COMP W-C 1 EA TABLET (NEPHRO-VITE) PO SCH (10:04)
[2021-01-26] MEDS: ZINC SULFATE 220 MG CAPSULE (FP) PO SCH (10:04)
[2021-01-26] MEDS: ERTAPENEM SODIUM 0.5 GM in SODIUM CHLORIDE 50 ML IVPB SCH (11:09)
[2021-01-26] MEDS: INSULIN SLIDING SCALE (NOVOLOG) 1 VIAL SQ SCH ×3 (11:10→23:29)
[2021-01-26 11:22] LABS: CALCIUM 8.2 mg/dL (8.5-10.1)
[2021-01-26 11:23] LABS: BLOOD UREA NITROGEN 73.8 mg/dL (7-18)
[2021-01-26 11:25] LABS: CREATININE 2.2 mg/dL (0.55-1.3)
[2021-01-26 14:50] LABS: HIV INTERPRETATION NEGATIVE (NEGATIVE)
[2021-01-26] MEDS: MUPIROCIN 2% TOPICAL OINTMENT FOR DECOLONIZATION NS SCH ×2 (16:36→23:00)
[2021-01-26] MEDS: LACTATED RINGERS SOLUTION 1,000 ML/1,000 ML INFUS.BAG IV SCH (17:11)
[2021-01-26] MEDS ORDERED: oxyCODONE HCL 5 MG TABLET PO ONE (23:03)
[2021-01-26] MEDS: CHLORHEXIDINE GLUCONATE 4% CLEANSER FOR DECOLONIZATION TP SCH (23:20)
[2021-01-27] MEDS: LACTATED RINGERS SOLUTION 1,000 ML/1,000 ML INFUS.BAG IV SCH (00:23)
[2021-01-27] MEDS: HEPARIN NA (PORCINE) 5,000 UNITS/ML 1ML VIAL SQ SCH ×3 (06:11→22:05)
[2021-01-27] MEDS: INSULIN SLIDING SCALE (NOVOLOG) 1 VIAL SQ SCH ×3 (06:18→22:00)
[2021-01-27] MEDS: ERTAPENEM SODIUM 0.5 GM in SODIUM CHLORIDE 50 ML IVPB SCH (10:43)
[2021-01-27] MEDS: ZINC SULFATE 220 MG CAPSULE (FP) PO SCH (10:45)
[2021-01-27] MEDS: VITAMIN B COMP W-C 1 EA TABLET (NEPHRO-VITE) PO SCH (10:45)
[2021-01-27] MEDS: MUPIROCIN 2% TOPICAL OINTMENT FOR DECOLONIZATION NS SCH ×2 (10:45→22:06)
[2021-01-27] MEDS: CHLORHEXIDINE GLUCONATE 4% CLEANSER FOR DECOLONIZATION TP SCH (22:06)
[2021-01-27] MEDS ORDERED: MELATONIN 5 MG TABLETS PO ONE (23:53)
[2021-01-28] MEDS: DEXTROSE 5%-LACTATED RINGERS 1,000 ML IV SCH ×2 (00:18→05:59)
[2021-01-28] MEDS: HEPARIN NA (PORCINE) 5,000 UNITS/ML 1ML VIAL SQ SCH ×2 (05:58→14:16)
[2021-01-28 07:09] LABS: BASO % 0.1 % (0-2.0); EOS % 0.1 % (0-4.5); HEMATOCRIT 21.3 % (35.4-49); HEMOGLOBIN 7.2 GM/dL (11.7-16.9); LYMPH % 6.5 % (8-40); MCH 27.2 pg (25.7-33.7); MCHC 33.9 g/dl (32.0-35.9); MEAN CELL VOLUME 80.2 fl (80-96); MEAN PLT VOLUME 9.4 fl (7.5-11.1); MONO % 9.5 % (3.8-10.2); NEUT % 83.8 % (42.8-82.8); PLATELET COUNT 153 10^3/uL (134-434); RBC 2.65 M/mm3 (4.00-5.60); RDW 14.6 % (11.9-15.9); WHITE BLOOD COUNT 13.9 K/mm3 (4.0-10.0)
[2021-01-28 07:19] LABS: CHLORIDE 111 mmol/L (98-107); SODIUM 144 mmol/L (136-145)
[2021-01-28 07:20] LABS: CHLORIDE 111 mmol/L (98-107); SODIUM 144 mmol/L (136-145)
[2021-01-28 07:21] LABS: CALCIUM 7.7 mg/dL (8.5-10.1)
[2021-01-28 07:22] LABS: CO2 24 mmol/L (21-32); GLUCOSE,RANDOM 77 mg/dL (74-106)
[2021-01-28 07:25] LABS: ALBUMIN 1.1 g/dl (3.4-5.0); CALCIUM 7.6 mg/dL (8.5-10.1); CO2 24 mmol/L (21-32); CREATININE 1.3 mg/dL (0.55-1.3); GLUCOSE,RANDOM 75 mg/dL (74-106)
[2021-01-28 07:26] LABS: MAGNESIUM 1.1 mg/dL (1.8-2.4)
[2021-01-28 07:28] LABS: CREATININE 1.3 mg/dL (0.55-1.3)
[2021-01-28 07:29] LABS: BILIRUBIN,TOTAL 0.7 mg/dL (0.2-1); SGOT/AST 21 U/L (15-37); SGPT/ALT 11 U/L (13-61); TOT PROT 5.2 g/dl (6.4-8.2)
[2021-01-28 07:30] LABS: ANION GAP 10 MMOL/L (8-16); BLOOD UREA NITROGEN 35.6 mg/dL (7-18)
[2021-01-28 07:33] LABS: ALK PHOS 367 U/L (45-117); ANION GAP 9 MMOL/L (8-16); BLOOD UREA NITROGEN 34.8 mg/dL (7-18)
[2021-01-28] MEDS ORDERED: PT OWN MED DRAWER 7, Y5N ONE (08:30)
[2021-01-28] MEDS ORDERED: MAGNESIUM 2GM/50ML STERILE WATER IVPB IVPB ONE ×2 (08:30→18:00)
[2021-01-28] MEDS: KCL 10 MEQ IVPB 10 MEQ/100 ML INFUS.BAG IVPB SCH ×3 (08:38→10:41)
[2021-01-28] MEDS: VITAMIN B COMP W-C 1 EA TABLET (NEPHRO-VITE) PO SCH (09:15)
[2021-01-28] MEDS: ZINC SULFATE 220 MG CAPSULE (FP) PO SCH (09:15)
[2021-01-28] MEDS: ERTAPENEM SODIUM 0.5 GM in SODIUM CHLORIDE 50 ML IVPB SCH (09:38)
[2021-01-28] MEDS: MUPIROCIN 2% TOPICAL OINTMENT FOR DECOLONIZATION NS SCH (09:38)
[2021-01-28] MEDS: INSULIN SLIDING SCALE (NOVOLOG) 1 VIAL SQ SCH ×2 (10:47→16:57)
[2021-01-28 12:17] VITALS: PULSE 84
[2021-01-28] MEDS ORDERED: DEXTROSE 5%-LACTATED RINGERS 1,000 ML IV SCH (13:23)
[2021-01-28] MEDS ORDERED: POTASSIUM CHLORIDE TABS 20 MEQ TABLET.ER (FP) PO ONE (13:24)
[2021-01-28] MEDS ORDERED: NAPH,MB-DB/K PH,MBDB POWDER PACKET PO SCH (13:30)
[2021-01-28] MEDS ORDERED: POTASSIUM CHLORIDE 20 MEQ in DEXTROSE 5%-LACTATED RINGERS 990 ML IV SCH (14:00)
[2021-01-28 14:25] VITALS: BP 144/76; TEMP 99
[2021-01-29] MEDS ORDERED: ERTAPENEM SODIUM 1 GM in SODIUM CHLORIDE 50 ML IVPB SCH (10:00)
== END 2021-01-28 17:03 | disposition left against medical advice (07) | DRG 871 ==
LOC: JER 15:10 → JERBED 23:24 → JICU 01-24 02:36
PROVIDERS: ADMIT Internal Medicine Pulmonary Disease; ATTEND Family Medicine
PROC: 05HM33Z Insertion of Infusion Device into Right Internal Jugular Vein, Percutaneous Approach (ICD-10-PCS; principal; 2021-01-24)
DX: A41.50 Gram-negative sepsis, unspecified (principal); E43 Unspecified severe protein-calorie malnutrition; N17.9 Acute kidney failure, unspecified; F11.20 Opioid dependence, uncomplicated; I50.32 Chronic diastolic (congestive) heart failure; E87.2 Acidosis; M46.26 Osteomyelitis of vertebra, lumbar region; R64 Cachexia; J44.9 Chronic obstructive pulmonary disease, unspecified; E86.0 Dehydration; E66.9 Obesity, unspecified; E11.9 Type 2 diabetes mellitus without complications; I27.20 Pulmonary hypertension, unspecified; E11.649 Type 2 diabetes mellitus with hypoglycemia without coma; I11.0 Hypertensive heart disease with heart failure; E78.5 Hyperlipidemia, unspecified; D69.6 Thrombocytopenia, unspecified; B18.2 Chronic viral hepatitis C; D64.9 Anemia, unspecified; L89.152 Pressure ulcer of sacral region, stage 2; Z53.29 Procedure and treatment not carried out because of patient's decision for other reasons; Z68.21 Body mass index [BMI] 21.0-21.9, adult
CPT/HCPCS: 36415; 36430; 36511; 70450-TC; 71045-TC-FY; 71250-TC; 74176-TC; 80048; 80053; 80307; 81003; 82728; 82962; 83540; 83550; 83605; 83735; 84100; 84484; 84550; 85025; 85610; 85651; 85730; 86140; 86850; 86900; 86901; 86922; 87040; 87086; 87186; 87389; 93005; 93010; 99291; C9803; J0131; J1644; P9038; P9058; U0003; U0005

== ENCOUNTER 2021-01-29 16:30 | Inpatient (IN) | payer OTHER ==
[2021-01-29 18:04] VITALS: BMI 25.7
[2021-01-29 18:53] LABS: EOS % 0.2 % (0-4.5); HEMATOCRIT 26.8 % (35.4-49); HEMOGLOBIN 8.7 GM/dL (11.7-16.9); LYMPH % 5.3 % (8-40); MCH 26.8 pg (25.7-33.7); MCHC 32.6 g/dl (32.0-35.9); MEAN CELL VOLUME 82.2 fl (80-96); MONO % 6.5 % (3.8-10.2); PLATELET COUNT 205 10^3/uL (134-434); RBC 3.26 M/mm3 (4.00-5.60); RDW 14.8 % (11.9-15.9); WHITE BLOOD COUNT 14.3 K/mm3 (4.0-10.0)
[2021-01-29 18:55] LABS: EPI CELLS 8 /uL (0-25.1); HYALINE CASTS 1 /uL (0-3.1); URINE APPEARANCE CLEAR; URINE BACTERIA 5 /uL (0-1359); URINE BILIRUBIN NEGATIVE (NEGATIVE); URINE COLOR DK YELLOW; URINE GLUCOSE (UA) NEGATIVE (NEGATIVE); URINE KETONE NEGATIVE (NEGATIVE); URINE LEUK ESTERASE NEGATIVE (NEGATIVE); URINE NITRITE NEGATIVE (NEGATIVE); URINE PROTEIN 2+ (NEGATIVE); URINE RBC 13 /uL (0-23.9); URINE UROBILINOGEN 0.2 mg/dL (0.2-1.0); URINE WBC 8 /uL (0-25.8)
[2021-01-29 18:58] LABS: INR 1.58 (0.83-1.09); PROTHROMBIN TIME (PATIENT) 18.6 SEC (9.7-13.0)
[2021-01-29 19:01] LABS: ACTIVATED PTT 30.4 SECONDS (25.2-36.5)
[2021-01-29 19:20] LABS: CHLORIDE 108 mmol/L (98-107); SODIUM 142 mmol/L (136-145)
[2021-01-29 19:22] LABS: CALCIUM 8.1 mg/dL (8.5-10.1); CO2 25 mmol/L (21-32)
[2021-01-29 19:26] LABS: CREATININE 1.1 mg/dL (0.55-1.3); SGOT/AST 27 U/L (15-37); SGPT/ALT 13 U/L (13-61)
[2021-01-29 19:27] LABS: BILIRUBIN,TOTAL 0.9 mg/dL (0.2-1); TOT PROT 6.2 g/dl (6.4-8.2)
[2021-01-29 19:40] LABS: ALBUMIN 1.6 g/dl (3.4-5.0); ALK PHOS 409 U/L (45-117); ANION GAP 9 MMOL/L (8-16); GLUCOSE,RANDOM 49 mg/dL (74-106)
[2021-01-29] MEDS ORDERED: DEXTROSE 50%-WATER - 25 GM/50 ML VIAL IVPUSH ONE ×2 (19:45→21:37)
[2021-01-29] MEDS ORDERED: POTASSIUM CHLORIDE TABS 20 MEQ TABLET.ER (FP) PO ONE ×2 (19:45→19:57)
[2021-01-29] MEDS ORDERED: KCL 10 MEQ IVPB 10 MEQ/100 ML INFUS.BAG IVPB SCH (19:45)
[2021-01-29] MEDS ORDERED: ERTAPENEM SODIUM 1 GM in SODIUM CHLORIDE 50 ML IVPB ONE (19:48)
[2021-01-29] MEDS ORDERED: DEXTROSE 50%-WATER 25 GM/50 ML DISP.SYRIN ONE ×2 (19:57→21:41)
[2021-01-29] MEDS ORDERED: KCL 10 MEQ IVPB 10 MEQ/100 ML INFUS.BAG IVPB ONE (19:57)
[2021-01-29] MEDS ORDERED: POLYETHYLENE GLYCOL (HEALTHYLAX) 3350 17 GM PACKET PO PRN (21:20)
[2021-01-29] MEDS ORDERED: DEXTROSE 5%-LACTATED RINGERS 1,000 ML IV SCH (21:45)
[2021-01-29] MEDS ORDERED: MUPIROCIN 2% TOPICAL OINTMENT FOR DECOLONIZATION NS SCH (22:00)
[2021-01-29] MEDS ORDERED: DEXTROSE 10%-WATER - 1,000 ML IV SCH (23:00)
[2021-01-30 00:19] LABS: CALCIUM 7.5 mg/dL (8.5-10.1)
[2021-01-30 00:20] LABS: BLOOD UREA NITROGEN 20.6 mg/dL (7-18); MAGNESIUM 1.3 mg/dL (1.8-2.4)
[2021-01-30 00:23] LABS: CREATININE 1.1 mg/dL (0.55-1.3)
[2021-01-30] MEDS ORDERED: DEXTROSE 50%-WATER - 25 GM/50 ML VIAL IVPUSH ONE ×2 (01:08→17:21)
[2021-01-30] MEDS ORDERED: DEXTROSE 10%-WATER - 1,000 ML IV SCH (01:08)
[2021-01-30] MEDS ORDERED: DEXTROSE 50%-WATER 25 GM/50 ML DISP.SYRIN ONE ×3 (01:38→17:33)
[2021-01-30] MEDS ORDERED: DEXTROSE IVPB SCH ×2 (04:15→07:12)
[2021-01-30] MEDS ORDERED: WATER IVPB SCH ×2 (04:15→07:12)
[2021-01-30] MEDS ORDERED: HEPARIN NA (PORCINE) 5,000 UNITS/ML 1ML VIAL ONE ×2 (06:02→17:33)
[2021-01-30] MEDS: HEPARIN NA (PORCINE) 5,000 UNITS/ML 1ML VIAL SQ SCH ×3 (06:17→22:42)
[2021-01-30 09:21] LABS: BASO % 0.2 % (0-2.0); EOS % 0.3 % (0-4.5); HEMATOCRIT 22.8 % (35.4-49); HEMOGLOBIN 7.5 GM/dL (11.7-16.9); LYMPH % 6.3 % (8-40); MCH 26.9 pg (25.7-33.7); MCHC 32.7 g/dl (32.0-35.9); MEAN CELL VOLUME 82.2 fl (80-96); MEAN PLT VOLUME 8.7 fl (7.5-11.1); MONO % 10.7 % (3.8-10.2); NEUT % 82.5 % (42.8-82.8); PLATELET COUNT 210 10^3/uL (134-434); RBC 2.77 M/mm3 (4.00-5.60); RDW 14.8 % (11.9-15.9); WHITE BLOOD COUNT 15.2 K/mm3 (4.0-10.0)
[2021-01-30 09:48] LABS: CALCIUM 7.7 mg/dL (8.5-10.1)
[2021-01-30 09:49] LABS: BLOOD UREA NITROGEN 17.3 mg/dL (7-18)
[2021-01-30 09:51] LABS: PHOSPHOROUS 1.9 mg/dL (2.5-4.9)
[2021-01-30 09:52] LABS: CREATININE 1.1 mg/dL (0.55-1.3)
[2021-01-30 09:53] LABS: BILIRUBIN,TOTAL 0.8 mg/dL (0.2-1); TOT PROT 5.3 g/dl (6.4-8.2)
[2021-01-30 09:57] LABS: ALBUMIN 1.2 g/dl (3.4-5.0)
[2021-01-30] MEDS: ZINC SULFATE 220 MG CAPSULE (FP) PO SCH (10:55)
[2021-01-30] MEDS ORDERED: ZINC SULFATE 220 MG CAPSULE (FP) ONE (11:04)
[2021-01-30] MEDS ORDERED: DEXTROSE 5%-0.45% SALINE 1,000 ML IV SCH (11:45)
[2021-01-30] MEDS: VITAMIN B COMP W-C 1 EA TABLET (NEPHRO-VITE) PO SCH (12:11)
[2021-01-30] MEDS ORDERED: POTASSIUM CHLORIDE TABS 20 MEQ TABLET.ER (FP) PO ONE ×4 (12:45→17:57)
[2021-01-30] MEDS ORDERED: ACETAMINOPHEN 325 MG TABLET (FP) ONE (12:45)
[2021-01-30] MEDS ORDERED: MAGNESIUM SULF 50% (8.12 MEQ/2 ML-1 GM VIAL) IVPB ONE (17:18)
[2021-01-30] MEDS ORDERED: DEXTROSE 5%-0.45% SALINE 1,000 ML with POTASSIUM CHLORIDE 20 MEQ IV SCH (17:18)
[2021-01-30] MEDS: DEXTROSE 10%-WATER - 1,000 ML IV SCH (17:35)
[2021-01-30] MEDS ORDERED: DEXTROSE 50%-WATER - 25 GM/50 ML VIAL IVPUSH PRN (19:28)
[2021-01-30] MEDS ORDERED: ERTAPENEM SODIUM 1 GM in SODIUM CHLORIDE 50 ML IVPB SCH (21:00)
[2021-01-30] MEDS: MAG HYDROX/AL HYDROX/SIMETH -MYLANTA- ORAL SUSPENSION PO SCH (22:43)
[2021-01-30] MEDS: MAGNESIUM OXIDE 400 MG TABLET (FP) PO SCH (22:43)
[2021-01-30] MEDS: ACETAMINOPHEN 325 MG TABLET (FP) PO PRN (22:44)
[2021-01-30] MEDS ORDERED: GLUCAGON 1 MG KIT IM ONE (22:56)
[2021-01-31] MEDS: HEPARIN NA (PORCINE) 5,000 UNITS/ML 1ML VIAL SQ SCH ×3 (06:08→21:14)
[2021-01-31] MEDS: MAG HYDROX/AL HYDROX/SIMETH -MYLANTA- ORAL SUSPENSION PO SCH ×3 (06:08→23:23)
[2021-01-31] MEDS ORDERED: GLUCAGON 1 MG KIT IM ONE ×2 (06:18→22:45)
[2021-01-31] MEDS: VITAMIN B COMP W-C 1 EA TABLET (NEPHRO-VITE) PO SCH (09:16)
[2021-01-31] MEDS: MAGNESIUM OXIDE 400 MG TABLET (FP) PO SCH ×2 (09:16→21:14)
[2021-01-31] MEDS: ZINC SULFATE 220 MG CAPSULE (FP) PO SCH (09:16)
[2021-01-31] MEDS ORDERED: methaDONE HCL 10 MG TABLET PO SCH (11:30)
[2021-01-31] MEDS ORDERED: methaDONE HCL 40 MG DISPERSABLE TABLET ONE (11:33)
[2021-01-31] MEDS ORDERED: methaDONE HCL 10 MG TABLET ONE (11:34)
[2021-01-31] MEDS: methaDONE 80 MG, methaDONE 20 MG PO SCH (11:35)
[2021-01-31] MEDS ORDERED: PT OWN MED DRAWER 7, Y5N ONE ×2 (13:36→21:12)
[2021-01-31] MEDS ORDERED: DEXTROSE 5%-WATER 100 ML IVPB ONE (17:01)
[2021-01-31] MEDS ORDERED: MEROPENEM 1 GM VIAL (RESTRICTED TO ID) IVPB ONE (17:01)
[2021-01-31] MEDS: MEROPENEM 1 GM in DEXTROSE 5%-WATER 100 ML IVPB SCH (17:24)
[2021-01-31] MEDS ORDERED: ERTAPENEM SODIUM 1 GM VIAL IM ONE (17:35)
[2021-01-31] MEDS: DEXTROSE 10%-WATER - 1,000 ML IV SCH (18:05)
[2021-01-31] MEDS: ACETAMINOPHEN 325 MG TABLET (FP) PO PRN (21:14)
[2021-01-31] MEDS ORDERED: GLUCAGON 1 MG KIT ONE (22:37)
[2021-02-01] MEDS ORDERED: GLUCAGON 1 MG KIT IM ONE (02:22)
[2021-02-01] MEDS: MEROPENEM 1 GM in DEXTROSE 5%-WATER 100 ML IVPB SCH ×3 (02:37→17:23)
[2021-02-01] MEDS ORDERED: methaDONE HCL 40 MG DISPERSABLE TABLET ONE (06:14)
[2021-02-01] MEDS ORDERED: methaDONE HCL 10 MG TABLET ONE (06:15)
[2021-02-01] MEDS: methaDONE 80 MG, methaDONE 20 MG PO SCH (06:25)
[2021-02-01] MEDS: HEPARIN NA (PORCINE) 5,000 UNITS/ML 1ML VIAL SQ SCH ×3 (06:25→21:56)
[2021-02-01] MEDS: MAG HYDROX/AL HYDROX/SIMETH 30 ML UNIT-DOSE CUP PO SCH ×3 (06:25→21:57)
[2021-02-01] MEDS ORDERED: MEROPENEM 1 GM VIAL (RESTRICTED TO ID) IVPB ONE ×2 (09:30→16:48)
[2021-02-01] MEDS ORDERED: DEXTROSE 5%-WATER 100 ML IVPB ONE ×2 (09:31→16:48)
[2021-02-01] MEDS: VITAMIN B COMP W-C 1 EA TABLET (NEPHRO-VITE) PO SCH (10:03)
[2021-02-01] MEDS: MAGNESIUM OXIDE 400 MG TABLET (FP) PO SCH ×2 (10:03→21:57)
[2021-02-01] MEDS: COLLAGENASE CLOSTRIDIUM HIST. 30 GRAMS TUBE TP SCH (10:03)
[2021-02-01] MEDS: ZINC SULFATE 220 MG CAPSULE (FP) PO SCH (10:03)
[2021-02-01 12:58] LABS: CHLORIDE 108 mmol/L (98-107); SODIUM 136 mmol/L (136-145)
[2021-02-01 12:59] LABS: CALCIUM 7.5 mg/dL (8.5-10.1)
[2021-02-01 13:00] LABS: ALBUMIN 1.3 g/dl (3.4-5.0); ANION GAP 7 MMOL/L (8-16); BLOOD UREA NITROGEN 12.2 mg/dL (7-18); CO2 22 mmol/L (21-32)
[2021-02-01 13:03] LABS: CREATININE 0.9 mg/dL (0.55-1.3); SGOT/AST 35 U/L (15-37); SGPT/ALT 16 U/L (13-61)
[2021-02-01 13:05] LABS: BILIRUBIN,TOTAL 0.7 mg/dL (0.2-1); TOT PROT 5.7 g/dl (6.4-8.2)
[2021-02-01 13:06] LABS: ALK PHOS 326 U/L (45-117)
[2021-02-01 13:11] LABS: GLUCOSE,RANDOM 37 mg/dL (74-106)
[2021-02-01] MEDS ORDERED: [UNRECOGNIZED DRUG - OTHER] PO PRN (13:15)
[2021-02-01] MEDS ORDERED: DEXTROSE 5%-0.45% SALINE 1,000 ML IV SCH (16:45)
[2021-02-01] MEDS: ACETAMINOPHEN 325 MG TABLET (FP) PO PRN (17:44)
[2021-02-01] MEDS: methylPREDNISolone NA SUCC 40 MG/1 ML VIAL IVPUSH SCH (18:11)
[2021-02-01 19:13] LABS: BASO % 0.3 % (0-2.0); EOS % 0.1 % (0-4.5); HEMATOCRIT 21.8 % (35.4-49); LYMPH % 4.6 % (8-40); MCH 26.7 pg (25.7-33.7); MCHC 32.3 g/dl (32.0-35.9); MEAN CELL VOLUME 82.5 fl (80-96); MEAN PLT VOLUME 7.8 fl (7.5-11.1); MONO % 6.2 % (3.8-10.2); NEUT % 88.8 % (42.8-82.8); PLATELET COUNT 291 10^3/uL (134-434); RBC 2.64 M/mm3 (4.00-5.60)
[2021-02-01 19:34] LABS: CALCIUM 7.3 mg/dL (8.5-10.1)
[2021-02-01 19:35] LABS: ALBUMIN 1.2 g/dl (3.4-5.0); BLOOD UREA NITROGEN 12.2 mg/dL (7-18)
[2021-02-01 19:39] LABS: BILIRUBIN,TOTAL 0.6 mg/dL (0.2-1)
[2021-02-01 19:40] LABS: TOT PROT 5.5 g/dl (6.4-8.2)
[2021-02-02] MEDS ORDERED: MEROPENEM 1 GM VIAL (RESTRICTED TO ID) IVPB ONE ×3 (01:23→16:40)
[2021-02-02] MEDS ORDERED: DEXTROSE 5%-WATER 100 ML IVPB ONE ×3 (01:23→16:41)
[2021-02-02] MEDS: methylPREDNISolone NA SUCC 40 MG/1 ML VIAL IVPUSH SCH ×3 (01:39→18:10)
[2021-02-02] MEDS: MEROPENEM 1 GM in DEXTROSE 5%-WATER 100 ML IVPB SCH ×3 (01:39→18:10)
[2021-02-02] MEDS ORDERED: methaDONE HCL 40 MG DISPERSABLE TABLET ONE (05:45)
[2021-02-02] MEDS ORDERED: methaDONE HCL 10 MG TABLET ONE (05:46)
[2021-02-02] MEDS: methaDONE 80 MG, methaDONE 20 MG PO SCH (05:55)
[2021-02-02] MEDS: HEPARIN NA (PORCINE) 5,000 UNITS/ML 1ML VIAL SQ SCH ×3 (05:58→21:17)
[2021-02-02] MEDS: MAG HYDROX/AL HYDROX/SIMETH 30 ML UNIT-DOSE CUP PO SCH ×3 (05:58→21:17)
[2021-02-02] MEDS ORDERED: PT OWN MED DRAWER 7, Y5N ONE (09:13)
[2021-02-02] MEDS: ZINC SULFATE 220 MG CAPSULE (FP) PO SCH (09:18)
[2021-02-02] MEDS: MAGNESIUM OXIDE 400 MG TABLET (FP) PO SCH ×2 (09:18→21:17)
[2021-02-02] MEDS: VITAMIN B COMP W-C 1 EA TABLET (NEPHRO-VITE) PO SCH (09:18)
[2021-02-02] MEDS: COLLAGENASE CLOSTRIDIUM HIST. 30 GRAMS TUBE TP SCH (09:19)
[2021-02-02] MEDS: DEXTROSE 5%-0.45% SALINE 1,000 ML IV SCH (09:30)
[2021-02-02 13:22] LABS: HEMATOCRIT 21.9 % (35.4-49); HEMOGLOBIN 7.1 GM/dL (11.7-16.9); MCH 26.8 pg (25.7-33.7); MCHC 32.3 g/dl (32.0-35.9); MEAN CELL VOLUME 82.7 fl (80-96); PLATELET COUNT 301 10^3/uL (134-434); RBC 2.64 M/mm3 (4.00-5.60); RDW 14.8 % (11.9-15.9); WHITE BLOOD COUNT 17.6 K/mm3 (4.0-10.0)
[2021-02-02 13:47] LABS: CALCIUM 7.7 mg/dL (8.5-10.1)
[2021-02-02 13:48] LABS: ALBUMIN 1.3 g/dl (3.4-5.0)
[2021-02-02 13:49] LABS: ANISOCYTOSIS 2+; MACROCYTOSIS 1+; PLATELET ESTIMATE NORMAL
[2021-02-02 13:51] LABS: CREATININE 0.9 mg/dL (0.55-1.3)
[2021-02-02 13:52] LABS: BILIRUBIN,TOTAL 0.5 mg/dL (0.2-1)
[2021-02-02] MEDS: ACETAMINOPHEN 325 MG TABLET (FP) PO PRN (18:22)
[2021-02-02] MEDS: MELATONIN 5 MG TABLETS PO PRN (21:17)
[2021-02-03] MEDS ORDERED: MEROPENEM 1 GM VIAL (RESTRICTED TO ID) IVPB ONE ×3 (00:39→17:16)
[2021-02-03] MEDS ORDERED: DEXTROSE 5%-WATER 100 ML IVPB ONE ×3 (00:39→17:16)
[2021-02-03] MEDS: methylPREDNISolone NA SUCC 40 MG/1 ML VIAL IVPUSH SCH ×3 (01:01→17:33)
[2021-02-03] MEDS: MEROPENEM 1 GM in DEXTROSE 5%-WATER 100 ML IVPB SCH ×3 (01:01→17:33)
[2021-02-03] MEDS: DEXTROSE 5%-0.45% SALINE 1,000 ML IV SCH ×2 (04:18→11:43)
[2021-02-03] MEDS ORDERED: methaDONE HCL 10 MG TABLET ONE (05:46)
[2021-02-03] MEDS ORDERED: methaDONE HCL 40 MG DISPERSABLE TABLET ONE (05:46)
[2021-02-03] MEDS: HEPARIN NA (PORCINE) 5,000 UNITS/ML 1ML VIAL SQ SCH ×3 (06:02→21:18)
[2021-02-03] MEDS: methaDONE 80 MG, methaDONE 20 MG PO SCH (06:03)
[2021-02-03] MEDS: MAG HYDROX/AL HYDROX/SIMETH 30 ML UNIT-DOSE CUP PO SCH ×3 (06:04→21:18)
[2021-02-03] MEDS: ZINC SULFATE 220 MG CAPSULE (FP) PO SCH (11:32)
[2021-02-03] MEDS: VITAMIN B COMP W-C 1 EA TABLET (NEPHRO-VITE) PO SCH (11:32)
[2021-02-03] MEDS: MAGNESIUM OXIDE 400 MG TABLET (FP) PO SCH ×2 (11:32→21:18)
[2021-02-03] MEDS: COLLAGENASE CLOSTRIDIUM HIST. 30 GRAMS TUBE TP SCH (11:43)
[2021-02-03 17:52] LABS: HEMATOCRIT 25.6 % (35.4-49); HEMOGLOBIN 8.3 GM/dL (11.7-16.9); MCH 27.1 pg (25.7-33.7); MCHC 32.4 g/dl (32.0-35.9); MEAN CELL VOLUME 83.7 fl (80-96); MEAN PLT VOLUME 8.7 fl (7.5-11.1); PLATELET COUNT 326 10^3/uL (134-434); RBC 3.05 M/mm3 (4.00-5.60); RDW 14.9 % (11.9-15.9); WHITE BLOOD COUNT 22.6 K/mm3 (4.0-10.0)
[2021-02-03 18:10] LABS: ALBUMIN 1.4 g/dl (3.4-5.0); BLOOD UREA NITROGEN 21.9 mg/dL (7-18)
[2021-02-03 18:14] LABS: BILIRUBIN,TOTAL 0.5 mg/dL (0.2-1)
[2021-02-03 18:15] LABS: TOT PROT 6.1 g/dl (6.4-8.2)
[2021-02-03 20:12] LABS: ANISOCYTOSIS 0; MACROCYTOSIS 0; OVALOCYTE 1+; PLATELET ESTIMATE NORMAL; TARGET CELLS 1+
[2021-02-03] MEDS: MELATONIN 5 MG TABLETS PO PRN (21:17)
[2021-02-04] MEDS ORDERED: MEROPENEM 1 GM VIAL (RESTRICTED TO ID) IVPB ONE ×3 (01:35→17:57)
[2021-02-04] MEDS ORDERED: DEXTROSE 5%-WATER 100 ML IVPB ONE ×3 (01:35→17:57)
[2021-02-04] MEDS: MEROPENEM 1 GM in DEXTROSE 5%-WATER 100 ML IVPB SCH ×3 (01:45→18:12)
[2021-02-04] MEDS: methylPREDNISolone NA SUCC 40 MG/1 ML VIAL IVPUSH SCH ×3 (01:45→18:12)
[2021-02-04] MEDS ORDERED: methaDONE HCL 40 MG DISPERSABLE TABLET ONE (06:14)
[2021-02-04] MEDS ORDERED: methaDONE HCL 10 MG TABLET ONE (06:14)
[2021-02-04] MEDS: methaDONE 80 MG, methaDONE 20 MG PO SCH (06:21)
[2021-02-04] MEDS: HEPARIN NA (PORCINE) 5,000 UNITS/ML 1ML VIAL SQ SCH ×3 (06:25→21:32)
[2021-02-04] MEDS: MAG HYDROX/AL HYDROX/SIMETH 30 ML UNIT-DOSE CUP PO SCH ×4 (06:25→21:39)
[2021-02-04] MEDS: DEXTROSE 5%-0.45% SALINE 1,000 ML IV SCH ×2 (06:57→14:11)
[2021-02-04] MEDS: MAGNESIUM OXIDE 400 MG TABLET (FP) PO SCH ×3 (09:34→21:32)
[2021-02-04] MEDS: ZINC SULFATE 220 MG CAPSULE (FP) PO SCH (09:37)
[2021-02-04] MEDS: COLLAGENASE CLOSTRIDIUM HIST. 30 GRAMS TUBE TP SCH (09:37)
[2021-02-04] MEDS: VITAMIN B COMP W-C 1 EA TABLET (NEPHRO-VITE) PO SCH (09:37)
[2021-02-04] MEDS: ACETAMINOPHEN 325 MG TABLET (FP) PO PRN (21:32)
[2021-02-04] MEDS: MELATONIN 5 MG TABLETS PO PRN (21:32)
[2021-02-04] MEDS ORDERED: MELATONIN 5 MG TABLETS PO ONE (21:43)
[2021-02-05] MEDS ORDERED: DEXTROSE 5%-WATER 100 ML IVPB ONE ×3 (00:55→16:50)
[2021-02-05] MEDS ORDERED: MEROPENEM 1 GM VIAL (RESTRICTED TO ID) IVPB ONE ×3 (00:55→16:50)
[2021-02-05] MEDS: MEROPENEM 1 GM in DEXTROSE 5%-WATER 100 ML IVPB SCH ×3 (01:42→17:03)
[2021-02-05] MEDS: methylPREDNISolone NA SUCC 40 MG/1 ML VIAL IVPUSH SCH ×3 (01:42→17:03)
[2021-02-05] MEDS ORDERED: methaDONE HCL 40 MG DISPERSABLE TABLET ONE (06:23)
[2021-02-05] MEDS ORDERED: methaDONE HCL 10 MG TABLET ONE (06:24)
[2021-02-05] MEDS: methaDONE 80 MG, methaDONE 20 MG PO SCH (06:42)
[2021-02-05] MEDS: HEPARIN NA (PORCINE) 5,000 UNITS/ML 1ML VIAL SQ SCH ×2 (06:42→14:11)
[2021-02-05] MEDS: DEXTROSE 5%-0.45% SALINE 1,000 ML IV SCH ×2 (06:44→14:11)
[2021-02-05] MEDS: MAG HYDROX/AL HYDROX/SIMETH 30 ML UNIT-DOSE CUP PO SCH ×2 (06:44→14:09)
[2021-02-05] MEDS: ZINC SULFATE 220 MG CAPSULE (FP) PO SCH (09:06)
[2021-02-05] MEDS: VITAMIN B COMP W-C 1 EA TABLET (NEPHRO-VITE) PO SCH (09:06)
[2021-02-05] MEDS: MAGNESIUM OXIDE 400 MG TABLET (FP) PO SCH (09:06)
[2021-02-05] MEDS: COLLAGENASE CLOSTRIDIUM HIST. 30 GRAMS TUBE TP SCH (09:16)
[2021-02-05 13:03] LABS: HEMATOCRIT 26.9 % (35.4-49); HEMOGLOBIN 8.8 GM/dL (11.7-16.9); MCHC 32.9 g/dl (32.0-35.9); MEAN CELL VOLUME 82.1 fl (80-96); MEAN PLT VOLUME 7.6 fl (7.5-11.1); PLATELET COUNT 282 10^3/uL (134-434); RBC 3.27 M/mm3 (4.00-5.60); RDW 15.3 % (11.9-15.9); WHITE BLOOD COUNT 14.3 K/mm3 (4.0-10.0)
[2021-02-05 13:27] LABS: CALCIUM 8.1 mg/dL (8.5-10.1)
[2021-02-05 13:28] LABS: BLOOD UREA NITROGEN 21.8 mg/dL (7-18)
[2021-02-05 13:29] LABS: ANISOCYTOSIS 1+; MACROCYTOSIS 0; PLATELET ESTIMATE NORMAL
[2021-02-05 13:31] LABS: CREATININE 0.9 mg/dL (0.55-1.3)
[2021-02-05] MEDS ORDERED: PT OWN MED DRAWER 7, Y5N ONE (17:15)
[2021-02-05 18:38] VITALS: BP 154/82; PULSE 62; TEMP 98.7
[2021-02-08 22:16] LABS: MAGNESIUM 1.9 mg/dL (1.8-2.4)
== END 2021-02-05 19:31 | disposition left against medical advice (07) | DRG 872 ==
LOC: JER 16:30 → JERBED 20:05 → J4S 01-30 20:42
PROVIDERS: ADMIT Internal Medicine; ATTEND Family Medicine
PROC: 05HB33Z Insertion of Infusion Device into Right Basilic Vein, Percutaneous Approach (ICD-10-PCS; principal; 2021-02-01)
PROC: B54MZZA Ultrasonography of Right Upper Extremity Veins, Guidance (ICD-10-PCS; 2021-02-01)
DX: A41.50 Gram-negative sepsis, unspecified (principal); E87.2 Acidosis; N17.9 Acute kidney failure, unspecified; F11.20 Opioid dependence, uncomplicated; J44.9 Chronic obstructive pulmonary disease, unspecified; E11.649 Type 2 diabetes mellitus with hypoglycemia without coma; E87.6 Hypokalemia; E78.5 Hyperlipidemia, unspecified; E87.8 Other disorders of electrolyte and fluid balance, not elsewhere classified; E83.42 Hypomagnesemia; K83.8 Other specified diseases of biliary tract; D50.9 Iron deficiency anemia, unspecified; D63.8 Anemia in other chronic diseases classified elsewhere; I11.0 Hypertensive heart disease with heart failure; I50.9 Heart failure, unspecified; E86.0 Dehydration; B18.2 Chronic viral hepatitis C
CPT/HCPCS: 36415; 36430; 71045-TC-FY; 76700-TC; 80048; 80053; 81003; 82024; 82272; 82533; 82728; 82784; 82962; 83525; 83540; 83550; 83605; 83735; 84100; 84155; 84165; 84484; 85025; 85610; 85730; 86334; 86850; 86900; 86901; 86922; 87040; 87086; 93005; 93010; 97116-GP; 97161-GP; 99285-25; C9803; J1644; P9058; U0003; U0005

== ENCOUNTER 2021-02-10 19:38 | Inpatient (IN) | payer OTHER ==
[2021-02-10 20:04] VITALS: BMI 28.2
[2021-02-10] MEDS ORDERED: ACETAMINOPHEN 650 MG/20.3 ML ORAL SOLUTION (CUPS) PO ONE (21:26)
[2021-02-10] MEDS ORDERED: ACETAMINOPHEN 325 MG TABLET (FP) ONE (21:50)
[2021-02-10] MEDS ORDERED: DEXTROSE 50%-WATER - 25 GM/50 ML VIAL IVPUSH ONE (22:09)
[2021-02-10] MEDS ORDERED: DEXTROSE 50%-WATER 25 GM/50 ML DISP.SYRIN ONE (22:17)
[2021-02-10 22:22] LABS: BASO % 0.1 % (0-2.0); EOS % 0.3 % (0-4.5); HEMATOCRIT 29.2 % (35.4-49); HEMOGLOBIN 9.5 GM/dL (11.7-16.9); LYMPH % 10.5 % (8-40); MCH 27.4 pg (25.7-33.7); MCHC 32.6 g/dl (32.0-35.9); MEAN CELL VOLUME 84.3 fl (80-96); MEAN PLT VOLUME 7.8 fl (7.5-11.1); MONO % 5.8 % (3.8-10.2); NEUT % 83.3 % (42.8-82.8); PLATELET COUNT 287 10^3/uL (134-434); RBC 3.46 M/mm3 (4.00-5.60); RDW 16.4 % (11.9-15.9); WHITE BLOOD COUNT 11.6 K/mm3 (4.0-10.0)
[2021-02-10 22:30] LABS: INR 1.67 (0.83-1.09); PROTHROMBIN TIME (PATIENT) 19.6 SEC (9.7-13.0)
[2021-02-10 22:33] LABS: ACTIVATED PTT 33.8 SECONDS (25.2-36.5)
[2021-02-10 22:41] LABS: CHLORIDE 105 mmol/L (98-107); SODIUM 141 mmol/L (136-145)
[2021-02-10 22:44] LABS: CALCIUM 7.9 mg/dL (8.5-10.1)
[2021-02-10 22:46] LABS: ANION GAP 9 MMOL/L (8-16); BLOOD UREA NITROGEN 28.4 mg/dL (7-18); CO2 27 mmol/L (21-32); GLUCOSE,RANDOM 59 mg/dL (74-106); MAGNESIUM 1.5 mg/dL (1.8-2.4)
[2021-02-10 22:48] LABS: CREATININE 2.5 mg/dL (0.55-1.3); SGOT/AST 19 U/L (15-37); SGPT/ALT 26 U/L (13-61)
[2021-02-10 22:50] LABS: BILIRUBIN,TOTAL 0.8 mg/dL (0.2-1); TOT PROT 6.8 g/dl (6.4-8.2)
[2021-02-10 22:51] LABS: ALK PHOS 248 U/L (45-117)
[2021-02-10] MEDS ORDERED: MEROPENEM 1 GM in DEXTROSE 5%-WATER 100 ML IVPB ONE (23:17)
[2021-02-10] MEDS ORDERED: LACTATED RINGERS SOLUTION 1000 ML INFUS.BAG IV ONE (23:20)
[2021-02-10] MEDS ORDERED: MEROPENEM 1 GM VIAL (RESTRICTED TO ID) IVPB ONE (23:43)
[2021-02-11] MEDS ORDERED: DEXTROSE 50%-WATER - 25 GM/50 ML VIAL IVPUSH ONE ×2 (00:36→18:14)
[2021-02-11] MEDS ORDERED: MAGNESIUM SULF 50% (8.12 MEQ/2 ML-1 GM VIAL) IVPB ONE (00:37)
[2021-02-11] MEDS ORDERED: DEXTROSE 50%-WATER 25 GM/50 ML DISP.SYRIN ONE (00:50)
[2021-02-11] MEDS ORDERED: MAGNESIUM 1GM/D5W - 1 GM/100 ML IVPB IVPB ONE (00:50)
[2021-02-11] MEDS ORDERED: ALBUTEROL SO4 HFA INHALER IH PRN (02:05)
[2021-02-11] MEDS: DEXTROSE 5%-NORMAL SALINE 1,000 ML IV SCH (03:00)
[2021-02-11] MEDS: APIXABAN 5 MG TABLET PO SCH ×3 (03:26→23:59)
[2021-02-11] MEDS: MEROPENEM 1 GM in DEXTROSE 5%-WATER 100 ML IVPB SCH ×3 (05:15→22:00)
[2021-02-11] MEDS ORDERED: APIXABAN 5 MG TABLET ONE ×2 (05:19→09:36)
[2021-02-11] MEDS ORDERED: methaDONE HCL 10 MG TABLET PO SCH (06:00)
[2021-02-11] MEDS ORDERED: PATIENT'S OWN MEDICATION (NON-FORMULARY) (Meropenem 1 GM Vial) IVPB SCH (08:00)
[2021-02-11] MEDS ORDERED: PREGABALIN 50 MG CAPSULE ONE ×2 (09:35→15:09)
[2021-02-11] MEDS ORDERED: MEROPENEM 1 GM VIAL (RESTRICTED TO ID) IVPB ONE (09:35)
[2021-02-11] MEDS ORDERED: MAG HYDROX/AL HYDROX/SIMETH 30 ML UNIT-DOSE CUP ONE ×2 (09:36→15:20)
[2021-02-11] MEDS ORDERED: ZINC SULFATE 220 MG CAPSULE (FP) ONE (09:36)
[2021-02-11] MEDS ORDERED: QUEtiapine FUMARATE 100 MG TABLET (FP) ONE (09:36)
[2021-02-11] MEDS ORDERED: PREGABALIN 25 MG CAPSULE ONE ×2 (09:36→15:09)
[2021-02-11] MEDS: QUEtiapine FUMARATE 50 MG TABLET PO SCH (10:16)
[2021-02-11] MEDS: PREGABALIN 75 MG CAPSULE PO SCH ×3 (10:16→23:59)
[2021-02-11] MEDS: MAG HYDROX/AL HYDROX/SIMETH 30 ML UNIT-DOSE CUP PO SCH ×3 (10:16→15:23)
[2021-02-11] MEDS: ZINC SULFATE 220 MG CAPSULE (FP) PO SCH (10:16)
[2021-02-11] MEDS: VITAMIN B COMP W-C 1 EA TABLET (NEPHRO-VITE) PO SCH (13:54)
[2021-02-11] MEDS: COLLAGENASE CLOSTRIDIUM HIST. 30 GRAMS TUBE TP SCH (14:00)
[2021-02-11] MEDS ORDERED: methaDONE HCL 40 MG DISPERSABLE TABLET ONE (15:13)
[2021-02-11] MEDS ORDERED: methaDONE HCL 10 MG TABLET ONE (15:14)
[2021-02-11] MEDS: methaDONE 80 MG, methaDONE 20 MG PO SCH (15:19)
[2021-02-11] MEDS: ATORVASTATIN CA 40 MG TABLET (FP) PO SCH (23:59)
[2021-02-12] MEDS: DEXTROSE 5%-NORMAL SALINE 1,000 ML IV SCH (02:00)
[2021-02-12] MEDS: MAG HYDROX/AL HYDROX/SIMETH 30 ML UNIT-DOSE CUP PO SCH ×5 (02:07→23:32)
[2021-02-12] MEDS ORDERED: MEROPENEM 1 GM VIAL (RESTRICTED TO ID) IVPB ONE ×2 (02:36→08:18)
[2021-02-12] MEDS ORDERED: DEXTROSE 5%-WATER 100 ML IVPB ONE ×2 (02:37→08:18)
[2021-02-12] MEDS ORDERED: methaDONE HCL 40 MG DISPERSABLE TABLET ONE (04:37)
[2021-02-12] MEDS ORDERED: methaDONE HCL 10 MG TABLET ONE (04:37)
[2021-02-12] MEDS: MEROPENEM 1 GM in DEXTROSE 5%-WATER 100 ML IVPB SCH ×2 (05:05→10:57)
[2021-02-12] MEDS: methaDONE 80 MG, methaDONE 20 MG PO SCH (05:20)
[2021-02-12] MEDS: PREGABALIN 75 MG CAPSULE PO SCH ×3 (05:22→23:32)
[2021-02-12 08:28] LABS: BASO % 0.2 % (0-2.0); EOS % 0.6 % (0-4.5); HEMATOCRIT 26.8 % (35.4-49); HEMOGLOBIN 8.5 GM/dL (11.7-16.9); LYMPH % 11.4 % (8-40); MCH 27.2 pg (25.7-33.7); MCHC 31.8 g/dl (32.0-35.9); MEAN CELL VOLUME 85.5 fl (80-96); MEAN PLT VOLUME 8.2 fl (7.5-11.1); MONO % 12.6 % (3.8-10.2); NEUT % 75.2 % (42.8-82.8); PLATELET COUNT 249 10^3/uL (134-434); RBC 3.13 M/mm3 (4.00-5.60); RDW 16.2 % (11.9-15.9); WHITE BLOOD COUNT 9.6 K/mm3 (4.0-10.0)
[2021-02-12 08:46] LABS: CALCIUM 7.6 mg/dL (8.5-10.1)
[2021-02-12 08:47] LABS: BLOOD UREA NITROGEN 25.1 mg/dL (7-18); MAGNESIUM 1.6 mg/dL (1.8-2.4)
[2021-02-12 08:50] LABS: CREATININE 1.5 mg/dL (0.55-1.3)
[2021-02-12] MEDS ORDERED: VANCOMYCIN 1,000 MG in DEXTROSE 5%-WATER - 250 ML IVPB SCH (10:30)
[2021-02-12] MEDS: APIXABAN 5 MG TABLET PO SCH ×2 (10:56→23:31)
[2021-02-12] MEDS: QUEtiapine FUMARATE 50 MG TABLET PO SCH (10:56)
[2021-02-12] MEDS: ZINC SULFATE 220 MG CAPSULE (FP) PO SCH (10:56)
[2021-02-12] MEDS: COLLAGENASE CLOSTRIDIUM HIST. 30 GRAMS TUBE TP SCH (10:56)
[2021-02-12] MEDS: VITAMIN B COMP W-C 1 EA TABLET (NEPHRO-VITE) PO SCH (10:56)
[2021-02-12] MEDS: PIPERACILLIN/TAZOB 3.375 GM 3.375 GM in DEXTROSE 5%-WATER - 50 ML IVPB SCH ×2 (10:57→20:52)
[2021-02-12] MEDS ORDERED: PIPERACILLIN/TAZOBACTAM 3.375 GM VIAL IVPB ONE ×2 (11:06→20:47)
[2021-02-12] MEDS ORDERED: DEXTROSE 5%-WATER - 50 ML IVPB ONE ×2 (11:06→20:47)
[2021-02-12] MEDS ORDERED: CALCIUM GLUCONATE 10% - 1,000 MG/10 ML VIAL ONE (19:20)
[2021-02-12] MEDS ORDERED: GLUCAGON 1 MG KIT IM ONE (19:22)
[2021-02-12] MEDS ORDERED: [UNRECOGNIZED DRUG - OTHER] PO ONE (19:27)
[2021-02-12] MEDS ORDERED: DEXTROSE 50%-WATER - 25 GM/50 ML VIAL IVPUSH ONE (19:37)
[2021-02-12] MEDS ORDERED: DEXTROSE 5%-0.45% SALINE 1,000 ML IV SCH ×2 (21:00→23:59)
[2021-02-12] MEDS ORDERED: DEXTROSE 50%-WATER - 25 GM/50 ML VIAL ONE (22:33)
[2021-02-12] MEDS: ATORVASTATIN CA 40 MG TABLET (FP) PO SCH (23:32)
[2021-02-13] MEDS ORDERED: LACTATED RINGERS SOLUTION 1,000 ML/1,000 ML INFUS.BAG IV SCH (02:45)
[2021-02-13] MEDS ORDERED: LACTATED RINGERS IVPB SCH (03:00)
[2021-02-13] MEDS ORDERED: WATER IVPB SCH (03:00)
[2021-02-13] MEDS ORDERED: DEXTROSE IVPB SCH (03:00)
[2021-02-13] MEDS ORDERED: PIPERACILLIN/TAZOBACTAM 3.375 GM VIAL IVPB ONE ×3 (03:14→15:29)
[2021-02-13] MEDS ORDERED: DEXTROSE 5%-WATER - 50 ML IVPB ONE ×3 (03:14→15:29)
[2021-02-13] MEDS: PIPERACILLIN/TAZOB 3.375 GM 3.375 GM in DEXTROSE 5%-WATER - 50 ML IVPB SCH ×3 (03:42→18:38)
[2021-02-13] MEDS ORDERED: methaDONE HCL 10 MG TABLET ONE (06:26)
[2021-02-13] MEDS ORDERED: methaDONE HCL 40 MG DISPERSABLE TABLET ONE (06:26)
[2021-02-13] MEDS: PREGABALIN 75 MG CAPSULE PO SCH ×3 (06:30→22:47)
[2021-02-13] MEDS: methaDONE 80 MG, methaDONE 20 MG PO SCH (06:31)
[2021-02-13] MEDS: MAG HYDROX/AL HYDROX/SIMETH 30 ML UNIT-DOSE CUP PO SCH ×3 (06:38→22:47)
[2021-02-13] MEDS: WATER IVPB SCH (06:45)
[2021-02-13] MEDS: LACTATED RINGERS IVPB SCH (06:45)
[2021-02-13] MEDS: DEXTROSE IVPB SCH (06:45)
[2021-02-13] MEDS: QUEtiapine FUMARATE 50 MG TABLET PO SCH (09:42)
[2021-02-13] MEDS: VITAMIN B COMP W-C 1 EA TABLET (NEPHRO-VITE) PO SCH (09:42)
[2021-02-13] MEDS: ZINC SULFATE 220 MG CAPSULE (FP) PO SCH (09:42)
[2021-02-13] MEDS: APIXABAN 5 MG TABLET PO SCH ×2 (09:42→22:47)
[2021-02-13 11:57] LABS: BLOOD UREA NITROGEN 22.8 mg/dL (7-18); CALCIUM 7.6 mg/dL (8.5-10.1)
[2021-02-13 12:00] LABS: CREATININE 1.3 mg/dL (0.55-1.3)
[2021-02-13 12:02] LABS: BILIRUBIN,TOTAL 0.5 mg/dL (0.2-1)
[2021-02-13 12:21] LABS: ALBUMIN 1.3 g/dl (3.4-5.0)
[2021-02-13 13:35] LABS: BASO % 0.3 % (0-2.0); HEMATOCRIT 25.1 % (35.4-49); HEMOGLOBIN 8.1 GM/dL (11.7-16.9); LYMPH % 14.3 % (8-40); MCH 27.5 pg (25.7-33.7); MCHC 32.4 g/dl (32.0-35.9); MEAN CELL VOLUME 84.8 fl (80-96); MONO % 10.8 % (3.8-10.2); NEUT % 73.6 % (42.8-82.8); PLATELET COUNT 193 10^3/uL (134-434); RBC 2.96 M/mm3 (4.00-5.60); RDW 15.9 % (11.9-15.9); WHITE BLOOD COUNT 7.8 K/mm3 (4.0-10.0)
[2021-02-13] MEDS: COLLAGENASE CLOSTRIDIUM HIST. 30 GRAMS TUBE TP SCH (13:37)
[2021-02-13] MEDS: AMINO ACIDS/PROTEIN HYDROLYS 30 ML LIQUID.PKT PO SCH (16:35)
[2021-02-13] MEDS: ATORVASTATIN CA 40 MG TABLET (FP) PO SCH (22:47)
[2021-02-13] MEDS ORDERED: GLUCAGON 1 MG KIT IM ONE (23:16)
[2021-02-14] MEDS ORDERED: GLUCAGON 1 MG KIT IM ONE ×2 (02:12→05:30)
[2021-02-14] MEDS: PIPERACILLIN/TAZOB 3.375 GM 3.375 GM in DEXTROSE 5%-WATER - 50 ML IVPB SCH ×3 (02:55→17:13)
[2021-02-14] MEDS ORDERED: methaDONE HCL 10 MG TABLET ONE (04:59)
[2021-02-14] MEDS ORDERED: methaDONE HCL 40 MG DISPERSABLE TABLET ONE (04:59)
[2021-02-14] MEDS: PREGABALIN 75 MG CAPSULE PO SCH ×3 (05:35→21:28)
[2021-02-14] MEDS: MAG HYDROX/AL HYDROX/SIMETH 30 ML UNIT-DOSE CUP PO SCH ×3 (05:41→21:28)
[2021-02-14] MEDS: methaDONE 80 MG, methaDONE 20 MG PO SCH (06:53)
[2021-02-14] MEDS: DEXTROSE IVPB SCH (07:01)
[2021-02-14] MEDS: WATER IVPB SCH (07:01)
[2021-02-14] MEDS: LACTATED RINGERS IVPB SCH (07:01)
[2021-02-14] MEDS: AMINO ACIDS/PROTEIN HYDROLYS 30 ML LIQUID.PKT PO SCH ×2 (08:53→16:46)
[2021-02-14] MEDS: ZINC SULFATE 220 MG CAPSULE (FP) PO SCH (09:06)
[2021-02-14] MEDS: APIXABAN 5 MG TABLET PO SCH ×2 (09:06→21:28)
[2021-02-14] MEDS: MULTIVITAMINS THER W-MINERALS COMBO TABLET (FP) PO SCH (09:06)
[2021-02-14] MEDS: VITAMIN B COMP W-C 1 EA TABLET (NEPHRO-VITE) PO SCH (09:06)
[2021-02-14] MEDS: QUEtiapine FUMARATE 50 MG TABLET PO SCH (09:07)
[2021-02-14] MEDS: ASCORBIC ACID 250 MG TABLET (FP) PO SCH (12:49)
[2021-02-14] MEDS: COLLAGENASE CLOSTRIDIUM HIST. 30 GRAMS TUBE TP SCH (12:51)
[2021-02-14] MEDS ORDERED: DEXTROSE 5%-WATER - 50 ML IVPB ONE (16:39)
[2021-02-14] MEDS ORDERED: PIPERACILLIN/TAZOBACTAM 3.375 GM VIAL IVPB ONE (16:39)
[2021-02-14] MEDS: PATIENT'S OWN MEDICATION (NON-FORMULARY) (Sofosbuvir/Velpatasvir [Epclusa 400 Mg-100 Mg Ta PO SCH ×2 (17:12→17:13)
[2021-02-14] MEDS: ACETAMINOPHEN 325 MG TABLET (FP) PO PRN (18:10)
[2021-02-14] MEDS ORDERED: PT OWN MED DRAWER 7, Y5N ONE (21:23)
[2021-02-14] MEDS: ATORVASTATIN CA 40 MG TABLET (FP) PO SCH (21:28)
[2021-02-15] MEDS ORDERED: DEXTROSE 5%-WATER - 50 ML IVPB ONE ×3 (01:41→15:43)
[2021-02-15] MEDS ORDERED: PIPERACILLIN/TAZOBACTAM 3.375 GM VIAL IVPB ONE ×3 (01:41→15:43)
[2021-02-15] MEDS: PIPERACILLIN/TAZOB 3.375 GM 3.375 GM in DEXTROSE 5%-WATER - 50 ML IVPB SCH ×3 (01:43→17:16)
[2021-02-15] MEDS: LACTATED RINGERS IVPB SCH ×4 (03:50→21:43)
[2021-02-15] MEDS: WATER IVPB SCH ×4 (03:50→21:43)
[2021-02-15] MEDS: DEXTROSE IVPB SCH ×2 (03:50→07:20)
[2021-02-15] MEDS: ACETAMINOPHEN 325 MG TABLET (FP) PO PRN (03:57)
[2021-02-15] MEDS ORDERED: methaDONE HCL 40 MG DISPERSABLE TABLET ONE (05:30)
[2021-02-15] MEDS ORDERED: methaDONE HCL 10 MG TABLET ONE (05:30)
[2021-02-15] MEDS: methaDONE 80 MG, methaDONE 20 MG PO SCH (05:35)
[2021-02-15] MEDS: PREGABALIN 75 MG CAPSULE PO SCH ×3 (05:36→21:46)
[2021-02-15] MEDS: MAG HYDROX/AL HYDROX/SIMETH 30 ML UNIT-DOSE CUP PO SCH ×3 (05:36→21:44)
[2021-02-15] MEDS ORDERED: DEXTROSE 50% IVPB ONE (06:23)
[2021-02-15] MEDS ORDERED: WATER IVPB ONE (06:23)
[2021-02-15] MEDS ORDERED: LACTATED RINGERS IVPB ONE (06:23)
[2021-02-15] MEDS: AMINO ACIDS/PROTEIN HYDROLYS 30 ML LIQUID.PKT PO SCH ×2 (08:52→17:16)
[2021-02-15] MEDS: MULTIVITAMINS THER W-MINERALS COMBO TABLET (FP) PO SCH (09:38)
[2021-02-15] MEDS: ZINC SULFATE 220 MG CAPSULE (FP) PO SCH (09:38)
[2021-02-15] MEDS: QUEtiapine FUMARATE 50 MG TABLET PO SCH (09:38)
[2021-02-15] MEDS: VITAMIN B COMP W-C 1 EA TABLET (NEPHRO-VITE) PO SCH (09:38)
[2021-02-15] MEDS: APIXABAN 5 MG TABLET PO SCH ×2 (09:38→21:43)
[2021-02-15] MEDS: ASCORBIC ACID 250 MG TABLET (FP) PO SCH (09:39)
[2021-02-15] MEDS: COLLAGENASE CLOSTRIDIUM HIST. 30 GRAMS TUBE TP SCH (09:39)
[2021-02-15] MEDS ORDERED: WATER IVPB SCH (12:45)
[2021-02-15] MEDS ORDERED: DEXTROSE 50% IVPB SCH (12:45)
[2021-02-15] MEDS ORDERED: LACTATED RINGERS IVPB SCH (12:45)
[2021-02-15] MEDS: DEXTROSE 50% IVPB SCH ×2 (13:05→21:43)
[2021-02-15] MEDS ORDERED: ACETAMINOPHEN 1000 MG/100 ML BAG IVPB ONE (19:13)
[2021-02-15] MEDS ORDERED: KETOROLAC TROMETHAMINE 15 MG/ML VIAL IVPUSH ONE (21:30)
[2021-02-15] MEDS: ATORVASTATIN CA 40 MG TABLET (FP) PO SCH (21:43)
[2021-02-16] MEDS ORDERED: PIPERACILLIN/TAZOBACTAM 3.375 GM VIAL IVPB ONE ×2 (01:05→09:29)
[2021-02-16] MEDS ORDERED: DEXTROSE 5%-WATER - 50 ML IVPB ONE ×2 (01:05→09:29)
[2021-02-16] MEDS: PIPERACILLIN/TAZOB 3.375 GM 3.375 GM in DEXTROSE 5%-WATER - 50 ML IVPB SCH ×2 (01:11→17:13)
[2021-02-16] MEDS ORDERED: methaDONE HCL 10 MG TABLET ONE (05:02)
[2021-02-16] MEDS ORDERED: methaDONE HCL 40 MG DISPERSABLE TABLET ONE (05:02)
[2021-02-16 05:16] LABS: PHENCYCLIDINE,URINE NEGATIVE (NEGATIVE); URINE BARBITURATES NEGATIVE (NEGATIVE)
[2021-02-16] MEDS: methaDONE 80 MG, methaDONE 20 MG PO SCH (05:16)
[2021-02-16] MEDS: PREGABALIN 75 MG CAPSULE PO SCH ×3 (05:16→21:50)
[2021-02-16 05:17] LABS: OPIATES, URI NEGATIVE (NEGATIVE); URINE BENZODIAZEPINES NEGATIVE (NEGATIVE)
[2021-02-16] MEDS: MAG HYDROX/AL HYDROX/SIMETH 30 ML UNIT-DOSE CUP PO SCH ×3 (05:17→21:50)
[2021-02-16] MEDS: DEXTROSE 50% IVPB SCH ×2 (05:24→17:13)
[2021-02-16] MEDS: LACTATED RINGERS IVPB SCH ×2 (05:24→17:13)
[2021-02-16] MEDS: WATER IVPB SCH ×2 (05:24→17:13)
[2021-02-16 05:29] LABS: COCAINE, UR POSITIVE (NEGATIVE); METHADONE, UR POSITIVE (NEGATIVE); URINE AMPHETAMINES NEGATIVE (NEGATIVE)
[2021-02-16] MEDS ORDERED: DEXTROSE 50%-WATER - 25 GM/50 ML VIAL IVPUSH ONE (05:29)
[2021-02-16] MEDS ORDERED: PT OWN MED DRAWER 7, Y5N ONE (09:29)
[2021-02-16] MEDS: AMINO ACIDS/PROTEIN HYDROLYS 30 ML LIQUID.PKT PO SCH ×2 (09:33→17:44)
[2021-02-16] MEDS: VITAMIN B COMP W-C 1 EA TABLET (NEPHRO-VITE) PO SCH (09:33)
[2021-02-16] MEDS: ZINC SULFATE 220 MG CAPSULE (FP) PO SCH (09:33)
[2021-02-16] MEDS: ACETAMINOPHEN 325 MG TABLET (FP) PO PRN (09:33)
[2021-02-16] MEDS: APIXABAN 5 MG TABLET PO SCH ×2 (09:33→21:50)
[2021-02-16] MEDS: QUEtiapine FUMARATE 50 MG TABLET PO SCH (09:33)
[2021-02-16] MEDS: MULTIVITAMINS THER W-MINERALS COMBO TABLET (FP) PO SCH (09:34)
[2021-02-16] MEDS: ASCORBIC ACID 250 MG TABLET (FP) PO SCH (09:34)
[2021-02-16 11:59] LABS: ARTERIAL BLD GAS O2 SATURATION 97.9 % (95-98); ARTERIAL BLOOD GAS BASE EXCESS 2.5 mmol/L (-2-2); ARTERIAL BLOOD GAS PO2 98.5 mmHg (80-100); ARTERIAL BLOOD GAS pH 7.475 (7.350-7.450)
[2021-02-16 12:02] LABS: ALLENS TEST POSITIVE
[2021-02-16] MEDS: NICOTINE 14 MG/24 HOURS TOPICAL PATCH TD SCH (13:16)
[2021-02-16] MEDS: COLLAGENASE CLOSTRIDIUM HIST. 30 GRAMS TUBE TP SCH (17:47)
[2021-02-16] MEDS ORDERED: DEXTROSE 4 GM TAB.CHEW PO ONE (21:04)
[2021-02-16] MEDS: ATORVASTATIN CA 40 MG TABLET (FP) PO SCH (21:50)
[2021-02-16] MEDS: MELATONIN 5 MG TABLETS PO PRN (21:50)
[2021-02-17] MEDS ORDERED: GLUCAGON 1 MG KIT IM ONE (01:05)
[2021-02-17] MEDS: PIPERACILLIN/TAZOB 3.375 GM 3.375 GM in DEXTROSE 5%-WATER - 50 ML IVPB SCH ×3 (01:14→17:13)
[2021-02-17] MEDS ORDERED: methaDONE HCL 10 MG TABLET ONE (04:50)
[2021-02-17] MEDS ORDERED: methaDONE HCL 40 MG DISPERSABLE TABLET ONE (04:51)
[2021-02-17] MEDS: PREGABALIN 75 MG CAPSULE PO SCH ×3 (05:06→22:38)
[2021-02-17] MEDS: methaDONE 80 MG, methaDONE 20 MG PO SCH (05:06)
[2021-02-17] MEDS: MAG HYDROX/AL HYDROX/SIMETH 30 ML UNIT-DOSE CUP PO SCH ×3 (05:07→22:41)
[2021-02-17] MEDS: QUEtiapine FUMARATE 50 MG TABLET PO SCH (11:06)
[2021-02-17] MEDS: AMINO ACIDS/PROTEIN HYDROLYS 30 ML LIQUID.PKT PO SCH ×2 (11:06→17:13)
[2021-02-17] MEDS: NICOTINE 14 MG/24 HOURS TOPICAL PATCH TD SCH (11:06)
[2021-02-17] MEDS: APIXABAN 5 MG TABLET PO SCH ×2 (11:07→22:38)
[2021-02-17] MEDS: ASCORBIC ACID 250 MG TABLET (FP) PO SCH (11:07)
[2021-02-17] MEDS: ZINC SULFATE 220 MG CAPSULE (FP) PO SCH (11:07)
[2021-02-17] MEDS: VITAMIN B COMP W-C 1 EA TABLET (NEPHRO-VITE) PO SCH (11:07)
[2021-02-17] MEDS: MULTIVITAMINS THER W-MINERALS COMBO TABLET (FP) PO SCH (11:07)
[2021-02-17] MEDS: COLLAGENASE CLOSTRIDIUM HIST. 30 GRAMS TUBE TP SCH (15:52)
[2021-02-17] MEDS ORDERED: PIPERACILLIN/TAZOBACTAM 3.375 GM VIAL IVPB ONE (16:29)
[2021-02-17] MEDS ORDERED: DEXTROSE 5%-WATER - 50 ML IVPB ONE (16:30)
[2021-02-17] MEDS: GLUCAGON 1 MG KIT IM PRN (17:07)
[2021-02-17] MEDS: DEXTROSE 5%-WATER - 1,000 ML IV SCH (17:33)
[2021-02-17] MEDS: ATORVASTATIN CA 40 MG TABLET (FP) PO SCH (22:38)
[2021-02-18] MEDS ORDERED: DEXTROSE 5%-WATER - 50 ML IVPB ONE ×2 (01:25→16:49)
[2021-02-18] MEDS ORDERED: PIPERACILLIN/TAZOBACTAM 3.375 GM VIAL IVPB ONE ×2 (01:25→16:48)
[2021-02-18] MEDS: PIPERACILLIN/TAZOB 3.375 GM 3.375 GM in DEXTROSE 5%-WATER - 50 ML IVPB SCH ×3 (01:37→17:24)
[2021-02-18] MEDS ORDERED: methaDONE HCL 10 MG TABLET ONE (04:32)
[2021-02-18] MEDS ORDERED: methaDONE HCL 40 MG DISPERSABLE TABLET ONE (04:32)
[2021-02-18] MEDS: PREGABALIN 75 MG CAPSULE PO SCH ×3 (05:32→22:27)
[2021-02-18] MEDS: methaDONE 80 MG, methaDONE 20 MG PO SCH (05:32)
[2021-02-18] MEDS: MAG HYDROX/AL HYDROX/SIMETH 30 ML UNIT-DOSE CUP PO SCH ×3 (05:34→22:27)
[2021-02-18] MEDS: GLUCAGON 1 MG KIT IM PRN ×3 (05:53→22:27)
[2021-02-18] MEDS: AMINO ACIDS/PROTEIN HYDROLYS 30 ML LIQUID.PKT PO SCH ×2 (10:24→17:24)
[2021-02-18] MEDS: QUEtiapine FUMARATE 50 MG TABLET PO SCH (10:24)
[2021-02-18] MEDS: APIXABAN 5 MG TABLET PO SCH ×2 (10:25→22:27)
[2021-02-18] MEDS: NICOTINE 14 MG/24 HOURS TOPICAL PATCH TD SCH (10:25)
[2021-02-18] MEDS: ZINC SULFATE 220 MG CAPSULE (FP) PO SCH (10:25)
[2021-02-18] MEDS: VITAMIN B COMP W-C 1 EA TABLET (NEPHRO-VITE) PO SCH (10:25)
[2021-02-18] MEDS: MULTIVITAMINS THER W-MINERALS COMBO TABLET (FP) PO SCH (10:25)
[2021-02-18] MEDS: ASCORBIC ACID 250 MG TABLET (FP) PO SCH (10:25)
[2021-02-18] MEDS: COLLAGENASE CLOSTRIDIUM HIST. 30 GRAMS TUBE TP SCH (10:26)
[2021-02-18 12:49] LABS: HEMATOCRIT 25.9 % (35.4-49); HEMOGLOBIN 8.2 GM/dL (11.7-16.9); MCH 26.7 pg (25.7-33.7); MCHC 31.8 g/dl (32.0-35.9); MEAN PLT VOLUME 8.8 fl (7.5-11.1); RBC 3.08 M/mm3 (4.00-5.60); RDW 16.1 % (11.9-15.9)
[2021-02-18 12:59] LABS: CALCIUM 8.1 mg/dL (8.5-10.1)
[2021-02-18 13:00] LABS: ALBUMIN 1.5 g/dl (3.4-5.0); PLATELET COUNT 235 10^3/uL (134-434); WHITE BLOOD COUNT 11.8 K/mm3 (4.0-10.0)
[2021-02-18 13:04] LABS: CREATININE 1.2 mg/dL (0.55-1.3)
[2021-02-18 13:05] LABS: BILIRUBIN,TOTAL 0.8 mg/dL (0.2-1)
[2021-02-18 13:06] LABS: TOT PROT 6.3 g/dl (6.4-8.2)
[2021-02-18] MEDS: DEXTROSE 50% IVPB SCH ×2 (13:10→17:31)
[2021-02-18] MEDS: LACTATED RINGERS IVPB SCH ×2 (13:10→17:31)
[2021-02-18] MEDS: WATER IVPB SCH ×2 (13:10→17:31)
[2021-02-18] MEDS: DEXTROSE 5%-WATER - 1,000 ML IV SCH (17:30)
[2021-02-18] MEDS ORDERED: AMOX TR/POT CLAV 875MG/125MG TABLETS (FP) PO SCH (17:30)
[2021-02-18] MEDS: ACETAMINOPHEN 325 MG TABLET (FP) PO PRN (22:25)
[2021-02-18] MEDS: ATORVASTATIN CA 40 MG TABLET (FP) PO SCH (22:27)
[2021-02-19] MEDS ORDERED: DEXTROSE 5%-WATER - 50 ML IVPB ONE ×3 (01:12→16:50)
[2021-02-19] MEDS ORDERED: PIPERACILLIN/TAZOBACTAM 3.375 GM VIAL IVPB ONE ×3 (01:12→16:50)
[2021-02-19] MEDS: PIPERACILLIN/TAZOB 3.375 GM 3.375 GM in DEXTROSE 5%-WATER - 50 ML IVPB SCH ×3 (01:41→18:16)
[2021-02-19] MEDS ORDERED: methaDONE HCL 10 MG TABLET ONE (05:54)
[2021-02-19] MEDS ORDERED: methaDONE HCL 40 MG DISPERSABLE TABLET ONE (05:55)
[2021-02-19] MEDS: methaDONE 80 MG, methaDONE 20 MG PO SCH (06:00)
[2021-02-19] MEDS: PREGABALIN 75 MG CAPSULE PO SCH ×3 (06:01→21:26)
[2021-02-19] MEDS: MAG HYDROX/AL HYDROX/SIMETH 30 ML UNIT-DOSE CUP PO SCH ×3 (06:01→21:26)
[2021-02-19] MEDS: GLUCAGON 1 MG KIT IM PRN ×2 (06:14→11:07)
[2021-02-19 08:59] LABS: CHLORIDE 108 mmol/L (98-107); SODIUM 140 mmol/L (136-145)
[2021-02-19 09:01] LABS: ANION GAP 7 MMOL/L (8-16); CALCIUM 8.2 mg/dL (8.5-10.1); CO2 25 mmol/L (21-32)
[2021-02-19 09:05] LABS: CREATININE 1.3 mg/dL (0.55-1.3)
[2021-02-19 09:06] LABS: GLUCOSE,RANDOM 32 mg/dL (74-106)
[2021-02-19] MEDS: DEXTROSE 5%-WATER - 1,000 ML IV SCH ×2 (10:08→21:18)
[2021-02-19] MEDS: APIXABAN 5 MG TABLET PO SCH ×2 (10:09→21:26)
[2021-02-19] MEDS: ZINC SULFATE 220 MG CAPSULE (FP) PO SCH (10:09)
[2021-02-19] MEDS: MULTIVITAMINS THER W-MINERALS COMBO TABLET (FP) PO SCH (10:09)
[2021-02-19] MEDS: NICOTINE 14 MG/24 HOURS TOPICAL PATCH TD SCH (10:09)
[2021-02-19] MEDS: QUEtiapine FUMARATE 50 MG TABLET PO SCH (10:09)
[2021-02-19] MEDS: COLLAGENASE CLOSTRIDIUM HIST. 30 GRAMS TUBE TP SCH (10:09)
[2021-02-19] MEDS: ASCORBIC ACID 250 MG TABLET (FP) PO SCH (10:09)
[2021-02-19] MEDS: AMINO ACIDS/PROTEIN HYDROLYS 30 ML LIQUID.PKT PO SCH ×2 (10:09→17:53)
[2021-02-19] MEDS: VITAMIN B COMP W-C 1 EA TABLET (NEPHRO-VITE) PO SCH (10:09)
[2021-02-19] MEDS: POLYETHYLENE GLYCOL (HEALTHYLAX) 3350 17 GM PACKET PO PRN (10:09)
[2021-02-19] MEDS: LACTATED RINGERS IVPB SCH (12:54)
[2021-02-19] MEDS: DEXTROSE 50% IVPB SCH (12:54)
[2021-02-19] MEDS: WATER IVPB SCH (12:54)
[2021-02-19] MEDS: ATORVASTATIN CA 40 MG TABLET (FP) PO SCH (21:26)
[2021-02-20] MEDS ORDERED: PIPERACILLIN/TAZOBACTAM 3.375 GM VIAL IVPB ONE ×3 (02:08→17:12)
[2021-02-20] MEDS ORDERED: DEXTROSE 5%-WATER - 50 ML IVPB ONE ×3 (02:08→17:12)
[2021-02-20] MEDS: PIPERACILLIN/TAZOB 3.375 GM 3.375 GM in DEXTROSE 5%-WATER - 50 ML IVPB SCH ×3 (02:12→18:27)
[2021-02-20] MEDS ORDERED: methaDONE HCL 40 MG DISPERSABLE TABLET ONE (05:49)
[2021-02-20] MEDS ORDERED: methaDONE HCL 10 MG TABLET ONE (05:49)
[2021-02-20] MEDS: methaDONE 80 MG, methaDONE 20 MG PO SCH (05:57)
[2021-02-20] MEDS: DEXTROSE 5%-WATER - 1,000 ML IV SCH (05:57)
[2021-02-20] MEDS: PREGABALIN 75 MG CAPSULE PO SCH ×3 (05:58→21:06)
[2021-02-20] MEDS: MAG HYDROX/AL HYDROX/SIMETH 30 ML UNIT-DOSE CUP PO SCH ×3 (06:07→21:08)
[2021-02-20] MEDS: GLUCAGON 1 MG KIT IM PRN ×3 (06:25→21:07)
[2021-02-20] MEDS: AMINO ACIDS/PROTEIN HYDROLYS 30 ML LIQUID.PKT PO SCH ×2 (09:50→18:27)
[2021-02-20] MEDS: APIXABAN 5 MG TABLET PO SCH ×2 (09:51→21:06)
[2021-02-20] MEDS: NICOTINE 14 MG/24 HOURS TOPICAL PATCH TD SCH (09:51)
[2021-02-20] MEDS: QUEtiapine FUMARATE 50 MG TABLET PO SCH (09:51)
[2021-02-20] MEDS: VITAMIN B COMP W-C 1 EA TABLET (NEPHRO-VITE) PO SCH (09:51)
[2021-02-20] MEDS: POLYETHYLENE GLYCOL (HEALTHYLAX) 3350 17 GM PACKET PO PRN (09:51)
[2021-02-20] MEDS: ZINC SULFATE 220 MG CAPSULE (FP) PO SCH (09:51)
[2021-02-20] MEDS: MULTIVITAMINS THER W-MINERALS COMBO TABLET (FP) PO SCH (09:51)
[2021-02-20] MEDS: COLLAGENASE CLOSTRIDIUM HIST. 30 GRAMS TUBE TP SCH (09:51)
[2021-02-20] MEDS: ASCORBIC ACID 250 MG TABLET (FP) PO SCH (09:51)
[2021-02-20] MEDS: LACTATED RINGERS IVPB SCH (12:40)
[2021-02-20] MEDS: WATER IVPB SCH (12:40)
[2021-02-20] MEDS: DEXTROSE 50% IVPB SCH (12:40)
[2021-02-20] MEDS: ATORVASTATIN CA 40 MG TABLET (FP) PO SCH (21:08)
[2021-02-21] MEDS ORDERED: PIPERACILLIN/TAZOBACTAM 3.375 GM VIAL IVPB ONE ×3 (01:38→17:36)
[2021-02-21] MEDS ORDERED: DEXTROSE 5%-WATER - 50 ML IVPB ONE ×3 (01:38→17:36)
[2021-02-21] MEDS: PIPERACILLIN/TAZOB 3.375 GM 3.375 GM in DEXTROSE 5%-WATER - 50 ML IVPB SCH ×3 (02:03→17:39)
[2021-02-21] MEDS: DEXTROSE 5%-WATER - 1,000 ML IV SCH ×2 (02:03→21:34)
[2021-02-21] MEDS ORDERED: methaDONE HCL 10 MG TABLET ONE (05:32)
[2021-02-21] MEDS ORDERED: methaDONE HCL 40 MG DISPERSABLE TABLET ONE (05:32)
[2021-02-21] MEDS: methaDONE 80 MG, methaDONE 20 MG PO SCH (05:38)
[2021-02-21] MEDS: PREGABALIN 75 MG CAPSULE PO SCH ×3 (05:39→21:35)
[2021-02-21] MEDS: MAG HYDROX/AL HYDROX/SIMETH 30 ML UNIT-DOSE CUP PO SCH ×3 (05:39→21:35)
[2021-02-21] MEDS: GLUCAGON 1 MG KIT IM PRN ×2 (05:47→21:45)
[2021-02-21] MEDS ORDERED: PT OWN MED DRAWER 7, Y5N ONE (11:45)
[2021-02-21] MEDS: QUEtiapine FUMARATE 50 MG TABLET PO SCH (11:52)
[2021-02-21] MEDS: VITAMIN B COMP W-C 1 EA TABLET (NEPHRO-VITE) PO SCH (11:53)
[2021-02-21] MEDS: MULTIVITAMINS THER W-MINERALS COMBO TABLET (FP) PO SCH (11:53)
[2021-02-21] MEDS: ZINC SULFATE 220 MG CAPSULE (FP) PO SCH (11:53)
[2021-02-21] MEDS: NICOTINE 14 MG/24 HOURS TOPICAL PATCH TD SCH (11:53)
[2021-02-21] MEDS: AMINO ACIDS/PROTEIN HYDROLYS 30 ML LIQUID.PKT PO SCH ×2 (11:54→17:40)
[2021-02-21] MEDS: ASCORBIC ACID 250 MG TABLET (FP) PO SCH (11:54)
[2021-02-21] MEDS: APIXABAN 5 MG TABLET PO SCH ×2 (11:54→21:35)
[2021-02-21] MEDS: WATER IVPB SCH (13:16)
[2021-02-21] MEDS: DEXTROSE 50% IVPB SCH (13:16)
[2021-02-21] MEDS: LACTATED RINGERS IVPB SCH (13:16)
[2021-02-21] MEDS: COLLAGENASE CLOSTRIDIUM HIST. 30 GRAMS TUBE TP SCH (17:39)
[2021-02-21] MEDS: ATORVASTATIN CA 40 MG TABLET (FP) PO SCH (21:35)
[2021-02-22] MEDS ORDERED: PIPERACILLIN/TAZOBACTAM 3.375 GM VIAL IVPB ONE ×3 (01:29→18:24)
[2021-02-22] MEDS ORDERED: DEXTROSE 5%-WATER - 50 ML IVPB ONE ×3 (01:29→18:25)
[2021-02-22] MEDS: PIPERACILLIN/TAZOB 3.375 GM 3.375 GM in DEXTROSE 5%-WATER - 50 ML IVPB SCH ×3 (02:02→18:32)
[2021-02-22] MEDS ORDERED: methaDONE HCL 40 MG DISPERSABLE TABLET ONE (05:27)
[2021-02-22] MEDS ORDERED: methaDONE HCL 10 MG TABLET ONE (05:27)
[2021-02-22] MEDS: methaDONE 80 MG, methaDONE 20 MG PO SCH (05:31)
[2021-02-22] MEDS: PREGABALIN 75 MG CAPSULE PO SCH ×3 (05:32→21:21)
[2021-02-22] MEDS: MAG HYDROX/AL HYDROX/SIMETH 30 ML UNIT-DOSE CUP PO SCH ×3 (05:32→21:21)
[2021-02-22] MEDS: GLUCAGON 1 MG KIT IM PRN ×2 (05:36→22:00)
[2021-02-22] MEDS ORDERED: PT OWN MED DRAWER 7, Y5N ONE (11:26)
[2021-02-22] MEDS: AMINO ACIDS/PROTEIN HYDROLYS 30 ML LIQUID.PKT PO SCH ×2 (11:53→18:32)
[2021-02-22] MEDS: QUEtiapine FUMARATE 50 MG TABLET PO SCH (11:54)
[2021-02-22] MEDS: ASCORBIC ACID 250 MG TABLET (FP) PO SCH (11:54)
[2021-02-22] MEDS: APIXABAN 5 MG TABLET PO SCH ×2 (11:54→21:21)
[2021-02-22] MEDS: ZINC SULFATE 220 MG CAPSULE (FP) PO SCH (11:54)
[2021-02-22] MEDS: VITAMIN B COMP W-C 1 EA TABLET (NEPHRO-VITE) PO SCH (11:56)
[2021-02-22] MEDS: MULTIVITAMINS THER W-MINERALS COMBO TABLET (FP) PO SCH (11:56)
[2021-02-22] MEDS: COLLAGENASE CLOSTRIDIUM HIST. 30 GRAMS TUBE TP SCH (11:56)
[2021-02-22] MEDS: NICOTINE 14 MG/24 HOURS TOPICAL PATCH TD SCH (11:58)
[2021-02-22] MEDS: DEXTROSE 50% IVPB SCH (13:47)
[2021-02-22] MEDS: LACTATED RINGERS IVPB SCH (13:47)
[2021-02-22] MEDS: WATER IVPB SCH (13:47)
[2021-02-22 16:20] LABS: BASO % 0.6 % (0-2.0); HEMATOCRIT 22.9 % (35.4-49); HEMOGLOBIN 7.4 GM/dL (11.7-16.9); LYMPH % 15.8 % (8-40); MCHC 32.3 g/dl (32.0-35.9); MEAN CELL VOLUME 83.6 fl (80-96); MEAN PLT VOLUME 8.1 fl (7.5-11.1); MONO % 8.6 % (3.8-10.2); PLATELET COUNT 325 10^3/uL (134-434); RBC 2.74 M/mm3 (4.00-5.60); RDW 16.2 % (11.9-15.9); WHITE BLOOD COUNT 6.5 K/mm3 (4.0-10.0)
[2021-02-22 16:44] LABS: ALBUMIN 1.3 g/dl (3.4-5.0); BLOOD UREA NITROGEN 24.7 mg/dL (7-18)
[2021-02-22 16:47] LABS: CREATININE 1.3 mg/dL (0.55-1.3)
[2021-02-22 16:49] LABS: BILIRUBIN,TOTAL 0.6 mg/dL (0.2-1); TOT PROT 5.7 g/dl (6.4-8.2)
[2021-02-22] MEDS: DEXTROSE 5%-WATER - 1,000 ML IV SCH (18:59)
[2021-02-22] MEDS: ATORVASTATIN CA 40 MG TABLET (FP) PO SCH (21:21)
[2021-02-23] MEDS ORDERED: PIPERACILLIN/TAZOBACTAM 3.375 GM VIAL IVPB ONE ×3 (01:25→16:53)
[2021-02-23] MEDS ORDERED: DEXTROSE 5%-WATER - 50 ML IVPB ONE ×3 (01:25→16:53)
[2021-02-23] MEDS: PIPERACILLIN/TAZOB 3.375 GM 3.375 GM in DEXTROSE 5%-WATER - 50 ML IVPB SCH ×3 (03:07→17:16)
[2021-02-23] MEDS ORDERED: methaDONE HCL 10 MG TABLET ONE (05:34)
[2021-02-23] MEDS ORDERED: methaDONE HCL 40 MG DISPERSABLE TABLET ONE (05:34)
[2021-02-23] MEDS: GLUCAGON 1 MG KIT IM PRN (05:46)
[2021-02-23] MEDS: PREGABALIN 75 MG CAPSULE PO SCH ×3 (05:50→21:42)
[2021-02-23] MEDS: methaDONE 80 MG, methaDONE 20 MG PO SCH (05:50)
[2021-02-23] MEDS: MAG HYDROX/AL HYDROX/SIMETH 30 ML UNIT-DOSE CUP PO SCH ×3 (05:51→21:42)
[2021-02-23] MEDS: DEXTROSE 5%-WATER - 1,000 ML IV SCH ×3 (09:41→19:39)
[2021-02-23] MEDS: AMINO ACIDS/PROTEIN HYDROLYS 30 ML LIQUID.PKT PO SCH ×2 (09:44→17:15)
[2021-02-23] MEDS: APIXABAN 5 MG TABLET PO SCH ×2 (09:44→21:42)
[2021-02-23] MEDS: ZINC SULFATE 220 MG CAPSULE (FP) PO SCH (09:44)
[2021-02-23] MEDS: MULTIVITAMINS THER W-MINERALS COMBO TABLET (FP) PO SCH (09:44)
[2021-02-23] MEDS: QUEtiapine FUMARATE 50 MG TABLET PO SCH (09:44)
[2021-02-23] MEDS: VITAMIN B COMP W-C 1 EA TABLET (NEPHRO-VITE) PO SCH (09:44)
[2021-02-23] MEDS: NICOTINE 14 MG/24 HOURS TOPICAL PATCH TD SCH (09:44)
[2021-02-23] MEDS: ASCORBIC ACID 250 MG TABLET (FP) PO SCH (09:47)
[2021-02-23] MEDS: COLLAGENASE CLOSTRIDIUM HIST. 30 GRAMS TUBE TP SCH (09:47)
[2021-02-23 09:52] LABS: BASO % 0.5 % (0-2.0); EOS % 0.8 % (0-4.5); HEMATOCRIT 26.4 % (35.4-49); HEMOGLOBIN 8.6 GM/dL (11.7-16.9); LYMPH % 21.5 % (8-40); MCH 27.6 pg (25.7-33.7); MCHC 32.5 g/dl (32.0-35.9); MEAN CELL VOLUME 84.7 fl (80-96); MEAN PLT VOLUME 8.1 fl (7.5-11.1); MONO % 6.9 % (3.8-10.2); NEUT % 70.3 % (42.8-82.8); PLATELET COUNT 386 10^3/uL (134-434); RBC 3.12 M/mm3 (4.00-5.60); RDW 16.6 % (11.9-15.9); WHITE BLOOD COUNT 10.5 K/mm3 (4.0-10.0)
[2021-02-23 10:19] LABS: CALCIUM 8.3 mg/dL (8.5-10.1)
[2021-02-23 10:20] LABS: ALBUMIN 1.5 g/dl (3.4-5.0); BLOOD UREA NITROGEN 28.2 mg/dL (7-18)
[2021-02-23 10:22] LABS: CREATININE 1.2 mg/dL (0.55-1.3)
[2021-02-23 10:24] LABS: BILIRUBIN,TOTAL 0.6 mg/dL (0.2-1); TOT PROT 6.4 g/dl (6.4-8.2)
[2021-02-23] MEDS: ATORVASTATIN CA 40 MG TABLET (FP) PO SCH (21:42)
[2021-02-24] MEDS ORDERED: DEXTROSE 5%-WATER - 50 ML IVPB ONE ×3 (01:30→16:39)
[2021-02-24] MEDS ORDERED: PIPERACILLIN/TAZOBACTAM 3.375 GM VIAL IVPB ONE ×3 (01:30→16:38)
[2021-02-24] MEDS: PIPERACILLIN/TAZOB 3.375 GM 3.375 GM in DEXTROSE 5%-WATER - 50 ML IVPB SCH ×3 (02:09→17:42)
[2021-02-24] MEDS ORDERED: methaDONE HCL 10 MG TABLET ONE (05:04)
[2021-02-24] MEDS ORDERED: methaDONE HCL 40 MG DISPERSABLE TABLET ONE (05:05)
[2021-02-24] MEDS: methaDONE 80 MG, methaDONE 20 MG PO SCH (05:27)
[2021-02-24] MEDS: DEXTROSE 5%-WATER - 1,000 ML IV SCH (05:27)
[2021-02-24] MEDS: GLUCAGON 1 MG KIT IM PRN ×4 (05:41→23:25)
[2021-02-24] MEDS: PREGABALIN 75 MG CAPSULE PO SCH ×3 (05:41→23:12)
[2021-02-24] MEDS: MAG HYDROX/AL HYDROX/SIMETH 30 ML UNIT-DOSE CUP PO SCH ×3 (05:53→23:12)
[2021-02-24] MEDS: APIXABAN 5 MG TABLET PO SCH ×2 (10:03→23:12)
[2021-02-24] MEDS: QUEtiapine FUMARATE 50 MG TABLET PO SCH (10:03)
[2021-02-24] MEDS: AMINO ACIDS/PROTEIN HYDROLYS 30 ML LIQUID.PKT PO SCH ×2 (10:03→16:48)
[2021-02-24] MEDS: VITAMIN B COMP W-C 1 EA TABLET (NEPHRO-VITE) PO SCH (10:03)
[2021-02-24] MEDS: MULTIVITAMINS THER W-MINERALS COMBO TABLET (FP) PO SCH (10:03)
[2021-02-24] MEDS: ZINC SULFATE 220 MG CAPSULE (FP) PO SCH (10:03)
[2021-02-24] MEDS: NICOTINE 14 MG/24 HOURS TOPICAL PATCH TD SCH (10:03)
[2021-02-24] MEDS: COLLAGENASE CLOSTRIDIUM HIST. 30 GRAMS TUBE TP SCH (10:03)
[2021-02-24] MEDS: ASCORBIC ACID 250 MG TABLET (FP) PO SCH (10:03)
[2021-02-24] MEDS ORDERED: DEXTROSE 50%-WATER - 25 GM/50 ML VIAL ONE (14:19)
[2021-02-24] MEDS ORDERED: DEXTROSE 50%-WATER - 25 GM/50 ML VIAL IVPUSH ONE (14:30)
[2021-02-24] MEDS ORDERED: SODIUM CHLORIDE 1,000 ML IV SCH (14:30)
[2021-02-24] MEDS ORDERED: DEXTROSE 10%-WATER - 1,000 ML IV SCH (14:45)
[2021-02-24] MEDS ORDERED: DEXTROSE 10%-WATER - 500 ML IV SCH (17:43)
[2021-02-24 20:32] LABS: BASO % 0.4 % (0-2.0); EOS % 0.8 % (0-4.5); HEMATOCRIT 25.8 % (35.4-49); HEMOGLOBIN 8.3 GM/dL (11.7-16.9); LYMPH % 14.6 % (8-40); MCHC 32.2 g/dl (32.0-35.9); MEAN CELL VOLUME 83.8 fl (80-96); MEAN PLT VOLUME 8.1 fl (7.5-11.1); NEUT % 76.2 % (42.8-82.8); PLATELET COUNT 402 10^3/uL (134-434); RBC 3.08 M/mm3 (4.00-5.60); RDW 16.8 % (11.9-15.9); WHITE BLOOD COUNT 8.8 K/mm3 (4.0-10.0)
[2021-02-24 20:40] LABS: INR 1.89 (0.83-1.09); PROTHROMBIN TIME (PATIENT) 22.2 SEC (9.7-13.0)
[2021-02-24 20:43] LABS: ACTIVATED PTT 33.8 SECONDS (25.2-36.5)
[2021-02-24 20:51] LABS: CHLORIDE 106 mmol/L (98-107); SODIUM 139 mmol/L (136-145)
[2021-02-24 20:53] LABS: ANION GAP 7 MMOL/L (8-16); BLOOD UREA NITROGEN 26.3 mg/dL (7-18); CALCIUM 8.4 mg/dL (8.5-10.1); CO2 26 mmol/L (21-32)
[2021-02-24 20:54] LABS: ALBUMIN 1.5 g/dl (3.4-5.0); GLUCOSE,RANDOM 102 mg/dL (74-106)
[2021-02-24 20:54] LABS: CHOLESTEROL 110 mg/dL (50-200)
[2021-02-24 20:55] LABS: TRIGLYCERIDES 91 mg/dL (0-150)
[2021-02-24 20:56] LABS: CREATININE 1.1 mg/dL (0.55-1.3)
[2021-02-24 20:56] LABS: LDL CHOLESTEROL (ONLY SJRH) 65 mg/dL (5-100)
[2021-02-24 20:57] LABS: HDL CHOLESTEROL 33 mg/dL (40-60)
[2021-02-24 20:57] LABS: SGOT/AST 24 U/L (15-37); SGPT/ALT 17 U/L (13-61)
[2021-02-24 20:58] LABS: BILIRUBIN,TOTAL 0.4 mg/dL (0.2-1); TOT PROT 6.2 g/dl (6.4-8.2)
[2021-02-24 20:59] LABS: ALK PHOS 222 U/L (45-117)
[2021-02-24] MEDS: ATORVASTATIN CA 40 MG TABLET (FP) PO SCH (23:12)
[2021-02-25] MEDS ORDERED: PIPERACILLIN/TAZOBACTAM 3.375 GM VIAL IVPB ONE ×4 (01:42→23:28)
[2021-02-25] MEDS ORDERED: DEXTROSE 5%-WATER - 50 ML IVPB ONE ×4 (01:42→23:28)
[2021-02-25] MEDS: PIPERACILLIN/TAZOB 3.375 GM 3.375 GM in DEXTROSE 5%-WATER - 50 ML IVPB SCH ×3 (01:53→17:51)
[2021-02-25] MEDS: DEXTROSE 5%-WATER - 1,000 ML IV SCH (03:16)
[2021-02-25] MEDS: MAG HYDROX/AL HYDROX/SIMETH 30 ML UNIT-DOSE CUP PO SCH ×3 (06:30→21:33)
[2021-02-25] MEDS ORDERED: GlUCAGON HUMAN RECOMBINANT 1 MG/VIAL IM ONE (06:55)
[2021-02-25] MEDS: GLUCAGON 1 MG KIT IM PRN (06:58)
[2021-02-25] MEDS: PREGABALIN 75 MG CAPSULE PO SCH ×3 (07:00→21:35)
[2021-02-25] MEDS ORDERED: INSULIN (NOVOLOG) ASPART 100 UNITS/ML 10ML VIAL ONE (07:08)
[2021-02-25] MEDS ORDERED: PT OWN MED DRAWER 7, Y5N ONE (08:43)
[2021-02-25] MEDS: QUEtiapine FUMARATE 50 MG TABLET PO SCH (10:03)
[2021-02-25] MEDS: AMINO ACIDS/PROTEIN HYDROLYS 30 ML LIQUID.PKT PO SCH ×2 (10:03→17:43)
[2021-02-25] MEDS: MULTIVITAMINS THER W-MINERALS COMBO TABLET (FP) PO SCH (10:03)
[2021-02-25] MEDS: NICOTINE 14 MG/24 HOURS TOPICAL PATCH TD SCH (10:03)
[2021-02-25] MEDS: VITAMIN B COMP W-C 1 EA TABLET (NEPHRO-VITE) PO SCH (10:04)
[2021-02-25] MEDS: COLLAGENASE CLOSTRIDIUM HIST. 30 GRAMS TUBE TP SCH (10:04)
[2021-02-25] MEDS: APIXABAN 5 MG TABLET PO SCH ×2 (10:04→21:34)
[2021-02-25] MEDS: ZINC SULFATE 220 MG CAPSULE (FP) PO SCH (10:04)
[2021-02-25] MEDS: ASCORBIC ACID 250 MG TABLET (FP) PO SCH (10:06)
[2021-02-25] MEDS: MELATONIN 5 MG TABLETS PO PRN (21:33)
[2021-02-25] MEDS: ATORVASTATIN CA 40 MG TABLET (FP) PO SCH (21:34)
[2021-02-26] MEDS: PIPERACILLIN/TAZOB 3.375 GM 3.375 GM in DEXTROSE 5%-WATER - 50 ML IVPB SCH ×2 (01:56→09:37)
[2021-02-26] MEDS: MAG HYDROX/AL HYDROX/SIMETH 30 ML UNIT-DOSE CUP PO SCH (06:20)
[2021-02-26] MEDS: PREGABALIN 75 MG CAPSULE PO SCH (06:20)
[2021-02-26] MEDS ORDERED: DEXTROSE 5%-WATER - 50 ML IVPB ONE (08:23)
[2021-02-26] MEDS ORDERED: PIPERACILLIN/TAZOBACTAM 3.375 GM VIAL IVPB ONE (08:23)
[2021-02-26 08:52] LABS: BASO % 0.7 % (0-2.0); EOS % 2.3 % (0-4.5); HEMOGLOBIN 7.9 GM/dL (11.7-16.9); LYMPH % 26.2 % (8-40); MCH 27.3 pg (25.7-33.7); MCHC 32.9 g/dl (32.0-35.9); MEAN CELL VOLUME 82.9 fl (80-96); MEAN PLT VOLUME 7.9 fl (7.5-11.1); MONO % 12.8 % (3.8-10.2); PLATELET COUNT 370 10^3/uL (134-434); RDW 16.2 % (11.9-15.9)
[2021-02-26 09:20] LABS: CALCIUM 8.6 mg/dL (8.5-10.1)
[2021-02-26 09:21] LABS: ALBUMIN 1.6 g/dl (3.4-5.0); BLOOD UREA NITROGEN 22.4 mg/dL (7-18)
[2021-02-26 09:23] LABS: CREATININE 1.1 mg/dL (0.55-1.3)
[2021-02-26 09:25] LABS: BILIRUBIN,TOTAL 0.5 mg/dL (0.2-1); TOT PROT 5.9 g/dl (6.4-8.2)
[2021-02-26] MEDS: NICOTINE 14 MG/24 HOURS TOPICAL PATCH TD SCH (09:38)
[2021-02-26] MEDS: APIXABAN 5 MG TABLET PO SCH (09:38)
[2021-02-26] MEDS: VITAMIN B COMP W-C 1 EA TABLET (NEPHRO-VITE) PO SCH (09:40)
[2021-02-26] MEDS: QUEtiapine FUMARATE 50 MG TABLET PO SCH (09:40)
[2021-02-26] MEDS: ZINC SULFATE 220 MG CAPSULE (FP) PO SCH (09:40)
[2021-02-26] MEDS: MULTIVITAMINS THER W-MINERALS COMBO TABLET (FP) PO SCH (09:41)
[2021-02-26] MEDS: AMINO ACIDS/PROTEIN HYDROLYS 30 ML LIQUID.PKT PO SCH (09:41)
[2021-02-26] MEDS: ASCORBIC ACID 250 MG TABLET (FP) PO SCH (09:42)
[2021-02-26] MEDS: COLLAGENASE CLOSTRIDIUM HIST. 30 GRAMS TUBE TP SCH (09:42)
[2021-02-26 11:30] VITALS: BP 139/83; PULSE 91; TEMP 98.6
== END 2021-02-26 15:05 | DRG 540 ==
LOC: JER 19:38 → JERBED 02-11 01:35 → J7W 02-12 00:33
PROVIDERS: ATTEND Family Medicine
PROC: 05HF33Z Insertion of Infusion Device into Left Cephalic Vein, Percutaneous Approach (ICD-10-PCS; 2021-02-18)
PROC: 05HB33Z Insertion of Infusion Device into Right Basilic Vein, Percutaneous Approach (ICD-10-PCS; principal; 2021-02-23)
PROC: B51MZZA Fluoroscopy of Right Upper Extremity Veins, Guidance (ICD-10-PCS; 2021-02-23)
DX: M46.26 Osteomyelitis of vertebra, lumbar region (principal); R78.81 Bacteremia; F11.20 Opioid dependence, uncomplicated; N17.9 Acute kidney failure, unspecified; E10.649 Type 1 diabetes mellitus with hypoglycemia without coma; L89.152 Pressure ulcer of sacral region, stage 2; B96.89 Other specified bacterial agents as the cause of diseases classified elsewhere; D72.829 Elevated white blood cell count, unspecified; E83.42 Hypomagnesemia; D64.9 Anemia, unspecified; F17.210 Nicotine dependence, cigarettes, uncomplicated; I10 Essential (primary) hypertension; E78.5 Hyperlipidemia, unspecified; I95.9 Hypotension, unspecified
CPT/HCPCS: 36415; 36569; 36600; 70450-TC; 71045-TC-FY; 72131-TC; 80048; 80053; 80061; 80307; 82550; 82803; 82947; 82962; 83036; 83525; 83605; 83735; 84100; 84443; 84484; 85025; 85027; 85610; 85730; 86301; 86850; 86900; 86901; 87040; 87186; 93005; 93010; 97116-GP; 97161-GP; 99282-25; C9803; J0131; U0003; U0005

== ENCOUNTER 2022-02-28 03:11 | Inpatient (IN) | payer OTHER ==
[2022-02-28 07:41] LABS: CHLORIDE 107 mmol/L (98-107); SODIUM 141 mmol/L (136-145)
[2022-02-28 07:43] LABS: CALCIUM 8.5 mg/dL (8.5-10.1)
[2022-02-28 07:44] LABS: ALBUMIN 1.9 g/dl (3.4-5.0); ANION GAP 9 MMOL/L (8-16); BLOOD UREA NITROGEN 74.1 mg/dL (7-18); CO2 25 mmol/L (21-32); GLUCOSE,RANDOM 73 mg/dL (74-106); MAGNESIUM 1.8 mg/dL (1.8-2.4)
[2022-02-28 07:47] LABS: CREATININE 2.1 mg/dL (0.55-1.3); SGOT/AST 57 U/L (15-37); SGPT/ALT 17 U/L (13-61)
[2022-02-28 07:49] LABS: BASO % 0.5 % (0-2.0); BILIRUBIN,TOTAL 0.8 mg/dL (0.2-1); EOS % 0.1 % (0-4.5); HEMATOCRIT 24.8 % (35.4-49); HEMOGLOBIN 7.9 GM/dL (11.7-16.9); LACTIC ACID 2.1 mmol/L (0.4-2.0); LYMPH % 17.9 % (8-40); MCH 27.2 pg (25.7-33.7); MCHC 31.8 g/dl (32.0-35.9); MEAN CELL VOLUME 85.7 fl (80-96); MEAN PLT VOLUME 8.5 fl (7.5-11.1); MONO % 11.4 % (3.8-10.2); NEUT % 70.1 % (42.8-82.8); PLATELET COUNT 263 10^3/uL (134-434); RDW 15.8 % (11.9-15.9)
[2022-02-28 07:50] LABS: ALK PHOS 183 U/L (45-117)
[2022-02-28] MEDS ORDERED: LACTATED RINGERS SOLUTION 1000 ML INFUS.BAG IV ONE (07:56)
[2022-02-28 09:16] LABS: CALCIUM 8.4 mg/dL (8.5-10.1)
[2022-02-28 09:17] LABS: BLOOD UREA NITROGEN 77.4 mg/dL (7-18)
[2022-02-28 09:20] LABS: CREATININE 2.1 mg/dL (0.55-1.3)
[2022-02-28] MEDS ORDERED: ACETAMINOPHEN 1000 MG/100 ML BAG IVPB ONE (09:37)
[2022-02-28] MEDS ORDERED: ACETAMINOPHEN INJECTION 100 ML IVPB ONE (09:47)
[2022-02-28] MEDS: HEPARIN NA (PORCINE) 5,000 UNITS/ML 1ML VIAL SQ SCH (23:10)
[2022-03-01] MEDS ORDERED: ACETAMINOPHEN 1000 MG/100 ML BAG IVPB ONE (03:32)
[2022-03-01 09:10] LABS: EPI CELLS 11 /uL (0-25.1); HYALINE CASTS 0 /uL (0-3.1); PH,URINE 5.5 (5.0-8.0); URINE APPEARANCE CLEAR; URINE BACTERIA >9,000 /uL (0-1359); URINE BILIRUBIN NEGATIVE (NEGATIVE); URINE COLOR YELLOW; URINE GLUCOSE (UA) NEGATIVE (NEGATIVE); URINE KETONE NEGATIVE (NEGATIVE); URINE LEUK ESTERASE 1+ (NEGATIVE); URINE NITRITE NEGATIVE (NEGATIVE); URINE PROTEIN TRACE (NEGATIVE); URINE RBC 12 /uL (0-23.9); URINE UROBILINOGEN 0.2 mg/dL (0.2-1.0); URINE WBC 71 /uL (0-25.8)
[2022-03-01 09:14] LABS: METHADONE, UR NEGATIVE (NEGATIVE); PHENCYCLIDINE,URINE NEGATIVE (NEGATIVE); URINE BENZODIAZEPINES NEGATIVE (NEGATIVE)
[2022-03-01 09:15] LABS: URINE AMPHETAMINES NEGATIVE (NEGATIVE)
[2022-03-01 09:39] LABS: COCAINE, UR POSITIVE (NEGATIVE); OPIATES, URI POSITIVE (NEGATIVE); URINE BARBITURATES NEGATIVE (NEGATIVE)
[2022-03-01] MEDS: HEPARIN NA (PORCINE) 5,000 UNITS/ML 1ML VIAL SQ SCH ×2 (09:57→22:18)
[2022-03-01] MEDS ORDERED: SODIUM CHLORIDE 1,000 ML IV SCH (10:00)
[2022-03-01] MEDS ORDERED: CEFTRIAXONE 1 GM in DEXTROSE 5%-WATER - 50 ML IVPB SCH (10:00)
[2022-03-01 10:44] LABS: BASO % 0.3 % (0-2.0); EOS % 0.1 % (0-4.5); HEMATOCRIT 29.5 % (35.4-49); HEMOGLOBIN 9.5 GM/dL (11.7-16.9); LYMPH % 14.2 % (8-40); MCH 27.7 pg (25.7-33.7); MCHC 32.1 g/dl (32.0-35.9); MEAN CELL VOLUME 86.2 fl (80-96); MEAN PLT VOLUME 8.1 fl (7.5-11.1); MONO % 7.6 % (3.8-10.2); NEUT % 77.8 % (42.8-82.8); PLATELET COUNT 270 10^3/uL (134-434); RBC 3.43 M/mm3 (4.00-5.60); RDW 15.5 % (11.9-15.9); WHITE BLOOD COUNT 5.2 K/mm3 (4.0-10.0)
[2022-03-01 10:46] LABS: RETICULOCYTES 0.87 % (0.5-1.5)
[2022-03-01 11:16] LABS: BLOOD UREA NITROGEN 55.6 mg/dL (7-18); CALCIUM 8.6 mg/dL (8.5-10.1); MAGNESIUM 1.7 mg/dL (1.8-2.4)
[2022-03-01 11:19] LABS: CREATININE 1.5 mg/dL (0.55-1.3); PHOSPHOROUS 1.8 mg/dL (2.5-4.9)
[2022-03-01 11:20] LABS: BILIRUBIN,TOTAL 0.7 mg/dL (0.2-1)
[2022-03-01] MEDS ORDERED: MAGNESIUM SULF 50% (8.12 MEQ/2 ML-1 GM VIAL) IVPB ONE (12:15)
[2022-03-01] MEDS ORDERED: POTASSIUM PHOSPHATE 15 MM in DEXTROSE 5%-WATER - 250 ML IVPB ONE (13:30)
[2022-03-01] MEDS ORDERED: MEROPENEM 500 MG in DEXTROSE 5%-WATER 100 ML IVPB ONE (14:00)
[2022-03-01] MEDS: ACETAMINOPHEN 1000 MG/100 ML BAG IVPB PRN (22:18)
[2022-03-02] MEDS: ACETAMINOPHEN 1000 MG/100 ML BAG IVPB PRN ×2 (04:02→14:30)
[2022-03-02] MEDS ORDERED: cloNIDine HCL 0.1 MG TABLET PO PRN (09:19)
[2022-03-02] MEDS ORDERED: methaDONE HCL 10 MG TABLET PO ONE (09:19)
[2022-03-02] MEDS: HEPARIN NA (PORCINE) 5,000 UNITS/ML 1ML VIAL SQ SCH ×2 (09:29→22:00)
[2022-03-02 10:32] LABS: BASO % 0.2 % (0-2.0); HEMATOCRIT 29.5 % (35.4-49); HEMOGLOBIN 9.4 GM/dL (11.7-16.9); LYMPH % 15.5 % (8-40); MCH 27.3 pg (25.7-33.7); MEAN CELL VOLUME 85.3 fl (80-96); MEAN PLT VOLUME 8.2 fl (7.5-11.1); MONO % 4.3 % (3.8-10.2); PLATELET COUNT 345 10^3/uL (134-434); RBC 3.45 M/mm3 (4.00-5.60); RDW 15.4 % (11.9-15.9); WHITE BLOOD COUNT 4.9 K/mm3 (4.0-10.0)
[2022-03-02 10:59] LABS: ALBUMIN 1.9 g/dl (3.4-5.0); BLOOD UREA NITROGEN 36.3 mg/dL (7-18); CALCIUM 8.7 mg/dL (8.5-10.1); MAGNESIUM 1.9 mg/dL (1.8-2.4)
[2022-03-02 11:02] LABS: CREATININE 1.2 mg/dL (0.55-1.3); PHOSPHOROUS 2.1 mg/dL (2.5-4.9)
[2022-03-02 11:04] LABS: BILIRUBIN,TOTAL 0.7 mg/dL (0.2-1)
[2022-03-02 12:10] LABS: HIV INTERPRETATION NEGATIVE (NEGATIVE)
[2022-03-02] MEDS: MEROPENEM 1 GM in DEXTROSE 5%-WATER 100 ML IVPB SCH ×2 (12:40→19:09)
[2022-03-02] MEDS ORDERED: NAPH,MB-DB/K PH,MBDB POWDER PACKET PO ONE (14:09)
[2022-03-02] MEDS ORDERED: MELATONIN 5 MG TABLETS PO ONE (23:15)
[2022-03-02] MEDS ORDERED: ACETAMINOPHEN 500 MG TABLET (FP) PO ONE (23:15)
[2022-03-03] MEDS: MEROPENEM 1 GM in DEXTROSE 5%-WATER 100 ML IVPB SCH ×2 (03:00→09:38)
[2022-03-03] MEDS: HEPARIN NA (PORCINE) 5,000 UNITS/ML 1ML VIAL SQ SCH ×2 (09:37→21:44)
[2022-03-03 09:38] LABS: BASO % 0.4 % (0-2.0); EOS % 0.1 % (0-4.5); HEMATOCRIT 29.8 % (35.4-49); HEMOGLOBIN 9.5 GM/dL (11.7-16.9); LYMPH % 15.3 % (8-40); MCH 27.4 pg (25.7-33.7); MCHC 31.9 g/dl (32.0-35.9); MEAN PLT VOLUME 8.3 fl (7.5-11.1); MONO % 4.5 % (3.8-10.2); NEUT % 79.7 % (42.8-82.8); PLATELET COUNT 289 10^3/uL (134-434); RBC 3.47 M/mm3 (4.00-5.60); RDW 15.5 % (11.9-15.9)
[2022-03-03 10:08] LABS: PHOSPHOROUS 2.2 mg/dL (2.5-4.9)
[2022-03-03 10:09] LABS: ALBUMIN 1.7 g/dl (3.4-5.0)
[2022-03-03 10:10] LABS: BILIRUBIN,TOTAL 0.6 mg/dL (0.2-1); BLOOD UREA NITROGEN 23.1 mg/dL (7-18); TOT PROT 6.5 g/dl (6.4-8.2)
[2022-03-03 10:11] LABS: CALCIUM 8.4 mg/dL (8.5-10.1)
[2022-03-03 10:12] LABS: MAGNESIUM 1.9 mg/dL (1.8-2.4)
[2022-03-03] MEDS ORDERED: SODIUM PHOSPHATE - 15 MM in DEXTROSE 5%-WATER - 250 ML IVPB ONE (11:00)
[2022-03-03] MEDS: CEFTRIAXONE 1 GM in DEXTROSE 5%-WATER - 50 ML IVPB SCH (13:38)
[2022-03-03] MEDS ORDERED: ACETAMINOPHEN 500 MG TABLET (FP) PO ONE (17:27)
[2022-03-03] MEDS: MELATONIN 5 MG TABLETS PO SCH (21:44)
[2022-03-04] MEDS: ACETAMINOPHEN 1000 MG/100 ML BAG IVPB PRN ×2 (06:53→14:19)
[2022-03-04] MEDS ORDERED: cefTRIAXone SODIUM 1 GM VIAL ONE (09:54)
[2022-03-04] MEDS ORDERED: methaDONE HCL 10 MG TABLET PO ONE (10:00)
[2022-03-04] MEDS: HEPARIN NA (PORCINE) 5,000 UNITS/ML 1ML VIAL SQ SCH ×2 (10:06→22:40)
[2022-03-04] MEDS: CEFTRIAXONE 1 GM in DEXTROSE 5%-WATER - 50 ML IVPB SCH (10:07)
[2022-03-04] MEDS ORDERED: SODIUM CHLORIDE 1,000 ML IV SCH (10:15)
[2022-03-04 11:47] LABS: BASO % 0.5 % (0-2.0); EOS % 0.1 % (0-4.5); HEMATOCRIT 26.6 % (35.4-49); HEMOGLOBIN 8.4 GM/dL (11.7-16.9); LYMPH % 15.6 % (8-40); MCH 27.3 pg (25.7-33.7); MCHC 31.5 g/dl (32.0-35.9); MEAN CELL VOLUME 86.7 fl (80-96); MEAN PLT VOLUME 7.7 fl (7.5-11.1); MONO % 6.8 % (3.8-10.2); PLATELET COUNT 206 10^3/uL (134-434); RBC 3.07 M/mm3 (4.00-5.60); RDW 14.9 % (11.9-15.9)
[2022-03-04 12:29] LABS: CALCIUM 8.4 mg/dL (8.5-10.1)
[2022-03-04 12:30] LABS: ALBUMIN 1.8 g/dl (3.4-5.0); BLOOD UREA NITROGEN 22.1 mg/dL (7-18); MAGNESIUM 1.8 mg/dL (1.8-2.4)
[2022-03-04 12:33] LABS: CREATININE 1.2 mg/dL (0.55-1.3)
[2022-03-04 12:35] LABS: BILIRUBIN,TOTAL 0.3 mg/dL (0.2-1); TOT PROT 6.4 g/dl (6.4-8.2)
[2022-03-04] MEDS ORDERED: QUEtiapine FUMARATE 25 MG TABLET PO ONE (22:04)
[2022-03-04] MEDS ORDERED: MELATONIN 5 MG TABLETS PO ONE (22:05)
[2022-03-04] MEDS: MELATONIN 5 MG TABLETS PO SCH (22:41)
[2022-03-05] MEDS: CEFTRIAXONE 1 GM in DEXTROSE 5%-WATER - 50 ML IVPB SCH (10:29)
[2022-03-05] MEDS: HEPARIN NA (PORCINE) 5,000 UNITS/ML 1ML VIAL SQ SCH ×2 (10:29→22:50)
[2022-03-05 11:31] LABS: BASO % 0.6 % (0-2.0); EOS % 0.7 % (0-4.5); HEMOGLOBIN 8.3 GM/dL (11.7-16.9); LYMPH % 19.3 % (8-40); MCH 27.1 pg (25.7-33.7); MCHC 30.9 g/dl (32.0-35.9); MEAN PLT VOLUME 7.8 fl (7.5-11.1); MONO % 8.2 % (3.8-10.2); NEUT % 71.2 % (42.8-82.8); PLATELET COUNT 276 10^3/uL (134-434); RBC 3.07 M/mm3 (4.00-5.60); RDW 15.5 % (11.9-15.9)
[2022-03-05 12:08] LABS: CALCIUM 8.4 mg/dL (8.5-10.1)
[2022-03-05 12:09] LABS: BLOOD UREA NITROGEN 19.1 mg/dL (7-18); MAGNESIUM 1.8 mg/dL (1.8-2.4)
[2022-03-05 12:11] LABS: ALBUMIN 1.8 g/dl (3.4-5.0)
[2022-03-05] MEDS: ACETAMINOPHEN 1000 MG/100 ML BAG IVPB PRN ×2 (12:11→22:50)
[2022-03-05 12:13] LABS: TOT PROT 6.4 g/dl (6.4-8.2)
[2022-03-05 12:14] LABS: BILIRUBIN,TOTAL 0.3 mg/dL (0.2-1); CREATININE 1.1 mg/dL (0.55-1.3)
[2022-03-05 12:15] LABS: PHOSPHOROUS 2.6 mg/dL (2.5-4.9)
[2022-03-05] MEDS: MELATONIN 5 MG TABLETS PO SCH (22:50)
[2022-03-06] MEDS ORDERED: QUEtiapine FUMARATE 25 MG TABLET PO ONE (00:14)
[2022-03-06] MEDS: ACETAMINOPHEN 1000 MG/100 ML BAG IVPB PRN (07:20)
[2022-03-06 08:12] VITALS: RESP 18
[2022-03-06] MEDS: HEPARIN NA (PORCINE) 5,000 UNITS/ML 1ML VIAL SQ SCH ×2 (09:30→21:18)
[2022-03-06] MEDS: CEFTRIAXONE 1 GM in DEXTROSE 5%-WATER - 50 ML IVPB SCH (09:31)
[2022-03-06] MEDS ORDERED: methaDONE HCL 10 MG TABLET PO ONE (10:00)
[2022-03-06] MEDS: AMMONIUM LACTATE 12% LOTION 225 GM BOTTLE TP PRN (11:19)
[2022-03-06 12:50] LABS: BASO % 0.6 % (0-2.0); EOS % 0.4 % (0-4.5); HEMATOCRIT 24.1 % (35.4-49); HEMOGLOBIN 7.5 GM/dL (11.7-16.9); LYMPH % 14.1 % (8-40); MCH 27.4 pg (25.7-33.7); MCHC 31.2 g/dl (32.0-35.9); MEAN CELL VOLUME 87.9 fl (80-96); MEAN PLT VOLUME 8.7 fl (7.5-11.1); MONO % 4.9 % (3.8-10.2); PLATELET COUNT 211 10^3/uL (134-434); RBC 2.75 M/mm3 (4.00-5.60); RDW 15.5 % (11.9-15.9)
[2022-03-06 13:15] LABS: ALBUMIN 1.7 g/dl (3.4-5.0); CALCIUM 7.9 mg/dL (8.5-10.1); MAGNESIUM 1.8 mg/dL (1.8-2.4)
[2022-03-06 13:17] LABS: PHOSPHOROUS 1.8 mg/dL (2.5-4.9)
[2022-03-06 13:19] LABS: BILIRUBIN,TOTAL 0.2 mg/dL (0.2-1); TOT PROT 6.1 g/dl (6.4-8.2)
[2022-03-06] MEDS ORDERED: ACETAMINOPHEN 1000 MG/100 ML BAG IVPB PRN (17:39)
[2022-03-06] MEDS: GABAPENTIN 100 MG CAPSULE PO SCH (21:18)
[2022-03-06] MEDS: MELATONIN 5 MG TABLETS PO SCH (21:18)
[2022-03-06] MEDS: QUEtiapine FUMARATE 25 MG TABLET PO SCH (21:19)
[2022-03-07] MEDS: GABAPENTIN 100 MG CAPSULE PO SCH ×3 (06:13→22:01)
[2022-03-07] MEDS: HEPARIN NA (PORCINE) 5,000 UNITS/ML 1ML VIAL SQ SCH (09:09)
[2022-03-07 09:28] LABS: ALBUMIN 1.6 g/dl (3.4-5.0); CALCIUM 8.2 mg/dL (8.5-10.1)
[2022-03-07 09:29] LABS: MAGNESIUM 1.7 mg/dL (1.8-2.4)
[2022-03-07 09:32] LABS: CREATININE 1.1 mg/dL (0.55-1.3); PHOSPHOROUS 2.1 mg/dL (2.5-4.9)
[2022-03-07 09:33] LABS: BILIRUBIN,TOTAL 0.3 mg/dL (0.2-1); TOT PROT 5.8 g/dl (6.4-8.2)
[2022-03-07] MEDS: LACTOBACILLUS ACIDOPHILUS 1 TABLET PO SCH (09:35)
[2022-03-07] MEDS: CEFTRIAXONE 1 GM in DEXTROSE 5%-WATER - 50 ML IVPB SCH (11:05)
[2022-03-07] MEDS: ACETAMINOPHEN 500 MG TABLET (FP) PO SCH ×3 (11:28→21:59)
[2022-03-07] MEDS: MULTIVITAMINS (DAILY MVI) TABLET (FP) PO SCH (11:29)
[2022-03-07] MEDS: AMMONIUM LACTATE 12% LOTION 225 GM BOTTLE TP PRN (11:38)
[2022-03-07 13:32] LABS: BASO % 1.2 % (0-2.0); EOS % 0.5 % (0-4.5); HEMATOCRIT 21.4 % (35.4-49); LYMPH % 22.8 % (8-40); MCH 27.4 pg (25.7-33.7); MCHC 31.3 g/dl (32.0-35.9); MEAN CELL VOLUME 87.5 fl (80-96); MEAN PLT VOLUME 7.9 fl (7.5-11.1); MONO % 9.9 % (3.8-10.2); NEUT % 65.6 % (42.8-82.8); PLATELET COUNT 182 10^3/uL (134-434); RBC 2.45 M/mm3 (4.00-5.60); RDW 15.4 % (11.9-15.9); WHITE BLOOD COUNT 4.2 K/mm3 (4.0-10.0)
[2022-03-07 13:40] LABS: HEMOGLOBIN 6.7 GM/dL (11.7-16.9)
[2022-03-07 14:20] LABS: ERYTHROCYTE SEDIMENTATION RATE 78 mm/hr (0-20)
[2022-03-07] MEDS: VANCOMYCIN/WATER FOR INJ (PEG) 1,000 MG/250 ML BAG IVPB SCH (15:48)
[2022-03-07] MEDS: FERROUS SO4 325 MG TABLET (FP) PO SCH (16:03)
[2022-03-07 16:22] LABS: HEMATOCRIT 21.3 % (35.4-49); MCH 27.8 pg (25.7-33.7); MCHC 31.8 g/dl (32.0-35.9); MEAN CELL VOLUME 87.6 fl (80-96); MEAN PLT VOLUME 8.4 fl (7.5-11.1); PLATELET COUNT 184 10^3/uL (134-434); RBC 2.43 M/mm3 (4.00-5.60); RDW 15.3 % (11.9-15.9); WHITE BLOOD COUNT 4.3 K/mm3 (4.0-10.0)
[2022-03-07 16:29] LABS: HEMOGLOBIN 6.8 GM/dL (11.7-16.9)
[2022-03-07] MEDS: MELATONIN 5 MG TABLETS PO SCH (21:57)
[2022-03-07] MEDS: QUEtiapine FUMARATE 25 MG TABLET PO SCH (21:57)
[2022-03-08] MEDS: ACETAMINOPHEN 500 MG TABLET (FP) PO SCH ×4 (04:23→22:19)
[2022-03-08] MEDS: VANCOMYCIN/WATER FOR INJ (PEG) 1,000 MG/250 ML BAG IVPB SCH (04:23)
[2022-03-08] MEDS: GABAPENTIN 100 MG CAPSULE PO SCH (06:06)
[2022-03-08] MEDS: LACTOBACILLUS ACIDOPHILUS 1 TABLET PO SCH (10:00)
[2022-03-08] MEDS: FERROUS SO4 325 MG TABLET (FP) PO SCH (10:00)
[2022-03-08] MEDS: MULTIVITAMINS (DAILY MVI) TABLET (FP) PO SCH (10:01)
[2022-03-08 11:46] LABS: BASO % 0.9 % (0-2.0); EOS % 0.4 % (0-4.5); HEMATOCRIT 24.6 % (35.4-49); HEMOGLOBIN 7.9 GM/dL (11.7-16.9); LYMPH % 10.1 % (8-40); MCH 27.9 pg (25.7-33.7); MCHC 32.3 g/dl (32.0-35.9); MEAN CELL VOLUME 86.4 fl (80-96); MEAN PLT VOLUME 8.1 fl (7.5-11.1); MONO % 6.7 % (3.8-10.2); NEUT % 81.9 % (42.8-82.8); PLATELET COUNT 212 10^3/uL (134-434); RBC 2.84 M/mm3 (4.00-5.60); RDW 15.4 % (11.9-15.9); WHITE BLOOD COUNT 5.8 K/mm3 (4.0-10.0)
[2022-03-08 12:05] LABS: BLOOD UREA NITROGEN 17.2 mg/dL (7-18); CALCIUM 8.3 mg/dL (8.5-10.1); MAGNESIUM 1.7 mg/dL (1.8-2.4)
[2022-03-08 12:09] LABS: CREATININE 0.9 mg/dL (0.55-1.3); PHOSPHOROUS 2.1 mg/dL (2.5-4.9)
[2022-03-08] MEDS: GABAPENTIN 300 MG CAPSULE PO SCH ×2 (13:04→22:19)
[2022-03-08] MEDS: VANCOMYCIN 250 MG/5 ML ORAL SOLUTION PO SCH (17:05)
[2022-03-08] MEDS: MELATONIN 5 MG TABLETS PO SCH (22:19)
[2022-03-08] MEDS: QUEtiapine FUMARATE 25 MG TABLET PO SCH (22:19)
[2022-03-09] MEDS: ACETAMINOPHEN 500 MG TABLET (FP) PO SCH ×4 (04:25→22:15)
[2022-03-09] MEDS: VANCOMYCIN 250 MG/5 ML ORAL SOLUTION PO SCH ×4 (06:16→17:03)
[2022-03-09] MEDS: GABAPENTIN 300 MG CAPSULE PO SCH ×3 (06:16→22:15)
[2022-03-09 09:30] LABS: BASO % 0.5 % (0-2.0); EOS % 0.4 % (0-4.5); HEMATOCRIT 26.4 % (35.4-49); HEMOGLOBIN 8.4 GM/dL (11.7-16.9); LYMPH % 17.8 % (8-40); MCH 27.9 pg (25.7-33.7); MCHC 31.8 g/dl (32.0-35.9); MEAN CELL VOLUME 87.5 fl (80-96); MEAN PLT VOLUME 7.7 fl (7.5-11.1); MONO % 5.4 % (3.8-10.2); NEUT % 75.9 % (42.8-82.8); PLATELET COUNT 266 10^3/uL (134-434); RBC 3.02 M/mm3 (4.00-5.60); RDW 15.6 % (11.9-15.9); WHITE BLOOD COUNT 5.6 K/mm3 (4.0-10.0)
[2022-03-09 09:56] LABS: BLOOD UREA NITROGEN 19.8 mg/dL (7-18); CALCIUM 8.6 mg/dL (8.5-10.1); MAGNESIUM 1.9 mg/dL (1.8-2.4)
[2022-03-09 09:57] LABS: CREATININE 1.1 mg/dL (0.55-1.3); PHOSPHOROUS 2.6 mg/dL (2.5-4.9)
[2022-03-09 10:01] LABS: BILIRUBIN,TOTAL 0.3 mg/dL (0.2-1); TOT PROT 6.9 g/dl (6.4-8.2)
[2022-03-09 10:05] LABS: ALBUMIN 1.9 g/dl (3.4-5.0)
[2022-03-09] MEDS: MULTIVITAMINS (DAILY MVI) TABLET (FP) PO SCH (10:38)
[2022-03-09] MEDS: LACTOBACILLUS ACIDOPHILUS 1 TABLET PO SCH (10:38)
[2022-03-09] MEDS: FERROUS SO4 325 MG TABLET (FP) PO SCH (10:38)
[2022-03-09 12:47] VITALS: BMI 19.6
[2022-03-09] MEDS ORDERED: LIDOCAINE 5% TOPICAL PATCH TP ONE (16:50)
[2022-03-09] MEDS ORDERED: LIDOCAINE PATCH REMOVAL MC SCH (22:00)
[2022-03-09] MEDS: APIXABAN 5 MG TABLET PO SCH (22:14)
[2022-03-09] MEDS: MELATONIN 5 MG TABLETS PO SCH (22:14)
[2022-03-09] MEDS: QUEtiapine FUMARATE 25 MG TABLET PO SCH (22:15)
[2022-03-10] MEDS: VANCOMYCIN 250 MG/5 ML ORAL SOLUTION PO SCH ×3 (03:01→16:08)
[2022-03-10] MEDS: ACETAMINOPHEN 500 MG TABLET (FP) PO SCH ×2 (04:00→10:26)
[2022-03-10] MEDS: GABAPENTIN 300 MG CAPSULE PO SCH ×2 (07:10→16:09)
[2022-03-10] MEDS: FERROUS SO4 325 MG TABLET (FP) PO SCH (10:26)
[2022-03-10] MEDS: LACTOBACILLUS ACIDOPHILUS 1 TABLET PO SCH (10:27)
[2022-03-10] MEDS: MULTIVITAMINS (DAILY MVI) TABLET (FP) PO SCH (10:27)
[2022-03-10] MEDS: APIXABAN 5 MG TABLET PO SCH (10:27)
[2022-03-10 16:16] VITALS: BP 120/62; PULSE 78; TEMP 98.6
== END 2022-03-10 16:10 | disposition home or self-care (01) | DRG 637 ==
LOC: JER 03:11 → JERBED 08:46 → J6S 19:05 → J7W 03-10 03:55
PROVIDERS: ADMIT Internal Medicine; ATTEND Internal Medicine
PROC: 30233N1 Transfusion of Nonautologous Red Blood Cells into Peripheral Vein, Percutaneous Approach (ICD-10-PCS; principal; 2022-03-07)
DX: E11.649 Type 2 diabetes mellitus with hypoglycemia without coma (principal); G92.8 Other toxic encephalopathy; N39.0 Urinary tract infection, site not specified; R64 Cachexia; Z68.1 Body mass index [BMI] 19.9 or less, adult; A04.72 Enterocolitis due to Clostridium difficile, not specified as recurrent; N17.9 Acute kidney failure, unspecified; I10 Essential (primary) hypertension; J44.9 Chronic obstructive pulmonary disease, unspecified; F17.210 Nicotine dependence, cigarettes, uncomplicated; F14.10 Cocaine abuse, uncomplicated; D50.0 Iron deficiency anemia secondary to blood loss (chronic); F19.10 Other psychoactive substance abuse, uncomplicated; B35.1 Tinea unguium; E78.5 Hyperlipidemia, unspecified; L85.3 Xerosis cutis; B96.1 Klebsiella pneumoniae [K. pneumoniae] as the cause of diseases classified elsewhere
CPT/HCPCS: 0241U-QW; 36415; 36430; 70450-TC; 71045-TC-FY; 72131-TC; 73560-TC-LT-FY; 74176-TC; 80048; 80053; 80307; 81003; 82140; 82272; 82607; 82728; 82746; 82962; 83540; 83550; 83605; 83735; 84100; 84443; 84466; 84484; 85025; 85027; 85045; 85651; 86140; 86480; 86850; 86900; 86901; 86922; 87040; 87086; 87186; 87324; 87389; 87449; 93005; 93010; 93306-TC; 97116-GP; 97161-GP; 99285-25; G0480; J1644; P9058

== ENCOUNTER 2022-05-20 14:25 | Emergency (ER) | payer OTHER ==
[2022-05-20 15:51] VITALS: BMI 19.2
[2022-05-20 16:44] LABS: BASO % 0.5 % (0-2.0); EOS % 0.2 % (0-4.5); HEMATOCRIT 27.6 % (35.4-49); HEMOGLOBIN 8.7 GM/dL (11.7-16.9); LYMPH % 10.3 % (8-40); MCH 26.6 pg (25.7-33.7); MCHC 31.3 g/dl (32.0-35.9); MEAN CELL VOLUME 85.1 fl (80-96); MEAN PLT VOLUME 7.8 fl (7.5-11.1); PLATELET COUNT 192 10^3/uL (134-434); RBC 3.25 M/mm3 (4.00-5.60); RDW 18.1 % (11.9-15.9); WHITE BLOOD COUNT 5.4 K/mm3 (4.0-10.0)
[2022-05-20 16:51] LABS: INR 1.46 (0.83-1.09); PROTHROMBIN TIME (PATIENT) 16.9 SEC (9.7-13.0)
[2022-05-20 16:54] LABS: ACTIVATED PTT 36.2 SECONDS (25.2-36.5)
[2022-05-20 17:25] LABS: MAGNESIUM 1.9 mg/dL (1.8-2.4)
[2022-05-20 17:27] LABS: ALBUMIN 2.6 g/dl (3.4-5.0); BLOOD UREA NITROGEN 56.5 mg/dL (7-18)
[2022-05-20 17:29] LABS: CREATININE 1.3 mg/dL (0.55-1.3)
[2022-05-20 17:31] LABS: TOT PROT 7.2 g/dl (6.4-8.2)
[2022-05-20 17:32] LABS: BILIRUBIN,TOTAL 0.9 mg/dL (0.2-1)
[2022-05-20 17:50] LABS: ERYTHROCYTE SEDIMENTATION RATE 44 mm/hr (0-20)
[2022-05-20] MEDS ORDERED: LORazepam 2 MG/ML SDV VIAL IVPUSH ONE (18:29)
[2022-05-20] MEDS ORDERED: SODIUM CHLORIDE 0.9% 500 ML INFUS.BAG IV ONE (18:54)
[2022-05-21 00:35] VITALS: RESP 20
[2022-05-21 00:58] VITALS: TEMP 97.4
[2022-05-21 02:04] VITALS: BP 132/74; PULSE 74
== END 2022-05-21 02:12 | disposition short-term general hospital (02) ==
LOC: JER 14:25
PROC: 3E033NZ Introduction of Analgesics, Hypnotics, Sedatives into Peripheral Vein, Percutaneous Approach (ICD-10-PCS; principal; 2022-05-20)
DX: F19.10 Other psychoactive substance abuse, uncomplicated (principal); M54.50 Low back pain, unspecified; Z20.822 Contact with and (suspected) exposure to COVID-19
CPT/HCPCS: 36415; 70450-TC; 72157-TC; 72158-TC; 80053; 80061; 82962; 83036; 83605; 83735; 84484; 85025; 85610; 85651; 85730; 86140; 86850; 86900; 86901; 87040; 93005; 93010; 99285-25; C9803-CS; U0003; U0005